=== PATIENT | female | born 1935 | race Caucasian/White ===

== ENCOUNTER 2020-07-01 09:13 | Outpatient (REF) | payer MEDICARE, SELFPAY ==
[2020-07-01 11:05] LABS: Alanine Aminotransferase 10 U/L (0-31); Albumin Level 3.7 g/dL (3.5-5.0); Alkaline Phosphatase 131 U/L (39-117); Anion Gap 12 (12-20); Aspartate Amino Transferase 20 U/L (5-31); Bilirubin Total 0.4 mg/dL (0.0-1.0); Blood Urea Nitrogen 15 mg/dL (9-16); Calcium 8.8 mg/dL (8.4-10.2); Carbon Dioxide 26 mmol/L (22-29); Chloride 105 mmol/L (96-108); Estimated Glomerular Filt Rate 36; Glucose Random 93 mg/dL (60-115); Lipase 34 U/L (8-78); Potassium 4.7 mmol/l (3.3-5.1); Sodium 138 mmol/L (135-145); Total Protein 7.7 g/dL (6.5-8.0)
[2020-07-01 11:26] LABS: Free T4 (Free Thyroxine) 0.97 ng/dL (0.71-1.85); Thyroid Stimulating Hormone 0.49 mIU/mL (0.32-4.0)
[2020-07-02 17:02] LABS: Triiodothyronine T3 Free 2.5 pg/mL (2.3-4.2)
== END 2020-07-01 09:14 | disposition home or self-care (01) ==
LOC: HO.10HDL 09:13
PROVIDERS: Absent Provider Internal Medicine; PCP Internal Medicine; Visit Provider Nurse Practitioner Family
DX: I48.0 Paroxysmal atrial fibrillation (principal); R00.2 Palpitations
CPT/HCPCS: 80053; 83690; 84439; 84443; 84481

== ENCOUNTER → 2020-07-24 13:29 | Outpatient (BNVA) | payer MEDICARE, OTHER, SELFPAY | PROVIDERS: PCP Internal Medicine; Visit Provider Internal Medicine Cardiovascular Disease | DX: I49.3 Ventricular premature depolarization (principal); I42.8 Other cardiomyopathies; Z45.02 Encounter for adjustment and management of automatic implantable cardiac defibrillator; I50.20 Unspecified systolic (congestive) heart failure; I48.0 Paroxysmal atrial fibrillation; Z79.01 Long term (current) use of anticoagulants; Z79.899 Other long term (current) drug therapy | CPT/HCPCS: 99212 ==

== ENCOUNTER → 2020-08-21 08:29 | Outpatient (REF) | payer MEDICARE, OTHER, SELFPAY ==
--- NOTE | 2020-08-21 08:32 | CA_ITS ---
Transthoracic Echocardiogram Patient (Last, First, Middle): Nina Azar, Gender: Female Date of : 1935 Age: 84 Procedure Date: 08/21/2020 Procedure Type: Transthoracic Echocardiogram Location: OP Height: 165.1 cm Weight: 56.25 kg BSA: 1.61 m2 Heart Rate: bpm BP: 128 / 66 mmHg Antiquer: Michael MD: Nitish Frias MD Symptoms: R00.2 - Palpitations Study Quality: Good ECG Rhythm: Undetermined Conclusions: - The left ventricular systolic function is severely decreased. The visually estimated ejection fraction is between 20-25%. - There is mild to moderately decreased right ventricular systolic function. - There is mild mitral valve regurgitation. Findings Procedure Information Contrast agent, definity, is being given per protocol without apparent complications. Left Ventricle Mildly increased left ventricular cavity size. There is normal left ventricular wall thickness. The left ventricular systolic function is severely decreased. The visually estimated ejection fraction is between 20 25%. There is severe global hypokinesis. E/E prime ratio is >15, consistent with elevated filling pressures. Evidence suggests grade I (mild) diastolic dysfunction. Right Ventricle Normal right ventricular cavity size. There is mild to moderately decreased right ventricular systolic function. There is an ICD wire seen in the right ventricle. Atria The left atrium is mildly dilated. The right atrium is normal in size. Aortic Valve There is a normal trileaflet aortic valve. There is no aortic valve stenosis. There is no aortic valve regurgitation. Mitral Valve There is mild anterior and posterior mitral leaflet thickening. The posterior mitral leaflet has restricted mobility. There is mild mitral annular calcification. There is mild mitral valve regurgitation. There is no mitral valve stenosis. Pulmonic Valve The pulmonic valve was not well visualized. There is mild pulmonic valve regurgitation. Tricuspid Valve Normal tricuspid valve structure. There is mild tricuspid valve regurgitation. The pulmonary artery systolic pressure is normal. Great Vessels The aortic annulus, sinuses of valsalva, and asc aorta are normal in size. Venous The inferior vena cava is normal in size and collapses greater than 50% with inspiration. Pericardium/Pleural There is no evidence of pericardial effusion. Prior Study Comparison No significant change compared to prior study dated: 10/25/2019. Measurements 2D Linear Measurements RVIDd: 3.24 RVIDd Index: 2.01 IVSd: 0.78 0.6-0.9/0.6-1.0 cm LVIDd: 5.94 3.9-5.3/4.2-5.9 cm LVIDd Index: 3.69 2.4-3.2/2.2-3.1 cm/m2 LVIDs: 5.82 2.0-3.6 cm LVPWd: 1.01 0.7-1.1 cm Ao Root: 3.10 2.1-3.5 cm LA Diam: 3.60 2.7-3.8/3.0-4.0 cm LAIDs Index: 2.24 1.5-2.3 cm/m2 LV Mass: 262.02 67-162/88-224 g LV Mass Index: 162.75 43-95/49-115 g/m2 LVOT Diam: 2.40 3.0+(-)1.3 cm 2D Systolic Function EF 4C: 33.10 >55% EF 2C: 43.70 >55% Mitral Valve MV Pk E: 0.70 MV PK A: 1.11 MV Decel Time: 177.00 E/A: 0.60 E'Lateral: 2.94 E'Medial: 3.37 E/E' Med: 20.90 E/E' Lat: 23.90 MR Vol - PW Dopp: 33.32 MR VTI: 1.96 MR ERO: 17.00 MR Alias Maninder: 0.39 MR RAD: 0.60 Aortic Valve AoV Pk Maninder: 0.93 AoV Mn Maninder: 0.72 AoV VTI: 0.22 AoV Pk Grad: 3.00 Aov Mn Grad: 2.00 SHEREE Cont.VTI: 1.43 LVOT LVOT Pk Maninder: 0.36 LVOT Mn Maninder: 0.23 LVOT VTI: 0.07 LVOT Pk Grad: 1.00 LVOT Mn Grad: 0.00 LVOT Diam: 2.40 LVOT Area: 4.52 Diastolic Function MV Pk E: 0.70 MV Pk A: 1.11 E/A: 0.60 E'Medial: 3.37 E/E' Med: 20.90 E' Laterial: 2.94 E/E' Lat: 23.90 Tricuspid Valve TR Pk Maninder: 2.00 TR Pk Grad: 16.00 RA Press: 3.00 RVSP: 19.00 Great Vessels Aorta Ao Root-2D: 3.10 2.0-3.7 cm Ao Asc: 3.00 2.1-3.4 cm Ao Arch: 2.70 Updated in Other Vendor System with Status of Final Jose Guadalupe Jordan MD electronically signed on 08/23/2020 12:36:08 PM with status of Final
== END ==
LOC: HO.CARD 08:29
PROVIDERS: PCP Internal Medicine; Visit Provider Internal Medicine Cardiovascular Disease
DX: E03.9 Hypothyroidism, unspecified (principal); I42.9 Cardiomyopathy, unspecified; I48.0 Paroxysmal atrial fibrillation; I50.22 Chronic systolic (congestive) heart failure; I44.7 Left bundle-branch block, unspecified; Z95.810 Presence of automatic (implantable) cardiac defibrillator; R00.2 Palpitations
CPT/HCPCS: 93306; Q9957

== ENCOUNTER 2020-10-01 17:20 | Inpatient (IN) | payer MEDICARE, OTHER, SELFPAY ==
[2020-10-01 17:33] VITALS: BP 128/79; BP 150/77; PULSE 70; PULSE 77; RESP 18; TEMP 36.6; O2SAT 98; BMI 20.1
--- NOTE | 2020-10-01 17:45 | CT_ITS ---
EXAMINATION: CT OF THE HEAD AND CERVICAL SPINE WITHOUT CONTRAST CLINICAL INFORMATION: Status post fall with head injury. No loss of consciousness COMPARISON: CTA 10/25/2019 TECHNIQUE: Contiguous axial imaging was performed from the vertex to the thoracic inlet, through the head and cervical spine, without intravenous administration of contrast. Coronal and sagittal reformatted images through the cervical spine were obtained on the technologists workstation. Total exam dose-length product: 305+672 mGy-cm This CT examination was performed using dose optimization techniques as appropriate, variously including the following: *Automated exposure control *Adjustment of mA and/or kV according to patient size (this includes techniques or standardized protocols for targeted exams where dose is matched to indication/reason for exam; i.e. extremities or head) *Use of iterative reconstruction technique FINDINGS: Head: No acute intracranial hemorrhage. No extra-axial fluid collection. Goodman-white matter differentiation is preserved without evidence of acute large vessel territory ischemia. Symmetric, concordant ventricles and sulci; no hydrocephalus. No mass effect or midline shift. There is a similar appearance of moderate patchy periventricular and subcortical white matter hypodensity consistent with age-appropriate chronic microvascular white matter ischemic changes. 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 Streak artifact limits evaluation of the posterior fossa. There is fluid in the left ethmoid air cells. The frontal sinuses are hypoplastic. There is fluid in the mastoid air cells. Globes and orbits are normal. Cervical spine: Normal pre-vertebral soft tissues. No fracture seen. There is 2 to 3 mm anterolisthesis of C4 on C5, likely degenerative. There is multilevel degenerative disc disease greatest at C5-C6 and especially C7-T1. There is multilevel facet arthropathy. Thyroid homogeneous with no nodules seen. There is no focal consolidation at the lung apices. The trachea is dilated diffusely No cervical lymphadenopathy, mass, or fluid collection. CT/CT cervical spine wo con IMPRESSION: No acute intracranial pathology. No acute osseous abnormality of the cervical spine.
--- NOTE | 2020-10-01 17:45 | ECG_ITS ---
Test Reason : FALL Blood Pressure : / mmHG Vent. Rate : 072 BPM Atrial Rate : 072 BPM P-R Int : 000 ms QRS Dur : 184 ms QT Int : 510 ms P-R-T Axes : 065 -83 126 degrees QTc Int : 558 ms Atrial sensed and Ventricular-paced rhythm with occasional Premature ventricular complexes Abnormal ECG When compared with ECG of 19-MAY-2020 22:24, No significant changes seen Referred By: Alaina Sánchez Electronically Signed By:STEPHANE RING
--- NOTE | 2020-10-01 17:45 | XR_ITS ---
EXAMINATION: XR SHOULDER, LEFT CLINICAL INFORMATION: Left shoulder pain. Status post fall. COMPARISON: None TECHNIQUE: AP external rotation, Grashey, scapular Y, and axillary views of the left shoulder. FINDINGS: Comminuted impacted fracture of the surgical neck with likely extension into the greater tuberosity. Examination is limited by single view. Within this limitation the acromioclavicular and glenohumeral joints appear approximated. Left chest wall cardiac device noted. Bone density is preserved. No lytic or blastic osseous lesions. Visualized left lung is clear. XR/XR shoulder LT 1V IMPRESSION: Left shoulder: Comminuted impacted surgical neck fracture with extension into the greater tuberosity. Glenohumeral joint appears approximated on this limited single view.
[2020-10-01 18:38] LABS: MANUAL DIFF FLAG NO
[2020-10-01] MEDS: 0.9 % Sodium Chloride 1,000 ML 999 ML IVCONT ×2 (18:40→21:30)
[2020-10-01] MEDS: oxyCODONE HCl Immed Release 5 MG TABLET PO (18:41)
[2020-10-01 18:52] LABS: Basophils Absolute Auto 0.1 X10*3/uL (0.0-0.2); Basophils Percent Auto 0.8 % (0-2); Eosinophils Absolute Auto 0.2 X10*3/uL (0.0-0.4); Eosinophils Percent Auto 3.2 % (0-4); Hematocrit 43.5 % (37-47); Hemoglobin 14.2 g/dl (12.0-16.0); Imm Gran Abs Auto 0.24 X10*3/uL (0.00-0.03); Imm Gran Pct Auto 3.2 % (0.0-0.4); Lymphocytes Absolute Auto 2.4 X10*3/uL (1.2-4.9); Lymphocytes Percent Auto 31.9 % (20-40); Mean Corpuscular HGB Conc 32.6 g/dl (31.0-35.0); Mean Corpuscular Hemoglobin 31.6 pg (27.0-33.0); Mean Corpuscular Volume 96.9 fL (80-98); Mean Platelet Volume 10.3 fL (9.4-12.3); Monocytes Absolute Auto 0.4 X10*3/uL (0.1-1.2); Monocytes Percent Auto 5.1 % (2-11); Neutrophils Absolute Auto 4.3 X10*3/uL (2.0-8.3); Neutrophils Percent Auto 55.8 % (45-73); Platelet Count 124 X10*3/uL (160-400); Red Blood Count 4.49 X10*6/uL (4.20-5.50); Red Cell Distribution Width 13.6 % (11.0-16.0); White Blood Count 7.6 X10*3/uL (4.8-10.8)
[2020-10-01 19:03] LABS: Alanine Aminotransferase 18 U/L (0-31); Albumin Level 4.1 g/dL (3.5-5.0); Alkaline Phosphatase 165 U/L (39-117); Anion Gap 18 (12-20); Aspartate Amino Transferase 36 U/L (5-31); Bilirubin Direct < 0.2 mg/dL (0.0-0.5); Bilirubin Total 0.3 mg/dL (0.0-1.0); Blood Urea Nitrogen 17 mg/dL (9-16); Calcium 8.8 mg/dL (8.4-10.2); Carbon Dioxide 21 mmol/L (22-29); Chloride 105 mmol/L (96-108); Creatinine Clr Calc Pharmacy 24.6; Estimated Glomerular Filt Rate 34; Glucose Random 158 mg/dL (60-115); Magnesium 2.6 mg/dL (1.6-2.6); Sodium 139 mmol/L (135-145); Total Protein 8.8 g/dL (6.5-8.0)
[2020-10-01 19:17] LABS: Influenza A PCR NEGATIVE (Negative); Influenza B PCR NEGATIVE (Negative); Resp Syncy Virus RNA Qual PCR NEGATIVE (Negative); SARS COV2 PCR INHOUSE NEGATIVE (Negative)
--- NOTE | 2020-10-01 19:26 | ED_ITS ---
HPI - Fall General Chief Complaint: Fall Stated Complaint: FALL, RT SHOULDER/ARM/BACK PAIN,+COLLAR,-THINNERS Time Seen by Provider: 10/01/20 17:34 Source: patient and EMS Mode of arrival: EMS Limitations: no limitations History of Present Illness HPI Narrative: 84yoF c PMHx of CVA, chronic systolic CHF with reduced ejection fracture, atrial fibrillation, cardiomyopathy, frequent PVCs c Pacemaker/biventricular ICD in place, hypertension, hyperlipidemia, hypercholesterolemia, hypothyroidism and anxiety disorder presenting to the ED vis EMS after she had a mechanical fall outside of her house where she went to go feed the squirrels she slipped on an ice reports she flipped over backwards landing on her back/left shoulder and was unable to get up for approximately 1 hour presenting with pain to left shoulder and limited range of motion. Reports possible head injury although denies loss of consciousness. She is unsure if she is currently on blood thinners. Denies any symptoms prior to the fall which include dizziness, lightheadedness, changes in vision, headaches, nausea/vomiting, chest pain or shortness of breath, palpitations, any symptoms. Denies any other symptoms at this time other than her left shoulder pain. Related Data Home Medications Medication Instructions Recorded Confirmed famotidine 20 mg tablet 20 mg PO BID 07/24/20 10/01/20 lorazepam 1 mg tablet 1 mg PO BID PRN 07/24/20 10/01/20 metoprolol tartrate 25 mg tablet 25 mg PO BID 07/24/20 10/01/20 mirtazapine 15 mg tablet 15 mg PO BEDTIME 07/24/20 10/01/20 lisinopril 5 mg PO DAILY 10/01/20 10/01/20 paroxetine HCl 10 mg PO DAILY 10/01/20 10/01/20 Previous Rx's Medication Instructions Recorded acetaminophen [Tylenol Extra 1,000 mg PO QID PRN #14 tab 10/01/20 Strength] lidocaine [Lidoderm] 1 patch TOPICAL DAILY #30 ea 10/01/20 oxycodone 5 mg PO Q8H PRN #14 tab 10/01/20 Allergies Allergy/AdvReac Type Severity Reaction Status Date / Time No Known Allergies Allergy Unverified 05/29/20 15:36 [No Known Allergies*] Review of Systems Review of Systems: Constitutional : No changes in activity, No lethargy, No recent prior head injury, No agitation, No increased fussiness ENT/Mouth : No Ear Pain, No Nasal discharge/drainage Eyes: No Eye Pain, No Swelling, No Redness, No Foreign Body, No Vision Changes Cardiovascular : No Chest Pain, No SOB Respiratory : No Cough Gastrointestinal : No Nausea, No Vomiting, No abdominal Pain Genitourinary : No Dysuria, No Urinary Frequency, No Urinary Incontinence, No Urgency, No Flank Pain Musculoskeletal : + joint pain, No neck stiffness, No back pain/injury Skin : No lacerations Neuro : No unsteady gait, No Paresthesias, No Loss of Consciousness, No altered mental status, No Headache Yes all other systems are reviewed and are negative [facility] Past Medical History Attestation statement: The following information was validated with the patient. Medical History Biventricular ICD (implantable cardioverter-defibrillator) in place Frailty Frequent PVCs Heart failure with reduced ejection fraction Nonischemic cardiomyopathy Palpitations Paroxysmal atrial fibrillation Surgical History History of permanent cardiac pacemaker placement Hx of Achilles tendon repair Hx of hysterectomy Family History Family History Father No problems noted. Mother No problems noted. Social History Social History Smoking Status: Never smoker Advance Directives: No Advance Directives Information Provided: Yes Physical Exam Vital Signs: Vital Signs: Last Vital Signs Temp 98.6 F 10/01/20 20:27 Pulse 78 10/01/20 20:27 Resp 20 10/01/20 20:27 BP 122/74 10/01/20 20:27 Pulse Ox 92 10/01/20 20:27 Body Mass Index 20.1 Vital signs have been reviewed as normal and appeared to be correct. Blood pressure hypertensive. Heart rate normal. Respiration rate normal. Temperature normal. Oxygen saturation normal. Appearance: Alert. Oriented X3. Mild acute distress due to pain to left shoulder. Head: Normal external exam. Normocephalic. Atraumatic. Able to rotate head bilaterally. Eyes: PERRLA. EOMI. No nystagmus noted. Conjunctiva and sclera normal. Eyelids normal. Corneal reflex normal. ENT: EAC normal. TM's Normal. Hearing normal. Pharynx normal. Uvula midline. tongue midline. Moist mucous membranes. No trismus noted. No drooling noted. No muffled voice noted. Neck: Patient with C-collar in place. C-collar not cleared after exam will stay in place until CT scan negative for any fractures. Otherwise Normal inspection. Neck supple. No adenopathy. Thyroid Normal. No meningeal signs. No neck mass noted. No abrasions/lacerations/ecchymoses or foreign bodies noted. CVS: Normal heart rate and rhythm. Heart sound normal. No murmurs noted. Pulses normal throughout. Respiratory: No respiratory distress. Painless inspiration. Breath sounds normal. No wheezes/rales/rhonchi noted. Chest nontender. No accessory muscle usage noted or decreased air movement noted. Abdomen: Soft and nontender. Bowel sounds normal in all 4 quadrants. No distention noted. No organomegaly noted. No visible injury noted. Back: No CVA tenderness. Full range of motion noted. Skin: Skin warm and dry. Normal skin color. Normal skin turgor. No rashes/lesions/lacerations noted. Extremities: Left shoulder at the anterior AC joint aspect patient has moderate tenderness to palpation questioning deformity. No abrasions/lacerations/ecchymosis noted. Patient has limited range of motion with extension along with internal and external rotation. No lower extremity edema. Otherwise all other Extremities exhibit normal range of motion and nontender. Able to shrug shoulders bilaterally and keep up against resistance. Neuro: Oriented X 3. No motor deficit. No sensory deficit. Reflexes normal. Moving all extremities. No focal motor deficits. Cranial nerves II-XI intact bilaterally. Facial strength normal. Normal cognition. Speech normal. Strength 5/5 throughout. No pronator drift. No tremor noted. No fasciculations noted. Muscle tone normal throughout. No asterixis noted. [id number] test normal. Heel to gaviria test normal. No rigidity noted. Course Course Course Narrative: 84yoF c PMHx of CVA, chronic systolic CHF with reduced ejection fracture, atrial fibrillation, cardiomyopathy, frequent PVCs c Pacemaker/biventricular ICD in place, hypertension, hyperlipidemia, hypercholesterolemia, hypothyroidism and anxiety disorder presenting to the ED vis EMS after she had a mechanical fall where she slipped and fell outside of her house landing on her back/left shoulder unsure if she had an head injury. No LOC unsure if she is on blood thinners. - on exam patient is alert and oriented x3. Patient has C-collar in place will not remove until CT scan is negative for any acute processes such as fractures. Is in distress due to left shoulder pain otherwise no other acute distress. No focal neuro deficits noted. Complaining of severe left shoulder pain with limited range of motion. No other obvious deformities noted. - Plan: Labs, CT scan of brain/cervical spine, CT scan of chest without contrast, CT scan of abdomen pelvis without contrast, EKG. Provide 5 mg of oxycodone as patient is declining morphine at this time then re-evaluate. Reevaluation(s) Reevaluation #1: - BUN 17. Creatinine 1.48. Glucose 158. AST 36. Alkaline phosphate 165. CPK 238. Otherwise all other labs are within normal limits. UA within normal limits no evidence of UTI. COVID/RSV/flu negative. - EKG was paced and within normal limits similar compared to prior no acute ischemic changes are noted. - CT scan of brain/cervical spine within normal limits no acute processes noted therefore C-collar was removed. - x-ray to left shoulder revealed comminuted humeral head fracture. - therefore patient is receiving 2 L of IV fluids then a repeat chemistry to evaluate if improved after the IV fluids. Patient's kidney function most likely improved due to dehydration. - I also consulted with the orthopedic physician assistant property manager Leonel about the patient's left humeral head fracture and she instructed me to place her in a sling and have the patient follow-up within a week. - I called the patient's son Douglas Liu at [phone] and explained to him all the patient's blood work and her diagnosis and what we were waiting for. He went to the pharmacy to picking machine operator helper the patient's prescription for pain meds. He understands and agrees with the plan about following up with Orthopedics a 1 week. - awaiting repeat chemistry after the 2 L of IV fluids. Also awaiting CT scan of chest without contrast and CT scan of abdomen and pelvis without contrast to evaluate for any other acute processes such as fractures in the spine or the chest. - sign out at this time to Dwaine, PA-C Time: 20:50 - Fall Medical Records Attestation: I reviewed the patient's medical records. Lab Data Attestation: I reviewed the patient's lab results. Result diagrams: 10/01/20 18:32 10/01/20 18:31 Labs: Lab Results 10/01/20 10/01/20 10/01/20 Range/Units 18:31 18:31 18:31 WBC (4.8-10.8) X10*3/uL RBC (4.20-5.50) X10*6/uL Hgb (12.0-16.0) g/dl Hct (37-47) % MCV (80-98) fL MCH (27.0-33.0) pg MCHC (31.0-35.0) g/dl RDW (11.0-16.0) % Plt Count (160-400) X10*3/uL MPV (9.4-12.3) fL Immature Gran % (Auto) (0.0-0.4) % Neut % (Auto) (45-73) % Lymph % (Auto) (20-40) % Knox % (Auto) (2-11) % Eos % (Auto) (0-4) % Baso % (Auto) (0-2) % Lymph # (Auto) (1.2-4.9) X10*3/uL Knox # (Auto) (0.1-1.2) X10*3/uL Eos # (Auto) (0.0-0.4) X10*3/uL Baso # (Auto) (0.0-0.2) X10*3/uL Abs Immat Gran (auto) (0.00-0.03) X10*3/uL Absolute Neuts (auto) (2.0-8.3) X10*3/uL Absolute Nucleated RBC (0.0-0.012) X10*3/uL Nucleated RBC % (auto) (0.0-0.2) /100WBC Hold Purple Top PT (10.8-13.0) SEC INR (0.9-1.1) Sodium 139 (135-145) mmol/L Potassium 5.0 (3.3-5.1) mmol/l Chloride 105 (96-108) mmol/L Carbon Dioxide 21 L (22-29) mmol/L Anion Gap 18 (12-20) BUN 17 H (9-16) mg/dL Creatinine 1.48 H (0.5-1.4) mg/dL Estim Creat Clear Calc 24.6 Estimated GFR 34 Random Glucose 158 H D (60-115) mg/dL Calcium 8.8 (8.4-10.2) mg/dL Magnesium 2.6 (1.6-2.6) mg/dL Total Bilirubin 0.3 (0.0-1.0) mg/dL Direct Bilirubin < 0.2 (0.0-0.5) mg/dL AST 36 H D (5-31) U/L ALT 18 (0-31) U/L Alkaline Phosphatase 165 H D (39-117) U/L Total Creatine Kinase 238 H (26-140) U/L Total Protein 8.8 H (6.5-8.0) g/dL Albumin 4.1 (3.5-5.0) g/dL Urine Color Urine Appearance Urine pH (5.0-8.0) Ur Specific [place] (1.005-1.025) Urine Protein (NEG-TRACE) MG/DL Urine Glucose (UA) (NEG) MG/DL Urine Ketones (NEG) MG/DL Urine Blood (NEG) Urine Nitrite (NEG) Ur Leukocyte Esterase (NEG) Urine RBC (0) /HPF Urine WBC (0-4) /HPF Ur Squamous Epith Cells /LPF Urine Bacteria /LPF Coronavirus (PCR) NEGATIVE (Negative) Influenza Type A (PCR) NEGATIVE (Negative) Influenza Type B (PCR) NEGATIVE (Negative) RSV RNA Qual (PCR) NEGATIVE (Negative) 10/01/20 10/01/20 10/01/20 Range/Units 18:32 18:32 18:32 WBC 7.6 (4.8-10.8) X10*3/uL RBC 4.49 (4.20-5.50) X10*6/uL Hgb 14.2 (12.0-16.0) g/dl Hct 43.5 (37-47) % MCV 96.9 (80-98) fL MCH 31.6 (27.0-33.0) pg MCHC 32.6 (31.0-35.0) g/dl RDW 13.6 (11.0-16.0) % Plt Count 124 L (160-400) X10*3/uL MPV 10.3 (9.4-12.3) fL Immature Gran % (Auto) 3.2 H (0.0-0.4) % Neut % (Auto) 55.8 (45-73) % Lymph % (Auto) 31.9 (20-40) % Knox % (Auto) 5.1 (2-11) % Eos % (Auto) 3.2 (0-4) % Baso % (Auto) 0.8 (0-2) % Lymph # (Auto) 2.4 (1.2-4.9) X10*3/uL Knox # (Auto) 0.4 (0.1-1.2) X10*3/uL Eos # (Auto) 0.2 (0.0-0.4) X10*3/uL Baso # (Auto) 0.1 (0.0-0.2) X10*3/uL Abs Immat Gran (auto) 0.24 H (0.00-0.03) X10*3/uL Absolute Neuts (auto) 4.3 (2.0-8.3) X10*3/uL Absolute Nucleated RBC 0.000 (0.0-0.012) X10*3/uL Nucleated RBC % (auto) 0.0 (0.0-0.2) /100WBC Hold Purple Top SEE NOTE PT 12.0 (10.8-13.0) SEC INR 1.0 (0.9-1.1) Sodium (135-145) mmol/L Potassium (3.3-5.1) mmol/l Chloride (96-108) mmol/L Carbon Dioxide (22-29) mmol/L Anion Gap (12-20) BUN (9-16) mg/dL Creatinine (0.5-1.4) mg/dL Estim Creat Clear Calc Estimated GFR Random Glucose (60-115) mg/dL Calcium (8.4-10.2) mg/dL Magnesium (1.6-2.6) mg/dL Total Bilirubin (0.0-1.0) mg/dL Direct Bilirubin (0.0-0.5) mg/dL AST (5-31) U/L ALT (0-31) U/L Alkaline Phosphatase (39-117) U/L Total Creatine Kinase (26-140) U/L Total Protein (6.5-8.0) g/dL Albumin (3.5-5.0) g/dL Urine Color Urine Appearance Urine pH (5.0-8.0) Ur Specific [place] (1.005-1.025) Urine Protein (NEG-TRACE) MG/DL Urine Glucose (UA) (NEG) MG/DL Urine Ketones (NEG) MG/DL Urine Blood (NEG) Urine Nitrite (NEG) Ur Leukocyte Esterase (NEG) Urine RBC (0) /HPF Urine WBC (0-4) /HPF Ur Squamous Epith Cells /LPF Urine Bacteria /LPF Coronavirus (PCR) (Negative) Influenza Type A (PCR) (Negative) Influenza Type B (PCR) (Negative) RSV RNA Qual (PCR) (Negative) 10/01/20 Range/Units 19:07 WBC (4.8-10.8) X10*3/uL RBC (4.20-5.50) X10*6/uL Hgb (12.0-16.0) g/dl Hct (37-47) % MCV (80-98) fL MCH (27.0-33.0) pg MCHC (31.0-35.0) g/dl RDW (11.0-16.0) % Plt Count (160-400) X10*3/uL MPV (9.4-12.3) fL Immature Gran % (Auto) (0.0-0.4) % Neut % (Auto) (45-73) % Lymph % (Auto) (20-40) % Knox % (Auto) (2-11) % Eos % (Auto) (0-4) % Baso % (Auto) (0-2) % Lymph # (Auto) (1.2-4.9) X10*3/uL Knox # (Auto) (0.1-1.2) X10*3/uL Eos # (Auto) (0.0-0.4) X10*3/uL Baso # (Auto) (0.0-0.2) X10*3/uL Abs Immat Gran (auto) (0.00-0.03) X10*3/uL Absolute Neuts (auto) (2.0-8.3) X10*3/uL Absolute Nucleated RBC (0.0-0.012) X10*3/uL Nucleated RBC % (auto) (0.0-0.2) /100WBC Hold Purple Top PT (10.8-13.0) SEC INR (0.9-1.1) Sodium (135-145) mmol/L Potassium (3.3-5.1) mmol/l Chloride (96-108) mmol/L Carbon Dioxide (22-29) mmol/L Anion Gap (12-20) BUN (9-16) mg/dL Creatinine (0.5-1.4) mg/dL Estim Creat Clear Calc Estimated GFR Random Glucose (60-115) mg/dL Calcium (8.4-10.2) mg/dL Magnesium (1.6-2.6) mg/dL Total Bilirubin (0.0-1.0) mg/dL Direct Bilirubin (0.0-0.5) mg/dL AST (5-31) U/L ALT (0-31) U/L Alkaline Phosphatase (39-117) U/L Total Creatine Kinase (26-140) U/L Total Protein (6.5-8.0) g/dL Albumin (3.5-5.0) g/dL Urine Color YELLOW Urine Appearance CLEAR Urine pH 6.0 (5.0-8.0) Ur Specific [place] 1.015 (1.005-1.025) Urine Protein NEG (NEG-TRACE) MG/DL Urine Glucose (UA) NEG (NEG) MG/DL Urine Ketones NEG (NEG) MG/DL Urine Blood TRACE (NEG) Urine Nitrite NEG (NEG) Ur Leukocyte Esterase NEG (NEG) Urine RBC 0-2 (0) /HPF Urine WBC 0-2 (0-4) /HPF Ur Squamous Epith Cells TRACE /LPF Urine Bacteria NONE /LPF Coronavirus (PCR) (Negative) Influenza Type A (PCR) (Negative) Influenza Type B (PCR) (Negative) RSV RNA Qual (PCR) (Negative) Imaging Data Left shoulder: Attestation: I personally reviewed and interpreted this imaging study as follows: Radiologist's impression: FINDINGS: Comminuted impacted fracture of the surgical neck with likely extension into the greater tuberosity. Examination is limited by single view. Within this limitation the acromioclavicular and glenohumeral joints appear approximated. Left chest wall cardiac device noted. Bone density is preserved. No lytic or blastic osseous lesions. Visualized left lung is clear. XR/XR shoulder LT 1V IMPRESSION: Left shoulder: Comminuted impacted surgical neck fracture with extension into the greater tuberosity. Glenohumeral joint appears approximated on this limited single view. CT scan of brain/cervical spine: Attestation: I personally reviewed and interpreted this imaging study as follows: Radiologist's impression: FINDINGS: Head: No acute intracranial hemorrhage. No extra-axial fluid collection. Goodman-white matter differentiation is preserved without evidence of acute large vessel territory ischemia. Symmetric, concordant ventricles and sulci; no hydrocephalus. No mass effect or midline shift. There is a similar appearance of moderate patchy periventricular and subcortical white matter hypodensity consistent with age-appropriate chronic microvascular white matter ischemic changes. 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 Streak artifact limits evaluation of the posterior fossa. There is fluid in the left ethmoid air cells. The frontal sinuses are hypoplastic. There is fluid in the mastoid air cells. Globes and orbits are normal. Cervical spine: Normal pre-vertebral soft tissues. No fracture seen. There is 2 to 3 mm anterolisthesis of C4 on C5, likely degenerative. There is multilevel degenerative disc disease greatest at C5-C6 and especially C7-T1. There is multilevel facet arthropathy. Thyroid homogeneous with no nodules seen. There is no focal consolidation at the lung apices. The trachea is dilated diffusely No cervical lymphadenopathy, mass, or fluid collection. CT/CT head/brain wo con IMPRESSION: No acute intracranial pathology. No acute osseous abnormality of the cervical spine. ECG Data Attestation: I personally reviewed and interpreted this ECG as follows: ECG interpretation date: 10/01/20 ECG interpretation time: 17:58 Interpretation: Ventricular paced rhythm with occasional PVCs no acute ischemic changes at this time. Similar when compared to prior EKG May 2020. Critical Care Time Critical Care Time Critical Care Time: Yes Total Critical Care Time: 60 Attestation: I personally attest to this time spent taking care of the patient Discharge Plan Discharge Clinical Impression: Acute renal insufficiency, Acute dehydration Fall Qualifiers: Encounter type: initial encounter Qualified Code(s): W19.XXXA - Unspecified fall, initial encounter Fracture, humerus closed Qualifiers: Encounter type: initial encounter Humerus Location: surgical neck Fracture morphology: unspecified fracture morphology Fracture alignment: nondisplaced Laterality: left Qualified Code(s): S42.215A - Unspecified nondisplaced fracture of surgical neck of left humerus, initial encounter for closed fracture Instructions: Dehydration (ED), Arm Fracture in Adults (ED), Acute Kidney Injury (DC), Fall Prevention (ED) Prescriptions: New oxycodone 5 mg tablet 5 mg PO Q8H PRN (Reason: pain) Qty: 14 RF: 0 acetaminophen [Tylenol Extra Strength] 500 mg tablet 1,000 mg PO QID PRN (Reason: pain) Qty: 14 RF: 0 lidocaine [Lidoderm] 5 % adhesive patch,medicated 1 patch topical DAILY Qty: 30 RF: 0 No Action paroxetine HCl 10 mg Tablet 10 mg PO DAILY RF: 0 lisinopril 5 mg Tablet 5 mg PO DAILY RF: 0 lorazepam 1 mg tablet 1 mg PO BID PRN (Reason: Anxiety) RF: 0 famotidine 20 mg tablet 20 mg PO BID RF: 0 mirtazapine 15 mg tablet 15 mg PO BEDTIME RF: 0 metoprolol tartrate 25 mg tablet 25 mg PO BID RF: 0 Referrals: Benton Dee MD [Physician] - 2 days (Call tomorrow to make an appointment within 1 week) Print Language: Uzbek
--- NOTE | 2020-10-01 19:29 | CT_ITS ---
EXAMINATION: CT CHEST, ABDOMEN AND PELVIS WITHOUT CONTRAST CLINICAL INFORMATION: Status post fall with lower back pain. COMPARISON: CT abdomen and pelvis 04/23/2019. TECHNIQUE: Multidetector volumetric imaging was performed from the thoracic inlet through the pubic symphysis without IV contrast. Sagittal and coronal reformatted images were obtained on the technologist's workstation. This CT examination was performed using dose optimization techniques as appropriate, variously including the following: *Automated exposure control. *Adjustment of mA and/or kV according to patient size (this includes techniques or standardized protocols for targeted exams where dose is matched to indication/reason for exam; i.e. extremities or head). *Use of iterative reconstruction technique. DLP: 571 mGy-cm FINDINGS: CHEST: Lung: The lungs are clear without worrisome focal opacity or nodule. Bibasilar scarring is present with some bronchiectasis noted at the right lung base. Mediastinum: Extensive coronary calcifications are present. A left chest wall pacemaker is present with 3 leads. Heart size within normal limits. Pericardium/Pleura: No significant effusion. No pleural mass or thickening. Chest Wall/Axilla: There is partial visualization of a left humeral neck fracture better seen on plain films performed earlier today. No other occult fractures are seen. ABDOMEN/PELVIS: Peritoneal Space: A number of large calcifications are present in the peritoneal cavity predominantly on the right. These are unchanged when compared to the study from 04/23/2019. Liver, Gallbladder, Biliary Tree: The liver is normal in size, shape, and attenuation. No focal hepatic lesion or biliary ductal dilatation is present. A single new layering gallstone is present in the gallbladder. There is no evidence of cholecystitis. Pancreas: Unremarkable. Spleen: Unremarkable. Adrenal Glands: Unremarkable. Kidneys and Ureters: The kidneys are normal in size, shape, and attenuation. No hydronephrosis, hydroureter, or calculi seen. No perinephric stranding. Bladder: Unremarkable. Gastrointestinal Tract: There appear to be 2 duodenal diverticulum present, one arising from the second portion and the other arising from the fourth portion. The small and large bowel are otherwise unremarkable. The appendix is unremarkable. Abdominal Wall: No significant hernia is appreciated. Lymph Nodes: No lymphadenopathy. Vascular: Severe atherosclerotic changes present in the aorta and iliac vessels. The IVC appears unremarkable. PELVIC VISCERA: Patient appears to be status post hysterectomy. OSSEUS STRUCTURES: There is marked generalized osteopenia present. Degenerative changes are present with disc space narrowing at L5-S1 with mild grade 1 anterolisthesis. Grade 1 anterolisthesis also noted at L4 upon L5. Again seen are severe compression fractures involving T12 and L1. Marked facet joint arthritic changes are present at L4-L5 and L5-S1. These findings are all unchanged when compared to the prior study. No new fracture is seen. CT/CT abdomen pelvis wo con IMPRESSION: 1. Acute fracture of left shoulder better characterized on plain films. 2. Chronic marked compression fractures involving T12 and L1. 3. No other new acute associated fractures are seen. 4. Other incidental findings as described above.
--- NOTE | 2020-10-01 19:31 | PC.NURSE ---
ASSUMED CARE OF PT. PT RESTING IN STRETCHER WITH X-RAY AT BEDSIDE. PT IS C/O PAIN TO LEFT SHOULDER. PT IS A DIFFICULT STICK AND WARM BLANKET APPLIED TO ARM FOR POSSIBLE IV PLACEMENT. PA AWARE OF PT'S PAIN IN L SHOULDER/ARM. SON NOT IN WR FOR UPDATE. PA WILL CONTACT SON FOR UPDATE. PT ALERT, C-COLLAR IN PLACE. RESPIRATIONS EASY, N/L. SKIN W/D. PT ON BEDPAN, UA SENT TO LAB FOR EVAL. WILL CONTINUE TO MONITOR PT.
--- NOTE | 2020-10-01 19:43 | PC.NURSE ---
Two IV attempts unsuccessful by this RN. Pts arms/hands noted to be extremely cold, warmed with blankets and warm wipes. Unable to use left arm to establish IV access due to shoulder fracture. Plan for SHAYNA Miner to obtain access with U/S.
[2020-10-01 19:54] LABS: Appearance Urine CLEAR; Color Urine YELLOW; Glucose Urine UA NEG (NEG); Leukocyte Esterase Urine NEG (NEG); Nitrite Urine NEG (NEG); Specific Gravity - Urine 1.015 (1.005-1.025); Urine Blood TRACE (NEG); Urine Ketones NEG (NEG); Urine Protein NEG (NEG-TRACE)
[2020-10-01 20:00] VITALS: PULSE 80; RESP 16; O2SAT 97
[2020-10-01 20:08] LABS: RBC Urine 0-2 /HPF (0); Squamous Epithelial Cell Urine TRACE /LPF; WBC Urine 0-2 /HPF (0-4)
[2020-10-01] MEDS: Morphine Sulfate 4 MG/ML CARTRIDGE 2 MG IVPUSH (20:08)
--- NOTE | 2020-10-01 20:26 | PC.NURSE ---
C-COLLAR REMOVED BY PA. PT STATES MY PAIN IS BETTER AFTER PAIN MEDS . NS UP AND RUNNING INTO L FA IV. PT IS C/O NAUSEA AT THIS TIME. PA IN ROOM FOR RE-EVAL. WILL CONTINUE TO MONITOR PT.
[2020-10-01 20:27] VITALS: BP 122/74; PULSE 78; RESP 20; TEMP 37; O2SAT 92
[2020-10-01] MEDS: ondansetron HCL 4 MG/2 ML VIAL IVPUSH (21:30)
[2020-10-01] MEDS: 0.9 % Sodium Chloride 500 ML IV (22:20)
[2020-10-01 23:32] LABS: Alanine Aminotransferase 17 U/L (0-31); Albumin Level 3.7 g/dL (3.5-5.0); Alkaline Phosphatase 137 U/L (39-117); Anion Gap 16 (12-20); Aspartate Amino Transferase 34 U/L (5-31); Bilirubin Total 0.4 mg/dL (0.0-1.0); Blood Urea Nitrogen 18 mg/dL (9-16); Calcium 7.9 mg/dL (8.4-10.2); Carbon Dioxide 21 mmol/L (22-29); Chloride 108 mmol/L (96-108); Creatinine Clr Calc Pharmacy 26.3; Estimated Glomerular Filt Rate 36; Glucose Random 155 mg/dL (60-115); Potassium 4.7 mmol/l (3.3-5.1); Sodium 140 mmol/L (135-145); Total Protein 7.6 g/dL (6.5-8.0)
[2020-10-01 23:41] VITALS: BP 106/65; PULSE 97; RESP 18; TEMP 37; O2SAT 91
[2020-10-01 23:49] VITALS: BP 103/70; PULSE 86; RESP 18; O2SAT 96
[2020-10-02] VITALS (11 sets, daily range): BP systolic 93–132; BP diastolic 43–69; PULSE 65–78; RESP 16–18; TEMP 36–37; O2SAT 88–97
--- NOTE | 2020-10-02 00:10 | PC.NURSE ---
IV REMOVED INTACT. PT ON COMMODE AND DECIDED TO SHE WAS IN TO MUCH PAIN AND NAUSEATED TO GO HOME. PETER (SON) WAS CONTACTED FOR [facility] AND WAS CALLED TO CANCEL RIDE. PT WILL BE SEEING CASE MGT/PT IN THE MORNING. WILL CONTINUE TO MONITOR PT.
[2020-10-02] MEDS: HYDROmorphone HCl 0.5 MG/0.5 ML SYRINGE IM (01:18)
--- NOTE | 2020-10-02 02:00 | PC.NURSE ---
PT RETURNS TO [facility] BACK INTO [facility]. NOTIFIED FAMILY OF CURRENT UPDATE. PT MEDICATED FOR PAIN PER EMAR. PT DENIES NAUSEA AT THIS TIME. PT POSITIONED WITH PILLOWS FOR COMFORT AND SUPPORT, REFUSED ICE PACKS. PT IS AWAITING FOR PT EVAL IN AM. WILL CONTINUE TO MONITOR PT.
--- NOTE | 2020-10-02 05:00 | PC.NURSE ---
PT RETURNS TO [facility] AND [facility] BACK INTO GOWN. NOTIFIED FAMILY FOR CURRENT UPDATE. PT MEDICATED PER EMAR FOR PAIN. PT DENIES NAUSEA AT THIS TIME. PT POSITIONED WITH PILLOWS FOR SUPPORT AND COMFORT. PT REFUSED ICE PACKS. PT AWAITING FOR PT EVAL IN THE MORNING.
--- NOTE | 2020-10-02 05:07 | PC.NURSE ---
PT SLEEPING IN STRETCHER AND WAKES TO VOICE. PT DENIES ANY COMPLAINTS AT THIS TIME.
--- NOTE | 2020-10-02 08:08 | PC.NURSE ---
pt resting in the stretcher eating her breakfast. pt not wearing her sling states that it hurts her more left shoulder wearing the sling then not wearing it, pain at 8/10 but does not want any pain medication at this time, is also reporting slight nausea. explain the pt that plan was to see physical therapy this morning and depends on the there recommendations possible sniff placement. pt states that she does not want to go to rehab that she would like to go home. pt also taken off the oxygen pt does not wear oxygen at home, pt does range from 91-94% on room air.
[2020-10-02] MEDS: Acetaminophen 325 MG TABLET 650 MG PO ×2 (09:28→16:05)
[2020-10-02] MEDS: oxyCODONE HCl Immed Release 5 MG TABLET PO (09:31)
--- NOTE | 2020-10-02 09:33 | PC.NURSE ---
physical therapy at bedside finished there amassment-recommendations for acute rehab, physical therapy was able to get the sling back on the pt's arm pt willing to take mediations at this time as well, pain at 03/21 pt ate about 50% of her breakfast
--- NOTE | 2020-10-02 11:15 | PC.NURSE ---
pt reports no improvement in pain after the oxycodone, pain at 8/10 at this time, pt back on oxygen at 2l because pt's kept staying at 88-87% on room air for a while
--- NOTE | 2020-10-02 11:41 | MHC.CM.ED ---
Addendum entered by Ashlie Ballesteros 10/02/20 12:30: Patient has been active with [facility] in the past. Douglas is agreeable to referral now. Referral made via [facility]. Continue to monitor for d/c needs. Original Note: Received case management consult overnight. Patient came to ER due to a fall. Found to have humerus fx. Physical therapy eval completed. Acute rehab is recommended. Received notification from Kaila CORRAL that patient and son are not interested in rehab. Want patient to return home. T/w spoke with patient's son/HCP, Douglas. Explained patient would need 24 hour care and help with transfers to the bathroom and ADL's. Douglas verbalized understanding and stated patient's and himself will be available for help. Spoke with Shaniqua ALVES. Patient is currently on oxygen. She is not on oxygen at home. O2 sat =88%RA. Patient has not been able to successfully wean off of oxygen. T/W explained patient could potentially be admitted for hypoxia. Per Shaniqua, patient is not interested in being admitted. T/W spoke with patient's son/HCP, Douglas again and explained patient would not be able to get home oxygen from the ER. Encouraged Douglas to encourage patient to agree to admission if it is recommended. Cordless phone provided to patient, so Douglas can speak with her. Continue to monitor for d/c needs.
--- NOTE | 2020-10-02 12:45 | PC.NURSE ---
pt set up with lunch shantel pt presents in a little less discomfort at this time, was napping prior to lunch
--- NOTE | 2020-10-02 13:42 | P.HPHOSP_ITS ---
History of Present Illness Date of Service: 10/02/20 <JOSELYN Perez - Last Filed: 10/02/20 14:15> Chief Complaint: Hypoxia <JOSELYN Perez - Last Filed: 10/02/20 14:15> An 84-year-old female who presented to the emergency department yesterday after a fall. She reports slipping ice. Her workup was significant for a left comminuted impacted surgical neck fracture. The case was discussed with Orthopedic surgery recommended outpatient follow-up in 1 week and sling for comfort. The initial plan was to discharge the patient to rehab facility however patient declined wishing to go home. She was noted to have decreasing oxygen saturation intermittently and chest CT was done which showed chronic scarring and right-sided bronchiectasis. Oxygen saturation dropped to 88% air in the hospitalist service was asked to admit her for further management. Patient denies any shortness of breath, cough, fever, history of underlying lung disease. <JOSELYN Perez - Last Filed: 10/02/20 14:15> Review of Systems Review of Systems: Yes all other systems are reviewed and are negative <JOSELYN Perez - Last Filed: 10/02/20 14:15> Constitutional: Constitutional: Denies chills and Denies fever(s) <JOSELYN Yoon - Last Filed: 10/02/20 14:15> Cardiovascular: Cardiovascular: Denies chest pain and Denies dyspnea <JOSELYN Perez - Last Filed: 10/02/20 14:15> Respiratory: Respiratory: Denies chest congestion, Denies cough and Denies dyspnea <JOSELYN Perez - Last Filed: 10/02/20 14:15> Gastrointestinal: Gastrointestinal: Denies abdominal pain <JOSELYN Perez - Last Filed: 10/02/20 14:15> [facility] Medical History: Medical History Anxiety Biventricular ICD (implantable cardioverter-defibrillator) in place CVA (cerebral vascular accident) Fatty liver Frailty Frequent PVCs Heart failure with reduced ejection fraction Hypertension Hypothyroidism Nonischemic cardiomyopathy Palpitations Paroxysmal atrial fibrillation <JOSELYN Perez - Last Filed: 10/02/20 14:15> Family History: Family History Father No problems noted. Mother No problems noted. <JOSELYN Perez - Last Filed: 10/02/20 14:15> Surgical History: Surgical History History of permanent cardiac pacemaker placement Hx of Achilles tendon repair Hx of hysterectomy <JOSELYN Perez - Last Filed: 10/02/20 14:15> Social History: Social History Household Members: Spouse Housing: House Do you presently have visiting nurse or other home services: No Smoking Status: Never smoker Use of substances other than those prescribed or required for medical reasons: No Currently Displaying Signs/Symptoms of Drug Intoxication Withdrawal: No Have you been hit, kicked, punched, or otherwise hurt by someone within the past year? If so, by whom?: No Do you feel safe in your current relationship?: Yes Is there a partner from a previous relationship who is making you feel unsafe now?: No Are you made to feel afraid or neglected: No Advance Directives: No Advance Directives Information Provided: Yes Do you have thoughts of harming others: None Do you have a plan to hurt others: No Plan Recently lost weight without trying: No <JOSELYN Perez - Last Filed: 10/02/20 14:15> Meds Allergies/Adverse reactions: Allergies Allergy/AdvReac Type Severity Reaction Status Date / Time No Known Allergies Allergy Unverified 05/29/20 15:36 [No Known Allergies*] <JOSELYN Perez - Last Filed: 10/02/20 14:15> Home medications: Home Medications Medication Instructions Recorded Confirmed Type lorazepam 1 mg tablet 1 mg PO BID PRN 07/24/20 10/02/20 History metoprolol tartrate 25 mg tablet 25 mg PO BID 07/24/20 10/02/20 History mirtazapine 15 mg tablet 15 mg PO DAILY 07/24/20 10/02/20 History lisinopril 5 mg PO DAILY 10/01/20 10/02/20 History paroxetine HCl 10 mg PO DAILY 10/01/20 10/02/20 History apixaban [Eliquis] 2.5 mg PO BID 10/02/20 10/02/20 History levothyroxine 37.5 mcg PO DAILY 10/02/20 10/02/20 History <JOSELYN Perez - Last Filed: 10/02/20 14:15> Physical Exam Vital Signs and Narrative: Vital Signs: Last Vital Signs Temp 98.6 F 10/01/20 23:41 Pulse 72 10/02/20 11:16 Resp 18 10/02/20 11:16 BP 112/44 L 10/02/20 11:16 Pulse Ox 88 L 10/02/20 11:16 Body Mass Index 20.1 <JOSELYN Perez - Last Filed: 10/02/20 14:15> Const: Nutritional Appearance: well nourished <JOSELYN Perez - Last Filed: 10/02/20 14:15> HENMT: Head: Yes normocephalic and Yes atraumatic <JOSELYN Perez - Last Filed: 10/02/20 14:15> Eyes: Sclerae: sclerae normal <JOSELYN Perez - Last Filed: 10/02/20 14:15> Chest: Chest palpation & inspection: normal inspection of the chest <JOSELYN Perez - Last Filed: 10/02/20 14:15> Resp: Effort & Inspection: normal respiratory effort and no respiratory dis tress <JOSELYN Perez - Last Filed: 10/02/20 14:15> Cardio: Rate: regular rate <JOSELYN Perez - Last Filed: 10/02/20 14:15> Rhythm: regular rhythm <JOSELYN Perez - Last Filed: 10/02/20 14:15> GI: Palpation (GI): Soft to palpation and nontender <JOSELYN Perez Last Filed: 10/02/20 14:15> Skin: General skin exam: no rashes or lesions noted <JOSELYN Perez - Last Filed: 10/02/20 14:15> Neuro: Cranial nerves: Yes CN's II-XII intact bilaterally and Yes Bilaterally intact EOM present <JOSELYN Perez - Last Filed: 10/02/20 14:15> Extrem: Other: Left arm in sling <JOSELYN Perez - Last Filed: 10/02/20 14:15> Results Labs CBC and Chem 7: : 10/03/20 06:54 10/03/20 06:54 <JOSELYN Perez - Last Filed: 10/02/20 14:15> Labs: Laboratory Results - last 24 hr 10/01/20 10/01/20 10/01/20 18:31 18:31 18:31 MCV MCH MCHC RDW Plt Count MPV Immature Gran % (Auto) Neut % (Auto) Lymph % (Auto) Smyth % (Auto) Eos % (Auto) Baso % (Auto) Lymph # (Auto) Smyth # (Auto) Eos # (Auto) Baso # (Auto) Abs Immat Gran (auto) Absolute Neuts (auto) Absolute Nucleated RBC Nucleated RBC % (auto) Hold Purple Top PT INR Anion Gap 18 Estim Creat Clear Calc 24.6 Estimated GFR 34 Random Glucose 158 H D Calcium 8.8 Magnesium 2.6 Total Bilirubin 0.3 Direct Bilirubin < 0.2 AST 36 H D ALT 18 Alkaline Phosphatase 165 H D Total Creatine Kinase 238 H Total Protein 8.8 H Albumin 4.1 Urine Color Urine Appearance Urine pH Ur Specific [place] Urine Protein Urine Glucose (UA) Urine Ketones Urine Blood Urine Nitrite Ur Leukocyte Esterase Urine RBC Urine WBC Ur Squamous Epith Cells Urine Bacteria Coronavirus (PCR) NEGATIVE Influenza Type A (PCR) NEGATIVE Influenza Type B (PCR) NEGATIVE RSV RNA Qual (PCR) NEGATIVE 10/01/20 10/01/20 10/01/20 18:32 18:32 18:32 MCV 96.9 MCH 31.6 MCHC 32.6 RDW 13.6 Plt Count 124 L MPV 10.3 Immature Gran % (Auto) 3.2 H Neut % (Auto) 55.8 Lymph % (Auto) 31.9 Smyth % (Auto) 5.1 Eos % (Auto) 3.2 Baso % (Auto) 0.8 Lymph # (Auto) 2.4 Smyth # (Auto) 0.4 Eos # (Auto) 0.2 Baso # (Auto) 0.1 Abs Immat Gran (auto) 0.24 H Absolute Neuts (auto) 4.3 Absolute Nucleated RBC 0.000 Nucleated RBC % (auto) 0.0 Hold Purple Top SEE NOTE PT 12.0 INR 1.0 Anion Gap Estim Creat Clear Calc Estimated GFR Random Glucose Calcium Magnesium Total Bilirubin Direct Bilirubin AST ALT Alkaline Phosphatase Total Creatine Kinase Total Protein Albumin Urine Color Urine Appearance Urine pH Ur Specific [place] Urine Protein Urine Glucose (UA) Urine Ketones Urine Blood Urine Nitrite Ur Leukocyte Esterase Urine RBC Urine WBC Ur Squamous Epith Cells Urine Bacteria Coronavirus (PCR) Influenza Type A (PCR) Influenza Type B (PCR) RSV RNA Qual (PCR) 10/01/20 10/01/20 19:07 23:02 MCV MCH MCHC RDW Plt Count MPV Immature Gran % (Auto) Neut % (Auto) Lymph % (Auto) Smyth % (Auto) Eos % (Auto) Baso % (Auto) Lymph # (Auto) Smyth # (Auto) Eos # (Auto) Baso # (Auto) Abs Immat Gran (auto) Absolute Neuts (auto) Absolute Nucleated RBC Nucleated RBC % (auto) Hold Purple Top PT INR Anion Gap 16 Estim Creat Clear Calc 26.3 Estimated GFR 36 Random Glucose 155 H Calcium 7.9 L D Magnesium Total Bilirubin 0.4 Direct Bilirubin AST 34 H ALT 17 Alkaline Phosphatase 137 H Total Creatine Kinase Total Protein 7.6 Albumin 3.7 Urine Color YELLOW Urine Appearance CLEAR Urine pH 6.0 Ur Specific [place] 1.015 Urine Protein NEG Urine Glucose (UA) NEG Urine Ketones NEG Urine Blood TRACE Urine Nitrite NEG Ur Leukocyte Esterase NEG Urine RBC 0-2 Urine WBC 0-2 Ur Squamous Epith Cells TRACE Urine Bacteria NONE Coronavirus (PCR) Influenza Type A (PCR) Influenza Type B (PCR) RSV RNA Qual (PCR) <JOSELYN Perez - Last Filed: 10/02/20 14:15> Imaging Radiologist's Impressions: Impressions Cervical Spine CT 10/01/20 17:45 IMPRESSION: No acute intracranial pathology. No acute osseous abnormality of the cervical spine. Head CT 10/01/20 17:45 IMPRESSION: No acute intracranial pathology. No acute osseous abnormality of the cervical spine. Shoulder X-Ray 10/01/20 17:45 IMPRESSION: Left shoulder: Comminuted impacted surgical neck fracture with extension into the greater tuberosity. Glenohumeral joint appears approximated on this limited single view. Abdomen/Pelvis CT 10/01/20 19:29 IMPRESSION: 1. Acute fracture of left shoulder better characterized on plain films. 2. Chronic marked compression fractures involving T12 and L1. 3. No other new acute associated fractures are seen. 4. Other incidental findings as described above. Chest CT 10/01/20 19:29 IMPRESSION: 1. Acute fracture of left shoulder better characterized on plain films. 2. Chronic marked compression fractures involving T12 and L1. 3. No other new acute associated fractures are seen. 4. Other incidental findings as described above. <JOSELYN Perez - Last Filed: 10/02/20 14:15> Assessment and Plan (1) Fracture, humerus closed: Qualifiers: Encounter type: initial encounter Fracture alignment: nondisplaced Fracture morphology: unspecified fracture morphology Humerus Location: surgical neck Laterality: left Qualified Code(s): S42.215A - Unspecified nondisplaced fracture of surgical neck of left humerus, initial encounter for closed fracture <JOSELYN Perez - Last Filed: 10/02/20 14:15> Status: Acute <JOSELYN Perez - Last Filed: 10/02/20 14:15> (2) Acute respiratory failure: Status: Acute <JOSELYN Perez - Last Filed: 10/02/20 14:15> This is an 84-year-old female with history of stroke, hypothyroidism, hypertension among others who presented after a fall found to pretty ve left arm fracture and hypoxia Acute respiratory failure with hypoxia 02 dropped to 88% Chest CT shows scarring and bronchiectasis. no formal diagnosis of underlying lung disease patient asymptomatic -home o2 eval left surgical neck fracture -sling -ortho recommends outpatient follow-up in 1 week Hypertension -lisinopril, metoprolol Mood -continue paroxetine, mirtazapine Lorazepam ? h/o PAF -continue metoprolol -continue anticoagulation with Eliquis DVT prophylaxis-Eliquis This case was discussed with Dr. San <JOSELYN Perez - Last Filed: 10/02/20 14:15>
[2020-10-02 14:05] LABS: MANUAL DIFF FLAG NO
[2020-10-02 14:09] LABS: Basophils Percent Auto 0.3 % (0-2); Eosinophils Percent Auto 0.2 % (0-4); Hematocrit 33.4 % (37-47); Hemoglobin 10.8 g/dl (12.0-16.0); Imm Gran Abs Auto 0.04 X10*3/uL (0.00-0.03); Imm Gran Pct Auto 0.5 % (0.0-0.4); Lymphocytes Absolute Auto 1.8 X10*3/uL (1.2-4.9); Mean Corpuscular HGB Conc 32.3 g/dl (31.0-35.0); Mean Platelet Volume 9.4 fL (9.4-12.3); Monocytes Absolute Auto 0.5 X10*3/uL (0.1-1.2); Monocytes Percent Auto 5.6 % (2-11); Neutrophils Absolute Auto 6.3 X10*3/uL (2.0-8.3); Neutrophils Percent Auto 72.4 % (45-73); Red Blood Count 3.48 X10*6/uL (4.20-5.50); Red Cell Distribution Width 13.8 % (11.0-16.0); White Blood Count 8.7 X10*3/uL (4.8-10.8)
[2020-10-02 14:12] LABS: Platelet Count 98 X10*3/uL (160-400)
--- NOTE | 2020-10-02 14:30 | PC.NURSE ---
called med/surg to give report awaiting a call back
--- NOTE | 2020-10-02 14:55 | PC.NURSE ---
report given to med/foot and ankle surgeon
[2020-10-02 15:25] LABS: Anion Gap 11 (12-20); Blood Urea Nitrogen 21 mg/dL (9-16); Calcium 8.2 mg/dL (8.4-10.2); Carbon Dioxide 25 mmol/L (22-29); Chloride 105 mmol/L (96-108); Creatinine Clr Calc Pharmacy 24.7; Estimated Glomerular Filt Rate 34; Glucose Random 166 mg/dL (60-115); Potassium 4.3 mmol/l (3.3-5.1); Sodium 137 mmol/L (135-145)
[2020-10-02] MEDS: LORazepam 1 MG TABLET PO (16:06)
[2020-10-02] MEDS: 0.9 % Sodium Chloride Flush 3 ML SYRINGE IVFLUSH ×2 (17:27→23:18)
--- NOTE | 2020-10-02 17:48 | P.EN_ITS ---
Event Note Date of Service: 10/02/20 Event Note: Patient seen examined case discussed with APC agree with above olayinka atment and plan 84-year-old female patient with past medical history of CVA, paroxysmal atrial fibrillation on Eliquis, came to emergency room after slipping on ice workup in ER revealed left Community it impacted surgical neck fracture patient evaluated by Orthopedic surgery they recommended pain management sling and outpatient follow-up patient in the ER was noted to have hypoxia with O2 sat 88% on room air therefore patient is being admitted for continued monitoring and treatment a chest CT revealed chronic scarring and right-sided bronchiectasis On examination patient awake alert in distress due to pain Assessment and plan Acute fracture of left shoulder Acute respiratory failure With hypoxia likely related to poor respiratory effort with pain will encourage incentive spirometry out of bed to chair as needed cough medication, no evidence of wheeze or rhonchi , normal WBC, no fevers therefore hold off on antibiotics, COVID PCR negative. History of paroxysmal atrial fibrillation status post CVA continue Eliquis and metoprolol Chronic kidney disease stage 3 mild elevation in creatinine likely due to decreased oral intake will push by mouth fluids follow labs Chronic thrombocytopenia stable no bleeding noted.
[2020-10-02] MEDS: Apixaban 2.5 MG TABLET PO (19:31)
[2020-10-02] MEDS: Mirtazapine 15 MG TABLET PO (19:31)
[2020-10-02] MEDS: Metoprolol Tartrate 25 MG TABLET PO (19:31)
[2020-10-03] MEDS: Acetaminophen 325 MG TABLET 650 MG PO ×2 (03:10→09:12)
[2020-10-03] MEDS: LORazepam 1 MG TABLET PO (03:10)
[2020-10-03 03:56] VITALS: BP 134/61; PULSE 89; RESP 16; TEMP 36.2; O2SAT 95
[2020-10-03 07:05] LABS: MANUAL DIFF FLAG NO
[2020-10-03 07:11] LABS: Basophils Percent Auto 0.5 % (0-2); Eosinophils Absolute Auto 0.2 X10*3/uL (0.0-0.4); Eosinophils Percent Auto 2.5 % (0-4); Hematocrit 34.5 % (37-47); Hemoglobin 11.2 g/dl (12.0-16.0); Imm Gran Abs Auto 0.05 X10*3/uL (0.00-0.03); Imm Gran Pct Auto 0.6 % (0.0-0.4); Lymphocytes Percent Auto 23.1 % (20-40); Mean Corpuscular HGB Conc 32.5 g/dl (31.0-35.0); Mean Corpuscular Hemoglobin 31.3 pg (27.0-33.0); Mean Corpuscular Volume 96.4 fL (80-98); Mean Platelet Volume 9.9 fL (9.4-12.3); Monocytes Absolute Auto 0.6 X10*3/uL (0.1-1.2); Monocytes Percent Auto 7.2 % (2-11); Neutrophils Absolute Auto 5.6 X10*3/uL (2.0-8.3); Neutrophils Percent Auto 66.1 % (45-73); Red Blood Count 3.58 X10*6/uL (4.20-5.50); Red Cell Distribution Width 13.6 % (11.0-16.0); White Blood Count 8.4 X10*3/uL (4.8-10.8)
[2020-10-03 07:26] LABS: Platelet Count 94 X10*3/uL (160-400)
[2020-10-03 07:38] LABS: Anion Gap 11 (12-20); Blood Urea Nitrogen 17 mg/dL (9-16); Calcium 8.3 mg/dL (8.4-10.2); Carbon Dioxide 25 mmol/L (22-29); Chloride 105 mmol/L (96-108); Estimated Glomerular Filt Rate 42; Glucose Random 121 mg/dL (60-115); Potassium 4.6 mmol/l (3.3-5.1); Sodium 136 mmol/L (135-145)
[2020-10-03 07:53] VITALS: BP 113/75; PULSE 65; RESP 21; TEMP 36.3; O2SAT 95
[2020-10-03] MEDS: Apixaban 2.5 MG TABLET PO (09:09)
[2020-10-03] MEDS: Metoprolol Tartrate 25 MG TABLET PO (09:09)
[2020-10-03] MEDS: Levothyroxine Sodium 75 MCG TABLET 37.5 MCG PO (09:10)
[2020-10-03] MEDS: 0.9 % Sodium Chloride Flush 3 ML SYRINGE IVFLUSH (09:10)
[2020-10-03] MEDS: PARoxetine HCL 10 MG TABLET PO (09:10)
[2020-10-03 11:15] VITALS: PULSE 73; PULSE 79; PULSE 81; O2SAT 93; O2SAT 94; O2SAT 96
[2020-10-03 12:00] VITALS: BP 106/60; PULSE 68; RESP 22; TEMP 36.9; O2SAT 96
--- NOTE | 2020-10-03 12:05 | P.DS_ITS ---
DS: Providers Provider Date of Service: 10/03/20 Date of admission: 10/02/20 13:20 DS: Diagnosis Discharge Diagnosis (1) Fracture, humerus closed: Status: Acute (2) Acute respiratory failure: Status: Acute DS: Medications Discharge Medications Home Medications: Home Medications Medication Instructions Recorded Confirmed lorazepam 1 mg tablet 1 mg PO BID PRN 07/24/20 10/02/20 metoprolol tartrate 25 mg tablet 25 mg PO BID 07/24/20 10/02/20 mirtazapine 15 mg tablet 15 mg PO DAILY 07/24/20 10/02/20 lisinopril 5 mg PO DAILY 10/01/20 10/02/20 paroxetine HCl 10 mg PO DAILY 10/01/20 10/02/20 apixaban [Eliquis] 2.5 mg PO BID 10/02/20 10/02/20 levothyroxine 37.5 mcg PO DAILY 10/02/20 10/02/20 Previous Rx's Medication Instructions Recorded acetaminophen [Tylenol Extra 1,000 mg PO QID PRN #14 tab 10/01/20 Strength] lidocaine [Lidoderm] 1 patch TOPICAL DAILY #30 ea 10/01/20 oxycodone 5 mg PO Q8H PRN #14 tab 10/01/20 DS: Summary Hospital Course Hospital Course: History of presenting illness 84-year-old female who presented to the emergency department yesterday after a fall. She reports slipping ice. Her workup was significant for a left comminuted impacted surgical neck fracture. The case was discussed with Orthopedic surgery recommended outpatient follow-up in 1 week and sling for comfort. The initial plan was to discharge the patient to rehab facility however patient declined wishing to go home. She was noted to have decreasing oxygen saturation intermittently and chest CT was done which showed chronic scarring and right-sided bronchiectasis. Oxygen saturation dropped to 88% air in the hospitalist service was asked to admit her for further management. Patient denies any shortness of breath, cough, fever, history of underlying lung disease. Hospital course 84-year-old female with history of stroke, hypothyroidism, hypertension among others who presented after a fall found to have left arm fracture and hypoxia Acute respiratory failure with hypoxia, patient noted to have O2 sats of 88% in the emergency room with ambulation a CT chest showed scarring and bronchiectasis patient had no fever no chills no cough or sputum production, patient was monitored overnight her oxygenation is stable at rest but noted to have drop in oxygenation with ambulation therefore is being discharged home on 2 L of oxygen with activity only, encouraged patient to take deep breaths and use incentive spirometry left surgical neck fracture recommended to use sling and outpatient follow-up in 1 week patient is very sensitive to pain medications therefore recommended to use oxycodone 2.5 mg every 8 hours as needed and Tylenol for pain control, call pharmacy to inform to change the dose of medications but family picked up the medicines. Hypertension BP stable recommend to continue lisinopril, and metoprolol Mood continue paroxetine, mirtazapine Lorazepam h/o PAF continue metoprolol and Eliquis Time Spent with Patient Time attestation: Total time spent providing and/or coordinating discharge services: Discharge coordination time: Greater than 30 minutes Physical Exam Vital Signs: Vital Signs: Last Vital Signs Temp 97.4 F 10/03/20 07:53 Pulse 65 10/03/20 07:53 Resp 21 H 10/03/20 07:53 BP 113/75 10/03/20 07:53 Pulse Ox 95 10/03/20 07:53 Body Mass Index 20.1 Constitutional patient is sitting comfortably in no acute distress Neck is supple no increased JVD Lungs clear to auscultation bilaterally Heart regular rate rhythm Abdomen soft nontender Extremities no edema Left arm in sling skin no rash DS: Data Data Completed and Pending Labs on day of discharge: Laboratory Tests 10/01/20 10/01/20 10/01/20 18:31 18:31 18:31 WBC RBC Hgb Hct MCV MCH MCHC RDW Plt Count MPV Immature Gran % (Auto) Neut % (Auto) Lymph % (Auto) [place] % (Auto) Eos % (Auto) Baso % (Auto) Lymph # (Auto) [place] # (Auto) Eos # (Auto) Baso # (Auto) Abs Immat Gran (auto) Absolute Neuts (auto) Absolute Nucleated RBC Nucleated RBC % (auto) Hold Purple Top PT INR Sodium 139 Potassium 5.0 Chloride 105 Carbon Dioxide 21 L Anion Gap 18 BUN 17 H Creatinine 1.48 H Estim Creat Clear Calc 24.6 Estimated GFR 34 Random Glucose 158 H D Calcium 8.8 Magnesium 2.6 Total Bilirubin 0.3 Direct Bilirubin < 0.2 AST 36 H D ALT 18 Alkaline Phosphatase 165 H D Total Creatine Kinase 238 H Total Protein 8.8 H Albumin 4.1 Urine Color Urine Appearance Urine pH Ur Specific [place] Urine Protein Urine Glucose (UA) Urine Ketones Urine Blood Urine Nitrite Ur Leukocyte Esterase Urine RBC Urine WBC Ur Squamous Epith Cells Urine Bacteria Coronavirus (PCR) NEGATIVE Influenza Type A (PCR) NEGATIVE Influenza Type B (PCR) NEGATIVE RSV RNA Qual (PCR) NEGATIVE 10/01/20 10/01/20 10/01/20 18:32 18:32 18:32 WBC 7.6 RBC 4.49 Hgb 14.2 Hct 43.5 MCV 96.9 MCH 31.6 MCHC 32.6 RDW 13.6 Plt Count 124 L MPV 10.3 Immature Gran % (Auto) 3.2 H Neut % (Auto) 55.8 Lymph % (Auto) 31.9 [place] % (Auto) 5.1 Eos % (Auto) 3.2 Baso % (Auto) 0.8 Lymph # (Auto) 2.4 [place] # (Auto) 0.4 Eos # (Auto) 0.2 Baso # (Auto) 0.1 Abs Immat Gran (auto) 0.24 H Absolute Neuts (auto) 4.3 Absolute Nucleated RBC 0.000 Nucleated RBC % (auto) 0.0 Hold Purple Top SEE NOTE PT 12.0 INR 1.0 Sodium Potassium Chloride Carbon Dioxide Anion Gap BUN Creatinine Estim Creat Clear Calc Estimated GFR Random Glucose Calcium Magnesium Total Bilirubin Direct Bilirubin AST ALT Alkaline Phosphatase Total Creatine Kinase Total Protein Albumin Urine Color Urine Appearance Urine pH Ur Specific [place] Urine Protein Urine Glucose (UA) Urine Ketones Urine Blood Urine Nitrite Ur Leukocyte Esterase Urine RBC Urine WBC Ur Squamous Epith Cells Urine Bacteria Coronavirus (PCR) Influenza Type A (PCR) Influenza Type B (PCR) RSV RNA Qual (PCR) 10/01/20 10/01/20 10/02/20 19:07 23:02 14:02 WBC 8.7 RBC 3.48 L D Hgb 10.8 L D Hct 33.4 L D MCV 96.0 MCH 31.0 MCHC 32.3 RDW 13.8 Plt Count 98 L MPV 9.4 Immature Gran % (Auto) 0.5 H Neut % (Auto) 72.4 Lymph % (Auto) 21.0 [place] % (Auto) 5.6 Eos % (Auto) 0.2 Baso % (Auto) 0.3 Lymph # (Auto) 1.8 [place] # (Auto) 0.5 Eos # (Auto) 0.0 Baso # (Auto) 0.0 Abs Immat Gran (auto) 0.04 H Absolute Neuts (auto) 6.3 Absolute Nucleated RBC 0.000 Nucleated RBC % (auto) 0.0 Hold Purple Top PT INR Sodium 140 Potassium 4.7 Chloride 108 Carbon Dioxide 21 L Anion Gap 16 BUN 18 H Creatinine 1.38 Estim Creat Clear Calc 26.3 Estimated GFR 36 Random Glucose 155 H Calcium 7.9 L D Magnesium Total Bilirubin 0.4 Direct Bilirubin AST 34 H ALT 17 Alkaline Phosphatase 137 H Total Creatine Kinase Total Protein 7.6 Albumin 3.7 Urine Color YELLOW Urine Appearance CLEAR Urine pH 6.0 Ur Specific [place] 1.015 Urine Protein NEG Urine Glucose (UA) NEG Urine Ketones NEG Urine Blood TRACE Urine Nitrite NEG Ur Leukocyte Esterase NEG Urine RBC 0-2 Urine WBC 0-2 Ur Squamous Epith Cells TRACE Urine Bacteria NONE Coronavirus (PCR) Influenza Type A (PCR) Influenza Type B (PCR) RSV RNA Qual (PCR) 10/02/20 10/03/20 10/03/20 14:46 06:54 06:54 WBC 8.4 RBC 3.58 L Hgb 11.2 L Hct 34.5 L MCV 96.4 MCH 31.3 MCHC 32.5 RDW 13.6 Plt Count 94 L MPV 9.9 Immature Gran % (Auto) 0.6 H Neut % (Auto) 66.1 Lymph % (Auto) 23.1 [place] % (Auto) 7.2 Eos % (Auto) 2.5 Baso % (Auto) 0.5 Lymph # (Auto) 2.0 [place] # (Auto) 0.6 Eos # (Auto) 0.2 Baso # (Auto) 0.0 Abs Immat Gran (auto) 0.05 H Absolute Neuts (auto) 5.6 Absolute Nucleated RBC 0.000 Nucleated RBC % (auto) 0.0 Hold Purple Top PT INR Sodium 137 136 Potassium 4.3 4.6 Chloride 105 105 Carbon Dioxide 25 25 Anion Gap 11 L 11 L BUN 21 H 17 H Creatinine 1.47 H 1.21 Estim Creat Clear Calc 24.7 30.0 Estimated GFR 34 42 Random Glucose 166 H 121 H Calcium 8.2 L 8.3 L Magnesium Total Bilirubin Direct Bilirubin AST ALT Alkaline Phosphatase Total Creatine Kinase Total Protein Albumin Urine Color Urine Appearance Urine pH Ur Specific [place] Urine Protein Urine Glucose (UA) Urine Ketones Urine Blood Urine Nitrite Ur Leukocyte Esterase Urine RBC Urine WBC Ur Squamous Epith Cells Urine Bacteria Coronavirus (PCR) Influenza Type A (PCR) Influenza Type B (PCR) RSV RNA Qual (PCR) Discharge Plan Discharge Patient Disposition: Home Health Service Referrals: [facility] [Outside] Benton Dee MD [Physician] - 2 days (Call tomorrow to make an appointment within 1 week) Manish King MD [Physician] - Discharge Medications: New oxycodone 5 mg tablet 5 mg PO Q8H PRN (Reason: pain) Qty: 14 RF: 0 acetaminophen [Tylenol Extra Strength] 500 mg tablet 1,000 mg PO QID PRN (Reason: pain) Qty: 14 RF: 0 lidocaine [Lidoderm] 5 % adhesive patch,medicated 1 patch topical DAILY Qty: 30 RF: 0 Continued paroxetine HCl 10 mg Tablet 10 mg PO DAILY RF: 0 lisinopril 5 mg Tablet 5 mg PO DAILY RF: 0 levothyroxine 75 mcg Tablet 37.5 mcg PO DAILY RF: 0 Eliquis 2.5 mg Tablet 2.5 mg PO BID RF: 0 lorazepam 1 mg tablet 1 mg PO BID PRN (Reason: Anxiety) RF: 0 mirtazapine 15 mg tablet 15 mg PO DAILY RF: 0 metoprolol tartrate 25 mg tablet 25 mg PO BID RF: 0 Discharge Orders: Discharge Order (Routine); Ordered 10/03/20 Ordered By: Elise San Diet: low fat, low cholesterol Activity on Discharge: As tolerated Patient Instructions: Dehydration (ED), Arm Fracture in Adults (ED), Fall Prevention (ED) Stand Alone Forms: Patient Portal Discharge page Print Language: Israeli Activity Restrictions/Additional Instructions: Return to the ED immediately for any weakness, chest pain, shortness of breath, worsening arm pain, swelling of upper extremity, or any other concerning symptoms. Care Plan Goals: Use oxygen 2 L with activity, and follow-up with orthopedic surgery in 1 week Health Concerns: Left shoulder fracture pain control, take oxycodone 2.5 mg (1/2 tab of oxycodone 5mg) every 8 hour as needed for moderate to severe pain, and take Tylenol 500 mg every 6 hours as needed for mild pain Plan of Treatment: Outpatient follow-up with primary care physician and Orthopedic surgery.
--- NOTE | 2020-10-03 12:51 | MHC.CM.PN ---
PT REPORTS SHE LIVES AT HOME WITH HER AND HAS A SON IN THE [place]. SHE ALSO HAS A SON IN [place] AND ONE IN [place]. SHE REPORTS THAT WHEN SHE GOES HOME, SHE WILL HAVE TWO SONS COMING IN TO HELP HER. 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 PT REPORTS SHE IS NOW SEEING [facility] FOR PRIMARY CARE HERS RECENTLY PASSED. PT IS AWARE ACUTE REHAB HAS BEEN RECOMMENDED HOWEVER SHE REPORTS SHE IS NOT INTERESTED AND WILL BE GOING HOME WITH [facility]. PT DID WANT A REFERRAL TO [facility], HOWEVER THEY WERE UNABLE TO PROVIDE NEEDED SERVICES. WITH PTS PERMISSION, THE REFERRAL WAS SENT TO [facility] WHO WILL BE PROVIDING PTS SERVICES. [facility] WAS DELIVERED PT WILL DISCHARGE HOME TODAY WITH [facility]TS SON WILL TRANSPORT
--- NOTE | 2020-10-03 15:27 | MHC.CM.PN ---
PT DISCHARGED HOME TODAY WITH [facility] FOR PT AND TO SERVICES. PTS SON TRANSPORTED. DC SUMMARY SENT TO [facility]
== END 2020-10-03 15:30 | disposition home health service (06) | DRG 562 ==
LOC: HO.ED 21:47 → HO.EDOVER 10-02 13:36 → HO.S3 10-02 14:19
PROVIDERS: Physician Assistant; Physician Assistant Medical; Admitting Provider Hospitalist; Emergency Provider Internal Medicine; PCP Internal Medicine; Visit Provider Hospitalist
DX: S42.215A Unspecified nondisplaced fracture of surgical neck of left humerus, initial encounter for closed fracture (principal); J96.01 Acute respiratory failure with hypoxia; I13.0 Hypertensive heart and chronic kidney disease with heart failure and stage 1 through stage 4 chronic kidney disease, or unspecified chronic kidney disease; I50.22 Chronic systolic (congestive) heart failure; F41.9 Anxiety disorder, unspecified; I48.0 Paroxysmal atrial fibrillation; E03.9 Hypothyroidism, unspecified; Z95.810 Presence of automatic (implantable) cardiac defibrillator; W00.0XXA Fall on same level due to ice and snow, initial encounter; Y93.9 Activity, unspecified; N18.30 Chronic kidney disease, stage 3 unspecified; Y92.9 Unspecified place or not applicable; Y99.9 Unspecified external cause status; Z20.822 Contact with and (suspected) exposure to COVID-19; Z86.73 Personal history of transient ischemic attack (TIA), and cerebral infarction without residual deficits; Z79.01 Long term (current) use of anticoagulants; Z79.890 Hormone replacement therapy; Z79.891 Long term (current) use of opiate analgesic; Z79.899 Other long term (current) drug therapy
CPT/HCPCS: 0241U; 36415; 70450; 71250; 72125; 73020; 74176; 80048; 80053; 80076; 81001; 82248; 82550; 83735; 85025; 85610; 93005; 96361; 96372; 96374; 96375; 97162; 97165; 99285; J1170; J2270; J2405

== ENCOUNTER 2020-10-15 08:44 | Outpatient (REF) | payer MEDICARE, OTHER, SELFPAY ==
--- NOTE | 2020-10-15 10:57 | XR_ITS ---
EXAMINATION: XR SHOULDER, LEFT CLINICAL INFORMATION: Fracture COMPARISON: Previous x-ray October 01 2020 TECHNIQUE: 2 views of the left shoulder. FINDINGS: There is a comminuted fracture of the left proximal humerus involving the head and neck and greater tuberosity. This appears unchanged from recent exam. Glenohumeral alignment is normal. There is overlying soft tissue swelling. There are left subclavian pacemaker leads. XR/XR shoulder LT min 2V IMPRESSION: Comminuted left proximal humerus fracture.
== END 2020-10-15 08:45 | disposition home or self-care (01) ==
LOC: HO.HOSX 08:44
PROVIDERS: Visit Provider Physician Assistant
DX: S42.215A Unspecified nondisplaced fracture of surgical neck of left humerus, initial encounter for closed fracture (principal)
CPT/HCPCS: 73030; 99202

== ENCOUNTER 2020-10-30 08:50 | Outpatient (REF) | payer MEDICARE, OTHER, SELFPAY ==
--- NOTE | ~2020-10-30 | XR_ITS ---
EXAMINATION: XR SHOULDER, LEFT CLINICAL INFORMATION: Left shoulder fracture, follow-up. COMPARISON: 10/15/2020 left shoulder radiographs. TECHNIQUE: Two views of the left shoulder. FINDINGS: Again seen is a comminuted fracture of the proximal left humerus with overlapping at the left humeral surgical neck and a nondisplaced component extending to the greater tuberosity. Mild callus formation is seen laterally. The joint spaces are unremarkable. The soft tissues are unremarkable. XR/XR shoulder LT min 2V IMPRESSION: Evidence for mild interval healing of proximal left humeral fracture.
== END 2020-10-30 08:51 | disposition home or self-care (01) ==
LOC: HO.HOSX 08:50
PROVIDERS: Visit Provider Physician Assistant
DX: I50.22 Chronic systolic (congestive) heart failure (principal); I42.8 Other cardiomyopathies; I49.3 Ventricular premature depolarization; Z45.018 Encounter for adjustment and management of other part of cardiac pacemaker; S42.202D Unspecified fracture of upper end of left humerus, subsequent encounter for fracture with routine healing
CPT/HCPCS: 73030; 99212; Q3014

== ENCOUNTER 2020-12-11 08:55 | Outpatient (REF) | payer MEDICARE, OTHER, SELFPAY ==
--- NOTE | ~2020-12-11 | XR_ITS ---
EXAMINATION: XR SHOULDER, LEFT CLINICAL INFORMATION: Fracture of the upper humerus COMPARISON: 10/30/2020 TECHNIQUE: Two views of the left shoulder. FINDINGS: The left humeral neck fracture is again noted. There is unchanged alignment from prior. Callus formation is noted at the fracture site. The glenohumeral joint remains aligned. Chest wall pacer noted. The visualized lung is clear. XR/XR shoulder LT min 2V IMPRESSION: Unchanged alignment of the left humeral neck fracture.
== END 2020-12-11 08:56 | disposition home or self-care (01) ==
LOC: HO.HOSX 08:55
PROVIDERS: Visit Provider Physician Assistant
DX: S42.202D Unspecified fracture of upper end of left humerus, subsequent encounter for fracture with routine healing (principal)
CPT/HCPCS: 73030; 99212

== ENCOUNTER 2021-01-27 13:25 | Outpatient (REF) | payer MEDICARE, OTHER, SELFPAY ==
--- NOTE | ~2021-01-27 | XR_ITS ---
EXAMINATION: XR CHEST CLINICAL INFORMATION: Ventricular premature demineralization. COMPARISON: CT chest 10/01/2019 TECHNIQUE: 2 views of the chest were obtained. FINDINGS: The patient is rotated. There is a left-sided cardiac pacemaker in place. The cardiomediastinal silhouette is enlarged, given the rotation, this does not appear significantly changed compared with the prior exam. The lungs are clear without consolidation, pleural effusion or pneumothorax. The bones are demineralized. There are severe compression deformities in the T12 and L1 vertebral bodies with exaggerated kyphosis. Age indeterminate compression fracture in L3, new when compared with CT from 10/01/2020 XR/XR chest 2V IMPRESSION: No acute cardiopulmonary process. Age-indeterminate compression fracture in L3 vertebral body, new compared with CT from 10/01/2020. Severe, chronic compression fractures in T12 and L1.
[2021-01-27 15:21] LABS: Alanine Aminotransferase 9 U/L (0-31); Alkaline Phosphatase 127 U/L (39-117); Aspartate Amino Transferase 18 U/L (5-31); Bilirubin Direct < 0.2 mg/dL (0.0-0.5); Bilirubin Total 0.4 mg/dL (0.0-1.0)
[2021-01-27 15:44] LABS: TSH reflex Free T4 0.43 uIU/mL (0.32-4.0)
== END 2021-01-27 13:26 | disposition home or self-care (01) ==
LOC: HO.LAB 13:25
PROVIDERS: PCP Internal Medicine; Referring Provider Internal Medicine; Visit Provider Internal Medicine Cardiovascular Disease
DX: Z45.02 Encounter for adjustment and management of automatic implantable cardiac defibrillator (principal); I49.3 Ventricular premature depolarization; I48.0 Paroxysmal atrial fibrillation; I42.8 Other cardiomyopathies; Z95.810 Presence of automatic (implantable) cardiac defibrillator
CPT/HCPCS: 36415; 71046; 80076; 84443; 99212

== ENCOUNTER 2021-02-11 07:56 | Outpatient (REF) | payer MEDICARE, OTHER, SELFPAY ==
--- NOTE | ~2021-02-11 | XR_ITS ---
EXAMINATION: XR SHOULDER, LEFT CLINICAL INFORMATION: Left shoulder pain. COMPARISON: 12/11/2020 left shoulder radiographs. TECHNIQUE: AP external rotation, Grashey, scapular Y, and axillary views of the left shoulder. FINDINGS: Again seen is nonacute deformity of the proximal left humerus consistent with previous left humeral surgical neck fracture and overlapping of fragments. The joint spaces are unremarkable. The soft tissues are unremarkable. XR/XR shoulder LT min 2V IMPRESSION: Nonacute deformity of the proximal left humerus without significant change.
== END 2021-02-11 07:57 | disposition home or self-care (01) ==
LOC: HO.HOSX 07:56
PROVIDERS: Visit Provider Physician Assistant
DX: S42.202D Unspecified fracture of upper end of left humerus, subsequent encounter for fracture with routine healing (principal)
CPT/HCPCS: 73030; 99212

== ENCOUNTER 2021-05-01 10:12 | Outpatient (REF) | payer MEDICARE, OTHER, SELFPAY ==
[2021-05-01 11:21] LABS: Alanine Aminotransferase 10 U/L (0-31); Albumin Level 3.9 g/dL (3.5-5.0); Alkaline Phosphatase 124 U/L (39-117); Aspartate Amino Transferase 21 U/L (5-31); Bilirubin Direct 0.2 mg/dL (0.0-0.5); Bilirubin Total 0.5 mg/dL (0.0-1.0); Total Protein 7.6 g/dL (6.5-8.0)
== END 2021-05-01 10:13 | disposition home or self-care (01) ==
LOC: HO.LAB 10:12
PROVIDERS: PCP Internal Medicine; Visit Provider Internal Medicine Cardiovascular Disease
DX: I49.3 Ventricular premature depolarization (principal)
CPT/HCPCS: 36415; 80076; 84443

== ENCOUNTER → 2021-05-05 12:47 | Outpatient (BNVA) | payer MEDICARE, OTHER, SELFPAY | PROVIDERS: PCP Internal Medicine; Referring Provider Internal Medicine; Visit Provider Internal Medicine Cardiovascular Disease | DX: Z45.02 Encounter for adjustment and management of automatic implantable cardiac defibrillator (principal); I50.22 Chronic systolic (congestive) heart failure; I49.3 Ventricular premature depolarization | CPT/HCPCS: 93005; 99212 ==

== ENCOUNTER 2021-05-08 14:12 | Outpatient (REF) | payer MEDICARE, OTHER, SELFPAY ==
--- NOTE | ~2021-05-08 | XR_ITS ---
EXAMINATION: XR WRIST, LEFT CLINICAL INFORMATION: Fall several weeks ago with persistent pain medial left wrist. No symptoms proximal forearm. COMPARISON: None TECHNIQUE: The left wrist is imaged in 5 views. FINDINGS: There is a mildly displaced fracture involving distal shaft left ulnar with slight medial and dorsal displacement distal fragment, each by around 25% bone diameter. There is some callus formation on the medial side of the fracture site consistent with the subacute injury. No dislocation. Ulnar variance is neutral. The distal radius and carpal bones appear intact. There are degenerative changes lateral carpus at the first carpometacarpal joint. There is generalized osteopenia of the bony structures. Radiology department staff to call PCP with results and management plans for patient who is waiting in the office. XR/XR wrist LT min 3V IMPRESSION: Subacute fracture distal ulnar with mild medial and dorsal displacement distal fragment. Some callus formation present. No dislocation or destructive process.
== END 2021-05-08 14:13 | disposition home or self-care (01) ==
LOC: HO.XRAY 14:12
PROVIDERS: PCP Internal Medicine; Visit Provider Internal Medicine
DX: S69.91XD Unspecified injury of right wrist, hand and finger(s), subsequent encounter (principal); Z91.81 History of falling
CPT/HCPCS: 73110

== ENCOUNTER 2021-07-28 14:23 | Outpatient (REF) | payer MEDICARE, OTHER, SELFPAY ==
[2021-07-28 16:24] LABS: Hematocrit 41.9 % (37.0-47.0); Hemoglobin 13.2 g/dl (12.0-16.0); Mean Corpuscular HGB Conc 31.5 g/dl (31.0-35.0); Mean Corpuscular Hemoglobin 31.1 pg (27.0-33.0); Mean Corpuscular Volume 98.8 fL (80.0-98.0); Mean Platelet Volume 9.5 fL (9.4-12.3); Platelet Count 167 X10*3/uL (160-400); Red Blood Count 4.24 X10*6/uL (4.20-5.50); Red Cell Distribution Width 14.1 % (11.0-16.0)
[2021-07-28 16:49] LABS: Anion Gap 14 (12-20); Blood Urea Nitrogen 16 mg/dL (9-16); Calcium 9.6 mg/dL (8.4-10.2); Carbon Dioxide 26 mmol/L (22-29); Chloride 103 mmol/L (96-108); Estimated Glomerular Filt Rate 28; Glucose Random 122 mg/dL (60-115); Magnesium 2.5 mg/dL (1.6-2.6); Potassium 4.5 mmol/L (3.3-5.1); Sodium 138 mmol/L (135-145)
[2021-07-28 16:51] LABS: B Type Natriuretic Peptide 421 pg/mL (<100)
[2021-07-28 17:10] LABS: TSH reflex Free T4 2.83 uIU/mL (0.32-4.0)
== END 2021-07-28 14:24 | disposition home or self-care (01) ==
LOC: HO.LAB 14:23
PROVIDERS: PCP Internal Medicine; Referring Provider Internal Medicine; Visit Provider Internal Medicine Cardiovascular Disease
DX: I50.20 Unspecified systolic (congestive) heart failure (principal); I48.0 Paroxysmal atrial fibrillation; Z95.810 Presence of automatic (implantable) cardiac defibrillator
CPT/HCPCS: 36415; 80048; 83735; 83880; 84443; 85027; 93005; 99212

== ENCOUNTER 2021-08-07 08:30 | Outpatient (REF) | payer MEDICARE, OTHER, SELFPAY ==
[2021-08-07 09:23] LABS: Anion Gap 15 (12-20); Blood Urea Nitrogen 19 mg/dL (9-16); Calcium 9.6 mg/dL (8.4-10.2); Carbon Dioxide 24 mmol/L (22-29); Chloride 101 mmol/L (96-108); Estimated Glomerular Filt Rate 33; Glucose Fasting 118 mg/dL (60-99); Potassium 4.2 mmol/L (3.3-5.1); Sodium 136 mmol/L (135-145)
== END 2021-08-07 08:31 | disposition home or self-care (01) ==
LOC: HO.LAB 08:30
PROVIDERS: PCP Internal Medicine; Visit Provider Internal Medicine Cardiovascular Disease
DX: I50.20 Unspecified systolic (congestive) heart failure (principal)
CPT/HCPCS: 36415; 80048

== ENCOUNTER 2021-08-16 13:04 | Inpatient (IN) | payer MEDICARE, OTHER, SELFPAY ==
--- NOTE | ~2021-08-16 | CT_ITS ---
EXAMINATION: CT PELVIS WITHOUT CONTRAST CLINICAL INFORMATION: Hip pain. Assess known fractures. COMPARISON: Radiograph performed same day. CT abdomen pelvis 10/01/2020 TECHNIQUE: Helical scanning was performed with submillimeter collimation through the pelvis. Sagittal and coronal multiplanar 2-D reconstructions were obtained. This CT examination was performed using dose optimization techniques as appropriate, variously including the following: *Automated exposure control *Adjustment of mA and/or kV according to patient size (this includes techniques or standardized protocols for targeted exams where dose is matched to indication/reason for exam; i.e. extremities or head) *Use of iterative reconstruction technique DLP: 220 mGy-cm FINDINGS: PELVIS: The bladder is filled with contrast material without focal abnormality. Hysterectomy. No evidence of bowel obstruction. Atherosclerotic disease. No significant abdominal wall hernia. No lymphadenopathy. OSSEOUS STRUCTURES: Acute nondisplaced fracture of the left inferior pubic ramus. There is evidence of subacute fracture involving the left superior pubic ramus and inferior pubic ramus. Subacute healing fractures of the right inferior and superior pubic rami. Diffusely decreased bone mineral density. CT/CT pelvis wo con IMPRESSION: Acute nondisplaced fracture of the left inferior pubic ramus. Subacute fractures of the left superior pubic ramus, inferior pubic ramus, right inferior and superior pubic rami.
--- NOTE | ~2021-08-16 | XR_ITS ---
EXAMINATION: XR HIP, LEFT CLINICAL INFORMATION: Pain status post fall COMPARISON: February 28, 2019 TECHNIQUE: AP pelvis and 2 views of the left hip . FINDINGS: There is no evidence of acute fracture or dislocation of the left hip. Left hip joint spaces maintained. No abnormal lytic or sclerotic lesions within the femoral head is seen. Views of the pelvis demonstrate what appears to be a nondisplaced fracture involving the left inferior pubic ramus with no other definite left pubic ring fracture. There are also noted to be healing fractures of the right superior and inferior pubic rami which were not evident on study of October 01, 2020 right hip joint space appears unremarkable. No diastases of the sacroiliac joints is appreciated. Degenerative disc disease with facet arthropathy is seen L4-S1. XR/XR hip LT w PEL1V IMPRESSION: No acute fracture or dislocation of the left hip. Healing fractures of the right superior and inferior pubic rami which are not acute. Question acute nondisplaced fracture involving the inferior left pubic ramus.
--- NOTE | ~2021-08-16 | CT_ITS ---
EXAMINATION: CT CERVICAL SPINE WITHOUT CONTRAST CLINICAL INFORMATION: Fall. COMPARISON: CT scan of the head also obtained 08/16/2021. CT scan of the cervical spine 10/01/2020. TECHNIQUE: A noncontrast axial CT scan of the cervical spine was obtained. Coronal and sagittal reformatted images were generated at the acquisition workstation. This CT examination was performed using dose optimization techniques as appropriate, variously including the following: *Automated exposure control *Adjustment of mA and/or kV according to patient size (this includes techniques or standardized protocols for targeted exams where dose is matched to indication/reason for exam; i.e. extremities or head) *Use of iterative reconstruction technique DLP: 360 mGy-cm FINDINGS: Imaging in the mid and lower cervical region is suboptimal due to patient motion artifact. There is a mild levoscoliosis. There is a degenerative anterolisthesis of C4 on C5. There is narrowing of intervertebral disc height at C5-C6 and C6-C7 and C7-T1 with degenerative endplate contour changes. Facet alignment is normal. There is severe multilevel bilateral facet arthropathy. Vertebral body heights are maintained. No fractures are demonstrated. The lateral masses of C1 and C2 are normally aligned and the dens is intact. There is mild foraminal narrowing at multiple levels in the mid and lower cervical spine. There are atelectatic changes in the right lung posteriorly. Pacemaker with leads from the left chest wall are partially demonstrated. A blood level is noted in the posterior left maxillary sinus. CT/CT cervical spine wo con IMPRESSION: 1. There are no acute fractures or subluxations. 2. There is multilevel spondylosis and facet arthropathy.
--- NOTE | ~2021-08-16 | CT_ITS ---
EXAMINATION: CT HEAD WITHOUT CONTRAST (STROKE PROTOCOL) CLINICAL INFORMATION: Stroke protocol. COMPARISON: October 01, 2020 TECHNIQUE: Contiguous axial imaging was performed from the skull base to vertex without intravenous administration of contrast. This CT examination was performed using dose optimization techniques as appropriate, variously including the following: *Automated exposure control *Adjustment of mA and/or kV according to patient size (this includes techniques or standardized protocols for targeted exams where dose is matched to indication/reason for exam; i.e. extremities or head) *Use of iterative reconstruction technique DLP: 580 mGy-cm FINDINGS: There is no intracranial hemorrhage, hematoma, or extra-axial fluid collection. The ventricles are normal in size. There is no hydrocephalus, edema, or mass effect. The armstrong-white matter differentiation appears symmetric. There is no acute infarct or mass lesion. There is again seen to be a large amount of periventricular white matter low density consistent with microangiopathy. There is an air-fluid level seen within the left maxillary sinus. There is an essentially nondisplaced fracture of the posterior lateral left maxilla extending to the orbital wall which is not displaced. No intraconal abnormality is identified on the provided imaging. Pterygoid plates intact. CT/CT head for stroke IMPRESSION: No acute intracranial abnormality appreciated. Findings consistent with diffuse microangiopathy. Posterior lateral left maxillary wall nondisplaced fracture with left maxillary sinus air-fluid level. Fracture extends for a nondisplaced fracture about the lateral left orbital wall without intraconal abnormality appreciated. This critical result was discussed with Kinjal Lambert at 1:25 PM hours on August 16, 2021. It was ascertained that the content and urgency of the report was understood at the time of direct communication.
--- NOTE | ~2021-08-16 | XR_ITS ---
EXAMINATION: XR CHEST CLINICAL INFORMATION: AMS COMPARISON: January 27, 2021 TECHNIQUE: AP portable view of the chest was obtained. FINDINGS: The cardiopericardial silhouette is enlarged. No evidence of pulmonary edema. There is prominence of the right hilum. Pacemaker in place. No pneumothorax or pleural effusion. There is an old healed left proximal humeral fracture. There are some old healed right rib fractures. Hiatal hernia present with retrocardiac shadow. XR/XR chest 1V IMPRESSION: Cardiomegaly without acute parenchymal disease.
--- NOTE | ~2021-08-16 | XR_ITS ---
EXAMINATION: XR CHEST CLINICAL INFORMATION: Crackles COMPARISON: Previous day TECHNIQUE: Frontal view of the chest was obtained. FINDINGS: Biventricular pacemaker and leads stably positioned. Stable cardiac mediastinal silhouette. Aorta is atherosclerotic. No focal consolidation. No pleural effusion or pneumothorax. Healed fracture deformity of the proximal left humerus. XR/XR chest 1V IMPRESSION: Stable exam without acute cardiopulmonary abnormality.
--- NOTE | ~2021-08-16 | CT_ITS ---
EXAMINATION: CT HEAD WITHOUT CONTRAST CLINICAL INFORMATION: Recheck bleeding. Evaluate for retrobulbar hematoma. COMPARISON: 08/16/2021 TECHNIQUE: Contiguous axial imaging was performed from the skull base to vertex without intravenous administration of contrast. This CT examination was performed using dose optimization techniques as appropriate, variously including the following: *Automated exposure control *Adjustment of mA and/or kV according to patient size (this includes techniques or standardized protocols for targeted exams where dose is matched to indication/reason for exam; i.e. extremities or head) *Use of iterative reconstruction technique DLP: 625 mGy-cm FINDINGS: No evidence of acute intracranial hemorrhage or extra-axial fluid collection. Periventricular white matter hypodensities, a nonspecific finding but most commonly due to chronic small vessel ischemic disease. No acute territorial infarction. The calvarium is intact. Limited views of the paranasal sinuses redemonstrate left maxillary sinus posterior wall fracture with dense air-fluid level consistent with blood products. Mastoid air cells are well aerated and middle ear cavities are clear. Limited views of the orbits are unremarkable. Soft tissue swelling overlies the left globe. CT/CT head/brain wo con IMPRESSION: 1. No evidence of acute intracranial abnormality. 2. Soft tissue swelling and induration overlies the left orbit without retrobulbar hematoma as clinically questioned.
--- NOTE | ~2021-08-16 | XR_ITS ---
EXAMINATION: XR CHEST CLINICAL INFORMATION: Fever COMPARISON: 08/17/2021 chest x-ray at 4:09 AM TECHNIQUE: Frontal view of the chest was obtained. FINDINGS: The lungs are hypoexpanded with patchy atelectatic changes in the right middle lobe and left lung base. Heart size and pulmonary vascularity is normal. Biventricular pacer electrodes are stable. Mild deformity left proximal humerus from an old healed fractures stable. XR/XR chest 1V IMPRESSION: Hypoexpanded lungs with patchy atelectatic changes right middle lobe and left lower lobe, unchanged. Stable pacer electrodes.
--- NOTE | ~2021-08-16 | CT_ITS ---
EXAMINATION: CT ANGIOGRAM OF THE HEAD CT ANGIOGRAM OF THE NECK CLINICAL INFORMATION: Altered mental status and left-sided weakness. COMPARISON: CT scan of the head and cervical spine earlier 08/16/2021. CTA of the head and neck 10/25/2019. MRI scan of the brain 10/24/2019. TECHNIQUE: Test bolus series followed by intravenous administration 70 mL of Omnipaque 350. Helical imaging was performed in the axial plane from the mediastinum to the skull vertex. A [address] scan of the head was obtained. The degree of stenosis is based off NASCET criteria. The data was processed at the sleep lab technologist workstation for generation of MIP images. Three-dimensional volume rendered reformatted images were also generated at an offline 3-D workstation. This CT examination was performed using dose optimization techniques as appropriate, variously including the following: *Automated exposure control *Adjustment of mA and/or kV according to patient size (this includes techniques or standardized protocols for targeted exams where dose is matched to indication/reason for exam; i.e. extremities or head) *Use of iterative reconstruction technique DLP: 1376 mGy-cm. FINDINGS: CT Head: There is no evidence of acute intracranial hemorrhage or territorial infarction. No abnormal mass-effect or midline shift is seen. Goodman to white matter differentiation is well preserved. No extra-axial fluid collections are identified. There is hazy nonspecific enhancement in the left frontal lobe, not demonstrated on prior imaging. There is mild commensurate prominence of the ventricles and sulci consistent with diffuse volume loss. The study redemonstrates patchy areas of low-attenuation the periventricular and subcortical white matter, consistent with chronic microvascular ischemic changes. The study redemonstrates the fractures of the left posterior maxillary sinus and left lateral orbital hernandez. There is mild periorbital soft tissue swelling on the left. A fluid level is redemonstrated in the left maxillary sinus. There is mild mucoperiosteal thickening in the left ethmoid air cells. There is hyperostosis frontalis interna. There is trace fluid at the left mastoid tip. There are degenerative changes of the bilateral temporomandibular joints. CTA Neck: There is a classic configuration of the arch of the aorta. The great vessels of the neck are widely patent. The subclavian arteries appear normal bilaterally. The common carotid arteries are slightly tortuous but have normal caliber. There is minimal atheromatous calcification at the left carotid bifurcation. The internal carotid arteries in the neck bilaterally have uniform and normal caliber. The origins of both vertebral arteries are well seen and appear normal. Both vertebral arteries are widely patent and demonstrate good opacification throughout their cervical course. The left vertebral artery is slightly dominant. Nonvascular: There are degenerative changes in the cervical spine. There is a pacemaker with leads from the left chest wall. The thyroid gland has slightly heterogenous attenuation. There is no cervical lymphadenopathy. There are atelectatic changes in the right upper lobe posteriorly. CTA Head: There are minimal atheromatous calcifications of the cavernous internal carotid arteries. The middle and anterior cerebral arteries bilaterally demonstrate normal caliber with no evidence of focal stenosis, aneurysm or vascular malformation. There is normal arborization of the middle cerebral artery branches. The anterior communicating artery is normal. In the posterior circulation, the left vertebral artery is dominant. The vertebral arteries intradurally have uniform caliber. The basilar artery appears normal. The posterior cerebral arteries have normal caliber. The venous sinuses opacify normally. CT/CT angio head neck IMPRESSION: CT head and neck: 1. There is a nonspecific blush following intravenous contrast in the left frontal lobe, which is nonspecific. It may be consistent with a small capillary telangiectasia or developmental venous anomaly. 2. There are no acute territorial infarcts. There are no masses. 3. There are multilevel spondylitic changes in the cervical spine. CTA head and neck: 1. The carotid and vertebral arteries are well opacified in the neck. There is no significant atheromatous calcification, and there are no flow-limiting stenoses. 2. Intracranially, there are no focal stenoses or aneurysms. There are minimal atheromatous calcifications of the cavernous internal carotid arteries.
--- NOTE | 2021-08-16 13:08 | ECG_ITS ---
Test Reason : syncope Blood Pressure : / mmHG Vent. Rate : 073 BPM Atrial Rate : 073 BPM P-R Int : 104 ms QRS Dur : 220 ms QT Int : 542 ms P-R-T Axes : 000 171 133 degrees QTc Int : 597 ms Atrial-sensed ventricular-paced rhythm Abnormal ECG When compared with ECG of 01-OCT-2020 17:58, Premature ventricular complexes are no longer Present Referred By: Kinjal Lambert Electronically Signed By:Marshall Ji
--- NOTE | 2021-08-16 13:11 | ED_ITS ---
HPI - Altered Mental Status General Chief Complaint: Stroke <JOSELYN Eagle Last Filed: 08/16/21 19:01> Stated Complaint: STROKE ALERT,L WEAK,LKWT 1HR,HEAD STRIKE,ELIQUIS <JOSELYN Eagle Last Filed: 08/16/21 19:01> Time Seen by Provider: 08/16/21 13:10 <JOSELYN Eagle Last Filed: 08/16/21 19:01> Mode of arrival: EMS <JOSELYN Eagle Last Filed: 08/16/21 19:01> Limitations: altered mental status <JOSELYN Eagle Last Filed: 08/16/21 19:01> History of Present Illness HPI narrative: 85-year-old female with past medical history of atrial fibrillation, congestive heart failure, cardiomyopathy, with an implantable ICD, who is anticoagulated on Eliquis,was found by her down in the bathroom, last known well time is unknown. Patient was incontinent of urine. She does not recall falling. Patient had slurred speech per EMS, and had weak left multifocal button grinder strength per EMS. Patient has visible swelling and bruising around right eye. Per son who was at bedtime, patient has recently stopped her hypertensive medication due to elevated liver function tests. Son states that patient is more confused than normal. Normally patient knows what day it is but she repeatedly gets the day wore on despite being told what day it is. Patient is endorsing left hip pain. <JOSELYN Eagle Last Filed: 08/16/21 19:01> MD complaint: confusion <JOSELYN Eagle Last Filed: 08/16/21 19:01> Consistency of symptoms: unknown <JOSELYN Eagle Last Filed: 08/16/21 19:01> Associated symptoms: difficulty walking and incontinence <JOSELYN Eagle Last Filed: 08/16/21 19:01> Related Data Home Medications: Home Medications Medication Instructions Recorded Confirmed lorazepam 1 mg tablet 1 mg PO BID PRN 07/24/20 07/28/21 mirtazapine 15 mg tablet 15 mg PO DAILY 07/24/20 07/28/21 paroxetine HCl 10 mg tablet 10 mg PO DAILY 10/01/20 07/28/21 levothyroxine 75 mcg tablet 37.5 mcg PO DAILY 10/02/20 07/28/21 Previous Rx's Medication Instructions Recorded acetaminophen 500 mg tablet 1,000 mg PO QID PRN #14 tab 10/01/20 (Tylenol Extra Strength) lidocaine 5 % topical patch 1 patch TOPICAL DAILY #30 ea 10/01/20 (Lidoderm) oxycodone 5 mg tablet 5 mg PO Q8H PRN #14 tab 10/01/20 tramadol 50 mg tablet 50 mg PO TID 7 Days #21 tab 10/15/20 metoprolol tartrate 25 mg tablet 25 mg PO BID #180 tab 11/25/20 apixaban 2.5 mg tablet (Eliquis) 2.5 mg PO BID #180 tab 04/07/21 amiodarone 200 mg tablet 200 mg PO DAILY #90 tab 07/02/21 <JOSELYN Eagle - Last Filed: 08/16/21 19:01> Allergies/Adverse Reactions: Allergies Allergy/AdvReac Type Severity Reaction Status Date / Time No Known Allergies Allergy Verified 02/11/21 09:58 [No Known Allergies*] <JOSELYN Eagle - Last Filed: 08/16/21 19:01> Review of Systems Review of Systems: Patient is confused, knows her name and where she was, knows that she fell but does remember when she fell. Denies any pain except left hip pain. <JOSELYN Eagle - Last Filed: 08/16/21 19:01> Yes Unobtainable due to mental status <JOSELYN Eagle - Last Filed: 08/16/21 19:01> Neurologic: Reports confusion <JOSELYN Eagle - Last Filed: 08/16/21 19:01> Psychiatric: Psychiatric: Reports confusion <JOSELYN Eagle - Last Filed: 08/16/21 19:01> [facility] Past Medical History Medical History: Medical History Anxiety Biventricular ICD (implantable cardioverter-defibrillator) in place CVA (cerebral vascular accident) Fatty liver Frailty Frequent PVCs Heart failure with reduced ejection fraction Hypertension Hypothyroidism Nonischemic cardiomyopathy Palpitations Paroxysmal atrial fibrillation <JOSELYN Eagle - Last Filed: 08/16/21 19:01> Surgical History: Surgical History History of permanent cardiac pacemaker placement Hx of Achilles tendon repair Hx of hysterectomy <JOSELYN Eagle - Last Filed: 08/16/21 19:01> Family History Family History: Family History Father No problems noted. Mother No problems noted. <JOSELYN Eagle - Last Filed: 08/16/21 19:01> Social History Social History: Social History Household Members: Spouse Housing: House Do you presently have visiting nurse or other home services: No Smoked in Last 30 Days: No Use of substances other than those prescribed or required for medical reasons: No Advance Directives: No Advance Directives Information Provided: Yes Current occupational status: retired and disabled Current occupation: right handed <JOSELYN Eagle - Last Filed: 08/16/21 19:01> Physical Exam Vital Signs: Vital Signs: Last Vital Signs Temp 98.7 F 08/16/21 20:00 Pulse 64 08/17/21 01:54 Resp 24 H 08/17/21 01:54 BP 126/39 L 08/16/21 20:00 Pulse Ox 93 08/16/21 20:00 BMI result Body Mass Index 19.5 <JOSELYN Eagle - Last Filed: 08/16/21 19:01> Vital Signs: Last Vital Signs Temp 98.7 F 08/16/21 20:00 Pulse 64 08/17/21 01:54 Resp 24 H 08/17/21 01:54 BP 126/39 L 08/16/21 20:00 Pulse Ox 93 08/16/21 20:00 BMI result Body Mass Index 19.5 <James Vines MD - Last Filed: 08/17/21 02:34> Const: General: alert, awake and confusion <JOSELYN Eagle - Last Filed: 08/16/21 19:01> Nutritional Appearance: thin <JOSELYN Eagle - Last Filed: 08/16/21 19:01> Orientation/consciousness: oriented to person, oriented to place and confusion <JOSELYN Eagle - Last Filed: 08/16/21 19:01> Limitations: altered mental status <Kinjal Lambert [facility] Last Filed: 08/16/21 19:01> HENMT: Head: Yes hematoma (left eye) and Yes periorbital ecchymosis <Kinjal Lambert [facility] Last Filed: 08/16/21 19:01> Head images: 1. ecchymosis <Kinjal Lambert [facility] Last Filed: 08/16/21 19:01> Ears: hearing grossly normal bilaterally <Kinjal Lambert [facility] Last Filed: 08/16/21 19:01> General nose exam: Normal external nose present <Kinjal Lambert [facility] Last Filed: 08/16/21 19:01> Face and sinus: Yes normal facial exam <Kinjal Lambert [facility] Last Filed: 08/16/21 19:01> Mouth: Normal oral and palatal mucosa present <Kinjal Lambert [facility] Last Filed: 08/16/21 19:01> Teeth and gingiva: dentition normal <Kinjal Lambert [facility] Last Filed: 08/16/21 19:01> Throat: Yes posterior oropharynx normal <Kinjal Lambert [facility] Last Filed: 08/16/21 19:01> Eyes: Conjunctivae: conjunctivae normal <Kinjal Lambert [facility] Last Filed: 08/16/21 19:01> Pupils: Equal, round and reactive pupils present <Kinjal Lambert [facility] Last Filed: 08/16/21 19:01> EOM: EOMs intact bilaterally <Kinjal Lambert [facility] Last Filed: 08/16/21 19:01> Neck: Other: in C-collar <Kinjal Lambert [facility] Last Filed: 08/16/21 19:01> Neck: Yes full ROM, Yes no lymphadenopathy and Yes supple <Kinjal Lambert [place] - Last Filed: 08/16/21 19:01> Chest: Chest palpation & inspection: normal inspection of the chest and normal palpation of entire chest wall <Kinjal Lambert [facility] Last Filed: 08/16/21 19:01> Resp: Effort & Inspection: normal respiratory effort and able to speak in complete sentences <Kinjal Lambert [place] - Last Filed: 08/16/21 19:01> Auscultation: clear to auscultation bilaterally, no crackles, no rales, no rhonchi and no wheezes <Kinjal Lambert [facility] Last Filed: 08/16/21 19:01> Cardio: Rate: regular rate <Kinjal Lambert [facility] Last Filed: 08/16/21 19:> Rhythm: regular rhythm <Kinjal Lambert [facility] Last Filed: 08/16/21 19:> Heart sounds: S1 normal heart sound present and S2 normal heart sound present <Kinjal Lambert [facility] Last Filed: 08/16/21 19:> GI: Inspection: Yes normal to inspection <Kinjal Lambert [facility] Last Filed: 08/16/21 19:> Palpation (GI): Soft to palpation, nontender, no guarding and not rigid <Kinjal Lambert [facility] Last Filed: 08/16/21 19:> Percussion: Yes normal to percussion <Kinjal Lambert [facility] Last Filed: 08/16/21 19:> Auscultation: normal bowel sounds <Kinjal Lambert [facility] Last Filed: 08/16/21 19:> Skin: General skin exam: no rashes or lesions noted <Kinjal Lambert [facility] Last Filed: 08/16/21 19:01> Neuro: General: oriented to person, oriented to place and confusion <Kinjal Lambert [facility] Last Filed: 08/16/21 19:> Cranial nerves: Yes Equal, round and reactive pupils present <Kinjal Lambert [facility] Last Filed: 08/16/21 19:01> Extrem: Left lower extremity: normal capillary refill and hip/thigh Details: tenderness Location: of the hip Location: laterally and anteriorly <Kinjal Lambert [facility] Last Filed: 08/16/21 19:> Psych: Appearance: grossly normal <Kinjal Lambert [facility] Last Filed: 08/16/21 19:01> Affect: normal affect <Kinjal Lambert [facility] Last Filed: 08/16/21 19:> Attitude: cooperative <Kinjal Lambert [facility] Last Filed: 08/16/21 19:01> Thought process: Normal thought process present <JOSELYN Eagle - Last Filed: 08/16/21 19:01> NIH Stroke Scale Level of Consciousness: Alert <JOSELYN Eagle - Last Filed: 08/16/21 19:01> Level of Consciousness Questions: Answers one question correctly <JOSELYN Eagle - Last Filed: 08/16/21 19:01> Level of Consciousness Commands: Performs both tasks correctly <JOSELYN Eagle - Last Filed: 08/16/21 19:01> Best Gaze: Normal <JOSELYN Eagle - Last Filed: 08/16/21 19:01> Visual: Bilateral hemianopia <JOSELYN Eagle - Last Filed: 08/16/21 19:01> Facial Palsy: Normal <JOSELYN Eagle - Last Filed: 08/16/21 19:01> Motor Arm (Right): No drift <JOSELYN Eagle - Last Filed: 08/16/21 19:01> Motor Arm (Left): Drift <JOSELYN Eagle - Last Filed: 08/16/21 19:01> Motor Leg (Right): No drift <JOSELYN Eagle - Last Filed: 08/16/21 19:01> Motor Leg (Left): No drift <JOSELYN Eagle - Last Filed: 08/16/21 19:01> Limb Ataxia: Absent <JOSELYN Eagle - Last Filed: 08/16/21 19:01> Sensory: Normal <JOSELYN Eagle - Last Filed: 08/16/21 19:01> Best Language: Mild to moderate aphasia <JOSELYN Eagle - Last Filed: 08/16/21 19:01> Dysarthia: Mild to moderate dysarthria <JOSELYN Eagle - Last Filed: 08/16/21 19:01> Extinction and Inattention: No abnormality <JOSELYN Eagle - Last Filed: 08/16/21 19:01> Score: 7 <JOSELYN Eagle - Last Filed: 08/16/21 19:01> 7 <James Vines MD - Last Filed: 08/17/21 02:34> Course Course Course Narrative: 85-year-old female presents for stroke-like symptoms after being found down in her bathroom prior to arrival. Last known well time is unknown. Patient's blood glucose on arrival is 140. On exam, patient scores a 7 on the NIH scale, for mild speech slurring, left arm weakness. Patient has bruising around her left orbit. Radiologist called me with the following CT results: CT/CT head for stroke IMPRESSION: No acute intracranial abnormality appreciated. ? Findings consistent with diffuse microangiopathy. ? Posterior lateral left maxillary wall nondisplaced fracture with left maxillary sinus air-fluid level. Fracture extends for a nondisplaced fracture about the lateral left orbital wall without intraconal abnormality appreciated. Pt has intact EOMs. <JOSELYN Eagle - Last Filed: 08/16/21 19:01> Reevaluation(s) Reevaluation #1: Creatinine 1.51, will bolus with NS to obtain CTA head and neck. Patient has no ischemia on EKG, troponin is 10. Patient has a negative urine. Chest x-ray shows cardiomegaly with no pleural effusions. X-ray left hip and pelvis shows: XR/XR hip LT w PEL1V IMPRESSION: No acute fracture or dislocation of the left hip. ? Healing fractures of the right superior and inferior pubic rami which are not acute. ? Question acute nondisplaced fracture involving the inferior left pubic ramus. ? CT/CT angio head neck IMPRESSION: CT head and neck: 1. There is a nonspecific blush following intravenous contrast in the left frontal lobe, which is nonspecific. It may be consistent with a small capillary telangiectasia or developmental venous anomaly. 2. There are no acute territorial infarcts. There are no masses. 3. There are multilevel spondylitic changes in the cervical spine. ? CTA head and neck: 1. The carotid and vertebral arteries are well opacified in the neck. There is no significant atheromatous calcification, and there are no flow-limiting stenoses. 2. Intracranially, there are no focal stenoses or aneurysms. There are minimal atheromatous calcifications of the cavernous internal carotid arteries. <JOSELYN Eagle - Last Filed: 08/16/21 19:01> Reevaluation #2: Urine negative. Dr Vazquez, hospitalist, would like consult with trauma surgeon and with crusted pelvic CT to further evaluate pelvic fracture. Spoke to Dr Arreguin, trauma surgeon at [facility], who said that it would be unusual for an nondisplaced fracture with no intraconal abnormality to develop a retrobulbar hematoma or orbital entrapment. States that we should repeat the head CT 4-[address] the initial CT, and if there are no changes, would be okay to admit here. He said no trauma surgeon would touch her with a nondisplaced fracture. He said he would be happy to evaluate her at [facility] if a problem develops Ordered repeat head CTs for19:15. Pelvic CT showed CT/CT pelvis wo con IMPRESSION: Acute nondisplaced fracture of the left inferior pubic ramus. Subacute fractures of the left superior pubic ramus, inferior pubic ramus, right inferior and superior pubic rami.? Signed pt out to Dr Vines, pending admission if repeat head CT does not show retrobulbar hematoma. <JOSELYN Eagle - Last Filed: 08/16/21 19:01> Time: 02:05 <James Vines MD - Last Filed: 08/17/21 02:34> Reevaluation #3: The patient's repeat CT scan of head was interpreted as by the radiologist as follows: 1. No evidence of acute intracranial abnormality., 2. Soft tissue swelling and induration overlies the left orbit without retrobulbar hematoma as clinically questioned. I will discuss this with the covering hospitalist for admission for further management. <James Vines MD - Last Filed: 08/17/21 02:34> MDM - Altered Mental Status Lab Data Result diagrams: : 08/16/21 13:40 08/16/21 13:40 <JOSELYN Eagle - Last Filed: 08/16/21 19:01> Labs: Lab Results 08/16/21 08/16/21 08/16/21 Range/Units 13:31 13:32 13:40 WBC (4.8-10.8) X10*3/uL RBC (4.20-5.50) X10*6/uL Hgb (12.0-16.0) g/dl Hct (37.0-47.0) % MCV (80.0-98.0) fL MCH (27.0-33.0) pg MCHC (31.0-35.0) g/dl RDW (11.0-16.0) % Plt Count (160-400) X10*3/uL MPV (9.4-12.3) fL Immature Gran % (Auto) (0.0-0.4) % Neut % (Auto) (45-73) % Lymph % (Auto) (20-40) % [place] % (Auto) (2-11) % Eos % (Auto) (0-4) % Baso % (Auto) (0-2) % Lymph # (Auto) (1.2-4.9) X10*3/uL [place] # (Auto) (0.1-1.2) X10*3/uL Eos # (Auto) (0.0-0.4) X10*3/uL Baso # (Auto) (0.0-0.2) X10*3/uL Abs Immat Gran (auto) (0.00-0.03) X10*3/uL Absolute Neuts (auto) (2.0-8.3) x10*3/uL Absolute Nucleated RBC (0.0-0.012) X10*3/uL Nucleated RBC % (auto) (0.0-0.2) /100WBC PT (9.9-13.0) SEC Whole Blood PT 14.4 H (11.1-13.5) sec INR (0.9-1.1) Whole Blood INR 1.2 H (0.9-1.1) APTT (24.1-38.0) SEC Sodium 135 (135-145) mmol/L Potassium 4.0 (3.3-5.1) mmol/L Chloride 100 (96-108) mmol/L Carbon Dioxide 24 (22-29) mmol/L Anion Gap 15 (12-20) BUN 13 (9-16) mg/dL Creatinine 1.51 H (0.5-1.4) mg/dL Estim Creat Clear Calc 24.2 Estimated GFR 33 POC Glucose 140 H (60-115) mg/dL Random Glucose 142 H (60-115) mg/dL Calcium 9.8 (8.4-10.2) mg/dL Phosphorus 2.7 (2.7-4.5) mg/dL Magnesium 2.0 (1.6-2.6) mg/dL Total Creatine Kinase 71 D (26-140) U/L Troponin I High Sens (<3.5-17.0) ng/L Urine Color Urine Appearance Urine pH (5.0-8.0) Ur Specific [place] (1.005-1.025) Urine Protein (NEG-TRACE) MG/DL Urine Glucose (UA) (NEG) MG/DL Urine Ketones (NEG) MG/DL Urine Blood (NEG) Urine Nitrite (NEG) Ur Leukocyte Esterase (NEG) Urine RBC (0) /HPF Urine WBC (0-4) /HPF Ur Squamous Epith Cells /LPF Urine Bacteria /LPF Urine Mucus /LPF COVID-19 (MOO) (Negative) COVID-19 Clin Com 08/16/21 08/16/21 08/16/21 Range/Units 13:40 13:40 15:54 WBC 9.2 (4.8-10.8) X10*3/uL RBC 3.94 L (4.20-5.50) X10*6/uL Hgb 12.5 (12.0-16.0) g/dl Hct 37.3 (37.0-47.0) % MCV 94.7 (80.0-98.0) fL MCH 31.7 (27.0-33.0) pg MCHC 33.5 (31.0-35.0) g/dl RDW 13.2 (11.0-16.0) % Plt Count 145 L (160-400) X10*3/uL MPV 9.2 L (9.4-12.3) fL Immature Gran % (Auto) 0.4 (0.0-0.4) % Neut % (Auto) 78.6 H (45-73) % Lymph % (Auto) 13.2 L (20-40) % [place] % (Auto) 5.7 (2-11) % Eos % (Auto) 1.7 (0-4) % Baso % (Auto) 0.4 (0-2) % Lymph # (Auto) 1.2 (1.2-4.9) X10*3/uL [place] # (Auto) 0.5 (0.1-1.2) X10*3/uL Eos # (Auto) 0.2 (0.0-0.4) X10*3/uL Baso # (Auto) 0.0 (0.0-0.2) X10*3/uL Abs Immat Gran (auto) 0.04 H (0.00-0.03) X10*3/uL Absolute Neuts (auto) 7.2 (2.0-8.3) x10*3/uL Absolute Nucleated RBC 0.000 (0.0-0.012) X10*3/uL Nucleated RBC % (auto) 0.0 (0.0-0.2) /100WBC PT (9.9-13.0) SEC Whole Blood PT (11.1-13.5) sec INR (0.9-1.1) Whole Blood INR (0.9-1.1) APTT (24.1-38.0) SEC Sodium (135-145) mmol/L Potassium (3.3-5.1) mmol/L Chloride (96-108) mmol/L Carbon Dioxide (22-29) mmol/L Anion Gap (12-20) BUN (9-16) mg/dL Creatinine (0.5-1.4) mg/dL Estim Creat Clear Calc Estimated GFR POC Glucose (60-115) mg/dL Random Glucose (60-115) mg/dL Calcium (8.4-10.2) mg/dL Phosphorus (2.7-4.5) mg/dL Magnesium (1.6-2.6) mg/dL Total Creatine Kinase (26-140) U/L Troponin I High Sens 10.0 (<3.5-17.0) ng/L Urine Color YELLOW Urine Appearance CLEAR Urine pH 6.0 (5.0-8.0) Ur Specific [place] 1.015 (1.005-1.025) Urine Protein TRACE (NEG-TRACE) MG/DL Urine Glucose (UA) NEG (NEG) MG/DL Urine Ketones 5 (NEG) MG/DL Urine Blood TRACE (NEG) Urine Nitrite NEG (NEG) Ur Leukocyte Esterase NEG (NEG) Urine RBC 1-4 (0) /HPF Urine WBC 0-2 (0-4) /HPF Ur Squamous Epith Cells TRACE /LPF Urine Bacteria NONE /LPF Urine Mucus TRACE /LPF COVID-19 (MOO) (Negative) COVID-19 Clin Com 08/16/21 08/16/21 08/16/21 Range/Units 19:10 20:17 22:21 WBC (4.8-10.8) X10*3/uL RBC (4.20-5.50) X10*6/uL Hgb (12.0-16.0) g/dl Hct (37.0-47.0) % MCV (80.0-98.0) fL MCH (27.0-33.0) pg MCHC (31.0-35.0) g/dl RDW (11.0-16.0) % Plt Count (160-400) X10*3/uL MPV (9.4-12.3) fL Immature Gran % (Auto) (0.0-0.4) % Neut % (Auto) (45-73) % Lymph % (Auto) (20-40) % [place] % (Auto) (2-11) % Eos % (Auto) (0-4) % Baso % (Auto) (0-2) % Lymph # (Auto) (1.2-4.9) X10*3/uL [place] # (Auto) (0.1-1.2) X10*3/uL Eos # (Auto) (0.0-0.4) X10*3/uL Baso # (Auto) (0.0-0.2) X10*3/uL Abs Immat Gran (auto) (0.00-0.03) X10*3/uL Absolute Neuts (auto) (2.0-8.3) x10*3/uL Absolute Nucleated RBC (0.0-0.012) X10*3/uL Nucleated RBC % (auto) (0.0-0.2) /100WBC PT 14.2 H (9.9-13.0) SEC Whole Blood PT (11.1-13.5) sec INR 1.2 H (0.9-1.1) Whole Blood INR (0.9-1.1) APTT 29.4 (24.1-38.0) SEC Sodium (135-145) mmol/L Potassium (3.3-5.1) mmol/L Chloride (96-108) mmol/L Carbon Dioxide (22-29) mmol/L Anion Gap (12-20) BUN (9-16) mg/dL Creatinine (0.5-1.4) mg/dL Estim Creat Clear Calc Estimated GFR POC Glucose 132 H (60-115) mg/dL Random Glucose (60-115) mg/dL Calcium (8.4-10.2) mg/dL Phosphorus (2.7-4.5) mg/dL Magnesium (1.6-2.6) mg/dL Total Creatine Kinase (26-140) U/L Troponin I High Sens (<3.5-17.0) ng/L Urine Color Urine Appearance Urine pH (5.0-8.0) Ur Specific [place] (1.005-1.025) Urine Protein (NEG-TRACE) MG/DL Urine Glucose (UA) (NEG) MG/DL Urine Ketones (NEG) MG/DL Urine Blood (NEG) Urine Nitrite (NEG) Ur Leukocyte Esterase (NEG) Urine RBC (0) /HPF Urine WBC (0-4) /HPF Ur Squamous Epith Cells /LPF Urine Bacteria /LPF Urine Mucus /LPF COVID-19 (MOO) Negative (Negative) COVID-19 Clin Com See Note <JOSELYN Eagle - Last Filed: 08/16/21 19:01> Lab Results 08/16/21 08/16/21 08/16/21 Range/Units 13:31 13:32 13:40 WBC (4.8-10.8) X10*3/uL RBC (4.20-5.50) X10*6/uL Hgb (12.0-16.0) g/dl Hct (37.0-47.0) % MCV (80.0-98.0) fL MCH (27.0-33.0) pg MCHC (31.0-35.0) g/dl RDW (11.0-16.0) % Plt Count (160-400) X10*3/uL MPV (9.4-12.3) fL Immature Gran % (Auto) (0.0-0.4) % Neut % (Auto) (45-73) % Lymph % (Auto) (20-40) % [place] % (Auto) (2-11) % Eos % (Auto) (0-4) % Baso % (Auto) (0-2) % Lymph # (Auto) (1.2-4.9) X10*3/uL [place] # (Auto) (0.1-1.2) X10*3/uL Eos # (Auto) (0.0-0.4) X10*3/uL Baso # (Auto) (0.0-0.2) X10*3/uL Abs Immat Gran (auto) (0.00-0.03) X10*3/uL Absolute Neuts (auto) (2.0-8.3) x10*3/uL Absolute Nucleated RBC (0.0-0.012) X10*3/uL Nucleated RBC % (auto) (0.0-0.2) /100WBC PT (9.9-13.0) SEC Whole Blood PT 14.4 H (11.1-13.5) sec INR (0.9-1.1) Whole Blood INR 1.2 H (0.9-1.1) APTT (24.1-38.0) SEC Sodium 135 (135-145) mmol/L Potassium 4.0 (3.3-5.1) mmol/L Chloride 100 (96-108) mmol/L Carbon Dioxide 24 (22-29) mmol/L Anion Gap 15 (12-20) BUN 13 (9-16) mg/dL Creatinine 1.51 H (0.5-1.4) mg/dL Estim Creat Clear Calc 24.2 Estimated GFR 33 POC Glucose 140 H (60-115) mg/dL Random Glucose 142 H (60-115) mg/dL Calcium 9.8 (8.4-10.2) mg/dL Phosphorus 2.7 (2.7-4.5) mg/dL Magnesium 2.0 (1.6-2.6) mg/dL Total Creatine Kinase 71 D (26-140) U/L Troponin I High Sens (<3.5-17.0) ng/L Urine Color Urine Appearance Urine pH (5.0-8.0) Ur Specific [place] (1.005-1.025) Urine Protein (NEG-TRACE) MG/DL Urine Glucose (UA) (NEG) MG/DL Urine Ketones (NEG) MG/DL Urine Blood (NEG) Urine Nitrite (NEG) Ur Leukocyte Esterase (NEG) Urine RBC (0) /HPF Urine WBC (0-4) /HPF Ur Squamous Epith Cells /LPF Urine Bacteria /LPF Urine Mucus /LPF COVID-19 (MOO) (Negative) COVID-19 Clin Com 08/16/21 08/16/21 08/16/21 Range/Units 13:40 13:40 15:54 WBC 9.2 (4.8-10.8) X10*3/uL RBC 3.94 L (4.20-5.50) X10*6/uL Hgb 12.5 (12.0-16.0) g/dl Hct 37.3 (37.0-47.0) % MCV 94.7 (80.0-98.0) fL MCH 31.7 (27.0-33.0) pg MCHC 33.5 (31.0-35.0) g/dl RDW 13.2 (11.0-16.0) % Plt Count 145 L (160-400) X10*3/uL MPV 9.2 L (9.4-12.3) fL Immature Gran % (Auto) 0.4 (0.0-0.4) % Neut % (Auto) 78.6 H (45-73) % Lymph % (Auto) 13.2 L (20-40) % [place] % (Auto) 5.7 (2-11) % Eos % (Auto) 1.7 (0-4) % Baso % (Auto) 0.4 (0-2) % Lymph # (Auto) 1.2 (1.2-4.9) X10*3/uL [place] # (Auto) 0.5 (0.1-1.2) X10*3/uL Eos # (Auto) 0.2 (0.0-0.4) X10*3/uL Baso # (Auto) 0.0 (0.0-0.2) X10*3/uL Abs Immat Gran (auto) 0.04 H (0.00-0.03) X10*3/uL Absolute Neuts (auto) 7.2 (2.0-8.3) x10*3/uL Absolute Nucleated RBC 0.000 (0.0-0.012) X10*3/uL Nucleated RBC % (auto) 0.0 (0.0-0.2) /100WBC PT (9.9-13.0) SEC Whole Blood PT (11.1-13.5) sec INR (0.9-1.1) Whole Blood INR (0.9-1.1) APTT (24.1-38.0) SEC Sodium (135-145) mmol/L Potassium (3.3-5.1) mmol/L Chloride (96-108) mmol/L Carbon Dioxide (22-29) mmol/L Anion Gap (12-20) BUN (9-16) mg/dL Creatinine (0.5-1.4) mg/dL Estim Creat Clear Calc Estimated GFR POC Glucose (60-115) mg/dL Random Glucose (60-115) mg/dL Calcium (8.4-10.2) mg/dL Phosphorus (2.7-4.5) mg/dL Magnesium (1.6-2.6) mg/dL Total Creatine Kinase (26-140) U/L Troponin I High Sens 10.0 (<3.5-17.0) ng/L Urine Color YELLOW Urine Appearance CLEAR Urine pH 6.0 (5.0-8.0) Ur Specific [place] 1.015 (1.005-1.025) Urine Protein TRACE (NEG-TRACE) MG/DL Urine Glucose (UA) NEG (NEG) MG/DL Urine Ketones 5 (NEG) MG/DL Urine Blood TRACE (NEG) Urine Nitrite NEG (NEG) Ur Leukocyte Esterase NEG (NEG) Urine RBC 1-4 (0) /HPF Urine WBC 0-2 (0-4) /HPF Ur Squamous Epith Cells TRACE /LPF Urine Bacteria NONE /LPF Urine Mucus TRACE /LPF COVID-19 (MOO) (Negative) COVID-19 Clin Com 08/16/21 08/16/21 08/16/21 Range/Units 19:10 20:17 22:21 WBC (4.8-10.8) X10*3/uL RBC (4.20-5.50) X10*6/uL Hgb (12.0-16.0) g/dl Hct (37.0-47.0) % MCV (80.0-98.0) fL MCH (27.0-33.0) pg MCHC (31.0-35.0) g/dl RDW (11.0-16.0) % Plt Count (160-400) X10*3/uL MPV (9.4-12.3) fL Immature Gran % (Auto) (0.0-0.4) % Neut % (Auto) (45-73) % Lymph % (Auto) (20-40) % [place] % (Auto) (2-11) % Eos % (Auto) (0-4) % Baso % (Auto) (0-2) % Lymph # (Auto) (1.2-4.9) X10*3/uL [place] # (Auto) (0.1-1.2) X10*3/uL Eos # (Auto) (0.0-0.4) X10*3/uL Baso # (Auto) (0.0-0.2) X10*3/uL Abs Immat Gran (auto) (0.00-0.03) X10*3/uL Absolute Neuts (auto) (2.0-8.3) x10*3/uL Absolute Nucleated RBC (0.0-0.012) X10*3/uL Nucleated RBC % (auto) (0.0-0.2) /100WBC PT 14.2 H (9.9-13.0) SEC Whole Blood PT (11.1-13.5) sec INR 1.2 H (0.9-1.1) Whole Blood INR (0.9-1.1) APTT 29.4 (24.1-38.0) SEC Sodium (135-145) mmol/L Potassium (3.3-5.1) mmol/L Chloride (96-108) mmol/L Carbon Dioxide (22-29) mmol/L Anion Gap (12-20) BUN (9-16) mg/dL Creatinine (0.5-1.4) mg/dL Estim Creat Clear Calc Estimated GFR POC Glucose 132 H (60-115) mg/dL Random Glucose (60-115) mg/dL Calcium (8.4-10.2) mg/dL Phosphorus (2.7-4.5) mg/dL Magnesium (1.6-2.6) mg/dL Total Creatine Kinase (26-140) U/L Troponin I High Sens (<3.5-17.0) ng/L Urine Color Urine Appearance Urine pH (5.0-8.0) Ur Specific [place] (1.005-1.025) Urine Protein (NEG-TRACE) MG/DL Urine Glucose (UA) (NEG) MG/DL Urine Ketones (NEG) MG/DL Urine Blood (NEG) Urine Nitrite (NEG) Ur Leukocyte Esterase (NEG) Urine RBC (0) /HPF Urine WBC (0-4) /HPF Ur Squamous Epith Cells /LPF Urine Bacteria /LPF Urine Mucus /LPF COVID-19 (MOO) Negative (Negative) COVID-19 Clin Com See Note <James Vines MD - Last Filed: 08/17/21 02:34> ECG Data ECG #1: Interpretation: Patient is paced with a ventricular rate of 73, AK 104, QRS D 20, QTC prolonged at 597, normal axis. No ST elevations or depressions, <JOSELYN Latif Chi - Last Filed: 08/16/21 19:01> Discharge Plan Discharge Clinical Impression: Cerebral vascular accident Qualifiers: CVA mechanism: unspecified Qualified Code(s): I63.9 - Cerebral infarction, unspecified Closed fracture of maxillary sinus Qualifiers: Encounter type: initial encounter Qualified Code(s): S02.401A - Maxillary fracture, unspecified side, initial encounter for closed fracture Closed pelvic fracture Qualifiers: Encounter type: initial encounter Pelvic bone location: other part of pelvis Qualified Code(s): S32.89XA - Fracture of other parts of pelvis, initial encounter for closed fracture Fall Qualifiers: Encounter type: initial encounter Qualified Code(s): W19.XXXA - Unspecified fall, initial encounter <JOSELYN Eagle - Last Filed: 08/16/21 19:01> Patient Disposition: Still a Patient <JOSELYN Eagle - Last Filed: 08/16/21 19:01> Prescriptions: No Action metoprolol tartrate 25 mg tablet 25 mg PO BID Qty: 180 RF: 3 apixaban [Eliquis] 2.5 mg tablet 2.5 mg PO BID Qty: 180 RF: 3 amiodarone 200 mg tablet 200 mg PO DAILY Qty: 90 RF: 1 paroxetine HCl 10 mg Tablet 10 mg PO DAILY RF: 0 oxycodone 5 mg tablet 5 mg PO Q8H PRN (Reason: pain) Qty: 14 RF: 0 acetaminophen [Tylenol Extra Strength] 500 mg tablet 1,000 mg PO QID PRN (Reason: pain) Qty: 14 RF: 0 lidocaine [Lidoderm] 5 % adhesive patch,medicated 1 patch topical DAILY Qty: 30 RF: 0 levothyroxine 75 mcg Tablet 37.5 mcg PO DAILY RF: 0 lorazepam 1 mg tablet 1 mg PO BID PRN (Reason: Anxiety) RF: 0 mirtazapine 15 mg tablet 15 mg PO DAILY RF: 0 tramadol 50 mg tablet 50 mg PO TID 7 Days Qty: 21 RF: 0 <JOSELYN Eagle - Last Filed: 08/16/21 19:01>
[2021-08-16 13:33] VITALS: BP 148/65; BP 148/90; PULSE 73; PULSE 78; RESP 16; TEMP 37; O2SAT 91; BMI 19.5
[2021-08-16 13:35] LABS: Prothrombin Time Whole Bld POC 14.4 sec (11.1-13.5); ~PT, ~INR - Anti Coag Clinic 1.2 (0.9-1.1)
[2021-08-16 13:36] LABS: Glucose, Whole Blood 140 mg/dL (60-115)
[2021-08-16 13:45] LABS: MANUAL DIFF FLAG NO
[2021-08-16 13:48] LABS: Basophils Percent Auto 0.4 % (0-2); Eosinophils Absolute Auto 0.2 X10*3/uL (0.0-0.4); Eosinophils Percent Auto 1.7 % (0-4); Hematocrit 37.3 % (37.0-47.0); Hemoglobin 12.5 g/dl (12.0-16.0); Imm Gran Abs Auto 0.04 X10*3/uL (0.00-0.03); Imm Gran Pct Auto 0.4 % (0.0-0.4); Lymphocytes Absolute Auto 1.2 X10*3/uL (1.2-4.9); Lymphocytes Percent Auto 13.2 % (20-40); Mean Corpuscular HGB Conc 33.5 g/dl (31.0-35.0); Mean Corpuscular Hemoglobin 31.7 pg (27.0-33.0); Mean Corpuscular Volume 94.7 fL (80.0-98.0); Mean Platelet Volume 9.2 fL (9.4-12.3); Monocytes Absolute Auto 0.5 X10*3/uL (0.1-1.2); Monocytes Percent Auto 5.7 % (2-11); Neutrophils Absolute Auto 7.2 x10*3/uL (2.0-8.3); Neutrophils Percent Auto 78.6 % (45-73); Platelet Count 145 X10*3/uL (160-400); Red Blood Count 3.94 X10*6/uL (4.20-5.50); Red Cell Distribution Width 13.2 % (11.0-16.0); White Blood Count 9.2 X10*3/uL (4.8-10.8)
[2021-08-16 14:02] LABS: Anion Gap 15 (12-20); Blood Urea Nitrogen 13 mg/dL (9-16); Calcium 9.8 mg/dL (8.4-10.2); Carbon Dioxide 24 mmol/L (22-29); Chloride 100 mmol/L (96-108); Creatinine Clr Calc Pharmacy 24.2; Estimated Glomerular Filt Rate 33; Glucose Random 142 mg/dL (60-115); Phosphorus 2.7 mg/dL (2.7-4.5); Sodium 135 mmol/L (135-145)
[2021-08-16] MEDS: 0.9 % Sodium Chloride 1,000 ML 999 ML IV (14:26)
[2021-08-16] MEDS: iohexoL 350 MG/ML 100 ML INFUS..BTL 70 ML IV (15:43)
[2021-08-16 15:57] VITALS: BP 141/65; PULSE 71; RESP 17; O2SAT 95
[2021-08-16 16:05] LABS: Appearance Urine CLEAR; Color Urine YELLOW; Glucose Urine UA NEG (NEG); Leukocyte Esterase Urine NEG (NEG); Nitrite Urine NEG (NEG); Specific Gravity - Urine 1.015 (1.005-1.025); UACC Culture Trigger NO; Urine Blood TRACE (NEG); Urine Ketones 5 MG/DL (NEG); Urine Protein TRACE MG/DL (NEG-TRACE)
[2021-08-16] MEDS: Acetaminophen 325 MG TABLET 650 MG PO (16:10)
[2021-08-16 16:21] LABS: Mucus Urine TRACE /LPF; Squamous Epithelial Cell Urine TRACE /LPF; WBC Urine 0-2 /HPF (0-4)
[2021-08-16] MEDS: Amoxicillin/Potassium Clav 875 MG TABLET PO (18:36)
[2021-08-16 19:33] LABS: COVID-19 Test Negative (Negative)
[2021-08-16 20:00] VITALS: BP 126/39; PULSE 66; RESP 16; TEMP 37.1; O2SAT 93
[2021-08-16 20:20] LABS: Glucose, Whole Blood 132 mg/dL (60-115)
[2021-08-16 22:31] LABS: INTERNATIONAL NORM RATIO 1.2 (0.9-1.1); Prothrombin Time 14.2 SEC (9.9-13.0)
[2021-08-16 22:33] LABS: Partial Thromboplastin Time 29.4 SEC (24.1-38.0)
[2021-08-16 22:41] LABS: Stroke Lab Use COMPLETE
--- NOTE | 2021-08-16 23:12 | PC.NURSE ---
pt repositioned for comfort. head of the bed elevated per pt. Will continue to monitor.
[2021-08-17] VITALS (12 sets, daily range): BP systolic 86–150; BP diastolic 44–65; PULSE 59–81; RESP 18–29; TEMP 36.9–40; O2SAT 90–96
--- NOTE | 2021-08-17 02:57 | ED_ITS ---
HPI - Neuro Symptoms/Deficit General Chief Complaint: Stroke Stated Complaint: STROKE ALERT,L WEAK,LKWT 1HR,HEAD STRIKE,ELIQUIS Time Seen by Provider: 08/16/21 13:10 Mode of arrival: EMS Limitations: altered mental status Related Data Home Medications Medication Instructions Recorded Confirmed lorazepam 1 mg tablet 1 mg PO BID PRN 07/24/20 07/28/21 mirtazapine 15 mg tablet 15 mg PO DAILY 07/24/20 07/28/21 paroxetine HCl 10 mg tablet 10 mg PO DAILY 10/01/20 07/28/21 levothyroxine 75 mcg tablet 37.5 mcg PO DAILY 10/02/20 07/28/21 Previous Rx's Medication Instructions Recorded acetaminophen 500 mg tablet 1,000 mg PO QID PRN #14 tab 10/01/20 (Tylenol Extra Strength) lidocaine 5 % topical patch 1 patch TOPICAL DAILY #30 ea 10/01/20 (Lidoderm) oxycodone 5 mg tablet 5 mg PO Q8H PRN #14 tab 10/01/20 tramadol 50 mg tablet 50 mg PO TID 7 Days #21 tab 10/15/20 metoprolol tartrate 25 mg tablet 25 mg PO BID #180 tab 11/25/20 apixaban 2.5 mg tablet (Eliquis) 2.5 mg PO BID #180 tab 04/07/21 amiodarone 200 mg tablet 200 mg PO DAILY #90 tab 07/02/21 Allergies Allergy/AdvReac Type Severity Reaction Status Date / Time No Known Allergies Allergy Verified 02/11/21 09:58 [No Known Allergies*] [facility] Past Medical History Medical History Anxiety Biventricular ICD (implantable cardioverter-defibrillator) in place CVA (cerebral vascular accident) Fatty liver Frailty Frequent PVCs Heart failure with reduced ejection fraction Hypertension Hypothyroidism Nonischemic cardiomyopathy Palpitations Paroxysmal atrial fibrillation Surgical History History of permanent cardiac pacemaker placement Hx of Achilles tendon repair Hx of hysterectomy Family History Family History Father No problems noted. Mother No problems noted. Social History Social History Household Members: Spouse Housing: House Do you presently have visiting nurse or other home services: No Smoked in Last 30 Days: No Use of substances other than those prescribed or required for medical reasons: No Advance Directives: No Advance Directives Information Provided: Yes Current occupational status: retired and disabled Current occupation: right handed Physical Exam Vital Signs: Vital Signs: Last Vital Signs Temp 98.7 F 08/16/21 20:00 Pulse 64 08/17/21 01:54 Resp 24 H 08/17/21 01:54 BP 126/39 L 08/16/21 20:00 Pulse Ox 93 08/16/21 20:00 BMI result Body Mass Index 19.5 MDM - Neuro Symptoms/Deficit Lab Data Result diagrams: 08/16/21 13:40 08/16/21 13:40 Labs: Lab Results 08/16/21 08/16/21 08/16/21 Range/Units 13:31 13:32 13:40 WBC (4.8-10.8) X10*3/uL RBC (4.20-5.50) X10*6/uL Hgb (12.0-16.0) g/dl Hct (37.0-47.0) % MCV (80.0-98.0) fL MCH (27.0-33.0) pg MCHC (31.0-35.0) g/dl RDW (11.0-16.0) % Plt Count (160-400) X10*3/uL MPV (9.4-12.3) fL Immature Gran % (Auto) (0.0-0.4) % Neut % (Auto) (45-73) % Lymph % (Auto) (20-40) % [place] % (Auto) (2-11) % Eos % (Auto) (0-4) % Baso % (Auto) (0-2) % Lymph # (Auto) (1.2-4.9) X10*3/uL [place] # (Auto) (0.1-1.2) X10*3/uL Eos # (Auto) (0.0-0.4) X10*3/uL Baso # (Auto) (0.0-0.2) X10*3/uL Abs Immat Gran (auto) (0.00-0.03) X10*3/uL Absolute Neuts (auto) (2.0-8.3) x10*3/uL Absolute Nucleated RBC (0.0-0.012) X10*3/uL Nucleated RBC % (auto) (0.0-0.2) /100WBC PT (9.9-13.0) SEC Whole Blood PT 14.4 H (11.1-13.5) sec INR (0.9-1.1) Whole Blood INR 1.2 H (0.9-1.1) APTT (24.1-38.0) SEC Sodium 135 (135-145) mmol/L Potassium 4.0 (3.3-5.1) mmol/L Chloride 100 (96-108) mmol/L Carbon Dioxide 24 (22-29) mmol/L Anion Gap 15 (12-20) BUN 13 (9-16) mg/dL Creatinine 1.51 H (0.5-1.4) mg/dL Estim Creat Clear Calc 24.2 Estimated GFR 33 POC Glucose 140 H (60-115) mg/dL Random Glucose 142 H (60-115) mg/dL Calcium 9.8 (8.4-10.2) mg/dL Phosphorus 2.7 (2.7-4.5) mg/dL Magnesium 2.0 (1.6-2.6) mg/dL Total Creatine Kinase 71 D (26-140) U/L Troponin I High Sens (<3.5-17.0) ng/L Urine Color Urine Appearance Urine pH (5.0-8.0) Ur Specific [place] (1.005-1.025) Urine Protein (NEG-TRACE) MG/DL Urine Glucose (UA) (NEG) MG/DL Urine Ketones (NEG) MG/DL Urine Blood (NEG) Urine Nitrite (NEG) Ur Leukocyte Esterase (NEG) Urine RBC (0) /HPF Urine WBC (0-4) /HPF Ur Squamous Epith Cells /LPF Urine Bacteria /LPF Urine Mucus /LPF COVID-19 (MOO) (Negative) COVID-19 Clin Com 08/16/21 08/16/21 08/16/21 Range/Units 13:40 13:40 15:54 WBC 9.2 (4.8-10.8) X10*3/uL RBC 3.94 L (4.20-5.50) X10*6/uL Hgb 12.5 (12.0-16.0) g/dl Hct 37.3 (37.0-47.0) % MCV 94.7 (80.0-98.0) fL MCH 31.7 (27.0-33.0) pg MCHC 33.5 (31.0-35.0) g/dl RDW 13.2 (11.0-16.0) % Plt Count 145 L (160-400) X10*3/uL MPV 9.2 L (9.4-12.3) fL Immature Gran % (Auto) 0.4 (0.0-0.4) % Neut % (Auto) 78.6 H (45-73) % Lymph % (Auto) 13.2 L (20-40) % [place] % (Auto) 5.7 (2-11) % Eos % (Auto) 1.7 (0-4) % Baso % (Auto) 0.4 (0-2) % Lymph # (Auto) 1.2 (1.2-4.9) X10*3/uL [place] # (Auto) 0.5 (0.1-1.2) X10*3/uL Eos # (Auto) 0.2 (0.0-0.4) X10*3/uL Baso # (Auto) 0.0 (0.0-0.2) X10*3/uL Abs Immat Gran (auto) 0.04 H (0.00-0.03) X10*3/uL Absolute Neuts (auto) 7.2 (2.0-8.3) x10*3/uL Absolute Nucleated RBC 0.000 (0.0-0.012) X10*3/uL Nucleated RBC % (auto) 0.0 (0.0-0.2) /100WBC PT (9.9-13.0) SEC Whole Blood PT (11.1-13.5) sec INR (0.9-1.1) Whole Blood INR (0.9-1.1) APTT (24.1-38.0) SEC Sodium (135-145) mmol/L Potassium (3.3-5.1) mmol/L Chloride (96-108) mmol/L Carbon Dioxide (22-29) mmol/L Anion Gap (12-20) BUN (9-16) mg/dL Creatinine (0.5-1.4) mg/dL Estim Creat Clear Calc Estimated GFR POC Glucose (60-115) mg/dL Random Glucose (60-115) mg/dL Calcium (8.4-10.2) mg/dL Phosphorus (2.7-4.5) mg/dL Magnesium (1.6-2.6) mg/dL Total Creatine Kinase (26-140) U/L Troponin I High Sens 10.0 (<3.5-17.0) ng/L Urine Color YELLOW Urine Appearance CLEAR Urine pH 6.0 (5.0-8.0) Ur Specific [place] 1.015 (1.005-1.025) Urine Protein TRACE (NEG-TRACE) MG/DL Urine Glucose (UA) NEG (NEG) MG/DL Urine Ketones 5 (NEG) MG/DL Urine Blood TRACE (NEG) Urine Nitrite NEG (NEG) Ur Leukocyte Esterase NEG (NEG) Urine RBC 1-4 (0) /HPF Urine WBC 0-2 (0-4) /HPF Ur Squamous Epith Cells TRACE /LPF Urine Bacteria NONE /LPF Urine Mucus TRACE /LPF COVID-19 (MOO) (Negative) COVID-19 Clin Com 08/16/21 08/16/21 08/16/21 Range/Units 19:10 20:17 22:21 WBC (4.8-10.8) X10*3/uL RBC (4.20-5.50) X10*6/uL Hgb (12.0-16.0) g/dl Hct (37.0-47.0) % MCV (80.0-98.0) fL MCH (27.0-33.0) pg MCHC (31.0-35.0) g/dl RDW (11.0-16.0) % Plt Count (160-400) X10*3/uL MPV (9.4-12.3) fL Immature Gran % (Auto) (0.0-0.4) % Neut % (Auto) (45-73) % Lymph % (Auto) (20-40) % [place] % (Auto) (2-11) % Eos % (Auto) (0-4) % Baso % (Auto) (0-2) % Lymph # (Auto) (1.2-4.9) X10*3/uL [place] # (Auto) (0.1-1.2) X10*3/uL Eos # (Auto) (0.0-0.4) X10*3/uL Baso # (Auto) (0.0-0.2) X10*3/uL Abs Immat Gran (auto) (0.00-0.03) X10*3/uL Absolute Neuts (auto) (2.0-8.3) x10*3/uL Absolute Nucleated RBC (0.0-0.012) X10*3/uL Nucleated RBC % (auto) (0.0-0.2) /100WBC PT 14.2 H (9.9-13.0) SEC Whole Blood PT (11.1-13.5) sec INR 1.2 H (0.9-1.1) Whole Blood INR (0.9-1.1) APTT 29.4 (24.1-38.0) SEC Sodium (135-145) mmol/L Potassium (3.3-5.1) mmol/L Chloride (96-108) mmol/L Carbon Dioxide (22-29) mmol/L Anion Gap (12-20) BUN (9-16) mg/dL Creatinine (0.5-1.4) mg/dL Estim Creat Clear Calc Estimated GFR POC Glucose 132 H (60-115) mg/dL Random Glucose (60-115) mg/dL Calcium (8.4-10.2) mg/dL Phosphorus (2.7-4.5) mg/dL Magnesium (1.6-2.6) mg/dL Total Creatine Kinase (26-140) U/L Troponin I High Sens (<3.5-17.0) ng/L Urine Color Urine Appearance Urine pH (5.0-8.0) Ur Specific [place] (1.005-1.025) Urine Protein (NEG-TRACE) MG/DL Urine Glucose (UA) (NEG) MG/DL Urine Ketones (NEG) MG/DL Urine Blood (NEG) Urine Nitrite (NEG) Ur Leukocyte Esterase (NEG) Urine RBC (0) /HPF Urine WBC (0-4) /HPF Ur Squamous Epith Cells /LPF Urine Bacteria /LPF Urine Mucus /LPF COVID-19 (MOO) Negative (Negative) COVID-19 Clin Com See Note Discharge Plan Discharge Patient Disposition: Still a Patient Prescriptions: No Action metoprolol tartrate 25 mg tablet 25 mg PO BID Qty: 180 RF: 3 apixaban [Eliquis] 2.5 mg tablet 2.5 mg PO BID Qty: 180 RF: 3 amiodarone 200 mg tablet 200 mg PO DAILY Qty: 90 RF: 1 paroxetine HCl 10 mg Tablet 10 mg PO DAILY RF: 0 oxycodone 5 mg tablet 5 mg PO Q8H PRN (Reason: pain) Qty: 14 RF: 0 acetaminophen [Tylenol Extra Strength] 500 mg tablet 1,000 mg PO QID PRN (Reason: pain) Qty: 14 RF: 0 lidocaine [Lidoderm] 5 % adhesive patch,medicated 1 patch topical DAILY Qty: 30 RF: 0 levothyroxine 75 mcg Tablet 37.5 mcg PO DAILY RF: 0 lorazepam 1 mg tablet 1 mg PO BID PRN (Reason: Anxiety) RF: 0 mirtazapine 15 mg tablet 15 mg PO DAILY RF: 0 tramadol 50 mg tablet 50 mg PO TID 7 Days Qty: 21 RF: 0
--- NOTE | 2021-08-17 03:36 | PM.IMHP ---
History of Present Illness Date of Service: 08/17/21 Chief Complaint: fall this is an 85 year old female with past medical history of AFib on Eliquis, CHF, cardiomyopathy, status post ICD, HLD, HTN, hypothyroidism, who presents to the hospital after being found by her down in the bathroom. When asked the patient about this, she reports that she stepped in the bathroom and fell, she denies having loss of consciousness, no dizziness, no palpitations, no chest pain pre fall or postictal having any symptoms except severe pain in her face after falling. She was found incontinent of urine by her , according to the ED note on arrival she did not recall falling. EMS reported the patient had slurred speech and had weak left escrow processor strength. Family have also noted that the patient has been more confused than normal, but otherwise patient herself denies any headache at this time, she has bruising and pain on her left face, denies any chest pain, no shortness of breath, no abdominal pain nausea or vomiting, no diarrhea constipation, no urinary symptoms and no lower extremity edema. No numbness weakness or tingling in arms or legs. On my interview I also noted the patient is coughing, she reports that she has been coughing for the past few Fewdays, denies any fever or chills And no increased shortness of breath. She denies any orthopnea or PND on arrival to the ED patient found to have temp of 98.6?, heart rate of 73, respiratory rate of 16, blood pressure of 148/65, satting 91% on room air labs are significant for WBC count of 9.1, PT of 14.2, INR of 1.2, creatinine of 1.5 that has now decreased to 1.27 after fluids which is around her baseline. BNP of 1167, UA negative. patient underwent multiple imaging including chest x-ray, head CT, cervical spine CT, hip pelvic x-ray, head neck and CTA and the following were found and the following were found chest CT: Negative CT angiogram of head and neck shows a nonspecific blush following intravenous contrast in the left frontal lobe, which is nonspecific. No acute territorial infarct, no masses, the carotid and vertebral arteries are well opacified in the neck, no significant atheromatous calcification And no flow limiting stenosis. cervical spine CT shows spondylitic changes Hip /pelvic CT showed acute nondisplaced fracture of the left inferior pubic ramus, subacute fracture of the left superior pubic ramus, inferior pubic ramus, right inferior and superior pubic rami head CT showed posterior lateral left maxillary wall nondisplaced fracture with left maxillary sinus air-fluid level, fracture extends for a nondisplaced fracture of but the lateral left orbital wall without intraconal abnormality appreciated. This was repeated as recommended by trauma at [facility], with no changes seen. Review of Systems Review of Systems: Yes all other systems are reviewed and are negative ON LICENSE OF [facility] Medical History Anxiety Biventricular ICD (implantable cardioverter-defibrillator) in place CVA (cerebral vascular accident) Fatty liver Frailty Frequent PVCs Heart failure with reduced ejection fraction Hypertension Hypothyroidism Nonischemic cardiomyopathy Palpitations Paroxysmal atrial fibrillation Family History Father No problems noted. Mother No problems noted. Surgical History History of permanent cardiac pacemaker placement Hx of Achilles tendon repair Hx of hysterectomy Social History Household Members: Spouse Housing: House Do you presently have visiting nurse or other home services: No Smoked in Last 30 Days: No Use of substances other than those prescribed or required for medical reasons: No Advance Directives: No Advance Directives Information Provided: Yes Current occupational status: retired and disabled Current occupation: right handed Meds Allergies Allergy/AdvReac Type Severity Reaction Status Date / Time No Known Allergies Allergy Verified 02/11/21 09:58 [No Known Allergies*] Home Medications Medication Instructions Recorded Confirmed Last Taken Type amiodarone 200 mg tablet 1 tab PO DAILY 08/17/21 08/17/21 Unknown History levothyroxine 75 mcg tablet 1 tab PO DAILY 08/17/21 08/17/21 Unknown History lisinopril 5 mg tablet 1 tab PO DAILY 08/17/21 08/17/21 Unknown History lorazepam 1 mg tablet 1 tab PO BID PRN 08/17/21 08/17/21 Unknown History metoprolol tartrate 25 mg tablet 1 tab PO BID 08/17/21 08/17/21 Unknown History mirtazapine 15 mg tablet 1 tab PO QAM 08/17/21 08/17/21 Unknown History paroxetine HCl 10 mg tablet 1 tab PO DAILY 08/17/21 08/17/21 Unknown History Physical Exam Vital Signs and Narrative: Vital Signs: Last Vital Signs Temp 98.7 F 08/16/21 20:00 Pulse 64 08/17/21 01:54 Resp 24 H 08/17/21 01:54 BP 126/39 L 08/16/21 20:00 Pulse Ox 93 08/16/21 20:00 BMI result Body Mass Index 19.5 Const: General: cooperative and no acute distress Orientation/consciousness: patient oriented x3 Eyes: Other: has a significant bruise / commode cyst around left eye, some edema on the left face Pupils: Equal, round and reactive pupils present Resp: Other: Crackles bilaterally, productive cough Effort & Inspection: normal respiratory effort Cardio: Rate: regular rate Rhythm: regular rhythm GI: Palpation (GI): Soft to palpation Auscultation: normal bowel sounds Skin: General skin exam: no rashes or lesions noted Neuro: Other: strength is 5/5 in all extremities no focal neurological deficits General: patient oriented x3 Cranial nerves: Yes Equal, round and reactive pupils present Cognition (Neuro): normal cognition Results Labs CBC and Chem 7: 08/17/21 04:51 08/17/21 04:51 Labs: Laboratory Results - last 24 hr 08/16/21 08/16/21 08/16/21 13:31 13:32 13:40 MCV MCH MCHC RDW Plt Count MPV Immature Gran % (Auto) Neut % (Auto) Lymph % (Auto) [place] % (Auto) Eos % (Auto) Baso % (Auto) Lymph # (Auto) [place] # (Auto) Eos # (Auto) Baso # (Auto) Abs Immat Gran (auto) Absolute Neuts (auto) Absolute Nucleated RBC Nucleated RBC % (auto) PT Whole Blood PT 14.4 H INR Whole Blood INR 1.2 H APTT Anion Gap 15 Estim Creat Clear Calc 24.2 Estimated GFR 33 POC Glucose 140 H Random Glucose 142 H Calcium 9.8 Phosphorus 2.7 Magnesium 2.0 Total Creatine Kinase 71 D Troponin I High Sens Urine Color Urine Appearance Urine pH Ur Specific [place] Urine Protein Urine Glucose (UA) Urine Ketones Urine Blood Urine Nitrite Ur Leukocyte Esterase Urine RBC Urine WBC Ur Squamous Epith Cells Urine Bacteria Urine Mucus COVID-19 (MOO) COVID-19 Clin Com 08/16/21 08/16/21 08/16/21 13:40 13:40 15:54 MCV 94.7 MCH 31.7 MCHC 33.5 RDW 13.2 Plt Count 145 L MPV 9.2 L Immature Gran % (Auto) 0.4 Neut % (Auto) 78.6 H Lymph % (Auto) 13.2 L [place] % (Auto) 5.7 Eos % (Auto) 1.7 Baso % (Auto) 0.4 Lymph # (Auto) 1.2 [place] # (Auto) 0.5 Eos # (Auto) 0.2 Baso # (Auto) 0.0 Abs Immat Gran (auto) 0.04 H Absolute Neuts (auto) 7.2 Absolute Nucleated RBC 0.000 Nucleated RBC % (auto) 0.0 PT Whole Blood PT INR Whole Blood INR APTT Anion Gap Estim Creat Clear Calc Estimated GFR POC Glucose Random Glucose Calcium Phosphorus Magnesium Total Creatine Kinase Troponin I High Sens 10.0 Urine Color YELLOW Urine Appearance CLEAR Urine pH 6.0 Ur Specific [place] 1.015 Urine Protein TRACE Urine Glucose (UA) NEG Urine Ketones 5 Urine Blood TRACE Urine Nitrite NEG Ur Leukocyte Esterase NEG Urine RBC 1-4 Urine WBC 0-2 Ur Squamous Epith Cells TRACE Urine Bacteria NONE Urine Mucus TRACE COVID-19 (MOO) COVID-19 Clin Com 08/16/21 08/16/21 08/16/21 19:10 20:17 22:21 MCV MCH MCHC RDW Plt Count MPV Immature Gran % (Auto) Neut % (Auto) Lymph % (Auto) [place] % (Auto) Eos % (Auto) Baso % (Auto) Lymph # (Auto) [place] # (Auto) Eos # (Auto) Baso # (Auto) Abs Immat Gran (auto) Absolute Neuts (auto) Absolute Nucleated RBC Nucleated RBC % (auto) PT 14.2 H Whole Blood PT INR 1.2 H Whole Blood INR APTT 29.4 Anion Gap Estim Creat Clear Calc Estimated GFR POC Glucose 132 H Random Glucose Calcium Phosphorus Magnesium Total Creatine Kinase Troponin I High Sens Urine Color Urine Appearance Urine pH Ur Specific [place] Urine Protein Urine Glucose (UA) Urine Ketones Urine Blood Urine Nitrite Ur Leukocyte Esterase Urine RBC Urine WBC Ur Squamous Epith Cells Urine Bacteria Urine Mucus COVID-19 (MOO) Negative COVID-19 Clin Com See Note Imaging Radiologist's Impressions: Impressions Head CT 08/16/21 13:15 IMPRESSION: No acute intracranial abnormality appreciated. Findings consistent with diffuse microangiopathy. Posterior lateral left maxillary wall nondisplaced fracture with left maxillary sinus air-fluid level. Fracture extends for a nondisplaced fracture about the lateral left orbital wall without intraconal abnormality appreciated. This critical result was discussed with Kinjal Lambert at 1:25 PM hours on August 16, 2021. It was ascertained that the content and urgency of the report was understood at the time of direct communication. Cervical Spine CT 08/16/21 13:21 IMPRESSION: 1. There are no acute fractures or subluxations. 2. There is multilevel spondylosis and facet arthropathy. Chest X-Ray 08/16/21 14:46 IMPRESSION: Cardiomegaly without acute parenchymal disease. Hip/Pelvis X-Ray 08/16/21 15:26 IMPRESSION: No acute fracture or dislocation of the left hip. Healing fractures of the right superior and inferior pubic rami which are not acute. Question acute nondisplaced fracture involving the inferior left pubic ramus. Head/Neck CTA 08/16/21 15:42 IMPRESSION: CT head and neck: 1. There is a nonspecific blush following intravenous contrast in the left frontal lobe, which is nonspecific. It may be consistent with a small capillary telangiectasia or developmental venous anomaly. 2. There are no acute territorial infarcts. There are no masses. 3. There are multilevel spondylitic changes in the cervical spine. CTA head and neck: 1. The carotid and vertebral arteries are well opacified in the neck. There is no significant atheromatous calcification, and there are no flow-limiting stenoses. 2. Intracranially, there are no focal stenoses or aneurysms. There are minimal atheromatous calcifications of the cavernous internal carotid arteries. Pelvis CT 08/16/21 17:50 IMPRESSION: Acute nondisplaced fracture of the left inferior pubic ramus. Subacute fractures of the left superior pubic ramus, inferior pubic ramus, right inferior and superior pubic rami. Head CT 08/16/21 19:28 IMPRESSION: 1. No evidence of acute intracranial abnormality. 2. Soft tissue swelling and induration overlies the left orbit without retrobulbar hematoma as clinically questioned. Assessment and Plan (1) Cerebral vascular accident: Qualifiers: CVA mechanism: unspecified Qualified Code(s): I63.9 - Cerebral infarction, unspecified Status: Acute (2) Closed fracture of maxillary sinus: Qualifiers: Encounter type: initial encounter Qualified Code(s): S02.401A - Maxillary fracture, unspecified side, initial encounter for closed fracture Status: Acute (3) Closed pelvic fracture: Qualifiers: Encounter type: initial encounter Pelvic bone location: other part of pelvis Qualified Code(s): S32.89XA - Fracture of other parts of pelvis, initial encounter for closed fracture Status: Acute (4) Fall: Qualifiers: Encounter type: initial encounter Qualified Code(s): W19.XXXA - Unspecified fall, initial encounter Status: Acute (5) CHF exacerbation: Status: Acute this is an 85-year-old male this is an 85-year-old female with past medical history of CVA, CHF, AFib who presents to the hospital after a fall, found to have slurred speech as well as weak left escrow processor by paramedics # possible CVA - at this time patient has no slurred speech, no weakness in extremities - reported slurred speech as well as left-sided weakness by EMS - will obtain head MRI - consult neurology # CHF exacerbation - noted to have a productive cough as well as crackles bilaterally, chest x-ray is negative but BNP is significantly elevated - patient has history of CHF with reduced ejection fraction - at this time will start her on Lasix 40 IV b.i.d., strict I&O, - will obtain Cardiology consult, and echocardiogram # close fracture of maxillary sinus - CT findings as above, trauma surgery was contacted by ED, recommended repeating the facial CT in 4-6 hours which was repeated and showed no change - patient denies any change in vision - this time supportive measures - monitor for any change in vision - pain control # closed pelvic fracture - pain control - supportive measures # fall - unclear etiology although patient reports that she slipped and fell in the bathroom - PT OT # AFib heart rate controlled - will continue Eliquis as she has no evidence of hematoma at site of maxillary fracture - continue metoprolol # hypothyroidism - continue levothyroxine DVT prophylaxis: Eliquis Quality Stroke Does the patient have a stroke diagnosis?: No VTE Prior VTE?: No VTE Risk Level:: Medical - moderate - high VTE Device Contraindication: Treatment Not Indicated VTE Drug Contraindication: N/A - Med Ordered
[2021-08-17] MEDS: traZODone HCL 50 MG TABLET PO (03:46)
[2021-08-17 04:57] LABS: MANUAL DIFF FLAG NO
[2021-08-17 05:02] LABS: Basophils Percent Auto 0.3 % (0-2); Eosinophils Percent Auto 0.2 % (0-4); Hematocrit 36.1 % (37.0-47.0); Hemoglobin 11.9 g/dl (12.0-16.0); Imm Gran Abs Auto 0.02 X10*3/uL (0.00-0.03); Imm Gran Pct Auto 0.3 % (0.0-0.4); Lymphocytes Absolute Auto 0.6 X10*3/uL (1.2-4.9); Lymphocytes Percent Auto 9.4 % (20-40); Mean Corpuscular Hemoglobin 31.3 pg (27.0-33.0); Mean Platelet Volume 9.2 fL (9.4-12.3); Monocytes Absolute Auto 0.4 X10*3/uL (0.1-1.2); Monocytes Percent Auto 6.2 % (2-11); Neutrophils Absolute Auto 5.4 x10*3/uL (2.0-8.3); Neutrophils Percent Auto 83.6 % (45-73); Platelet Count 125 X10*3/uL (160-400); Red Cell Distribution Width 13.5 % (11.0-16.0); White Blood Count 6.4 X10*3/uL (4.8-10.8)
[2021-08-17 05:18] LABS: B Type Natriuretic Peptide 1167 pg/mL (<100)
[2021-08-17 05:19] LABS: Anion Gap 12 (12-20); Blood Urea Nitrogen 13 mg/dL (9-16); Calcium 8.6 mg/dL (8.4-10.2); Carbon Dioxide 22 mmol/L (22-29); Chloride 106 mmol/L (96-108); Creatinine Clr Calc Pharmacy 28.8; Estimated Glomerular Filt Rate 40; Glucose Random 135 mg/dL (60-115); Potassium 3.9 mmol/L (3.3-5.1); Sodium 136 mmol/L (135-145)
--- NOTE | 2021-08-17 07:57 | PC.NURSE ---
PT IN BED. MORE AWAKE THEN AT SHIFT CHANGE. SHE WAS REPOSITIONED IN BED AND OFFERED HER CLEAR LIQUID TRAY. SHE HAS A CONGESTED COUGH AND HER O2 IS IN THE LOW 90'S ON ROOM AIR
[2021-08-17 08:16] LABS: Glucose, Whole Blood 141 mg/dL (60-115)
--- NOTE | 2021-08-17 08:30 | CA_ITS ---
Transthoracic Echocardiogram Amended Patient (Last, First, Middle): Nina Azar, Gender: Female Date of : 1935 Age: 85 Procedure Date: 08/17/2021 Procedure Type: Transthoracic Echocardiogram Location: ER Height: 170.18 cm Weight: 56.25 kg BSA: 1.65 m2 Heart Rate: bpm BP: 134 / 55 mmHg Experimental Welder: YR/[email or web address] Referring MD: Zacarias Wynn MD Symptoms: chf Study Quality: Fair Conclusions: - Normal left ventricular cavity size. There is moderately increased left ventricular wall thickness. The left ventricular systolic function is severely decreased. The visually estimated ejection fraction is between 20-25%. - Normal right ventricular cavity size and systolic function. There is a pacemaker wire seen in the right ventricle. Findings Left Ventricle Normal left ventricular cavity size. There is moderately increased left ventricular wall thickness. The left ventricular systolic function is severely decreased. The visually estimated ejection fraction is between 20 25%. There is severe global hypokinesis. Abnormal diastolic function is noted. Spectral Doppler is indicative of an impaired relaxation filling pattern. E/E prime ratio is >15, consistent with elevated filling pressures. Right Ventricle Normal right ventricular cavity size and systolic function. There is a pacemaker wire seen in the right ventricle. Atria The left atrium is severely dilated. Aortic Valve The aortic valve structure and function is likely normal. There is no aortic valve stenosis. There is no aortic valve regurgitation. Mitral Valve The mitral valve appears normal. There is mild mitral valve regurgitation. There is no mitral valve stenosis. Pulmonic Valve The pulmonic valve was not well visualized. Tricuspid Valve Normal tricuspid valve structure and function. There is trace tricuspid valve regurgitation. Normal right atrial pressure. There is no evidence of pulmonary hypertension. Great Vessels The pulmonary artery was not well visualized. There is mild dilatation of the ascending aorta. Venous The inferior vena cava is normal in size and collapses greater than 50% with inspiration. Pericardium/Pleural There is no evidence of pericardial effusion. Prior Study Comparison Changes noted compared to prior study dated: 08/21/2020. RV function normal on this study. Measurements 2D Linear Measurements IVSd: 1.22 0.6-0.9/0.6-1.0 cm LVIDd: 4.52 3.9-5.3/4.2-5.9 cm LVIDd Index: 2.74 2.4-3.2/2.2-3.1 cm/m2 LVIDs: 3.71 2.0-3.6 cm LVPWd: 1.22 0.7-1.1 cm Ao Root: 3.20 2.1-3.5 cm LA Diam: 3.00 2.7-3.8/3.0-4.0 cm LAIDs Index: 1.82 1.5-2.3 cm/m2 LV Mass: 254.60 67-162/88-224 g LV Mass Index: 154.30 43-95/49-115 g/m2 LVOT Diam: 2.30 3.0+(-)1.3 cm 2D Volumes LA Vol: 50.80 Mitral Valve MV Pk E: 0.72 MV PK A: 1.00 MV Decel Time: 150.00 E/A: 0.70 E'Lateral: 3.70 E'Medial: 3.92 E/E' Med: 18.30 E/E' Lat: 19.40 PHT: 44.00 MVA PHT: 5.00 Decel [place]: 4.78 Aortic Valve AoV Pk Maninder: 1.31 AoV Mn Maninder: 0.96 AoV VTI: 0.25 AoV Pk Grad: 7.00 Aov Mn Grad: 4.00 SHEREE Cont.VTI: 1.40 LVOT LVOT Pk Maninder: 0.52 LVOT Mn Maninder: 0.33 LVOT VTI: 0.08 LVOT Pk Grad: 1.00 LVOT Mn Grad: 1.00 LVOT Diam: 2.30 LVOT Area: 4.15 Diastolic Function MV Pk E: 0.72 MV Pk A: 1.00 E/A: 0.70 E'Medial: 3.92 E/E' Med: 18.30 E' Laterial: 3.70 E/E' Lat: 19.40 Right Ventricle TAPSE (mm): 1.80 TVS' Maninder: 11.60 Tricuspid Valve TR Pk Maninder: 2.38 TR Pk Grad: 23.00 RA Press: 3.00 RVSP: 26.00 Great Vessels Aorta Ao Root-2D: 3.20 2.0-3.7 cm Ao Asc: 3.50 2.1-3.4 cm Ao Arch: 2.60 Pulmonary Valve PV Pk Maninder: 0.69 Peak PV Grad: 2.00 Updated in Other Vendor System with Status of Final Marshall Ji MD electronically signed on 08/19/2021 12:21:28 PM with status of Final
--- NOTE | 2021-08-17 09:13 | P.CONOP_ITS ---
History of Present Illness HPI Consult date: 08/17/21 Requesting physician: Alia Vazquez Consult reason: fracture Chief complaint: Left inferior pubic ramus fracture Narrative: The patient is an 85-year-old woman who was reportedly found down in her bathroom by her . She has multiple medical problems including history of AFib on Eliquis, CHF, cardiomyopathy, she has an implantable defibrillator, hypertension, status post CVA, and hypothyroidism. I believe she was some what confused, as she believe she has been in the hospital for 3 days, and was somewhat difficult to understand. We were asked to evaluate her for an acute left inferior ramus fracture. [facility] Past Medical History Medical History Anxiety Biventricular ICD (implantable cardioverter-defibrillator) in place CVA (cerebral vascular accident) Fatty liver Frailty Frequent PVCs Heart failure with reduced ejection fraction Hypertension Hypothyroidism Nonischemic cardiomyopathy Palpitations Paroxysmal atrial fibrillation Family History Family History Father No problems noted. Mother No problems noted. Surgical History Surgical History History of permanent cardiac pacemaker placement Hx of Achilles tendon repair Hx of hysterectomy Social History Social History Household Members: Spouse Housing: House Do you presently have visiting nurse or other home services: No Smoked in Last 30 Days: No Use of substances other than those prescribed or required for medical reasons: No Advance Directives: No Advance Directives Information Provided: Yes Current occupational status: retired and disabled Current occupation: right handed Meds Allergies Allergy/AdvReac Type Severity Reaction Status Date / Time No Known Allergies Allergy Verified 02/11/21 09:58 [No Known Allergies*] Active Medications: Current Medications Acetaminophen (Acetaminophen 325 Mg Tablet) 650 mg PO Q6H PRN PRN Reason: Pain, Mild (Pain Scale 1-3) Amiodarone HCl (Amiodarone Hcl 200 Mg Tablet) 200 mg PO DAILY JAMES Aspirin (Aspirin Enteric Coated 81 Mg Tablet.Dr) 81 mg PO DAILY JAMES Atorvastatin Calcium (Atorvastatin Calcium 80 Mg Tablet) 80 mg PO DAILY JAMES Docusate Sodium (Docusate Sodium 100 Mg Capsule) 100 mg PO DAILY PRN PRN Reason: Constipation Furosemide (Furosemide 40 Mg/4 Ml Vial) 40 mg IVPUSH DAILY [facility]; Protocol Levothyroxine Sodium (Levothyroxine Sodium 75 Mcg Tablet) 75 mcg PO DAILY JAMES Lisinopril (Lisinopril 5 Mg Tablet) 5 mg PO DAILY [facility]; Protocol Lorazepam (Lorazepam 1 Mg Tablet) 1 mg PO BID PRN PRN Reason: Anxiety Metoprolol Tartrate (Metoprolol Tartrate 25 Mg Tablet) 25 mg PO BID [facility]; Protocol Mirtazapine (Mirtazapine 15 Mg Tablet) 15 mg PO QAM [facility] Ondansetron HCl (Ondansetron Hcl 4 Mg/2 Ml Vial) 4 mg IVPUSH Q8H PRN PRN Reason: Nausea and Vomiting Paroxetine HCl (Paroxetine Hcl 10 Mg Tablet) 10 mg PO DAILY [facility] Home Medications Medication Instructions Recorded Confirmed Last Taken Type amiodarone 200 mg tablet 1 tab PO DAILY 08/17/21 08/17/21 Unknown History levothyroxine 75 mcg tablet 1 tab PO DAILY 08/17/21 08/17/21 Unknown History lisinopril 5 mg tablet 1 tab PO DAILY 08/17/21 08/17/21 Unknown History lorazepam 1 mg tablet 1 tab PO BID PRN 08/17/21 08/17/21 Unknown History metoprolol tartrate 25 mg tablet 1 tab PO BID 08/17/21 08/17/21 Unknown History mirtazapine 15 mg tablet 1 tab PO QAM 08/17/21 08/17/21 Unknown History paroxetine HCl 10 mg tablet 1 tab PO DAILY 08/17/21 08/17/21 Unknown History Physical Exam Vital Signs: Vital Signs: Last Vital Signs Temp 99.7 F 08/17/21 07:55 Pulse 71 08/17/21 07:55 Resp 20 08/17/21 07:55 BP 130/56 L 08/17/21 07:55 Pulse Ox 90 L 08/17/21 07:55 BMI result Body Mass Index 19.5 Const: General: cooperative and no acute distress Orientation/consciousness: oriented to person and oriented to place HENMT: Head: Yes normocephalic Eyes: EOM: EOMs intact bilaterally Resp: Effort & Inspection: normal respiratory effort Cardio: Jugular venous distension: no JVD Skin: General skin exam: turgor normal Rashes: no rashes Neuro: General: oriented to person and oriented to place Extrem: Other: Evaluation of Upper Extremity: The patient was seen in her ED bed. She was awake and cooperative. She does have left periorbital ecchymosis. Sensation was intact to both feet. She had good plantar flexion and dorsiflexion bilaterally. On the right side she was able to actively flex at her right hip and knee. Passive motion of the right lower extremity was not painful. She found active flexion at the left hip in need to be more difficult, and had some pain with gentle internal external rotation. She had no tenderness to palpation along the length of both lower extremities. However significant motion at the left hip or loading of the left hip was somewhat painful. Radiographs and CT of the hips/pelvis:?showed acute nondisplaced fracture of the left inferior pubic ramus, subacute fracture of the left superior pubic ramus, inferior pubic ramus, right inferior and superior pubic rami. No fracture of the femoral neck or intertrochanteric area was noted. Psych: Attitude: cooperative Results Labs Result Diagrams: 08/17/21 04:51 08/17/21 04:51 Labs: Abnormal lab results 08/16/21 08/16/21 08/16/21 Range/Units 13:31 13:32 13:40 RBC (4.20-5.50) X10*6/uL Hgb (12.0-16.0) g/dl Hct (37.0-47.0) % Plt Count (160-400) X10*3/uL MPV (9.4-12.3) fL Neut % (Auto) (45-73) % Lymph % (Auto) (20-40) % Lymph # (Auto) (1.2-4.9) X10*3/uL Abs Immat Gran (auto) (0.00-0.03) X10*3/uL PT (9.9-13.0) SEC Whole Blood PT 14.4 H (11.1-13.5) sec INR (0.9-1.1) Whole Blood INR 1.2 H (0.9-1.1) Creatinine 1.51 H (0.5-1.4) mg/dL POC Glucose 140 H (60-115) mg/dL Random Glucose 142 H (60-115) mg/dL B-Natriuretic Peptide (<100) pg/mL 08/16/21 08/16/21 08/16/21 Range/Units 13:40 20:17 22:21 RBC 3.94 L (4.20-5.50) X10*6/uL Hgb (12.0-16.0) g/dl Hct (37.0-47.0) % Plt Count 145 L (160-400) X10*3/uL MPV 9.2 L (9.4-12.3) fL Neut % (Auto) 78.6 H (45-73) % Lymph % (Auto) 13.2 L (20-40) % Lymph # (Auto) (1.2-4.9) X10*3/uL Abs Immat Gran (auto) 0.04 H (0.00-0.03) X10*3/uL PT 14.2 H (9.9-13.0) SEC Whole Blood PT (11.1-13.5) sec INR 1.2 H (0.9-1.1) Whole Blood INR (0.9-1.1) Creatinine (0.5-1.4) mg/dL POC Glucose 132 H (60-115) mg/dL Random Glucose (60-115) mg/dL B-Natriuretic Peptide (<100) pg/mL 08/17/21 08/17/21 08/17/21 Range/Units 04:51 04:51 04:51 RBC 3.80 L (4.20-5.50) X10*6/uL Hgb 11.9 L (12.0-16.0) g/dl Hct 36.1 L (37.0-47.0) % Plt Count 125 L (160-400) X10*3/uL MPV 9.2 L (9.4-12.3) fL Neut % (Auto) 83.6 H (45-73) % Lymph % (Auto) 9.4 L (20-40) % Lymph # (Auto) 0.6 L (1.2-4.9) X10*3/uL Abs Immat Gran (auto) (0.00-0.03) X10*3/uL PT (9.9-13.0) SEC Whole Blood PT (11.1-13.5) sec INR (0.9-1.1) Whole Blood INR (0.9-1.1) Creatinine (0.5-1.4) mg/dL POC Glucose (60-115) mg/dL Random Glucose 135 H (60-115) mg/dL B-Natriuretic Peptide 1167 H (<100) pg/mL 08/17/21 Range/Units 07:50 RBC (4.20-5.50) X10*6/uL Hgb (12.0-16.0) g/dl Hct (37.0-47.0) % Plt Count (160-400) X10*3/uL MPV (9.4-12.3) fL Neut % (Auto) (45-73) % Lymph % (Auto) (20-40) % Lymph # (Auto) (1.2-4.9) X10*3/uL Abs Immat Gran (auto) (0.00-0.03) X10*3/uL PT (9.9-13.0) SEC Whole Blood PT (11.1-13.5) sec INR (0.9-1.1) Whole Blood INR (0.9-1.1) Creatinine (0.5-1.4) mg/dL POC Glucose 141 H (60-115) mg/dL Random Glucose (60-115) mg/dL B-Natriuretic Peptide (<100) pg/mL H & H 08/16/21 08/17/21 Range/Units 13:40 04:51 Hgb 12.5 11.9 L (12.0-16.0) g/dl Hct 37.3 36.1 L (37.0-47.0) % Coagulation 08/16/21 Range/Units 22:21 INR 1.2 H (0.9-1.1) All other labs normal. Assessment and Plan (1) Fracture of left inferior pubic ramus: Status: Acute Assessment and plan: 1. Left inferior pubic ramus fracture Acute and nondisplaced. Estimated date of injury 08/16/2020 2. Subacute fractures of the left superior and inferior pubic rami, and of the right superior and inferior pubic rami. She can be toe-touch weight-bearing to the left lower extremity with a walker. She should be out of bed to a chair several times a day. Follow-up in [facility] in 4 weeks with preclinic radiographs. Procedures Date of Service Date of Service: 08/17/21
--- NOTE | 2021-08-17 09:47 | P.CONCA_ITS ---
History of Present Illness History of Present Illness Date of Service: 08/17/21 Requesting physician: Benton Hoover Chief complaint: fall, CHF Narrative: 85-year-old female with known history of congestive heart failure and cardiomyopathy status post Bi V pacemaker. She is presenting for a fall. The details are unclear and she is confused. There was also some concern about CVA and she has been seen by Neurology. She will need a screening EEG to rule out seizures. On discussing with her she is denying any shortness of breath right now. She is coughing and has some gurgling in the upper airway. The added that the grandchildren had RSV and the patient had contact with them on . Otherwise denying fevers or chills. Due to the fall she also developed hip fracture unfortunately. This is being conservatively managed. [facility] Past Medical History Medical History Anxiety Biventricular ICD (implantable cardioverter-defibrillator) in place CVA (cerebral vascular accident) Fatty liver Frailty Frequent PVCs Heart failure with reduced ejection fraction Hypertension Hypothyroidism Nonischemic cardiomyopathy Palpitations Paroxysmal atrial fibrillation Family History Family History Father No problems noted. Mother No problems noted. Surgical History Surgical History History of permanent cardiac pacemaker placement Hx of Achilles tendon repair Hx of hysterectomy Social History Social History Household Members: Spouse Housing: House Do you presently have visiting nurse or other home services: No Smoked in Last 30 Days: No Use of substances other than those prescribed or required for medical reasons: No Advance Directives: No Advance Directives Information Provided: Yes service: No Current occupation: right handed Meds Allergies Allergy/AdvReac Type Severity Reaction Status Date / Time No Known Allergies Allergy Verified 02/11/21 09:58 [No Known Allergies*] Active Medications: Current Medications Acetaminophen (Acetaminophen 325 Mg Tablet) 650 mg PO Q6H PRN PRN Reason: Pain, Mild (Pain Scale 1-3) Amiodarone HCl (Amiodarone Hcl 200 Mg Tablet) 200 mg PO DAILY [facility] Aspirin (Aspirin Enteric Coated 81 Mg Tablet.) 81 mg PO DAILY [facility] Atorvastatin Calcium (Atorvastatin Calcium 80 Mg Tablet) 80 mg PO DAILY [facility] Docusate Sodium (Docusate Sodium 100 Mg Capsule) 100 mg PO DAILY PRN PRN Reason: Constipation Furosemide (Furosemide 40 Mg/4 Ml Vial) 40 mg IVPUSH DAILY [facility]; Protocol Levothyroxine Sodium (Levothyroxine Sodium 75 Mcg Tablet) 75 mcg PO DAILY [facility] Lisinopril (Lisinopril 5 Mg Tablet) 5 mg PO DAILY [facility]; Protocol Lorazepam (Lorazepam 1 Mg Tablet) 1 mg PO BID PRN PRN Reason: Anxiety Metoprolol Tartrate (Metoprolol Tartrate 25 Mg Tablet) 25 mg PO BID [facility]; Protocol Mirtazapine (Mirtazapine 15 Mg Tablet) 15 mg PO DAILY [facility] Ondansetron HCl (Ondansetron Hcl 4 Mg/2 Ml Vial) 4 mg IVPUSH Q8H PRN PRN Reason: Nausea and Vomiting Paroxetine HCl (Paroxetine Hcl 10 Mg Tablet) 10 mg PO DAILY [facility] Home Medications Medication Instructions Recorded Confirmed Last Taken Type amiodarone 200 mg tablet 1 tab PO DAILY 08/17/21 08/17/21 08/16/21 History levothyroxine 75 mcg tablet 1 tab PO DAILY 08/17/21 08/17/21 08/16/21 History lisinopril 5 mg tablet 1 tab PO DAILY 08/17/21 08/17/21 08/16/21 History lorazepam 1 mg tablet 1 tab PO BID PRN 08/17/21 08/17/21 08/16/21 History metoprolol tartrate 25 mg tablet 1 tab PO BID 08/17/21 08/17/21 08/16/21 History mirtazapine 15 mg tablet 1 tab PO QAM 08/17/21 08/17/21 08/16/21 History paroxetine HCl 10 mg tablet 1 tab PO DAILY 08/17/21 08/17/21 08/16/21 History Physical Exam Vital Signs: Vital Signs: Last Vital Signs Temp 99.7 F 08/17/21 07:55 Pulse 71 08/17/21 07:55 Resp 20 08/17/21 07:55 BP 130/56 L 08/17/21 07:55 Pulse Ox 90 L 08/17/21 07:55 BMI result Body Mass Index 19.5 GENERAL APPEARANCE: in no acute distress, bruising around left eye. NECK: no carotid bruit, no significant jugular venous distention. SKIN: no suspicious lesions, warm and dry. HEART: no murmurs, irregular rate and rhythm. LUNGS: clear to auscultation bilaterally. Upper airway gurgling. ABDOMEN: soft, nontender. EXTREMITIES: no edema. PERIPHERAL PULSES: equal. NEUROLOGIC: Confused, following simple commands. Moving all extremities. Objective Labs and Meds Result diagrams: 08/17/21 04:51 08/17/21 04:51 Lab results: Laboratory Results - last 24 hr 08/16/21 08/16/21 08/16/21 13:31 13:32 13:40 WBC RBC Hgb Hct MCV MCH MCHC RDW Plt Count MPV Immature Gran % (Auto) Neut % (Auto) Lymph % (Auto) [place] % (Auto) Eos % (Auto) Baso % (Auto) Lymph # (Auto) [place] # (Auto) Eos # (Auto) Baso # (Auto) Abs Immat Gran (auto) Absolute Neuts (auto) Absolute Nucleated RBC Nucleated RBC % (auto) PT Whole Blood PT 14.4 H INR Whole Blood INR 1.2 H APTT Sodium 135 Potassium 4.0 Chloride 100 Carbon Dioxide 24 Anion Gap 15 BUN 13 Creatinine 1.51 H Estim Creat Clear Calc 24.2 Estimated GFR 33 POC Glucose 140 H Random Glucose 142 H Calcium 9.8 Phosphorus 2.7 Magnesium 2.0 Total Creatine Kinase 71 D Troponin I High Sens B-Natriuretic Peptide Urine Color Urine Appearance Urine pH Ur Specific [place] Urine Protein Urine Glucose (UA) Urine Ketones Urine Blood Urine Nitrite Ur Leukocyte Esterase Urine RBC Urine WBC Ur Squamous Epith Cells Urine Bacteria Urine Mucus COVID-19 (MOO) COVID-19 Clin Com 08/16/21 08/16/21 08/16/21 13:40 13:40 15:54 WBC 9.2 RBC 3.94 L Hgb 12.5 Hct 37.3 MCV 94.7 MCH 31.7 MCHC 33.5 RDW 13.2 Plt Count 145 L MPV 9.2 L Immature Gran % (Auto) 0.4 Neut % (Auto) 78.6 H Lymph % (Auto) 13.2 L [place] % (Auto) 5.7 Eos % (Auto) 1.7 Baso % (Auto) 0.4 Lymph # (Auto) 1.2 [place] # (Auto) 0.5 Eos # (Auto) 0.2 Baso # (Auto) 0.0 Abs Immat Gran (auto) 0.04 H Absolute Neuts (auto) 7.2 Absolute Nucleated RBC 0.000 Nucleated RBC % (auto) 0.0 PT Whole Blood PT INR Whole Blood INR APTT Sodium Potassium Chloride Carbon Dioxide Anion Gap BUN Creatinine Estim Creat Clear Calc Estimated GFR POC Glucose Random Glucose Calcium Phosphorus Magnesium Total Creatine Kinase Troponin I High Sens 10.0 B-Natriuretic Peptide Urine Color YELLOW Urine Appearance CLEAR Urine pH 6.0 Ur Specific [place] 1.015 Urine Protein TRACE Urine Glucose (UA) NEG Urine Ketones 5 Urine Blood TRACE Urine Nitrite NEG Ur Leukocyte Esterase NEG Urine RBC 1-4 Urine WBC 0-2 Ur Squamous Epith Cells TRACE Urine Bacteria NONE Urine Mucus TRACE COVID-19 (MOO) COVID-19 [x+1] 08/16/21 08/16/21 08/16/21 19:10 20:17 22:21 WBC RBC Hgb Hct MCV MCH MCHC RDW Plt Count MPV Immature Gran % (Auto) Neut % (Auto) Lymph % (Auto) [place] % (Auto) Eos % (Auto) Baso % (Auto) Lymph # (Auto) [place] # (Auto) Eos # (Auto) Baso # (Auto) Abs Immat Gran (auto) Absolute Neuts (auto) Absolute Nucleated RBC Nucleated RBC % (auto) PT 14.2 H Whole Blood PT INR 1.2 H Whole Blood INR APTT 29.4 Sodium Potassium Chloride Carbon Dioxide Anion Gap BUN Creatinine Estim Creat Clear Calc Estimated GFR POC Glucose 132 H Random Glucose Calcium Phosphorus Magnesium Total Creatine Kinase Troponin I High Sens B-Natriuretic Peptide Urine Color Urine Appearance Urine pH Ur Specific [place] Urine Protein Urine Glucose (UA) Urine Ketones Urine Blood Urine Nitrite Ur Leukocyte Esterase Urine RBC Urine WBC Ur Squamous Epith Cells Urine Bacteria Urine Mucus COVID-19 (MOO) Negative COVID-19 Clin Com See Note 08/17/21 08/17/21 08/17/21 04:51 04:51 04:51 WBC 6.4 RBC 3.80 L Hgb 11.9 L Hct 36.1 L MCV 95.0 MCH 31.3 MCHC 33.0 RDW 13.5 Plt Count 125 L MPV 9.2 L Immature Gran % (Auto) 0.3 Neut % (Auto) 83.6 H Lymph % (Auto) 9.4 L [place] % (Auto) 6.2 Eos % (Auto) 0.2 Baso % (Auto) 0.3 Lymph # (Auto) 0.6 L [place] # (Auto) 0.4 Eos # (Auto) 0.0 Baso # (Auto) 0.0 Abs Immat Gran (auto) 0.02 Absolute Neuts (auto) 5.4 Absolute Nucleated RBC 0.000 Nucleated RBC % (auto) 0.0 PT Whole Blood PT INR Whole Blood INR APTT Sodium 136 Potassium 3.9 Chloride 106 Carbon Dioxide 22 Anion Gap 12 BUN 13 Creatinine 1.27 Estim Creat Clear Calc 28.8 Estimated GFR 40 POC Glucose Random Glucose 135 H Calcium 8.6 D Phosphorus Magnesium Total Creatine Kinase Troponin I High Sens B-Natriuretic Peptide 1167 H Urine Color Urine Appearance Urine pH Ur Specific [place] Urine Protein Urine Glucose (UA) Urine Ketones Urine Blood Urine Nitrite Ur Leukocyte Esterase Urine RBC Urine WBC Ur Squamous Epith Cells Urine Bacteria Urine Mucus COVID-19 (MOO) COVID-19 Clin Com 08/17/21 07:50 WBC RBC Hgb Hct MCV MCH MCHC RDW Plt Count MPV Immature Gran % (Auto) Neut % (Auto) Lymph % (Auto) [place] % (Auto) Eos % (Auto) Baso % (Auto) Lymph # (Auto) [place] # (Auto) Eos # (Auto) Baso # (Auto) Abs Immat Gran (auto) Absolute Neuts (auto) Absolute Nucleated RBC Nucleated RBC % (auto) PT Whole Blood PT INR Whole Blood INR APTT Sodium Potassium Chloride Carbon Dioxide Anion Gap BUN Creatinine Estim Creat Clear Calc Estimated GFR POC Glucose 141 H Random Glucose Calcium Phosphorus Magnesium Total Creatine Kinase Troponin I High Sens B-Natriuretic Peptide Urine Color Urine Appearance Urine pH Ur Specific [place] Urine Protein Urine Glucose (UA) Urine Ketones Urine Blood Urine Nitrite Ur Leukocyte Esterase Urine RBC Urine WBC Ur Squamous Epith Cells Urine Bacteria Urine Mucus COVID-19 (MOO) COVID-19 Clin Com Imaging Radiologist's impression: Impressions Head CT 08/16/21 13:15 IMPRESSION: No acute intracranial abnormality appreciated. Findings consistent with diffuse microangiopathy. Posterior lateral left maxillary wall nondisplaced fracture with left maxillary sinus air-fluid level. Fracture extends for a nondisplaced fracture about the lateral left orbital wall without intraconal abnormality appreciated. This critical result was discussed with Kinjal Lambert at 1:25 PM hours on August 16, 2021. It was ascertained that the content and urgency of the report was understood at the time of direct communication. Cervical Spine CT 08/16/21 13:21 IMPRESSION: 1. There are no acute fractures or subluxations. 2. There is multilevel spondylosis and facet arthropathy. Chest X-Ray 08/16/21 14:46 IMPRESSION: Cardiomegaly without acute parenchymal disease. Hip/Pelvis X-Ray 08/16/21 15:26 IMPRESSION: No acute fracture or dislocation of the left hip. Healing fractures of the right superior and inferior pubic rami which are not acute. Question acute nondisplaced fracture involving the inferior left pubic ramus. Head/Neck CTA 08/16/21 15:42 IMPRESSION: CT head and neck: 1. There is a nonspecific blush following intravenous contrast in the left frontal lobe, which is nonspecific. It may be consistent with a small capillary telangiectasia or developmental venous anomaly. 2. There are no acute territorial infarcts. There are no masses. 3. There are multilevel spondylitic changes in the cervical spine. CTA head and neck: 1. The carotid and vertebral arteries are well opacified in the neck. There is no significant atheromatous calcification, and there are no flow-limiting stenoses. 2. Intracranially, there are no focal stenoses or aneurysms. There are minimal atheromatous calcifications of the cavernous internal carotid arteries. Pelvis CT 08/16/21 17:50 IMPRESSION: Acute nondisplaced fracture of the left inferior pubic ramus. Subacute fractures of the left superior pubic ramus, inferior pubic ramus, right inferior and superior pubic rami. Head CT 08/16/21 19:28 IMPRESSION: 1. No evidence of acute intracranial abnormality. 2. Soft tissue swelling and induration overlies the left orbit without retrobulbar hematoma as clinically questioned. Chest X-Ray 08/17/21 04:10 IMPRESSION: Stable exam without acute cardiopulmonary abnormality. Assessment and Plan (1) Fall: Qualifiers: Encounter type: initial encounter Qualified Code(s): W19.XXXA - Unspecified fall, initial encounter Status: Acute (2) Chronic systolic CHF (congestive heart failure): Status: Acute Pleasant 85-year-old female who is presenting with fall. Circumstances of the fall are unclear. She is being seen by Neurology. She was hypoxic and had elevated BMP and was started on IV diuretics. Overall does not look significantly overloaded to me. I think she can be changed to oral diuretics. We will have device interrogation on her because she was due to get and interrogation to assess the battery life. She has some upper airway gurgling which is a concerning sign mostly for aspiration. Respiratory therapy should see her to do chest physiotherapy to help cough there is secretions up. We will follow along with you Thank you for allowing me to participate in the care of your patient. Please feel free to contact me if you have any questions. Procedures Date of Service Date of Service: 08/17/21
[2021-08-17] MEDS: Furosemide 40 MG/4 ML VIAL IVPUSH (10:00)
[2021-08-17] MEDS: Metoprolol Tartrate 25 MG TABLET PO (10:11)
[2021-08-17] MEDS: Levothyroxine Sodium 75 MCG TABLET PO (10:11)
[2021-08-17] MEDS: PARoxetine HCL 10 MG TABLET PO (10:12)
[2021-08-17] MEDS: Amiodarone HCL 200 MG TABLET PO (10:12)
[2021-08-17] MEDS: lisinopriL 5 MG TABLET PO (10:12)
[2021-08-17] MEDS: Mirtazapine 15 MG TABLET PO (10:13)
[2021-08-17] MEDS: Aspirin Enteric Coated 81 MG TABLET.DR PO (10:14)
[2021-08-17] MEDS: LORazepam 1 MG TABLET PO (10:17)
--- NOTE | 2021-08-17 10:17 | P.CNNE_ITS ---
History of Present Illness Data of Consult Service Date: 08/17/21 Primary Care Provider: Unknown Physician HPI Reason for consult: Syncope 85 years old woman who was found fallen and unresponsive in her bathroom by her was brought to hospital. She had no recollection of what happened. Apparently she sustained head injury with a bruise around left eye and urinated. She did not have any previous history of seizure disorder. Review of Systems Review of Systems: No recent cold or flu-like illness. [facility] Past Medical History Medical History Anxiety Biventricular ICD (implantable cardioverter-defibrillator) in place CVA (cerebral vascular accident) Fatty liver Frailty Frequent PVCs Heart failure with reduced ejection fraction Hypertension Hypothyroidism Nonischemic cardiomyopathy Palpitations Paroxysmal atrial fibrillation Family History Family History Father No problems noted. Mother No problems noted. Surgical History Surgical History History of permanent cardiac pacemaker placement Hx of Achilles tendon repair Hx of hysterectomy Social History Social History Household Members: Spouse Housing: House Do you presently have visiting nurse or other home services: No Smoked in Last 30 Days: No Use of substances other than those prescribed or required for medical reasons: No Advance Directives: No Advance Directives Information Provided: Yes Current occupational status: retired and disabled Current occupation: right handed Meds Allergies Allergy/AdvReac Type Severity Reaction Status Date / Time No Known Allergies Allergy Verified 02/11/21 09:58 [No Known Allergies*] Active Medications: Current Medications Acetaminophen (Acetaminophen 325 Mg Tablet) 650 mg PO Q6H PRN PRN Reason: Pain, Mild (Pain Scale 1-3) Amiodarone HCl (Amiodarone Hcl 200 Mg Tablet) 200 mg PO DAILY [facility] Last Admin: 08/17/21 10:12 Dose: 200 mg Documented by: Aspirin (Aspirin Enteric Coated 81 Mg Tablet.) 81 mg PO DAILY [facility] Last Admin: 08/17/21 10:14 Dose: 81 mg Documented by: Atorvastatin Calcium (Atorvastatin Calcium 80 Mg Tablet) 80 mg PO DAILY [facility] Last Admin: 08/17/21 10:16 Dose: Not Given Documented by: Docusate Sodium (Docusate Sodium 100 Mg Capsule) 100 mg PO DAILY PRN PRN Reason: Constipation Furosemide (Furosemide 40 Mg/4 Ml Vial) 40 mg IVPUSH DAILY [facility]; Protocol Last Admin: 08/17/21 10:00 Dose: 40 mg Documented by: Levothyroxine Sodium (Levothyroxine Sodium 75 Mcg Tablet) 75 mcg PO DAILY [facility] Last Admin: 08/17/21 10:11 Dose: 75 mcg Documented by: Lisinopril (Lisinopril 5 Mg Tablet) 5 mg PO DAILY [facility]; Protocol Last Admin: 08/17/21 10:12 Dose: 5 mg Documented by: Lorazepam (Lorazepam 1 Mg Tablet) 1 mg PO BID PRN PRN Reason: Anxiety Last Admin: 08/17/21 10:17 Dose: 1 mg Documented by: Metoprolol Tartrate (Metoprolol Tartrate 25 Mg Tablet) 25 mg PO BID [facility]; Protocol Last Admin: 08/17/21 10:11 Dose: 25 mg Documented by: Mirtazapine (Mirtazapine 15 Mg Tablet) 15 mg PO DAILY [facility] Last Admin: 08/17/21 10:13 Dose: 15 mg Documented by: Ondansetron HCl (Ondansetron Hcl 4 Mg/2 Ml Vial) 4 mg IVPUSH Q8H PRN PRN Reason: Nausea and Vomiting Paroxetine HCl (Paroxetine Hcl 10 Mg Tablet) 10 mg PO DAILY [facility] Last Admin: 08/17/21 10:12 Dose: 10 mg Documented by: Home Medications Medication Instructions Recorded Confirmed Last Taken Type amiodarone 200 mg tablet 1 tab PO DAILY 08/17/21 08/17/21 08/16/21 History levothyroxine 75 mcg tablet 1 tab PO DAILY 08/17/21 08/17/21 08/16/21 History lisinopril 5 mg tablet 1 tab PO DAILY 08/17/21 08/17/21 08/16/21 History lorazepam 1 mg tablet 1 tab PO BID PRN 08/17/21 08/17/21 08/16/21 History metoprolol tartrate 25 mg tablet 1 tab PO BID 08/17/21 08/17/21 08/16/21 History mirtazapine 15 mg tablet 1 tab PO QAM 08/17/21 08/17/21 08/16/21 History paroxetine HCl 10 mg tablet 1 tab PO DAILY 08/17/21 08/17/21 08/16/21 History Physical Exam Vital Signs: Vital Signs: Last Vital Signs Temp 99.7 F 08/17/21 07:55 Pulse 76 08/17/21 10:11 Resp 20 08/17/21 07:55 BP 150/65 H 08/17/21 10:11 Pulse Ox 90 L 08/17/21 07:55 BMI result Body Mass Index 19.5 Neuro: Other: She was alert and awake with normal spontaneity of speech fluency comprehension and affect. She knew where she was. She told me she lived in [place]. At the same time she was noted to be intermittently confused and having picking behavior. Pupils were equal and reactive to light. Ecchymosis was noted around left eye. Face otherwise was symmetrical. Deep tendon reflexes were absent with flat plantars. Results Labs CBC & Chem 7: 08/17/21 04:51 08/17/21 04:51 Labs: Short CBC 08/16/21 08/17/21 Range/Units 13:40 04:51 WBC 9.2 6.4 (4.8-10.8) X10*3/uL Hgb 12.5 11.9 L (12.0-16.0) g/dl Hct 37.3 36.1 L (37.0-47.0) % Plt Count 145 L 125 L (160-400) X10*3/uL BMP 08/16/21 08/17/21 13:40 04:51 Sodium 135 136 Potassium 4.0 3.9 Chloride 100 106 Carbon Dioxide 24 22 BUN 13 13 Creatinine 1.51 H 1.27 Calcium 9.8 8.6 D Cardiac Enzymes 08/16/21 Range/Units 13:40 Total Creatine Kinase 71 D (26-140) U/L Urine 08/16/21 Range/Units 15:54 Urine Color YELLOW Urine Appearance CLEAR Urine pH 6.0 (5.0-8.0) Ur Specific [place] 1.015 (1.005-1.025) Urine Protein TRACE (NEG-TRACE) MG/DL Urine Glucose (UA) NEG (NEG) MG/DL Noncontrast head CT revealed moderately severe diffuse chronic microvascular ischemic changes. Assessment and Plan (1) Syncope and collapse: Status: Acute 85 years old woman with significant microvascular ischemic changes and a fall with no obvious explanation. Seizure disorder was a possibility or this might have been a mechanical fall. I would recommend a screening EEG but otherwise not starting her on any medicine at this time. Procedures Date of Service Date of Service: 08/17/21
--- NOTE | 2021-08-17 10:18 | PHA.MEDREC ---
Pharmacy Consult ? Medication Reconciliation Pharmacy has completed the medication reconciliation.
--- NOTE | 2021-08-17 11:15 | PC.NURSE ---
VOMITING STOMACH CONTENTS. PT IS NOW FEBRILE AND MORE ALTERED. SHE CONTINUES WITH A STRONG LEAN LEFT. CONGESTED RESP.
[2021-08-17] MEDS: ondansetron HCL 4 MG/2 ML VIAL IVPUSH (11:26)
--- NOTE | 2021-08-17 12:17 | MHC.CM.PN ---
pt in ed called and spoke with pts son who lives nearby to his parents he explains that pt and her had no services prior to admission we discussed pt having been seen by pt and ot while in er and both of them recommending str for pt he is unsure of dc plan as pt mhasnt been moved to the floor yet..pt is vaccinated he believes with pfitzer has not had booster imm explained
[2021-08-17] MEDS: Piperacillin Sodium/Tazobactam 2.25 GM in 0.9 % Sodium Chloride 50 ML IV ×3 (12:26→23:39)
[2021-08-17 12:47] LABS: Lactic Acid 2.9 mmol/L (0.5-2.0)
[2021-08-17 13:11] LABS: Influenza A PCR NEGATIVE (Negative); Influenza B PCR NEGATIVE (Negative); Resp Syncy Virus RNA Qual PCR POSITIVE (Negative); SARS COV2 PCR INHOUSE NEGATIVE (Negative)
--- NOTE | 2021-08-17 13:49 | PC.NURSE ---
Informed sonDouglas of pts +RSV. MD Hoover requested isolation for the pt, son was informed of this
[2021-08-17] MEDS: 0.9 % Sodium Chloride 1,000 ML 999 ML IV (13:51)
[2021-08-17 14:28] LABS: Reflex Lactate? Lactic Acid Added
[2021-08-17] MEDS: Lactated Ringers 1,000 ML 80 ML IVCONT (15:07)
[2021-08-17 15:46] LABS: ~Lactic Acid-LAB USE ONLY 1.5 mmol/L (0.5-2.0)
[2021-08-17] MEDS: Acetaminophen Supp 650 MG SUPP.RECT PR (17:36)
[2021-08-18] VITALS (10 sets, daily range): BP systolic 89–147; BP diastolic 46–67; PULSE 60–64; RESP 17–20; TEMP 36–37.1; O2SAT 93–100
[2021-08-18] MEDS: Lactated Ringers 1,000 ML 80 ML IVCONT (02:16)
[2021-08-18] MEDS: Piperacillin Sodium/Tazobactam 2.25 GM in 0.9 % Sodium Chloride 50 ML IV ×3 (05:23→18:12)
[2021-08-18 07:14] LABS: Hemoglobin 12.4 g/dl (12.0-16.0); Mean Corpuscular HGB Conc 32.6 g/dl (31.0-35.0); Mean Corpuscular Hemoglobin 32.3 pg (27.0-33.0); Mean Platelet Volume 9.6 fL (9.4-12.3); Platelet Count 112 X10*3/uL (160-400); Red Blood Count 3.84 X10*6/uL (4.20-5.50); Red Cell Distribution Width 13.8 % (11.0-16.0); White Blood Count 9.9 X10*3/uL (4.8-10.8)
[2021-08-18 07:28] LABS: Anion Gap 14 (12-20); Blood Urea Nitrogen 17 mg/dL (9-16); Calcium 8.3 mg/dL (8.4-10.2); Carbon Dioxide 23 mmol/L (22-29); Chloride 104 mmol/L (96-108); Estimated Glomerular Filt Rate 32; Glucose Random 92 mg/dL (60-115); Potassium 3.7 mmol/L (3.3-5.1); Sodium 137 mmol/L (135-145)
[2021-08-18 07:32] LABS: Cholesterol 135 mg/dL; HDL Cholesterol 39 mg/dL; LDL Cholesterol Calculated 75 mg/dl; Triglycerides 108 mg/dL
[2021-08-18] MEDS: Amiodarone HCL 200 MG TABLET PO (08:11)
[2021-08-18] MEDS: Metoprolol Tartrate 25 MG TABLET PO (08:11)
[2021-08-18] MEDS: Acetaminophen 325 MG TABLET 650 MG PO ×2 (08:11→16:30)
[2021-08-18] MEDS: Levothyroxine Sodium 75 MCG TABLET PO (08:11)
[2021-08-18] MEDS: Atorvastatin Calcium 80 MG TABLET PO (08:11)
[2021-08-18] MEDS: PARoxetine HCL 10 MG TABLET PO (08:11)
[2021-08-18] MEDS: Aspirin Enteric Coated 81 MG TABLET.DR PO (08:11)
[2021-08-18] MEDS: Mirtazapine 15 MG TABLET PO (08:11)
--- NOTE | 2021-08-18 09:38 | HO.PM.IMPN ---
Subjective Subjective Date of Service: 08/18/21 Interval History: the patient was seen and evaluated this morning Laying in bed, feels comfortable, not in distress Reporting pain is well controlled Denies losing of conscious as she remembers have she fell at home Denies any fever, chills or shortness of breath No reported other overnight events. Systemic review: No fever, chills or weakness Pain in her hip No chest pain, palpitation No shortness of breath or coughing No abdominal pain, nausea or vomiting No urinary symptoms No any rash or wounds Physical Exam Vital Signs: Vital Signs: Last Vital Signs Temp 96.8 F 08/18/21 07:07 Pulse 62 08/18/21 08:36 Resp 20 08/18/21 07:07 BP 100/54 L 08/18/21 08:36 Pulse Ox 93 08/18/21 07:45 BMI result Body Mass Index 19.5 Const: Other: Constitutional : Alert, oriented, not in distress, bruise around the left eye Neck : Normal inspection, Supple Cardiovascular : RRR, S1 S2, no lower extremity edema, pacemaker in place Respiratory : Fair bilateral air entry, no crackles, wheezes or rhonchi Gastrointestinal: soft, lax, Normal bowel sounds, Non tender Skin : Warm, Dry Muscular, good strains in extremities but decreased range of motion in hips and feels pain upon moving Neurological : Alert & oriented x3, No focal deficit Objective Data Active Medications Acetaminophen (Acetaminophen 325 Mg Tablet) 650 mg PO Q6H PRN PRN Reason: Pain, Mild (Pain Scale 1-3) Acetaminophen (Acetaminophen 325 Mg Tablet) 650 mg PO QSHIFT [facility] Last Admin: 08/18/21 08:11 Dose: 650 mg Documented by: HANNAH Amiodarone HCl (Amiodarone Hcl 200 Mg Tablet) 200 mg PO DAILY [facility] Last Admin: 08/18/21 08:11 Dose: 200 mg Documented by: HANNAH Aspirin (Aspirin Enteric Coated 81 Mg Tablet.) 81 mg PO DAILY [facility] Last Admin: 08/18/21 08:11 Dose: 81 mg Documented by: HANNAH Atorvastatin Calcium (Atorvastatin Calcium 80 Mg Tablet) 80 mg PO DAILY [facility] Last Admin: 08/18/21 08:11 Dose: 80 mg Documented by: HANNAH Docusate Sodium (Docusate Sodium 100 Mg Capsule) 100 mg PO DAILY PRN PRN Reason: Constipation Piperacillin Sod/Tazobactam (Sod 2.25 gm/ Sodium Chloride) 50 mls @ 100 mls/hr IV Q6H [facility] Last Infusion: 08/18/21 05:57 Dose: 0 mls/hr Documented by: COLLIN Levothyroxine Sodium (Levothyroxine Sodium 75 Mcg Tablet) 75 mcg PO DAILY [facility] Last Admin: 08/18/21 08:11 Dose: 75 mcg Documented by: HANNAH Lisinopril (Lisinopril 5 Mg Tablet) 5 mg PO DAILY [facility]; Protocol Last Admin: 08/17/21 10:12 Dose: 5 mg Documented by: MICAELA Lorazepam (Lorazepam 1 Mg Tablet) 1 mg PO BID PRN PRN Reason: Anxiety Last Admin: 08/17/21 10:17 Dose: 1 mg Documented by: MICAELA Metoprolol Tartrate (Metoprolol Tartrate 25 Mg Tablet) 25 mg PO BID [facility]; Protocol Last Admin: 08/18/21 08:11 Dose: 25 mg Documented by: HANNAH Mirtazapine (Mirtazapine 15 Mg Tablet) 15 mg PO DAILY [facility] Last Admin: 08/18/21 08:11 Dose: 15 mg Documented by: HANNAH Ondansetron HCl (Ondansetron Hcl 4 Mg/2 Ml Vial) 4 mg IVPUSH Q8H PRN PRN Reason: Nausea and Vomiting Last Admin: 08/17/21 11:26 Dose: 4 mg Documented by: GAIL Paroxetine HCl (Paroxetine Hcl 10 Mg Tablet) 10 mg PO DAILY [facility] Last Admin: 08/18/21 08:11 Dose: 10 mg Documented by: HANNAH Labs CBC & Chem 7: 08/18/21 06:38 08/18/21 06:38 Labs: Laboratory Results - last 24 hr 08/17/21 08/17/21 08/17/21 12:22 12:22 15:26 MCV MCH MCHC RDW Plt Count MPV Absolute Nucleated RBC Nucleated RBC % (auto) Anion Gap Estim Creat Clear Calc Estimated GFR Random Glucose Lactic Acid 2.9 H* Lactic Acid Fup @ 2Hr 1.5 Calcium Triglycerides Cholesterol LDL Cholesterol, Calc HDL Cholesterol Influenza Type A (PCR) NEGATIVE Influenza Type B (PCR) NEGATIVE RSV RNA Qual (PCR) POSITIVE A SARS-CoV-2 RNA (RT-PCR) NEGATIVE 08/18/21 08/18/21 08/18/21 06:38 06:38 06:38 MCV 99.0 H MCH 32.3 MCHC 32.6 RDW 13.8 Plt Count 112 L MPV 9.6 Absolute Nucleated RBC 0.000 Nucleated RBC % (auto) 0.0 Anion Gap 14 Estim Creat Clear Calc 24.0 Estimated GFR 32 Random Glucose 92 Lactic Acid Lactic Acid Fup @ 2Hr Calcium 8.3 L Triglycerides 108 Cholesterol 135 LDL Cholesterol, Calc 75 HDL Cholesterol 39 Influenza Type A (PCR) Influenza Type B (PCR) RSV RNA Qual (PCR) SARS-CoV-2 RNA (RT-PCR) Assessment and Plan (1) Fracture of left inferior pubic ramus: Status: Acute (2) CHF exacerbation: Status: Acute (3) Fall: Status: Acute (4) Closed pelvic fracture: Status: Acute (5) RSV (respiratory syncytial virus infection): Status: Acute Assessment and Plan: this is an 85-year-old male this is an 85-year-old female with past medical history of CVA, CHF, AFib who presents to the hospital after a fall, found to have slurred speech as well as 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 No history of seizures, patient mentation back to baseline, DC EEG # RSV Infx Tested positive Isolated Supportive measures the likely reason why she was weaker and ended up falling at home # CHF exacerbation Does not look in fluid overload Elevated BMP Received IV Lasix yesterday, to hold on any more for today Pending echo report Cardiology input appreciated # close fracture of maxillary sinus CT findings as above, trauma surgery was contacted by ED, recommended repeating the facial CT in 4-6 hours which was repeated and showed no change supportive measures pain control # closed pelvic fracture pain control Orthopedic input appreciated # fall Mechanical as the the patient reported she slipped and fell in the bathroom PT OT # AFib heart rate controlled continue Eliquis as she has no evidence of hematoma at site of maxillary fracture continue metoprolol # hypothyroidism continue levothyroxine DVT prophylaxis: Eliquis Dispo: PT, STR placement. Quality Stroke Does the patient have a stroke diagnosis?: No VTE Prior VTE?: No VTE Risk Level:: Medical - moderate - high VTE Device Contraindication: Treatment Not Indicated VTE Drug Contraindication: N/A - Med Ordered
[2021-08-18] MEDS: Apixaban 2.5 MG TABLET PO ×2 (12:08→21:01)
[2021-08-19] VITALS (7 sets, daily range): BP systolic 106–141; BP diastolic 56–89; PULSE 59–89; RESP 18; TEMP 36.3–37.1; O2SAT 94–97
[2021-08-19] MEDS: Piperacillin Sodium/Tazobactam 2.25 GM in 0.9 % Sodium Chloride 50 ML IV ×4 (00:06→18:33)
[2021-08-19] MEDS: LORazepam 1 MG TABLET PO ×2 (00:07→16:35)
[2021-08-19] MEDS: Acetaminophen 325 MG TABLET 650 MG PO ×3 (00:07→16:35)
[2021-08-19 07:35] LABS: Anion Gap 12 (12-20); Blood Urea Nitrogen 16 mg/dL (9-16); Calcium 8.2 mg/dL (8.4-10.2); Carbon Dioxide 24 mmol/L (22-29); Chloride 107 mmol/L (96-108); Creatinine Clr Calc Pharmacy 25.4; Estimated Glomerular Filt Rate 35; Glucose Random 111 mg/dL (60-115); Potassium 3.4 mmol/L (3.3-5.1); Sodium 140 mmol/L (135-145)
[2021-08-19] MEDS: PARoxetine HCL 10 MG TABLET PO (09:41)
[2021-08-19] MEDS: Atorvastatin Calcium 80 MG TABLET PO (09:42)
[2021-08-19] MEDS: Mirtazapine 15 MG TABLET PO (09:42)
[2021-08-19] MEDS: Levothyroxine Sodium 75 MCG TABLET PO (09:42)
[2021-08-19] MEDS: Amiodarone HCL 200 MG TABLET PO (09:42)
[2021-08-19] MEDS: Aspirin Enteric Coated 81 MG TABLET.DR PO (09:42)
[2021-08-19] MEDS: Metoprolol Tartrate 25 MG TABLET PO ×2 (09:42→22:12)
[2021-08-19] MEDS: Apixaban 2.5 MG TABLET PO ×2 (09:43→22:12)
--- NOTE | 2021-08-19 12:08 | P.PNIM_ITS ---
Subjective Subjective Date of Service: 08/19/21 Interval History: cc: fall interval history: weak but improving Cardiovascular Cardiovascular: Reports no additional cardiovascular complaints Respiratory Respiratory: Reports no additional respiratory complaints Physical Exam Vital Signs: Vital Signs: Last Vital Signs Temp 97.9 F 08/19/21 08:00 Pulse 63 08/19/21 09:47 Resp 18 08/19/21 08:00 BP 122/59 L 08/19/21 09:47 Pulse Ox 94 08/19/21 09:47 BMI result Body Mass Index 19.5 Const Other:?Constitutional : Alert, oriented, not in distress, bruise around the left eye Neck : Normal inspection, Supple Cardiovascular : RRR, S1 S2, no lower extremity edema, pacemaker in place Respiratory :? Fair bilateral air entry,? no crackles, wheezes or rhonchi Gastrointestinal:? soft, lax, Normal bowel sounds, Non tender Skin : Warm, Dry Muscular, good strains in extremities but decreased range of motion in hips and feels pain upon moving Neurological : Alert & oriented x3, No focal deficit Objective Data Active Medications Acetaminophen (Acetaminophen 325 Mg Tablet) 650 mg PO Q6H PRN PRN Reason: Pain, Mild (Pain Scale 1-3) Acetaminophen (Acetaminophen 325 Mg Tablet) 650 mg PO QSHIFT [facility] Last Admin: 08/19/21 09:42 Dose: 650 mg Documented by: JACINTO Amiodarone HCl (Amiodarone Hcl 200 Mg Tablet) 200 mg PO DAILY [facility] Last Admin: 08/19/21 09:42 Dose: 200 mg Documented by: JACINTO Apixaban (Apixaban 2.5 Mg Tablet) 2.5 mg PO BID [facility] Last Admin: 08/19/21 09:43 Dose: 2.5 mg Documented by: JACINTO Aspirin (Aspirin Enteric Coated 81 Mg Tablet.) 81 mg PO DAILY [facility] Last Admin: 08/19/21 09:42 Dose: 81 mg Documented by: JACINTO Atorvastatin Calcium (Atorvastatin Calcium 80 Mg Tablet) 80 mg PO DAILY [facility] Last Admin: 08/19/21 09:42 Dose: 80 mg Documented by: JACINTO Docusate Sodium (Docusate Sodium 100 Mg Capsule) 100 mg PO DAILY PRN PRN Reason: Constipation Piperacillin Sod/Tazobactam (Sod 2.25 gm/ Sodium Chloride) 50 mls @ 100 mls/hr IV Q6H [facility] Last Infusion: 08/19/21 06:50 Dose: 0 mls/hr Documented by: GARRISON Levothyroxine Sodium (Levothyroxine Sodium 75 Mcg Tablet) 75 mcg PO DAILY [facility] Last Admin: 08/19/21 09:42 Dose: 75 mcg Documented by: JACINTO Lisinopril (Lisinopril 5 Mg Tablet) 5 mg PO DAILY [facility]; Protocol Last Admin: 08/17/21 10:12 Dose: 5 mg Documented by: MICAELA Lorazepam (Lorazepam 1 Mg Tablet) 1 mg PO BID PRN PRN Reason: Anxiety Last Admin: 08/19/21 00:07 Dose: 1 mg Documented by: GARRISON Metoprolol Tartrate (Metoprolol Tartrate 25 Mg Tablet) 25 mg PO BID [facility]; Protocol Last Admin: 08/19/21 09:42 Dose: 25 mg Documented by: JACINTO Mirtazapine (Mirtazapine 15 Mg Tablet) 15 mg PO DAILY [facility] Last Admin: 08/19/21 09:42 Dose: 15 mg Documented by: JACINTO Ondansetron HCl (Ondansetron Hcl 4 Mg/2 Ml Vial) 4 mg IVPUSH Q8H PRN PRN Reason: Nausea and Vomiting Last Admin: 08/17/21 11:26 Dose: 4 mg Documented by: GAIL Paroxetine HCl (Paroxetine Hcl 10 Mg Tablet) 10 mg PO DAILY [facility] Last Admin: 08/19/21 09:41 Dose: 10 mg Documented by: JACINTO Labs CBC & Chem 7: 08/18/21 06:38 08/19/21 06:53 Labs: Laboratory Results - last 24 hr 08/19/21 06:53 Anion Gap 12 Estim Creat Clear Calc 25.4 Estimated GFR 35 Random Glucose 111 Calcium 8.2 L Microbiology Microbiology Results: Microbiology 08/17/21 12:22 Blood Culture - Preliminary Blood - Venous No growth after 24 hours. 08/17/21 12:22 Blood Culture - Preliminary Blood - Venous No growth after 24 hours. 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 No history of seizures, patient mentation back to baseline, will forgo EEG for now RSV Infx Tested positive Isolated Supportive measures the likely reason why she was weaker and ended up falling at home CHF exacerbation with reduced EF resolved Received IV Lasix once, to hold on any more for today Pending echo report Cardiology input appreciated close fracture of maxillary sinus CT findings as above, trauma surgery was contacted by ED, recommended repeating the facial CT in 4-6 hours which was repeated and showed no change supportive measures pain control closed pelvic fracture pain control Orthopedic input appreciated fall Mechanical as the the patient reported she slipped and fell in the bathroom plan for rehab on discharge AFib heart rate controlled continue Eliquis as she has no evidence of hematoma at site of maxillary fract ure continue metoprolol hypothyroidism continue levothyroxine bowser status TOV DVT prophylaxis: Eliquis Dispo: PT, STR placement. Quality Stroke Does the patient have a stroke diagnosis?: No VTE Prior VTE?: No VTE Risk Level:: Medical - moderate - high VTE Device Contraindication: Treatment Not Indicated VTE Drug Contraindication: N/A - Med Ordered
[2021-08-20] VITALS: BP 126/65; PULSE 57; TEMP 36.9; O2SAT 96
[2021-08-20] MEDS: Acetaminophen 325 MG TABLET 650 MG PO ×2 (00:09→08:14)
[2021-08-20] MEDS: Piperacillin Sodium/Tazobactam 2.25 GM in 0.9 % Sodium Chloride 50 ML IV ×2 (00:09→06:15)
[2021-08-20 04:00] VITALS: BP 128/72; PULSE 78; RESP 20; TEMP 37; O2SAT 98
[2021-08-20 07:31] VITALS: BP 140/64; PULSE 62; RESP 20; O2SAT 97
[2021-08-20 07:53] LABS: Hematocrit 36.1 % (37.0-47.0); Hemoglobin 11.9 g/dl (12.0-16.0); Mean Corpuscular Hemoglobin 31.6 pg (27.0-33.0); Mean Platelet Volume 9.6 fL (9.4-12.3); Platelet Count 152 X10*3/uL (160-400); Red Blood Count 3.76 X10*6/uL (4.20-5.50); Red Cell Distribution Width 13.8 % (11.0-16.0); White Blood Count 6.2 X10*3/uL (4.8-10.8)
[2021-08-20 08:14] VITALS: BP 140/64; PULSE 62
[2021-08-20] MEDS: Levothyroxine Sodium 75 MCG TABLET PO (08:14)
[2021-08-20] MEDS: Atorvastatin Calcium 80 MG TABLET PO (08:14)
[2021-08-20] MEDS: Mirtazapine 15 MG TABLET PO (08:14)
[2021-08-20] MEDS: Metoprolol Tartrate 25 MG TABLET PO (08:14)
[2021-08-20] MEDS: Amiodarone HCL 200 MG TABLET PO (08:14)
[2021-08-20] MEDS: PARoxetine HCL 10 MG TABLET PO (08:14)
[2021-08-20] MEDS: Apixaban 2.5 MG TABLET PO (08:14)
[2021-08-20] MEDS: Aspirin Enteric Coated 81 MG TABLET.DR PO (08:14)
[2021-08-20 08:28] LABS: Anion Gap 11 (12-20); Blood Urea Nitrogen 14 mg/dL (9-16); Calcium 8.5 mg/dL (8.4-10.2); Carbon Dioxide 27 mmol/L (22-29); Chloride 107 mmol/L (96-108); Creatinine Clr Calc Pharmacy 28.1; Estimated Glomerular Filt Rate 39; Glucose Fasting 106 mg/dL (60-99); Potassium 3.5 mmol/L (3.3-5.1); Sodium 141 mmol/L (135-145)
[2021-08-20 09:46] VITALS: BP 140/64; PULSE 62
--- NOTE | 2021-08-20 10:15 | MHC.CM.PN ---
Per MD, Patient will be medically cleared for dc to STR/SNF today;Patient will dc today at 1PM, via [facility]/private room to accommodate RSV. Patient and Son/HCP/Douglas are aware of and in agreement with the dc plan.Patient is RSV (-) and /IMM was addressed over the phone @ [phone] with Douglas and original will be mailed out certified letter to him and a copy has been placed on the chart.
--- NOTE | 2021-08-20 10:24 | P.DS_ITS ---
DS: Providers Provider Date of Service: 08/20/21 Date of admission: 08/17/21 03:35 Primary care physician: Unknown Physician Consults: 08/17/21 03:36 Consult to Neurology Routine Consulting Provider: [facility] Reason for consultation: cva Has provider been notified: No 08/17/21 06:12 Consult to Cardiology Routine Consulting Provider: Jose Guadalupe Jordan Reason for consultation: CHF Has provider been notified: No 08/17/21 08:02 Consult to Orthopedics Routine Consulting Provider: Alia Vazquez Reason for consultation: Pelvic fractures, for eval, recommendations and patient support DS: Diagnosis Discharge Diagnosis (1) Fracture of left inferior pubic ramus: Status: Acute (2) CHF exacerbation: Status: Acute (3) Fall: Status: Acute (4) Closed pelvic fracture: Status: Acute (5) RSV (respiratory syncytial virus infection): Status: Acute DS: Summary Hospital Course Hospital Course: Patient was admitted for metabolic encephalopathy and fall complicated by closed fracture of the maxillary sinus and pelvic fracture. She was seen by Neurology who recommended MRI and EEG, however, she was unable to get MRI because of a pacemaker and EEG will be deferred as she is now back to baseline and has no history of seizures. Course was complicated by acute exacerbation of CHF with reduced ejection fraction. She was given IV Lasix and symptoms improved. She was also noted to have RSV infection and was put on isolation. For her pelvic fracture she was seen by orthopedic surgery who recommended toe-touch weight- bearing and physical therapy, she will follow up at the orthopedic clinic in 4 weeks. Patient will be discharged to shelter facility. Time Spent with Patient Time attestation: Total time spent providing and/or coordinating discharge services: Discharge coordination time: Greater than 30 minutes Quality: Stroke Does the patient have a stroke diagnosis?: No Physical Exam Vital Signs: Vital Signs: Last Vital Signs Temp 98.6 F 08/20/21 04:00 Pulse 62 08/20/21 09:46 Resp 20 08/20/21 07:31 BP 140/64 H 08/20/21 09:46 Pulse Ox 97 08/20/21 07:31 BMI result Body Mass Index 19.5 Const Other:?Constitutional : Alert, oriented, not in distress, bruise around the left eye Neck : Normal inspection, Supple Cardiovascular : RRR, S1 S2, no lower extremity edema, pacemaker in place Respiratory :? Fair bilateral air entry,? no crackles, wheezes or rhonchi Gastrointestinal:? soft, lax, Normal bowel sounds, Non tender Skin : Warm, Dry Muscular, good strains in extremities but decreased range of motion in hips and feels pain upon moving Neurological : Alert & oriented x3, No focal deficit DS: Data Data Completed and Pending Labs on day of discharge: Laboratory Results - last 24 hr 08/20/21 08/20/21 06:39 06:39 WBC 6.2 RBC 3.76 L Hgb 11.9 L Hct 36.1 L MCV 96.0 MCH 31.6 MCHC 33.0 RDW 13.8 Plt Count 152 L D MPV 9.6 Absolute Nucleated RBC 0.000 Nucleated RBC % (auto) 0.0 Sodium 141 Potassium 3.5 Chloride 107 Carbon Dioxide 27 Anion Gap 11 L BUN 14 Creatinine 1.30 Estim Creat Clear Calc 28.1 Estimated GFR 39 Fasting Glucose 106 H Calcium 8.5 Preliminary micro results at discharge 08/17/21 12:22 Blood Culture - Preliminary Blood - Venous No growth after 48 hours. 08/17/21 12:22 Blood Culture - Preliminary Blood - Venous No growth after 48 hours. Discharge Plan Discharge Patient Disposition: er SNF Discharge Diagnosis: rsv Referrals: [facility]ardoin [Outside] - 1 Week Physician,Unknown J [Primary Care Provider] - 1 Week Discharge Medications: Continued apixaban [Eliquis] 2.5 mg tablet 2.5 mg PO BID Qty: 180 RF: 3 paroxetine HCl 10 mg tablet 1 tab PO DAILY RF: 0 amiodarone 200 mg tablet 1 tab PO DAILY RF: 0 levothyroxine 75 mcg tablet 1 tab PO DAILY RF: 0 lisinopril 5 mg tablet 1 tab PO DAILY RF: 0 mirtazapine 15 mg tablet 1 tab PO QAM RF: 0 lorazepam 1 mg tablet 1 tab PO BID PRN (Reason: Anxiety) RF: 0 metoprolol tartrate 25 mg tablet 1 tab PO BID RF: 0 Discharge Orders: Discharge Order (Routine); Ordered 08/20/21 Ordered By: Trev Hicks Diet: advance to usual diet Activity on Discharge: As tolerated Stand Alone Forms: Patient Portal Discharge page Care Plan Goals: recovery Health Concerns: rsv, pelvic fracture Plan of Treatment: 1. Left inferior pubic ramus fracture Acute and nondisplaced.? Estimated date of injury 08/16/2020 2. Subacute fractures of the left superior and inferior pubic rami, and of the right superior and inferior pubic rami. She can be toe-touch weight-bearing to the left lower extremity with a walker. She should be out of bed to a chair several times a day. Follow-up in Orthopedic Clinic in 4 weeks with preclinic radiographs.? Assessment: see above
[2021-08-20 10:41] LABS: COVID-19 Test Negative (Negative); IDNOW Serial# 55D5AD1C
--- NOTE | 2021-08-20 10:41 | P.PNIM_ITS ---
Subjective Subjective Date of Service: 08/20/21 Interval History: cc: fall interval history: weak but improving Cardiovascular Cardiovascular: Reports no additional cardiovascular complaints Respiratory Respiratory: Reports no additional respiratory complaints Physical Exam Vital Signs: Vital Signs: Last Vital Signs Temp 98.6 F 08/20/21 04:00 Pulse 62 08/20/21 09:46 Resp 20 08/20/21 07:31 BP 140/64 H 08/20/21 09:46 Pulse Ox 97 08/20/21 07:31 BMI result Body Mass Index 19.5 Const Other:?Constitutional : Alert, oriented, not in distress, bruise around the left eye Neck : Normal inspection, Supple Cardiovascular : RRR, S1 S2, no lower extremity edema, pacemaker in place Respiratory :? Fair bilateral air entry,? no crackles, wheezes or rhonchi Gastrointestinal:? soft, lax, Normal bowel sounds, Non tender Skin : Warm, Dry Muscular, good strains in extremities but decreased range of motion in hips and feels pain upon moving Neurological : Alert & oriented x3, No focal deficit Objective Data Active Medications Acetaminophen (Acetaminophen 325 Mg Tablet) 650 mg PO Q6H PRN PRN Reason: Pain, Mild (Pain Scale 1-3) Acetaminophen (Acetaminophen 325 Mg Tablet) 650 mg PO QSHIFT [facility] Last Admin: 08/20/21 08:14 Dose: 650 mg Documented by: COTEMA Amiodarone HCl (Amiodarone Hcl 200 Mg Tablet) 200 mg PO DAILY [facility] Last Admin: 08/20/21 08:14 Dose: 200 mg Documented by: COTEMA Apixaban (Apixaban 2.5 Mg Tablet) 2.5 mg PO BID [facility] Last Admin: 08/20/21 08:14 Dose: 2.5 mg Documented by: COTEMA Aspirin (Aspirin Enteric Coated 81 Mg Tablet.) 81 mg PO DAILY [facility] Last Admin: 08/20/21 08:14 Dose: 81 mg Documented by: COTEMA Atorvastatin Calcium (Atorvastatin Calcium 80 Mg Tablet) 80 mg PO DAILY [facility] Last Admin: 08/20/21 08:14 Dose: 80 mg Documented by: COTEMA Docusate Sodium (Docusate Sodium 100 Mg Capsule) 100 mg PO DAILY PRN PRN Reason: Constipation Piperacillin Sod/Tazobactam (Sod 2.25 gm/ Sodium Chloride) 50 mls @ 100 mls/hr IV Q6H [facility] Last Infusion: 08/20/21 06:54 Dose: 0 mls/hr Documented by: LAMONT Levothyroxine Sodium (Levothyroxine Sodium 75 Mcg Tablet) 75 mcg PO DAILY [facility] Last Admin: 08/20/21 08:14 Dose: 75 mcg Documented by: ADITYA Lisinopril (Lisinopril 5 Mg Tablet) 5 mg PO DAILY [facility]; Protocol Last Admin: 08/17/21 10:12 Dose: 5 mg Documented by: MICAELA Lorazepam (Lorazepam 1 Mg Tablet) 1 mg PO BID PRN PRN Reason: Anxiety Last Admin: 08/19/21 16:35 Dose: 1 mg Documented by: SHEILA Metoprolol Tartrate (Metoprolol Tartrate 25 Mg Tablet) 25 mg PO BID [facility]; Protocol Last Admin: 08/20/21 08:14 Dose: 25 mg Documented by: ADITYA Mirtazapine (Mirtazapine 15 Mg Tablet) 15 mg PO DAILY [facility] Last Admin: 08/20/21 08:14 Dose: 15 mg Documented by: ADITYA Ondansetron HCl (Ondansetron Hcl 4 Mg/2 Ml Vial) 4 mg IVPUSH Q8H PRN PRN Reason: Nausea and Vomiting Last Admin: 08/17/21 11:26 Dose: 4 mg Documented by: GAIL Paroxetine HCl (Paroxetine Hcl 10 Mg Tablet) 10 mg PO DAILY [facility] Last Admin: 08/20/21 08:14 Dose: 10 mg Documented by: ADITYA Labs CBC & Chem 7: 08/20/21 06:39 08/20/21 06:39 Labs: Laboratory Results - last 24 hr 08/20/21 08/20/21 06:39 06:39 MCV 96.0 MCH 31.6 MCHC 33.0 RDW 13.8 Plt Count 152 L D MPV 9.6 Absolute Nucleated RBC 0.000 Nucleated RBC % (auto) 0.0 Anion Gap 11 L Estim Creat Clear Calc 28.1 Estimated GFR 39 Fasting Glucose 106 H Calcium 8.5 Microbiology Microbiology Results: Microbiology 08/17/21 12:22 Blood Culture - Preliminary Blood - Venous No growth after 48 hours. 08/17/21 12:22 Blood Culture - Preliminary Blood - Venous No growth after 48 hours. 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 No history of seizures, patient mentation back to baseline, will forgo EEG for now RSV Infx Tested positive Isolated Supportive measures the likely reason why she was weaker and ended up falling at home on room air CHF exacerbation with reduced EF resolved Received IV Lasix once, to hold on any more for today Cardiology input appreciated close fracture of maxillary sinus CT findings as above, trauma surgery was contacted by ED, recommended repeating the facial CT in 4-6 hours which was repeated and showed no change supportive measures pain control closed pelvic fracture pain control Orthopedic input appreciated fall Mechanical as the the patient reported she slipped and fell in the bathroom plan for rehab on discharge AFib heart rate controlled continue Eliquis as she has no evidence of hematoma at site of maxillary fracture continue metoprolol hypothyroidism continue levothyroxine DVT prophylaxis: Eliquis Dispo: PT, STR placement. Quality Stroke Does the patient have a stroke diagnosis?: No VTE Prior VTE?: No VTE Risk Level:: Medical - moderate - high VTE Device Contraindication: Treatment Not Indicated VTE Drug Contraindication: N/A - Med Ordered
[2021-08-20 11:05] VITALS: BP 102/54; PULSE 60; RESP 20; TEMP 36.9; O2SAT 97
[2021-08-20] MEDS: guaiFENesin 200 MG/10 ML 10 ML LIQUID PO (11:51)
== END 2021-08-20 13:47 | disposition skilled nursing facility (03) | DRG 535 ==
LOC: HO.ED 08-17 02:01 → HO.EDOVER 08-17 03:42 → HO.IMC 08-17 14:13
PROVIDERS: Emergency Medicine; Physician Assistant; Student in an Organized Health Care Education/Training Program; Admitting Provider Internal Medicine; Emergency Provider Emergency Medicine Emergency Medical Services; Visit Provider Internal Medicine
DX: S32.592A Other specified fracture of left pubis, initial encounter for closed fracture (principal); I50.23 Acute on chronic systolic (congestive) heart failure; G93.41 Metabolic encephalopathy; S02.401A Maxillary fracture, unspecified side, initial encounter for closed fracture; I11.0 Hypertensive heart disease with heart failure; R47.81 Slurred speech; Z95.810 Presence of automatic (implantable) cardiac defibrillator; W01.0XXA Fall on same level from slipping, tripping and stumbling without subsequent striking against object, initial encounter; Y93.9 Activity, unspecified; B97.4 Respiratory syncytial virus as the cause of diseases classified elsewhere; Y92.002 Bathroom of unspecified non-institutional (private) residence as the place of occurrence of the external cause; E03.9 Hypothyroidism, unspecified; Z20.822 Contact with and (suspected) exposure to COVID-19; Z79.01 Long term (current) use of anticoagulants; Z79.890 Hormone replacement therapy; Z79.899 Other long term (current) drug therapy
CPT/HCPCS: 0241U; 36415; 70450; 70496; 70498; 71045; 72125; 72192; 73502; 80048; 80061; 81001; 81003; 82550; 82947; 83605; 83735; 83880; 84100; 84484; 85025; 85027; 85610; 85730; 87040; 87635; 93005; 93306; 96361; 96374; 96375; 97110; 97116; 97163; 97167; 97530; 97535; 99285; J1940; J2405; J2543; Q9967

== ENCOUNTER 2021-09-15 13:35 | Outpatient (REF) | payer MEDICARE, OTHER, SELFPAY ==
--- NOTE | ~2021-09-15 | XR_ITS ---
EXAMINATION: XR PELVIS CLINICAL INFORMATION: Fracture COMPARISON: Pelvic CT and left hip x-rays 08/16/2021 TECHNIQUE: AP view of the pelvis. FINDINGS: Subacute fractures of the bilateral superior and inferior pubic rami are again demonstrated, all which demonstrates some degree of callus orientation. No acute pelvic fracture identified. There is neither fracture nor dislocation of either hip. Vascular calcifications are again demonstrated. XR/XR pelvis 1-2V IMPRESSION: Healing bilateral pelvic fractures.
== END 2021-09-15 13:36 | disposition home or self-care (01) ==
LOC: HO.HOSX 13:35
PROVIDERS: Visit Provider Physician Assistant
DX: S32.592D Other specified fracture of left pubis, subsequent encounter for fracture with routine healing (principal)
CPT/HCPCS: 72170; 99212

== ENCOUNTER 2021-10-06 16:14 | Emergency (ER) | payer MEDICARE, OTHER, SELFPAY ==
--- NOTE | ~2021-10-06 | XR_ITS ---
Examination: XR lumbar spine 2-3V, XR pelvis 1-2V, XR sacrum coccyx min 2V Indication: pain, fall Comparison: 10/01/2020 CT scan, 02/28/2019 lumbar study and the 09/15/2021 pelvic x-ray Technique: 2 views of the lumbar spine, 3 views of the sacrum and coccyx, and 1 view of the pelvis Findings: Lumbar spine: There is a mild convex right rotatory scoliosis. Mild compression deformities are seen at L3 superior and inferior endplates, new from the 10/01/2020 CT scan but otherwise age indeterminate. Extensive compression deformities of T12 and L1 as well as inferior endplate of T11 with a configuration and orientation similar to the 10/01/2020 examination. Extensive sclerotic degenerative changes the posterior elements as well. Normal caliber calcified aorta. Unremarkable bowel gas pattern. Sacrum/coccyx: Sacrum and coccyx bones appear to be normal anatomic alignment without deformity when compared to the prior study. SI joints grossly unremarkable. Pelvis: Healing fractures of the bilateral superior and inferior pubic rami regions are seen. A present as well on the prior 09/15/2021 study. Femoral heads are well-seated within the respected acetabula. Degenerative changes in the pubic symphysis. Vascular calcification seen. XR/XR sacrum coccyx min 2V Impression: Chronic appearing and healing fractures were compared to the prior studies. The mild compression deformity of L3 was not seen on the prior 10/01/2020 CT scan but otherwise is of indeterminate age.
--- NOTE | ~2021-10-06 | CT_ITS ---
EXAMINATION: CT HEAD WITHOUT CONTRAST CLINICAL INFORMATION: Fall, on anticoagulants. COMPARISON: CT head dated from 08/16/2021. TECHNIQUE: Contiguous axial imaging was performed from the skull base to vertex without intravenous administration of contrast. This CT examination was performed using dose optimization techniques as appropriate, variously including the following: *Automated exposure control *Adjustment of mA and/or kV according to patient size (this includes techniques or standardized protocols for targeted exams where dose is matched to indication/reason for exam; i.e. extremities or head) *Use of iterative reconstruction technique DLP: 589 mGy-cm FINDINGS: There is no evidence of acute intracranial hemorrhage or edematous territorial infarction. Scattered hypoattenuation in the periventricular and deep white matter are consistent with moderate microangiopathy. Goodman-white matter differentiation is preserved. Proportional prominence of the ventricles and sulcal spaces. No evidence for obstructive hydrocephalus. No abnormal mass effect or midline shift. No extra-axial fluid collections. No acute soft tissue or osseous abnormalities. Degenerative changes of both temporomandibular joints.. The mastoid air cells and paranasal sinuses are clear. CT/CT head/brain wo con IMPRESSION: No evidence of acute intracranial hemorrhage or edematous territorial infarction.
--- NOTE | ~2021-10-06 | XR_ITS ---
Examination: XR lumbar spine 2-3V, XR pelvis 1-2V, XR sacrum coccyx min 2V Indication: pain, fall Comparison: 10/01/2020 CT scan, 02/28/2019 lumbar study and the 09/15/2021 pelvic x-ray Technique: 2 views of the lumbar spine, 3 views of the sacrum and coccyx, and 1 view of the pelvis Findings: Lumbar spine: There is a mild convex right rotatory scoliosis. Mild compression deformities are seen at L3 superior and inferior endplates, new from the 10/01/2020 CT scan but otherwise age indeterminate. Extensive compression deformities of T12 and L1 as well as inferior endplate of T11 with a configuration and orientation similar to the 10/01/2020 examination. Extensive sclerotic degenerative changes the posterior elements as well. Normal caliber calcified aorta. Unremarkable bowel gas pattern. Sacrum/coccyx: Sacrum and coccyx bones appear to be normal anatomic alignment without deformity when compared to the prior study. SI joints grossly unremarkable. Pelvis: Healing fractures of the bilateral superior and inferior pubic rami regions are seen. A present as well on the prior 09/15/2021 study. Femoral heads are well-seated within the respected acetabula. Degenerative changes in the pubic symphysis. Vascular calcification seen. XR/XR pelvis 1-2V Impression: Chronic appearing and healing fractures were compared to the prior studies. The mild compression deformity of L3 was not seen on the prior 10/01/2020 CT scan but otherwise is of indeterminate age.
--- NOTE | ~2021-10-06 | XR_ITS ---
Examination: XR lumbar spine 2-3V, XR pelvis 1-2V, XR sacrum coccyx min 2V Indication: pain, fall Comparison: 10/01/2020 CT scan, 02/28/2019 lumbar study and the 09/15/2021 pelvic x-ray Technique: 2 views of the lumbar spine, 3 views of the sacrum and coccyx, and 1 view of the pelvis Findings: Lumbar spine: There is a mild convex right rotatory scoliosis. Mild compression deformities are seen at L3 superior and inferior endplates, new from the 10/01/2020 CT scan but otherwise age indeterminate. Extensive compression deformities of T12 and L1 as well as inferior endplate of T11 with a configuration and orientation similar to the 10/01/2020 examination. Extensive sclerotic degenerative changes the posterior elements as well. Normal caliber calcified aorta. Unremarkable bowel gas pattern. Sacrum/coccyx: Sacrum and coccyx bones appear to be normal anatomic alignment without deformity when compared to the prior study. SI joints grossly unremarkable. Pelvis: Healing fractures of the bilateral superior and inferior pubic rami regions are seen. A present as well on the prior 09/15/2021 study. Femoral heads are well-seated within the respected acetabula. Degenerative changes in the pubic symphysis. Vascular calcification seen. XR/XR lumbar spine 2-3V Impression: Chronic appearing and healing fractures were compared to the prior studies. The mild compression deformity of L3 was not seen on the prior 10/01/2020 CT scan but otherwise is of indeterminate age.
[2021-10-06 16:34] VITALS: BP 143/65; PULSE 67; RESP 18; TEMP 36.9; O2SAT 97; BMI 18.8
[2021-10-06 16:56] LABS: MANUAL DIFF FLAG NO
[2021-10-06 17:01] LABS: Basophils Percent Auto 0.4 % (0-2); Eosinophils Absolute Auto 0.1 X10*3/uL (0.0-0.4); Eosinophils Percent Auto 1.6 % (0-4); Hematocrit 34.7 % (37.0-47.0); Hemoglobin 11.8 g/dl (12.0-16.0); Imm Gran Abs Auto 0.04 X10*3/uL (0.00-0.03); Imm Gran Pct Auto 0.5 % (0.0-0.4); Lymphocytes Absolute Auto 1.7 X10*3/uL (1.2-4.9); Lymphocytes Percent Auto 20.2 % (20-40); Mean Corpuscular Hemoglobin 31.2 pg (27.0-33.0); Mean Corpuscular Volume 91.8 fL (80.0-98.0); Mean Platelet Volume 8.4 fL (9.4-12.3); Monocytes Absolute Auto 0.7 X10*3/uL (0.1-1.2); Monocytes Percent Auto 8.2 % (2-11); Neutrophils Absolute Auto 5.7 x10*3/uL (2.0-8.3); Neutrophils Percent Auto 69.1 % (45-73); Platelet Count 281 X10*3/uL (160-400); Red Blood Count 3.78 X10*6/uL (4.20-5.50); Red Cell Distribution Width 12.9 % (11.0-16.0); White Blood Count 8.3 X10*3/uL (4.8-10.8)
[2021-10-06 17:05] LABS: INTERNATIONAL NORM RATIO 1.1 (0.9-1.1)
[2021-10-06 17:07] LABS: Partial Thromboplastin Time 35.8 SEC (24.1-38.0)
[2021-10-06 17:12] LABS: Anion Gap 12 (12-20); Blood Urea Nitrogen 7 mg/dL (9-16); Carbon Dioxide 23 mmol/L (22-29); Chloride 103 mmol/L (96-108); Creatinine Clr Calc Pharmacy 29.4; Estimated Glomerular Filt Rate 47; Glucose Random 104 mg/dL (60-115); Potassium 4.4 mmol/L (3.3-5.1); Sodium 134 mmol/L (135-145)
[2021-10-06 17:16] LABS: COVID-19 Test Negative (Negative)
--- NOTE | 2021-10-06 17:50 | ECG_ITS ---
Test Reason : fall Blood Pressure : / mmHG Vent. Rate : 069 BPM Atrial Rate : 069 BPM P-R Int : 000 ms QRS Dur : 184 ms QT Int : 446 ms P-R-T Axes : 027 168 121 degrees QTc Int : 477 ms Atrial-sensed ventricular-paced rhythm Abnormal ECG When compared with ECG of 16-AUG-2021 14:14, Vent. rate has decreased BY 4 BPM Referred By: Amber Merino Electronically Signed By:ALL SCHMITT MD
--- NOTE | 2021-10-06 17:54 | ED_ITS ---
HPI - Fall General Chief Complaint: Fall Stated Complaint: cognitive, multiple issues Time Seen by Provider: 10/06/21 17:40 Source: patient Mode of arrival: wheelchair Limitations: no limitations History of Present Illness HPI Narrative: Patient comes to the emergency room complaining of lethargy and weakness for 1 week. Patient states that she is here because her lower back hurts. Patient states that approximately 6 days ago she had a fall, landed on her side and her buttocks. Patient is known to be on Eliquis for atrial fibrillation. Patient states that she did not hit her head and did not lose consciousness. Patient denies headache. Patient complaining of worsening pain in her lower back. Patient denies urinary incontinence/retention. Patient was discharged from rehab 2 weeks ago. Patient was there for a fractured left pelvis Related Data Home Medications Medication Instructions Recorded Confirmed amiodarone 200 mg tablet 1 tab PO DAILY 08/17/21 08/17/21 levothyroxine 75 mcg tablet 1 tab PO DAILY 08/17/21 08/17/21 lisinopril 5 mg tablet 1 tab PO DAILY 08/17/21 08/17/21 lorazepam 1 mg tablet 1 tab PO BID PRN 08/17/21 08/17/21 metoprolol tartrate 25 mg tablet 1 tab PO BID 08/17/21 08/17/21 mirtazapine 15 mg tablet 1 tab PO QAM 08/17/21 08/17/21 paroxetine HCl 10 mg tablet 1 tab PO DAILY 08/17/21 08/17/21 Previous Rx's Medication Instructions Recorded apixaban 2.5 mg tablet (Eliquis) 2.5 mg PO BID #180 tab 04/07/21 acetaminophen 500 mg tablet 500 mg PO QID PRN #20 tab 10/06/21 Allergies Allergy/AdvReac Type Severity Reaction Status Date / Time No Known Allergies Allergy Verified 10/06/21 16:34 [No Known Allergies*] Review of Systems Review of Systems: Constitutional : No Weight loss, No Fever, No Chills, No Night Sweats, No Fatigue, No Malaise ENT/Mouth : No Hearing loss, No Ear Pain, No Nasal Congestion, No Sinus Pain, No Hoarseness, No sore throat, No Rhinorrhea, No Swallowing Difficulty Eyes: No Eye Pain, No Swelling, No Redness, No Foreign Body, No Discharge, No Vision Changes Cardiovascular : No Chest Pain, No SOB, No Dyspnea on Exertion, No Orthopnea, No Edema, No Palpitations Respiratory : No Cough, No Sputum, No Wheezing, No Smoke Exposure, No Dyspnea Gastrointestinal : No Nausea, No Vomiting, No Diarrhea, No Constipation, No abdominal Pain, No Hematochezia, No Melena Genitourinary : no irregular bleeding, No Dysuria, No Urinary Frequency, No Hematuria, No Urinary Incontinence, No Urgency, No Flank Pain, No Urinary Flow Changes, No Hesitancy Musculoskeletal : Complaining of back pain, worse in the lumbar and coccyx. No Myalgias, No Joint Swelling Skin : No Skin Lesions, No rash Neuro : No Weakness, No Numbness, No Paresthesias, No Loss of Consciousness, No Dizziness, No Headache Psych : No Anxiety/Panic, No Depression, No SI/HI/AH/VH, No Social Issues, Heme/Lymph: No Bruising, No Bleeding,No Lymphadenopathy Endocrine : No Polyuria, No Polydipsia, No Temperature Intolerance [facility] Past Medical History Medical History Anxiety Biventricular ICD (implantable cardioverter-defibrillator) in place CVA (cerebral vascular accident) Fatty liver Frailty Frequent PVCs Heart failure with reduced ejection fraction Hypertension Hypothyroidism Nonischemic cardiomyopathy Palpitations Paroxysmal atrial fibrillation Surgical History History of permanent cardiac pacemaker placement Hx of Achilles tendon repair Hx of hysterectomy Family History Family History Father No problems noted. Mother No problems noted. Social History Social History Household Members: Spouse Housing: House Unable to assess alcohol history related to: Unable to respond Patient Tobacco Use Status: Never used Tobacco Advance Directives: Yes Advance Directives Information Provided: No Advance Directives on File: No service: No Current occupation: right handed Physical Exam Vital Signs: Vital Signs: Last Vital Signs Temp 98.1 F 10/06/21 19:19 Pulse 72 10/06/21 19:19 Resp 18 10/06/21 16:34 BP 134/59 L 10/06/21 19:19 Pulse Ox 97 10/06/21 19:19 BMI result Body Mass Index 18.8 Const: Other: Appearance: Alert. Oriented X3. No acute distress. Eyes: Pupils equal, round and reactive to light. ENT: Pharynx normal. Neck: Normal inspection. Neck supple. No lymph nodes noted. No crepitus CVS: Normal heart rate and rhythm. Pulses normal. Normal S1 and S2 Respiratory: No respiratory distress. Breath sounds normal. No Wheezing. No r ales Abdomen: Soft and nontender. No rigidity. No distention. Back: Pain to palpation on the lumbar and coccyx area Skin: Skin warm and dry. Patient has multiple ecchymoses, most noticeable in the face and upper lip Extremities: No lower extremity edema. No Lacerations. No Rash Neuro: Oriented X 3. No motor deficit. No sensory deficit. Moving all extermities. No slurred speech. Course Course Course Narrative: I discussed with the patient that she has a new lumbar compression fracture. Patient has a mild UTI. Patient being treated with oral cefuroxime Patient walk with a walker, ambulation trial was successful. Patient refuses to have a case management/PT consult. Patient states that she has services that will start tomorrow at her home. MDM - Fall Lab Data Result diagrams: 10/06/21 16:51 10/06/21 16:51 Labs: Lab Results 10/06/21 10/06/21 10/06/21 Range/Units 16:51 16:51 16:51 WBC 8.3 (4.8-10.8) X10*3/uL RBC 3.78 L (4.20-5.50) X10*6/uL Hgb 11.8 L (12.0-16.0) g/dl Hct 34.7 L (37.0-47.0) % MCV 91.8 (80.0-98.0) fL MCH 31.2 (27.0-33.0) pg MCHC 34.0 (31.0-35.0) g/dl RDW 12.9 (11.0-16.0) % Plt Count 281 D (160-400) X10*3/uL MPV 8.4 L (9.4-12.3) fL Immature Gran % (Auto) 0.5 H (0.0-0.4) % Neut % (Auto) 69.1 (45-73) % Lymph % (Auto) 20.2 (20-40) % Braxton % (Auto) 8.2 (2-11) % Eos % (Auto) 1.6 (0-4) % Baso % (Auto) 0.4 (0-2) % Lymph # (Auto) 1.7 (1.2-4.9) X10*3/uL Braxton # (Auto) 0.7 (0.1-1.2) X10*3/uL Eos # (Auto) 0.1 (0.0-0.4) X10*3/uL Baso # (Auto) 0.0 (0.0-0.2) X10*3/uL Abs Immat Gran (auto) 0.04 H (0.00-0.03) X10*3/uL Absolute Neuts (auto) 5.7 (2.0-8.3) x10*3/uL Absolute Nucleated RBC 0.000 (0.0-0.012) X10*3/uL Nucleated RBC % (auto) 0.0 (0.0-0.2) /100WBC PT 13.0 (9.9-13.0) SEC INR 1.1 (0.9-1.1) APTT 35.8 D (24.1-38.0) SEC Sodium 134 L (135-145) mmol/L Potassium 4.4 D (3.3-5.1) mmol/L Chloride 103 (96-108) mmol/L Carbon Dioxide 23 (22-29) mmol/L Anion Gap 12 (12-20) BUN 7 L (9-16) mg/dL Creatinine 1.10 (0.5-1.4) mg/dL Estim Creat Clear Calc 29.4 Estimated GFR 47 Random Glucose 104 (60-115) mg/dL Calcium 9.0 (8.4-10.2) mg/dL Urine Color Urine Appearance Urine pH (5.0-8.0) Ur Specific Walcott (1.005-1.025) Urine Protein (NEG-TRACE) MG/DL Urine Glucose (UA) (NEG) MG/DL Urine Ketones (NEG) MG/DL Urine Blood (NEG) Urine Nitrite (NEG) Ur Leukocyte Esterase (NEG) Urine RBC (0) /HPF Urine WBC (0-4) /HPF Ur Squamous Epith Cells /LPF Urine Bacteria /LPF COVID-19 (MOO) (Negative) COVID-19 Clin Com 10/06/21 10/06/21 Range/Units 16:51 19:41 WBC (4.8-10.8) X10*3/uL RBC (4.20-5.50) X10*6/uL Hgb (12.0-16.0) g/dl Hct (37.0-47.0) % MCV (80.0-98.0) fL MCH (27.0-33.0) pg MCHC (31.0-35.0) g/dl RDW (11.0-16.0) % Plt Count (160-400) X10*3/uL MPV (9.4-12.3) fL Immature Gran % (Auto) (0.0-0.4) % Neut % (Auto) (45-73) % Lymph % (Auto) (20-40) % Braxton % (Auto) (2-11) % Eos % (Auto) (0-4) % Baso % (Auto) (0-2) % Lymph # (Auto) (1.2-4.9) X10*3/uL Braxton # (Auto) (0.1-1.2) X10*3/uL Eos # (Auto) (0.0-0.4) X10*3/uL Baso # (Auto) (0.0-0.2) X10*3/uL Abs Immat Gran (auto) (0.00-0.03) X10*3/uL Absolute Neuts (auto) (2.0-8.3) x10*3/uL Absolute Nucleated RBC (0.0-0.012) X10*3/uL Nucleated RBC % (auto) (0.0-0.2) /100WBC PT (9.9-13.0) SEC INR (0.9-1.1) APTT (24.1-38.0) SEC Sodium (135-145) mmol/L Potassium (3.3-5.1) mmol/L Chloride (96-108) mmol/L Carbon Dioxide (22-29) mmol/L Anion Gap (12-20) BUN (9-16) mg/dL Creatinine (0.5-1.4) mg/dL Estim Creat Clear Calc Estimated GFR Random Glucose (60-115) mg/dL Calcium (8.4-10.2) mg/dL Urine Color YELLOW Urine Appearance CLEAR Urine pH 6.0 (5.0-8.0) Ur Specific [place] <= 1.005 (1.005-1.025) Urine Protein NEG (NEG-TRACE) MG/DL Urine Glucose (UA) NEG (NEG) MG/DL Urine Ketones NEG (NEG) MG/DL Urine Blood NEG (NEG) Urine Nitrite NEG (NEG) Ur Leukocyte Esterase TRACE H (NEG) Urine RBC 1-4 (0) /HPF Urine WBC 1-4 (0-4) /HPF Ur Squamous Epith Cells TRACE /LPF Urine Bacteria 1+ /LPF COVID-19 (MOO) Negative (Negative) COVID-19 Clin Com See Note Imaging Data CT scan - head: Radiologist's impression: There is no evidence of acute intracranial hemorrhage or edematous territorial infarction. Scattered hypoattenuation in the periventricular and deep white matter are consistent with moderate microangiopathy. Goodman-white matter differentiation is preserved. Proportional prominence of the ventricles and sulcal spaces. No evidence for obstructive hydrocephalus. No abnormal mass effect or midline shift. No extra-axial fluid collections. No acute soft tissue or osseous abnormalities. Degenerative changes of both temporomandibular joints.. The mastoid air cells and paranasal sinuses are clear. ? CT/CT head/brain wo con IMPRESSION: No evidence of acute intracranial hemorrhage or edematous territorial infarction. Lumbar, pelvis, coccyx x-ray: Radiologist's impression: Findings: Lumbar spine: There is a mild convex right rotatory scoliosis. Mild compression deformities are seen at L3 superior and inferior endplates, new from the 10/01/2020 CT scan but otherwise age indeterminate. Extensive compression deformities of T12 and L1 as well as inferior endplate of T11 with a configuration and orientation similar to the 10/01/2020 examination. Extensive sclerotic degenerative changes the posterior elements as well. Normal caliber calcified aorta. Unremarkable bowel gas pattern. Sacrum/coccyx: Sacrum and coccyx bones appear to be normal anatomic alignment without deformity when compared to the prior study. SI joints grossly unremarkable. Pelvis: Healing fractures of the bilateral superior and inferior pubic rami regions are seen. A present as well on the prior 09/15/2021 study. Femoral heads are well-seated within the respected acetabula. Degenerative changes in the pubic symphysis. Vascular calcification seen. XR/XR sacrum coccyx min 2V Impression: Chronic appearing and healing fractures were compared to the prior studies. The mild compression deformity of L3 was not seen on the prior 10/01/2020 CT scan but otherwise is of indeterminate age. Discharge Plan Discharge Clinical Impression: Acute UTI, Compression fx, lumbar spine Patient Disposition: Home, Self-Care Instructions: Vertebral Compression Fracture (ED) Additional Instructions: Please follow-up with your primary care physician tomorrow. If you have any worsening or new symptoms, please return to the emergency room or call 911 Prescriptions: New acetaminophen 500 mg tablet 500 mg PO QID PRN (Reason: pain) Qty: 20 RF: 0 No Action apixaban [Eliquis] 2.5 mg tablet 2.5 mg PO BID Qty: 180 RF: 3 paroxetine HCl 10 mg tablet 1 tab PO DAILY RF: 0 amiodarone 200 mg tablet 1 tab PO DAILY RF: 0 levothyroxine 75 mcg tablet 1 tab PO DAILY RF: 0 lisinopril 5 mg tablet 1 tab PO DAILY RF: 0 mirtazapine 15 mg tablet 1 tab PO QAM RF: 0 lorazepam 1 mg tablet 1 tab PO BID PRN (Reason: Anxiety) RF: 0 metoprolol tartrate 25 mg tablet 1 tab PO BID RF: 0
[2021-10-06 19:19] VITALS: BP 134/59; PULSE 72; TEMP 36.7; O2SAT 97
[2021-10-06 19:51] LABS: Appearance Urine CLEAR; Color Urine YELLOW; Glucose Urine UA NEG (NEG); Leukocyte Esterase Urine TRACE (NEG); Nitrite Urine NEG (NEG); Specific Gravity - Urine <= 1.005 (1.005-1.025); UACC Culture Trigger YES; Urine Blood NEG (NEG); Urine Ketones NEG (NEG); Urine Protein NEG (NEG-TRACE)
[2021-10-06 20:50] LABS: Bacteria Urine 1+ /LPF; Squamous Epithelial Cell Urine TRACE /LPF
--- NOTE | 2021-10-06 21:12 | PC.NURSE ---
Passed ambulation trial with walkers.
--- NOTE | 2021-10-06 21:13 | PC.NURSE ---
,PATIENT WAS ABLE TO AMBULATE BY HERSELF WITH WALKER,MD LIMON AWARE .
[2021-10-06] MEDS: Acetaminophen 325 MG TABLET 650 MG PO (21:36)
== END 2021-10-06 21:48 | disposition home or self-care (01) ==
PROVIDERS: Emergency Provider Emergency Medicine; PCP Internal Medicine
DX: N39.0 Urinary tract infection, site not specified (principal); M54.50 Low back pain, unspecified; I48.91 Unspecified atrial fibrillation; R51.9 Headache, unspecified; Z20.822 Contact with and (suspected) exposure to COVID-19; Z79.899 Other long term (current) drug therapy; Z79.01 Long term (current) use of anticoagulants
CPT/HCPCS: 70450; 72100; 72170; 72220; 80048; 81001; 85025; 85610; 85730; 87086; 87147; 87635; 93005; 99284

== ENCOUNTER 2021-10-16 12:54 | Emergency (ER) | payer MEDICARE, OTHER, SELFPAY ==
--- NOTE | ~2021-10-16 | XR_ITS ---
EXAMINATION: XR FOOT, RIGHT CLINICAL INFORMATION: Heel and toe pain COMPARISON: None TECHNIQUE: AP, lateral, and oblique views of the right foot. FINDINGS: There is osteopenia visualized bones. There are noted to be fractures involving the heads of the right second, third, and fourth metacarpals with some lateral displacement of the distal fracture fragments of the third and fourth metacarpals as well as some plantar angulation of the second, third, and fourth distal fracture fragments. There appears to be a fracture which is not displaced involving the head of the fifth metacarpal. This may be acute or chronic in nature. The fractures are not intra-articular in location. XR/XR foot RT 2V IMPRESSION: Fractures of the right second through fifth distal metatarsals as described.
--- NOTE | ~2021-10-16 | CT_ITS ---
EXAMINATION: CT BRAIN WITHOUT CONTRAST AND CHEST X-RAY. CLINICAL INFORMATION: Weakness, fall and hit head. COMPARISON: CT brain 08/16/2021 TECHNIQUE: 5 mm thin axial and reformatted 2 mm thin sagittal and coronal images of brain were obtained without contrast. DLP 1156. Chest 2 views. FINDINGS: Brain: There is no acute intra-axial, extra-axial bleed, masses or midline shift. There is no acute infarction evolution. The lateral ventricles are symmetrical in size and configuration with mild enlargement. There is diffuse periventricular hypodensity in both cerebral hemispheres without mass effect. Bone windows reveal no calvarial abnormality. Bilateral paranasal sinuses and mastoid air cells are well-aerated. Chest x-ray: The lungs are well-expanded with no acute pneumonic process seen. This platelike atelectasis right middle lobe. The heart size and progress clarities normal. There are dual pacer electrodes in right atrium and right ventricle. There is severe compression deformity T12 and L1 and mild compression deformity L3 vertebra. CT/CT head/brain wo con IMPRESSION: Mild cerebral volume loss. No acute intracranial process seen. No acute cardiopulmonary process seen. There are severe old T12-L1 compression fracture and mild L3 compression fracture. These are unchanged to previous lumbar spine exam 10/06/2021.
[2021-10-16 13:12] VITALS: BP 124/78; BP 135/59; PULSE 67; PULSE 70; RESP 16; TEMP 36.4; O2SAT 100; O2SAT 95; BMI 23.8
--- NOTE | 2021-10-16 13:26 | ECG_ITS ---
Test Reason : FALL Blood Pressure : / mmHG Vent. Rate : 070 BPM Atrial Rate : 070 BPM P-R Int : 196 ms QRS Dur : 176 ms QT Int : 518 ms P-R-T Axes : 016 164 135 degrees QTc Int : 559 ms Atrial-sensed ventricular-paced rhythm Abnormal ECG When compared with ECG of 06-OCT-2021 18:20, No significant change was found Referred By: Chiquita Menendez Electronically Signed By:STEPHANE RING
--- NOTE | 2021-10-16 13:31 | ED.FALL ---
HPI - Fall General Chief Complaint: Fall <Chiquita Menendez NP - Last Filed: 10/16/21 20:45> Stated Complaint: MECH FALL,NO HEAD STRIKE,NO OTHER INJURY PER EMS <Chiquita Menendez NP - Last Filed: 10/16/21 20:45> Time Seen by Provider: 10/16/21 13:26 <Chiquita Menendez NP - Last Filed: 10/16/21 20:45> Source: patient, family and EMS <Chiquita Menendez NP - Last Filed: 10/16/21 20:45> Mode of arrival: EMS <Chiquita Menendez NP - Last Filed: 10/16/21 20:45> Limitations: no limitations <Chiquita Menendez NP - Last Filed: 10/16/21 20:45> History of Present Illness HPI Narrative: ?[id number] c PMHx of CVA, 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 Her son the patient has required intermittent short-term rehab for weakness and falls. She was last placed at a [facility] facility [facility] approximately 1 month ago. He feels that the patient has had increasing requirements at her home. The patient lives with her . They do have this thing nurses, physical therapy that come in intermittently however over the last few weeks she has required almost 247 care and the son and his siblings have been staying at the house to try to take care of her. They do feel that she needs a higher level of care such as short-term rehab. Patient tells me that she was walking today with her walker when she lost her balance falling backwards hitting her left side. She denies any loss of consciousness or hitting her head. She is on Eliquis. The patient denies any pain. She is at her baseline per son. The son tells me over the last 3 weeks he has noticed that the patient seems to be leaning to the right side especially when she is walking. He also noticed that she has a little bit of weakness on the right side of the face over the last 3 weeks. He tells me that she has had history of prior strokes but is unsure if she has any residual deficits from these strokes. <Chiquita Menendez NP - Last Filed: 10/16/21 20:45> Related Data Home Medications: Home Medications Medication Instructions Recorded Confirmed amiodarone 200 mg tablet 1 tab PO DAILY 08/17/21 10/16/21 levothyroxine 75 mcg tablet 0.5 tab PO DAILY 08/17/21 10/16/21 lisinopril 5 mg tablet 1 tab PO DAILY 08/17/21 10/16/21 lorazepam 1 mg tablet 1 tab PO BID PRN 08/17/21 10/16/21 metoprolol tartrate 25 mg tablet 1 tab PO BID 08/17/21 10/16/21 mirtazapine 15 mg tablet 1 tab PO DAILY 08/17/21 10/16/21 paroxetine HCl 10 mg tablet 1 tab PO DAILY 08/17/21 10/16/21 Previous Rx's Medication Instructions Recorded apixaban 2.5 mg tablet (Eliquis) 2.5 mg PO BID #180 tab 04/07/21 <Chiquita Menendez NP - Last Filed: 10/16/21 20:45> Allergies/Adverse Reactions: Allergies Allergy/AdvReac Type Severity Reaction Status Date / Time No Known Allergies Allergy Verified 10/06/21 16:34 [No Known Allergies*] <Chiquiat Menendez NP - Last Filed: 10/16/21 20:45> Review of Systems Review of Systems: Yes all other systems are reviewed and are negative <Chiquita Menendez NP - Last Filed: 10/16/21 20:45> Constitutional: Constitutional: Reports no additional constitutional complaints, Denies body ache(s), Denies chills, Denies fever(s), Denies headache(s) and Reports weakness <Chiquita Menendez NP - Last Filed: 10/16/21 20:45> Eyes: Eyes: Reports no additional eye complaints and Denies change in vision <Chiquita Menendez NP - Last Filed: 10/16/21 20:45> ENT: Reports system reviewed and no additional complaints, except as documented, Denies dizziness, Denies headache(s), Denies nasal congestion, Denies nasal discharge and Denies neck pain <Chiquita Menendez NP - Last Filed: 10/16/21 20:45> Cardiovascular: Cardiovascular: Reports no additional cardiovascular complaints, Denies chest pain, Denies leg edema and Denies dyspnea <Chiquita Menendez NP - Last Filed: 10/16/21 20:45> Respiratory: Respiratory: Reports no additional respiratory complaints, Denies cough and Denies dyspnea <Chiquita Menendez NP - Last Filed: 10/16/21 20:45> Gastrointestinal: Gastrointestinal: Reports no additional gastrointestinal complaints, Denies abdominal pain, Denies diarrhea, Denies nausea and Denies vomiting <Chiquita Menendez NP - Last Filed: 10/16/21 20:45> Genitourinary: Genitourinary: Reports no additional female genitourinary complaints and Denies urinary incontinence <Chiquita Menendez NP - Last Filed: 10/16/21 20:45> Musculoskeletal: Musculoskeletal: Reports no additional musculoskeletal complaints, Reports back pain (chronic ), Denies arthralgias, Denies joint swelling, Denies neck pain, Denies numbness and Denies tingling <Chiquita Menendez NP - Last Filed: 10/16/21 20:45> Integumentary/Breasts: Skin/Breast: Reports system reviewed and no additional complaints, except as docu and Denies rash <Chiquita Menendez NP - Last Filed: 10/16/21 20:45> Neurologic: Reports system reviewed and no additional complaints, except as documented, Denies Abnormal speech present, Denies dizziness, Denies headache(s), Denies numbness, Denies tingling and Reports weakness <Chiquita Menendez NP - Last Filed: 10/16/21 20:45> PMFSH Past Medical History Attestation statement: The following information was validated with the patient. <Chiquita Menendez NP - Last Filed: 10/16/21 20:45> Source: old records reviewed and nursing notes reviewed <Chiquita Menendez NP - Last Filed: 10/16/21 20:45> Medical History: Medical History Anxiety Biventricular ICD (implantable cardioverter-defibrillator) in place CVA (cerebral vascular accident) Fatty liver Frailty Frequent PVCs Heart failure with reduced ejection fraction Hypertension Hypothyroidism Nonischemic cardiomyopathy Palpitations Paroxysmal atrial fibrillation <Chiquita Menendez NP - Last Filed: 10/16/21 20:45> Surgical History: Surgical History History of permanent cardiac pacemaker placement Hx of Achilles tendon repair Hx of hysterectomy <Chiquita Menendez NP - Last Filed: 10/16/21 20:45> Family History Family History: Family History Father No problems noted. Mother No problems noted. <Chiquita Menendez NP - Last Filed: 10/16/21 20:45> Social History Social History: Social History Household Members: Spouse Housing: House Unable to assess alcohol history related to: Unable to respond Alcohol intake: never Patient Tobacco Use Status: Never used Tobacco Use of substances other than those prescribed or required for medical reasons: No Advance Directives: No Advance Directives Information Provided: No service: No Current occupation: right handed <Chiquita Menendez NP - Last Filed: 10/16/21 20:45> Physical Exam Vital Signs: Vital Signs: Last Vital Signs Temp 98.2 F 10/17/21 09:31 Pulse 67 10/17/21 09:31 Resp 19 10/17/21 09:31 BP 142/67 H 10/17/21 09:31 Pulse Ox 96 10/17/21 09:31 BMI result Body Mass Index 23.8 <Chiquita Menendez NP - Last Filed: 10/16/21 20:45> Vital Signs: Last Vital Signs Temp 98.2 F 10/17/21 09:31 Pulse 67 10/17/21 09:31 Resp 19 10/17/21 09:31 BP 142/67 H 10/17/21 09:31 Pulse Ox 96 10/17/21 09:31 BMI result Body Mass Index 23.8 <JOSELYN Eagle - Last Filed: 10/17/21 10:49> Const: General: cooperative, healthy appearing, comfortable and no acute distress <Chiquita Menendez NP - Last Filed: 10/16/21 20:45> Orientation/consciousness: oriented to person and oriented to place <Chiquita Menendez NP - Last Filed: 10/16/21 20:45> Limitations: no limitations <Chiquita Menendez NP - Last Filed: 10/16/21 20:45> HENMT: Head: Yes normal to inspection <Chiquita Menendez NP - Last Filed: 10/16/21 20:45> Ears: hearing grossly normal bilaterally and TM's normal bilaterally <Chiquita Menendez NP - Last Filed: 10/16/21 20:45> General nose exam: Normal external nose present <Chiquita Menendez NP - Last Filed: 10/16/21 20:45> Face and sinus: Yes normal facial exam <Chiquita Menendez NP - Last Filed: 10/16/21 20:45> Mouth: Normal oral and palatal mucosa present <Chiquita Menendez NP - Last Filed: 10/16/21 20:45> Throat: Yes posterior oropharynx normal, Yes tonsils normal and Yes uvula midline <Chiquita Menendez NP - Last Filed: 10/16/21 20:45> Eyes: General: appearance normal, both eyes and all related structures <Chiquita Menendez NP - Last Filed: 10/16/21 20:45> Pupils: Equal, round and reactive pupils present <Chiquita Menendez NP - Last Filed: 10/16/21 20:45> Neck: Neck: Yes normal visual inspection, Yes full ROM and Yes no lymphadenopathy <Chiquita Menendez NP - Last Filed: 10/16/21 20:45> Chest: Chest palpation & inspection: normal inspection of the chest <Chiquita Menendez NP - Last Filed: 10/16/21 20:45> Resp: Effort & Inspection: normal respiratory effort <Chiquita Menendez NP - Last Filed: 10/16/21 20:45> Auscultation: clear to auscultation bilaterally <Chiquita Menendez NP - Last Filed: 10/16/21 20:45> Cardio: Rate: regular rate <Chiquita Menendez NP - Last Filed: 10/16/21 20:45> Rhythm: regular rhythm <Chiquita Menendez NP - Last Filed: 10/16/21 20:45> Peripheral pulses: Peripheral pulses 2+ throughout <Chiquita Menendez NP - Last Filed: 10/16/21 20:45> GI: Inspection: Yes normal to inspection <Chiquita Menendez NP - Last Filed: 10/16/21 20:45> Palpation (GI): Soft to palpation and nontender <Chiquita Menendez NP - Last Filed: 10/16/21 20:45> Auscultation: normal bowel sounds <Chiquita Menendez NP - Last Filed: 10/16/21 20:45> : General: Yes no CVA tenderness <Chiquita Menendez NP - Last Filed: 10/16/21 20:45> Back/Spine/Pelvis: Other: Mild tenderness to the lumbar spine with no step-offs or deformities. No ecchymosis <Chiquita Menendez NP - Last Filed: 10/16/21 20:45> Back: no CVA tenderness <Chiquita Menendez NP - Last Filed: 10/16/21 20:45> Thoracic/Lumbar Spine: thoracic and lumbar spine normal to inspection <Chiquita Menendez NP - Last Filed: 10/16/21 20:45> Skin: General skin exam: no rashes or lesions noted <Chiquita Menendez NP - Last Filed: 10/16/21 20:45> Neuro: Other: Upper extremity 5/5 bilaterally Lower extremity 4/5 bilaterally Slight facial droop right side patient is leaning towards the right. <Chiquita Menendez NP - Last Filed: 10/16/21 20:45> General: oriented to person, oriented to place, no focal motor deficits, normal sensation to monofilament and Unable to assess gait <Chiquita Menendez NP - Last Filed: 10/16/21 20:45> Cranial nerves: Yes Equal, round and reactive pupils present, Yes Bilaterally intact EOM present, Yes Nystagmus not present and Yes Midline tongue present <Chiquita Menendez NP - Last Filed: 10/16/21 20:45> Cognition (Neuro): normal cognition <Chiquita Menendez NP - Last Filed: 10/16/21 20:45> Speech: No Abnormal speech present <Chiquita Menendez NP - Last Filed: 10/16/21 20:45> Gait exam (Neuro): Unable to assess gait <Chiquita Menendez NP - Last Filed: 10/16/21 20:45> Coordination: [id number] test normal <Chiquita Menendez NP - Last Filed: 10/16/21 20:45> Extrem: General: Yes normal to inspection <Chiquita Menendez NP - Last Filed: 10/16/21 20:45> Course Course Course Narrative: 85-year-old female coming from home with reports of loss of balance sustaining a fall with no head strike or loss of consciousness. Family reports increasing weakness at home over the last few weeks and they feel like she require short-term rehab. Patient has no physical complaints other than some chronic low back pain from a recent compression fracture. She is alert and oriented x2 which family is tells me is baseline. A son is concerned over the last 3 weeks he has noticed that the patient seems to be leaning towards the right side her face appears like there is a slight facial droop on the right side. She does have a history of CVAs but he is unsure if she has any residual deficits. She is on Eliquis twice daily. Will check labs, EKG, chest x-ray, UA, CT head. If workup negative patient may require case management physical therapy 1620-labs are at baseline. EKG shows a paced rhythm. UA is negative for infection. CT head is negative. X-ray shows known compression fractures with no other acute finding. Physical therapy evaluation ordered. And fortunately they are not here today and so the patient will be held in our emergency department until they can evaluate her in the morning. Case management consult place. Physician observation initiated pending placement. 2100-Sign out to Dr Kessler pending CM/PT in AM <Chiquita Menendez NP - Last Filed: 10/16/21 20:45> Reevaluation(s) Reevaluation #1: Physician observation continues, vital signs are stable, lungs clear to auscultation bilaterally, abdomen soft and nontender, heart regular rate and rhythm, vital signs have been stable. Physical therapy has evaluated patient, awaiting plan from case management. Patient states she does not want to go into long-term care, and she just wants to go home. Patient continues to complain of right toe pain, x-ray right foot obtained and shows the following: FINDINGS: There is osteopenia visualized bones. There are noted to be fractures involving the heads of the right second, third, and fourth metacarpals with some lateral displacement of the distal fracture fragments of the third and fourth metacarpals as well as some plantar angulation of the second, third, and fourth distal fracture fragments. There appears to be a fracture which is not displaced involving the head of the fifth metacarpal. This may be acute or chronic in nature. The fractures are not intra-articular in location. XR/XR foot RT 2V IMPRESSION: Fractures of the right second through fifth distal metatarsals as described. [place] text with ortho JOSELYN Key, she suggested short walking boot. <JOSELYN Eagle - Last Filed: 10/17/21 10:49> MDM - Fall MDM Narrative Medical decision making narrative: Less likely acute CVA with symptoms greater than [address] scan of the head. ? Residual deficits from previous CVA. <Chiquita Menendez NP - Last Filed: 10/16/21 20:45> Medical Records Attestation: I reviewed the patient's medical records. <Chiquita Menendez NP - Last Filed: 10/16/21 20:45> Lab Data Attestation: I reviewed the patient's lab results. <Chiquita Menendez NP - Last Filed: 10/16/21 20:45> Result diagrams: : 10/16/21 15:48 10/16/21 15:11 <Chiquita Menendez NP - Last Filed: 10/16/21 20:45> Labs: Lab Results 10/16/21 10/16/21 10/16/21 Range/Units 15:11 15:11 15:11 WBC (4.8-10.8) X10*3/uL RBC (4.20-5.50) X10*6/uL Hgb (12.0-16.0) g/dl Hct (37.0-47.0) % MCV (80.0-98.0) fL MCH (27.0-33.0) pg MCHC (31.0-35.0) g/dl RDW (11.0-16.0) % Plt Count (160-400) X10*3/uL MPV (9.4-12.3) fL Immature Gran % (Auto) (0.0-0.4) % Neut % (Auto) (45-73) % Lymph % (Auto) (20-40) % Knott % (Auto) (2-11) % Eos % (Auto) (0-4) % Baso % (Auto) (0-2) % Lymph # (Auto) (1.2-4.9) X10*3/uL Knott # (Auto) (0.1-1.2) X10*3/uL Eos # (Auto) (0.0-0.4) X10*3/uL Baso # (Auto) (0.0-0.2) X10*3/uL Abs Immat Gran (auto) (0.00-0.03) X10*3/uL Absolute Neuts (auto) (2.0-8.3) x10*3/uL Absolute Nucleated RBC (0.0-0.012) X10*3/uL Nucleated RBC % (auto) (0.0-0.2) /100WBC PT (9.9-13.0) SEC INR (0.9-1.1) Sodium 135 (135-145) mmol/L Potassium 3.9 (3.3-5.1) mmol/L Chloride 100 (96-108) mmol/L Carbon Dioxide 24 (22-29) mmol/L Anion Gap 15 (12-20) BUN 8 L (9-16) mg/dL Creatinine 0.95 (0.5-1.4) mg/dL Estim Creat Clear Calc 33.8 Estimated GFR 56 Random Glucose 106 (60-115) mg/dL Calcium 9.0 (8.4-10.2) mg/dL Magnesium 2.2 (1.6-2.6) mg/dL Total Bilirubin 0.3 (0.0-1.0) mg/dL Direct Bilirubin < 0.2 (0.0-0.5) mg/dL AST 39 H D (5-31) U/L ALT 20 (0-31) U/L Alkaline Phosphatase 210 H D (39-117) U/L Troponin I High Sens (<3.5-17.0) ng/L B-Natriuretic Peptide (<100) pg/mL Total Protein 7.8 (6.5-8.0) g/dL Albumin 3.5 (3.5-5.0) g/dL Urine Color STRAW Urine Appearance CLEAR Urine pH 6.0 (5.0-8.0) Ur Specific Dunlap 1.010 (1.005-1.025) Urine Protein NEG (NEG-TRACE) MG/DL Urine Glucose (UA) NEG (NEG) MG/DL Urine Ketones NEG (NEG) MG/DL Urine Blood NEG (NEG) Urine Nitrite NEG (NEG) Ur Leukocyte Esterase NEG (NEG) COVID-19 (MOO) Negative (Negative) COVID-19 Clin Com See Note 10/16/21 10/16/21 10/16/21 Range/Units 15:48 15:49 15:49 WBC 8.1 (4.8-10.8) X10*3/uL RBC 3.68 L (4.20-5.50) X10*6/uL Hgb 11.4 L (12.0-16.0) g/dl Hct 34.1 L (37.0-47.0) % MCV 92.7 (80.0-98.0) fL MCH 31.0 (27.0-33.0) pg MCHC 33.4 (31.0-35.0) g/dl RDW 13.9 (11.0-16.0) % Plt Count 277 (160-400) X10*3/uL MPV 8.6 L (9.4-12.3) fL Immature Gran % (Auto) 0.5 H (0.0-0.4) % Neut % (Auto) 74.1 H (45-73) % Lymph % (Auto) 16.8 L (20-40) % Knott % (Auto) 6.7 (2-11) % Eos % (Auto) 1.5 (0-4) % Baso % (Auto) 0.4 (0-2) % Lymph # (Auto) 1.4 (1.2-4.9) X10*3/uL Knott # (Auto) 0.5 (0.1-1.2) X10*3/uL Eos # (Auto) 0.1 (0.0-0.4) X10*3/uL Baso # (Auto) 0.0 (0.0-0.2) X10*3/uL Abs Immat Gran (auto) 0.04 H (0.00-0.03) X10*3/uL Absolute Neuts (auto) 6.0 (2.0-8.3) x10*3/uL Absolute Nucleated RBC 0.000 (0.0-0.012) X10*3/uL Nucleated RBC % (auto) 0.0 (0.0-0.2) /100WBC PT 12.8 (9.9-13.0) SEC INR 1.1 (0.9-1.1) Sodium (135-145) mmol/L Potassium (3.3-5.1) mmol/L Chloride (96-108) mmol/L Carbon Dioxide (22-29) mmol/L Anion Gap (12-20) BUN (9-16) mg/dL Creatinine (0.5-1.4) mg/dL Estim Creat Clear Calc Estimated GFR Random Glucose (60-115) mg/dL Calcium (8.4-10.2) mg/dL Magnesium (1.6-2.6) mg/dL Total Bilirubin (0.0-1.0) mg/dL Direct Bilirubin (0.0-0.5) mg/dL AST (5-31) U/L ALT (0-31) U/L Alkaline Phosphatase (39-117) U/L Troponin I High Sens 13.2 (<3.5-17.0) ng/L B-Natriuretic Peptide (<100) pg/mL Total Protein (6.5-8.0) g/dL Albumin (3.5-5.0) g/dL Urine Color Urine Appearance Urine pH (5.0-8.0) Ur Specific Dunlap (1.005-1.025) Urine Protein (NEG-TRACE) MG/DL Urine Glucose (UA) (NEG) MG/DL Urine Ketones (NEG) MG/DL Urine Blood (NEG) Urine Nitrite (NEG) Ur Leukocyte Esterase (NEG) COVID-19 (MOO) (Negative) COVID-19 Clin Com 10/16/21 Range/Units 15:49 WBC (4.8-10.8) X10*3/uL RBC (4.20-5.50) X10*6/uL Hgb (12.0-16.0) g/dl Hct (37.0-47.0) % MCV (80.0-98.0) fL MCH (27.0-33.0) pg MCHC (31.0-35.0) g/dl RDW (11.0-16.0) % Plt Count (160-400) X10*3/uL MPV (9.4-12.3) fL Immature Gran % (Auto) (0.0-0.4) % Neut % (Auto) (45-73) % Lymph % (Auto) (20-40) % Knott % (Auto) (2-11) % Eos % (Auto) (0-4) % Baso % (Auto) (0-2) % Lymph # (Auto) (1.2-4.9) X10*3/uL Knott # (Auto) (0.1-1.2) X10*3/uL Eos # (Auto) (0.0-0.4) X10*3/uL Baso # (Auto) (0.0-0.2) X10*3/uL Abs Immat Gran (auto) (0.00-0.03) X10*3/uL Absolute Neuts (auto) (2.0-8.3) x10*3/uL Absolute Nucleated RBC (0.0-0.012) X10*3/uL Nucleated RBC % (auto) (0.0-0.2) /100WBC PT (9.9-13.0) SEC INR (0.9-1.1) Sodium (135-145) mmol/L Potassium (3.3-5.1) mmol/L Chloride (96-108) mmol/L Carbon Dioxide (22-29) mmol/L Anion Gap (12-20) BUN (9-16) mg/dL Creatinine (0.5-1.4) mg/dL Estim Creat Clear Calc Estimated GFR Random Glucose (60-115) mg/dL Calcium (8.4-10.2) mg/dL Magnesium (1.6-2.6) mg/dL Total Bilirubin (0.0-1.0) mg/dL Direct Bilirubin (0.0-0.5) mg/dL AST (5-31) U/L ALT (0-31) U/L Alkaline Phosphatase (39-117) U/L Troponin I High Sens (<3.5-17.0) ng/L B-Natriuretic Peptide 778 H (<100) pg/mL Total Protein (6.5-8.0) g/dL Albumin (3.5-5.0) g/dL Urine Color Urine Appearance Urine pH (5.0-8.0) Ur Specific Dunlap (1.005-1.025) Urine Protein (NEG-TRACE) MG/DL Urine Glucose (UA) (NEG) MG/DL Urine Ketones (NEG) MG/DL Urine Blood (NEG) Urine Nitrite (NEG) Ur Leukocyte Esterase (NEG) COVID-19 (MOO) (Negative) COVID-19 Clin Com <Chiquita Menendez, [employer]BI[employer] SPECIALIST - Last Filed: 10/16/21 20:45> Lab Results 10/16/21 10/16/21 10/16/21 Range/Units 15:11 15:11 15:11 WBC (4.8-10.8) X10*3/uL RBC (4.20-5.50) X10*6/uL Hgb (12.0-16.0) g/dl Hct (37.0-47.0) % MCV (80.0-98.0) fL MCH (27.0-33.0) pg MCHC (31.0-35.0) g/dl RDW (11.0-16.0) % Plt Count (160-400) X10*3/uL MPV (9.4-12.3) fL Immature Gran % (Auto) (0.0-0.4) % Neut % (Auto) (45-73) % Lymph % (Auto) (20-40) % Knott % (Auto) (2-11) % Eos % (Auto) (0-4) % Baso % (Auto) (0-2) % Lymph # (Auto) (1.2-4.9) X10*3/uL Knott # (Auto) (0.1-1.2) X10*3/uL Eos # (Auto) (0.0-0.4) X10*3/uL Baso # (Auto) (0.0-0.2) X10*3/uL Abs Immat Gran (auto) (0.00-0.03) X10*3/uL Absolute Neuts (auto) (2.0-8.3) x10*3/uL Absolute Nucleated RBC (0.0-0.012) X10*3/uL Nucleated RBC % (auto) (0.0-0.2) /100WBC PT (9.9-13.0) SEC INR (0.9-1.1) Sodium 135 (135-145) mmol/L Potassium 3.9 (3.3-5.1) mmol/L Chloride 100 (96-108) mmol/L Carbon Dioxide 24 (22-29) mmol/L Anion Gap 15 (12-20) BUN 8 L (9-16) mg/dL Creatinine 0.95 (0.5-1.4) mg/dL Estim Creat Clear Calc 33.8 Estimated GFR 56 Random Glucose 106 (60-115) mg/dL Calcium 9.0 (8.4-10.2) mg/dL Magnesium 2.2 (1.6-2.6) mg/dL Total Bilirubin 0.3 (0.0-1.0) mg/dL Direct Bilirubin < 0.2 (0.0-0.5) mg/dL AST 39 H D (5-31) U/L ALT 20 (0-31) U/L Alkaline Phosphatase 210 H D (39-117) U/L Troponin I High Sens (<3.5-17.0) ng/L B-Natriuretic Peptide (<100) pg/mL Total Protein 7.8 (6.5-8.0) g/dL Albumin 3.5 (3.5-5.0) g/dL Urine Color STRAW Urine Appearance CLEAR Urine pH 6.0 (5.0-8.0) Ur Specific Dunlap 1.010 (1.005-1.025) Urine Protein NEG (NEG-TRACE) MG/DL Urine Glucose (UA) NEG (NEG) MG/DL Urine Ketones NEG (NEG) MG/DL Urine Blood NEG (NEG) Urine Nitrite NEG (NEG) Ur Leukocyte Esterase NEG (NEG) COVID-19 (MOO) Negative (Negative) COVID-19 Clin Com See Note 10/16/21 10/16/21 10/16/21 Range/Units 15:48 15:49 15:49 WBC 8.1 (4.8-10.8) X10*3/uL RBC 3.68 L (4.20-5.50) X10*6/uL Hgb 11.4 L (12.0-16.0) g/dl Hct 34.1 L (37.0-47.0) % MCV 92.7 (80.0-98.0) fL MCH 31.0 (27.0-33.0) pg MCHC 33.4 (31.0-35.0) g/dl RDW 13.9 (11.0-16.0) % Plt Count 277 (160-400) X10*3/uL MPV 8.6 L (9.4-12.3) fL Immature Gran % (Auto) 0.5 H (0.0-0.4) % Neut % (Auto) 74.1 H (45-73) % Lymph % (Auto) 16.8 L (20-40) % Knott % (Auto) 6.7 (2-11) % Eos % (Auto) 1.5 (0-4) % Baso % (Auto) 0.4 (0-2) % Lymph # (Auto) 1.4 (1.2-4.9) X10*3/uL Knott # (Auto) 0.5 (0.1-1.2) X10*3/uL Eos # (Auto) 0.1 (0.0-0.4) X10*3/uL Baso # (Auto) 0.0 (0.0-0.2) X10*3/uL Abs Immat Gran (auto) 0.04 H (0.00-0.03) X10*3/uL Absolute Neuts (auto) 6.0 (2.0-8.3) x10*3/uL Absolute Nucleated RBC 0.000 (0.0-0.012) X10*3/uL Nucleated RBC % (auto) 0.0 (0.0-0.2) /100WBC PT 12.8 (9.9-13.0) SEC INR 1.1 (0.9-1.1) Sodium (135-145) mmol/L Potassium (3.3-5.1) mmol/L Chloride (96-108) mmol/L Carbon Dioxide (22-29) mmol/L Anion Gap (12-20) BUN (9-16) mg/dL Creatinine (0.5-1.4) mg/dL Estim Creat Clear Calc Estimated GFR Random Glucose (60-115) mg/dL Calcium (8.4-10.2) mg/dL Magnesium (1.6-2.6) mg/dL Total Bilirubin (0.0-1.0) mg/dL Direct Bilirubin (0.0-0.5) mg/dL AST (5-31) U/L ALT (0-31) U/L Alkaline Phosphatase (39-117) U/L Troponin I High Sens 13.2 (<3.5-17.0) ng/L B-Natriuretic Peptide (<100) pg/mL Total Protein (6.5-8.0) g/dL Albumin (3.5-5.0) g/dL Urine Color Urine Appearance Urine pH (5.0-8.0) Ur Specific [place] (1.005-1.025) Urine Protein (NEG-TRACE) MG/DL Urine Glucose (UA) (NEG) MG/DL Urine Ketones (NEG) MG/DL Urine Blood (NEG) Urine Nitrite (NEG) Ur Leukocyte Esterase (NEG) COVID-19 (MOO) (Negative) COVID-19 Clin Com 10/16/21 Range/Units 15:49 WBC (4.8-10.8) X10*3/uL RBC (4.20-5.50) X10*6/uL Hgb (12.0-16.0) g/dl Hct (37.0-47.0) % MCV (80.0-98.0) fL MCH (27.0-33.0) pg MCHC (31.0-35.0) g/dl RDW (11.0-16.0) % Plt Count (160-400) X10*3/uL MPV (9.4-12.3) fL Immature Gran % (Auto) (0.0-0.4) % Neut % (Auto) (45-73) % Lymph % (Auto) (20-40) % [place]t % (Auto) (2-11) % Eos % (Auto) (0-4) % Baso % (Auto) (0-2) % Lymph # (Auto) (1.2-4.9) X10*3/uL K[place]t # (Auto) (0.1-1.2) X10*3/uL Eos # (Auto) (0.0-0.4) X10*3/uL Baso # (Auto) (0.0-0.2) X10*3/uL Abs Immat Gran (auto) (0.00-0.03) X10*3/uL Absolute Neuts (auto) (2.0-8.3) x10*3/uL Absolute Nucleated RBC (0.0-0.012) X10*3/uL Nucleated RBC % (auto) (0.0-0.2) /100WBC PT (9.9-13.0) SEC INR (0.9-1.1) Sodium (135-145) mmol/L Potassium (3.3-5.1) mmol/L Chloride (96-108) mmol/L Carbon Dioxide (22-29) mmol/L Anion Gap (12-20) BUN (9-16) mg/dL Creatinine (0.5-1.4) mg/dL Estim Creat Clear Calc Estimated GFR Random Glucose (60-115) mg/dL Calcium (8.4-10.2) mg/dL Magnesium (1.6-2.6) mg/dL Total Bilirubin (0.0-1.0) mg/dL Direct Bilirubin (0.0-0.5) mg/dL AST (5-31) U/L ALT (0-31) U/L Alkaline Phosphatase (39-117) U/L Troponin I High Sens (<3.5-17.0) ng/L B-Natriuretic Peptide 778 H (<100) pg/mL Total Protein (6.5-8.0) g/dL Albumin (3.5-5.0) g/dL Urine Color Urine Appearance Urine pH (5.0-8.0) Ur Specific Dunlap (1.005-1.025) Urine Protein (NEG-TRACE) MG/DL Urine Glucose (UA) (NEG) MG/DL Urine Ketones (NEG) MG/DL Urine Blood (NEG) Urine Nitrite (NEG) Ur Leukocyte Esterase (NEG) COVID-19 (MOO) (Negative) COVID-19 Clin Com <JOSELYN Eagle - Last Filed: 10/17/21 10:49> Imaging Data CT scan - head: Attestation: I personally reviewed and interpreted this imaging study as follows: <Chiquita Menendez NP - Last Filed: 10/16/21 20:45> Radiologist's impression: [place] [id number] CT Scan Report Signed Patient: Nina Azar MR#: [id number] : 1935 Acct:[id number] Age/Sex: 85 / F ADM Date: 10/16/21 Loc: .ED Attending Dr: Ordering Physician: Chiquita Menendez NP Date of Service: 10/16/21 Procedure(s): CT head/brain wo [facility] Accession Number(s): [id number] cc: Chiquita Menendez NP~ EXAMINATION: CT BRAIN WITHOUT CONTRAST AND CHEST X-RAY. CLINICAL INFORMATION: Weakness, fall and hit head.? COMPARISON: CT brain 08/16/2021 TECHNIQUE: 5 mm thin axial and reformatted 2 mm thin sagittal and coronal images of brain were obtained without contrast. DLP 1156. Chest 2 views.? FINDINGS: Brain: There is no acute intra-axial, extra-axial bleed, masses or midline shift. There is no acute infarction evolution. The lateral ventricles are symmetrical in size and configuration with mild enlargement. There is diffuse periventricular hypodensity in both cerebral hemispheres without mass effect. Bone windows reveal no calvarial abnormality. Bilateral paranasal sinuses and mastoid air cells are well-aerated. <Chiquita Menendez NP - Last Filed: 10/16/21 20:45> Chest x-ray: Attestation: I personally reviewed and interpreted this imaging study as follows: <Chiquita Menendez NP - Last Filed: 10/16/21 20:45> Radiologist's impression: Chest x-ray: The lungs are well-expanded with no acute pneumonic process seen. This platelike atelectasis right middle lobe. The heart size and progress clarities normal. There are dual pacer electrodes in right atrium and right ventricle. There is severe compression deformity T12 and L1 and mild compression deformity L3 vertebra. <Chiquita Menendez NP - Last Filed: 10/16/21 20:45> ECG Data Attestation: I personally reviewed and interpreted this ECG as follows: <Chiquita Menendez NP - Last Filed: 10/16/21 20:45> ECG interpretation date: 10/16/21 <Chiquita Menendez NP - Last Filed: 10/16/21 20:45> ECG interpretation time: 15:30 <JAREN Mcbride Last Filed: 10/16/21 20:45> Interpretation: Paced rhythm <Chiquita Menendez NP - Last Filed: 10/16/21 20:45> Discharge Plan Discharge Clinical Impression: Weakness <Chiquita Menendez NP - Last Filed: 10/16/21 20:45> Patient Disposition: Xfer SNF <Chiquita Menendez NP - Last Filed: 10/16/21 20:45> Prescriptions: No [facility] apixaban [Eliquis] 2.5 mg tablet 2.5 mg PO BID Qty: 180 3RF paroxetine HCl 10 mg tablet 1 tab PO DAILY 0RF amiodarone 200 mg tablet 1 tab PO DAILY 0RF levothyroxine 75 mcg tablet 0.5 tab PO DAILY 0RF lisinopril 5 mg tablet 1 tab PO DAILY 0RF mirtazapine 15 mg tablet 1 tab PO DAILY 0RF lorazepam 1 mg tablet 1 tab PO BID PRN (Reason: Anxiety) 0RF metoprolol tartrate 25 mg tablet 1 tab PO BID 0RF <Chiquita Menendez, MOBILE MARKETING SPECIALIST - Last Filed: 10/16/21 20:45>
--- NOTE | 2021-10-16 14:23 | PHA.MEDREC ---
Pharmacy Consult ? Medication Reconciliation Pharmacy has completed the medication reconciliation. Spoke to patient's son Douglas ([phone]) who handles her medications. No remarkable issues. Elle Escobar, PharmD
[2021-10-16 15:21] LABS: Appearance Urine CLEAR; Color Urine STRAW; Glucose Urine UA NEG (NEG); Leukocyte Esterase Urine NEG (NEG); Nitrite Urine NEG (NEG); Urine Blood NEG (NEG); Urine Ketones NEG (NEG); Urine Protein NEG (NEG-TRACE)
[2021-10-16 15:34] LABS: Alanine Aminotransferase 20 U/L (0-31); Albumin Level 3.5 g/dL (3.5-5.0); Alkaline Phosphatase 210 U/L (39-117); Anion Gap 15 (12-20); Aspartate Amino Transferase 39 U/L (5-31); Bilirubin Direct < 0.2 mg/dL (0.0-0.5); Bilirubin Total 0.3 mg/dL (0.0-1.0); Blood Urea Nitrogen 8 mg/dL (9-16); Carbon Dioxide 24 mmol/L (22-29); Chloride 100 mmol/L (96-108); Creatinine Clr Calc Pharmacy 33.8; Estimated Glomerular Filt Rate 56; Glucose Random 106 mg/dL (60-115); Magnesium 2.2 mg/dL (1.6-2.6); Potassium 3.9 mmol/L (3.3-5.1); Sodium 135 mmol/L (135-145); Total Protein 7.8 g/dL (6.5-8.0)
[2021-10-16 15:38] LABS: COVID-19 Test Negative (Negative)
[2021-10-16 15:56] LABS: MANUAL DIFF FLAG NO
[2021-10-16 15:59] LABS: Basophils Percent Auto 0.4 % (0-2); Eosinophils Absolute Auto 0.1 X10*3/uL (0.0-0.4); Eosinophils Percent Auto 1.5 % (0-4); Hematocrit 34.1 % (37.0-47.0); Hemoglobin 11.4 g/dl (12.0-16.0); Imm Gran Abs Auto 0.04 X10*3/uL (0.00-0.03); Imm Gran Pct Auto 0.5 % (0.0-0.4); Lymphocytes Absolute Auto 1.4 X10*3/uL (1.2-4.9); Lymphocytes Percent Auto 16.8 % (20-40); Mean Corpuscular HGB Conc 33.4 g/dl (31.0-35.0); Mean Corpuscular Volume 92.7 fL (80.0-98.0); Mean Platelet Volume 8.6 fL (9.4-12.3); Monocytes Absolute Auto 0.5 X10*3/uL (0.1-1.2); Monocytes Percent Auto 6.7 % (2-11); Neutrophils Percent Auto 74.1 % (45-73); Platelet Count 277 X10*3/uL (160-400); Red Blood Count 3.68 X10*6/uL (4.20-5.50); Red Cell Distribution Width 13.9 % (11.0-16.0); White Blood Count 8.1 X10*3/uL (4.8-10.8)
[2021-10-16 16:04] LABS: INTERNATIONAL NORM RATIO 1.1 (0.9-1.1); Prothrombin Time 12.8 SEC (9.9-13.0)
[2021-10-16 16:17] LABS: Troponin-I High Sensitivity 13.2 ng/L (<3.5-17.0)
[2021-10-16 16:18] LABS: B Type Natriuretic Peptide 778 pg/mL (<100)
--- NOTE | 2021-10-16 16:32 | MHC.CM.PN ---
Met with pt and son, Douglas to disucss d/c planning: pt had recently been d/c'd to home from [facility] with VNA services and privately hired [employer]. Son states pt has been falling with more frequency and family has been essentially providing 24/7 care. In addition, pt resides with her 95 year old spouse who has mobility issues as well. Pt feels she could manage at home if she had stronger legs and would like to return to [facility]. Broad referrals placed. Pt would like [facility] as first choice. Douglas will bring in a copy of the HCP tomorrow. PT shyam ordered. Discussed private pay 24/7 care as an option as well. Pt and son will consider this. CM to follow. Vaxed x3
[2021-10-16 17:05] VITALS: BP 143/76; PULSE 74; RESP 18; TEMP 36.5; O2SAT 96
[2021-10-16 20:00] VITALS: BP 151/64; PULSE 68; RESP 14; TEMP 36.6; O2SAT 95
[2021-10-16 22:00] VITALS: BP 144/70; PULSE 67; RESP 14; TEMP 36.4; O2SAT 97
[2021-10-16] MEDS: Apixaban 2.5 MG TABLET PO (22:16)
[2021-10-16] MEDS: Metoprolol Tartrate 25 MG TABLET PO (22:16)
[2021-10-16] MEDS: LORazepam 1 MG TABLET PO (22:25)
--- NOTE | 2021-10-17 03:03 | PC.NURSE ---
I assumed care of this pt at 1900. Since that time she has remained alert, oriented x 3, very soft spoken with a flat affect. She makes eye contact with Rn and informs me that she was sent to the E.D. by her son after she suffered a fall at home while attempting to ambulate to the bathroom while using her walker with the assistance of her 95 year old ( he didn't stabilize the walker enough, so i tipped over to my right side ). She denies any pain or injuries from the fall, denies that she hit her head and denies experiencing LOC. She has no complaints currently with the exception of feeling unhappy about the prospect of going to a care home instead of home. She is taking PO fluids and meds without difficulty. Ativan 1mg PO was given per PRN MD orders - she stated she takes Ativan 1mg BID, every night, not as needed - therefore I administered it. She has voided into bedpan with assistance - skin cleansed, new sheets provided. She is currently awaiting case management eval in the morning and verbalizes an understanding of this. Will continue to monitor.
[2021-10-17 04:05] VITALS: BP 143/65; PULSE 66; RESP 16; TEMP 36.8; O2SAT 95
[2021-10-17 07:13] VITALS: BP 140/64; PULSE 64; RESP 19; TEMP 36.8; O2SAT 95
--- NOTE | 2021-10-17 07:51 | PC.NURSE ---
UP TO BEDSIDE COMMODE WITH WALKER AND 1 ASSIST, SHE REPORTS RIGHT FOOT PAIN AND HAS A DRESSING ON HER RIGHT HEEL. ATE A SMALL AMOUNT OF HER BREAKFAST BUT STATES IT IS ABOUT HER BASELINE INTAKE.
[2021-10-17] MEDS: Metoprolol Tartrate 25 MG TABLET PO (08:03)
[2021-10-17] MEDS: Levothyroxine Sodium 75 MCG TABLET 37.5 MCG PO (08:04)
[2021-10-17] MEDS: PARoxetine HCL 10 MG TABLET PO (08:04)
[2021-10-17] MEDS: lisinopriL 5 MG TABLET PO (08:05)
[2021-10-17] MEDS: Amiodarone HCL 200 MG TABLET PO (08:05)
[2021-10-17] MEDS: Apixaban 2.5 MG TABLET PO (08:05)
[2021-10-17] MEDS: Mirtazapine 15 MG TABLET PO (08:05)
--- NOTE | 2021-10-17 08:54 | PC.NURSE ---
PHYSICAL THERAPY AT THE BEDSIDE FOR ASSESSMENT
[2021-10-17 09:31] VITALS: BP 142/67; PULSE 67; RESP 19; TEMP 36.8; O2SAT 96
--- NOTE | 2021-10-17 10:05 | PC.NURSE ---
SMALL HEALING BLISTER ON RIGHT HEEL DRESSING PLACED AND REPOSITIONED TO REDUCE FRICTION ON THE BED.
--- NOTE | 2021-10-17 10:09 | MHC.CM.ED ---
Addendum entered by Ashlie Ballesteros 10/17/21 14:02: Have not heard from [facility] yet about bed availability. Reached out to facility directly. Waiting for return telephone call. Original Note: Patient remains in ER. 1st choice facility is [facility]. Clinical updates sent to facilities still following patients: [facility], [facility], [facility] [place] and [facility]. Continue to monitor for d/c needs.
--- NOTE | 2021-10-17 14:33 | MHC.CM.ED ---
[facility] is only facility that is able to offer a bed at this time. T/W spoke with patient's son, Douglas via telephone at [phone]. [facility] accepts bed. T/W attempted to let patient know. Patient is currently sleeping. Patient can leave at 530pm. [facility] booked. [facility] with chart. Cinda Cole RN and Kinjal ALVES aware. Continue to monitor for d/c needs.
[2021-10-17 14:40] VITALS: BP 137/66; PULSE 59; RESP 16; TEMP 36.8; O2SAT 96
--- NOTE | 2021-10-17 16:25 | PC.NURSE ---
attempted to call [facility] 2x - continue to get transferred to an answering machine
--- NOTE | 2021-10-17 17:53 | PC.NURSE ---
two more calls placed to [facility], no available staff to take report - was sent to an answering machine
== END 2021-10-17 17:54 | disposition skilled nursing facility (03) ==
PROVIDERS: Nurse Practitioner Family; Emergency Provider Emergency Medicine
DX: R53.1 Weakness (principal); S92.324A Nondisplaced fracture of second metatarsal bone, right foot, initial encounter for closed fracture; S92.331A Displaced fracture of third metatarsal bone, right foot, initial encounter for closed fracture; S92.341A Displaced fracture of fourth metatarsal bone, right foot, initial encounter for closed fracture; S92.354A Nondisplaced fracture of fifth metatarsal bone, right foot, initial encounter for closed fracture; W01.0XXA Fall on same level from slipping, tripping and stumbling without subsequent striking against object, initial encounter; Z91.81 History of falling; I48.0 Paroxysmal atrial fibrillation; I10 Essential (primary) hypertension; Z20.822 Contact with and (suspected) exposure to COVID-19; Y93.9 Activity, unspecified; Y92.019 Unspecified place in single-family (private) house as the place of occurrence of the external cause; Y99.9 Unspecified external cause status; Z86.73 Personal history of transient ischemic attack (TIA), and cerebral infarction without residual deficits; Z95.810 Presence of automatic (implantable) cardiac defibrillator; Z79.01 Long term (current) use of anticoagulants
CPT/HCPCS: 36415; 51701; 70450; 71046; 73620; 80048; 80076; 81003; 83735; 83880; 84484; 85025; 85610; 87635; 93005; 97162; 99285

== ENCOUNTER 2021-11-20 07:30 | Outpatient (REF) | payer MEDICARE, OTHER, SELFPAY ==
--- NOTE | ~2021-11-20 | XR_ITS ---
EXAMINATION: XR FOOT, RIGHT CLINICAL INFORMATION: This is an 85-year-old female with a history of foot pain. Foot fracture. COMPARISON: Comparison is made to a previous study dated 10/17/2021. TECHNIQUE: AP, lateral, and oblique views of the right foot. FINDINGS: There is osteopenia visualized bones. There is increased soft tissue swelling along the dorsum of the foot when compared to the previous study. Tram track calcification is seen in the soft tissues consistent with atherosclerotic disease. There are noted to be fractures involving the heads of the right second, third, fourth and fifth metatarsals with some lateral displacement of the distal fracture fragments of the second, third and fourth metatarsals as well as some plantar angulation of the second, third, and fourth distal fracture fragments. The alignment appears similar to the previous study. The fracture involving the fifth metatarsal head is apparent on the current study. The fracture that appears to involve the fifth metatarsal head is less displaced than the other fractures. This may be acute or chronic in nature. The fractures are not intra-articular in location. XR/XR foot RT min 3V IMPRESSION: Fractures of the right second through fifth distal metatarsals as described.
== END 2021-11-20 07:31 | disposition home or self-care (01) ==
LOC: HO.HOSX 07:30
PROVIDERS: Visit Provider Physician Assistant
DX: S92.321A Displaced fracture of second metatarsal bone, right foot, initial encounter for closed fracture (principal); S92.331A Displaced fracture of third metatarsal bone, right foot, initial encounter for closed fracture; S92.341A Displaced fracture of fourth metatarsal bone, right foot, initial encounter for closed fracture; S92.351A Displaced fracture of fifth metatarsal bone, right foot, initial encounter for closed fracture
CPT/HCPCS: 73630; 99212

== ENCOUNTER 2021-11-27 22:00 | Outpatient (REF) | payer MEDICARE, OTHER, SELFPAY ==
[2021-11-28 11:44] LABS: Appearance Urine CLEAR; Color Urine YELLOW; Glucose Urine UA NEG (NEG); Leukocyte Esterase Urine TRACE (NEG); Nitrite Urine NEG (NEG); PH 6.5 (5.0-8.0); Specific Gravity - Urine 1.015 (1.005-1.025); UACC Culture Trigger YES; Urine Blood NEG (NEG); Urine Ketones NEG (NEG); Urine Protein TRACE MG/DL (NEG-TRACE)
[2021-11-28 11:54] LABS: Bacteria Urine TRACE /LPF; Mucus Urine TRACE /LPF; RBC Urine 0-2 /HPF (0)
[2021-11-28 11:55] LABS: Calcium Oxalate Crystals Urine TRACE /LPF; Squamous Epithelial Cell Urine 1+ /LPF
== END 2021-11-27 22:01 | disposition home or self-care (01) ==
LOC: HO.LNP 22:00
PROVIDERS: Visit Provider Internal Medicine
DX: Z13.89 Encounter for screening for other disorder (principal)
CPT/HCPCS: 81001; 87086

== ENCOUNTER 2021-11-28 11:30 | Outpatient (REF) | payer MEDICARE, OTHER, SELFPAY | END 2021-11-28 11:31 | disposition home or self-care (01) | LOC: HO.LNP 11:30 | PROVIDERS: Visit Provider Internal Medicine | DX: Z13.89 Encounter for screening for other disorder (principal) ==

== ENCOUNTER 2021-11-28 15:44 | Inpatient (IN) | payer MEDICARE, OTHER, SELFPAY ==
--- NOTE | ~2021-11-28 | FL_ITS ---
EXAMINATION: Intraoperative fluoroscopy CLINICAL INFORMATION: IM nailing left hip COMPARISON: Left hip x-rays 11/28/2021 TECHNIQUE: Intraoperative fluoroscopy was provided for use by Dr. Connors. A total of 4 images were saved to PACS. A radiologist was not present during imaging. Today's dictation is only for administrative purposes to document intraoperative fluoroscopic usage. TOTAL FLUOROSCOPIC TIME: 0.8 minutes FL/FL guidance in OR FINDINGS~\^^ Intraoperative fluoroscopy provided for use by Dr. Connors. Please see operative note for detailed findings.
--- NOTE | ~2021-11-28 | CT_ITS ---
EXAMINATION: CT BRAIN, CT CERVICAL SPINE. CHEST. AP PELVIS AND LEFT HIP. CLINICAL INFORMATION: Fall. COMPARISON: Chest x-ray 10/16/2021. TECHNIQUE: 5 mm thin axial and reformatted 2 mm thin sagittal coronal images of brain were obtained. Subsequently axial 3 mm thin and reformatted 2 mm thin sagittal coronal images of cervical spine were obtained. FINDINGS: Brain: There is no acute intra-axial, extra-axial bleed, masses or midline shift. There is no acute infarction evolution or edema. The lateral ventricles are symmetrical in size but enlarged. There is diffuse periventricular hypodensity in both cerebral hemispheres without mass effect. Bone windows reveal no calvarial abnormality. There is no scalp soft tissue abnormality. Bilateral paranasal sinuses and mastoid air cells are well-aerated. Cervical spine: On sagittal reconstructed images there is normal cervical lordosis. The vertebral heights, alignment is normal. There is a rotatory subluxation at the C1-C2 alignment. There is mild C2-C3 moderate to significant C3-C4 bilateral C4-C5 facet joint arthropathy. There is loss of C5-C6, C6-C7 and C7-T1 disc heights with ventral and posterior spondylosis. No visible acute fracture, dislocation or subluxation seen. The prevertebral and paravertebral soft tissues are normal. There is mild bilateral apical scarring. Pelvis: There is a comminuted intertrochanteric fracture left hip. There is no dislocation. There are nondisplaced old fractures involving bilateral anterior pubic ramus/acetabulum junction. Bilateral pelvic bones are unremarkable. SI joints are symmetrical and normal. There are old healed fractures involving bilateral inferior ramus/ischial junction. There are calcified lymph nodes in the right pelvis. CHEST: Both lungs are fairly well-expanded and clear of acute pneumonic process. The heart size and pulmonary vascularity is normal. There are pacer electrodes in the right atrium and right ventricle. There is old healed right rib fractures. CT/CT cervical spine wo con IMPRESSION: Acute comminuted intertrochanteric fracture left femur. No dislocation. There are old healing bilateral fractures involving the superior pubic rami and there junction with acetabulum and ischium respectively. There is no acute intracranial process seen except for mild cerebral volume loss. Rotatory subluxation C1-C2 alignment. No visible fracture or dislocation seen. Degenerative arthritic changes and facet joint arthropathy as described above.
[2021-11-28 15:53] VITALS: BP 148/100; PULSE 64; O2SAT 96; BMI 19.1
[2021-11-28 15:57] VITALS: BP 170/79; PULSE 61; RESP 18; TEMP 36.6; O2SAT 96
--- NOTE | 2021-11-28 16:12 | ECG_ITS ---
Test Reason : Fall Blood Pressure : / mmHG Vent. Rate : 060 BPM Atrial Rate : 060 BPM P-R Int : 196 ms QRS Dur : 180 ms QT Int : 554 ms P-R-T Axes : 071 153 134 degrees QTc Int : 554 ms Atrial-sensed ventricular-paced rhythm Abnormal ECG When compared with ECG of 16-OCT-2021 15:21, No significant changes seen Referred By: Laura Rivers Electronically Signed By:STEPHANE RING
--- NOTE | 2021-11-28 16:17 | ED.FALL ---
HPI - Fall General Chief Complaint: Fall Stated Complaint: FALL Time Seen by Provider: 11/28/21 16:11 Source: patient Mode of arrival: EMS Limitations: other (some confusion at baseline) History of Present Illness HPI Narrative: unwitnessed fall at SNF - patient states she slipped over commode alert and oriented x 2 at baseline. on eliquis for PAF complaint: fall Onset (ago): minute(s) Fall from: standing Fall witnessed: no Place fall occurred: residential/SNF Loss of consciousness: none Prolonged down time: no Symptoms prior to fall: none Context: tripped/slipped (states she slipped on commode) Location of injury - extremities: left: thigh Severity: moderate Quality: aching Associated symptoms (after fall): unable to walk Related Data Home Medications Medication Instructions Recorded Confirmed amiodarone 200 mg tablet 1 tab PO DAILY 08/17/21 11/28/21 levothyroxine 75 mcg tablet 0.5 tab PO DAILY 08/17/21 11/28/21 lisinopril 5 mg tablet 1 tab PO DAILY 08/17/21 11/28/21 lorazepam 1 mg tablet 1 tab PO BID PRN 08/17/21 11/28/21 metoprolol tartrate 25 mg tablet 1 tab PO BID 08/17/21 11/28/21 paroxetine HCl 10 mg tablet 1 tab PO DAILY 08/17/21 11/28/21 acetaminophen 325 mg tablet 650 mg PO Q6H PRN 11/28/21 11/28/21 (Tylenol) bisacodyl 10 mg rectal suppository 10 mg HI DAILY PRN 11/28/21 11/28/21 cholecalciferol (vitamin D3) 25 25 mcg PO DAILY 11/28/21 11/28/21 mcg (1,000 unit) tablet famotidine 20 mg tablet 20 mg PO BID 11/28/21 11/28/21 nitrofurantoin 100 mg PO BID 11/28/21 11/28/21 monohydrate/macrocrystals 100 mg capsule (Macrobid) sennosides 8.6 mg tablet (senna) 8.6 mg PO BEDTIME 11/28/21 11/28/21 Previous Rx's Medication Instructions Recorded apixaban 2.5 mg tablet (Eliquis) 2.5 mg PO BID #180 tab 04/07/21 Allergies Allergy/AdvReac Type Severity Reaction Status Date / Time No Known Allergies Allergy Verified 11/20/21 08:36 [No Known Allergies*] Review of Systems Review of Systems: Constitutional : No Fever, No Chills ENT/Mouth : No Ear Pain, No Hoarseness, No sore throat Eyes: No Eye Pain, No Swelling, No Redness, No Foreign Body Cardiovascular : No Chest Pain, No SOB Respiratory : No Cough, No Dyspnea Gastrointestinal : No Nausea, No Vomiting, No Diarrhea, No abdominal Pain Genitourinary : No Dysuria, No Hematuria Musculoskeletal : positive joint pain, No Myalgias, No Joint Swelling Skin : No Skin lacerations, No rash Neuro : No Weakness, No Numbness, No Loss of Consciousness, No Dizziness, No Headache Psych : No Anxiety/Panic, No Depression Heme/Lymph: no easy bruising, no Lymphadenopathy Endocrine : No Polyuria, No Polydipsia All other systems reviewed and are negative [facility] Past Medical History Source: old records reviewed Medical History (Updated 11/28/21 @ 17:48 by Todd Goins MD) Anxiety Biventricular ICD (implantable cardioverter-defibrillator) in place Chronic a-fib CVA (cerebral vascular accident) Fatty liver Frailty Frequent PVCs Heart failure with reduced ejection fraction Hypertension Hypothyroidism Nonischemic cardiomyopathy Palpitations Paroxysmal atrial fibrillation Surgical History History of permanent cardiac pacemaker placement Hx of Achilles tendon repair Hx of hysterectomy Family History Family History Father No problems noted. Mother No problems noted. Social History Social History Household Members: Spouse Housing: House Unable to assess alcohol history related to: Unable to respond Alcohol intake: never Patient Tobacco Use Status: Never used Tobacco Advance Directives: Yes Advance Directives on File: Yes Advance Directives Date on File: 10/19/21 service: No Current occupation: right handed Physical Exam Vital Signs: Vital Signs: Last Vital Signs Temp 97.8 F 11/28/21 15:57 Pulse 61 11/28/21 15:57 Resp 18 11/28/21 15:57 BP 170/79 H 11/28/21 15:57 Pulse Ox 96 11/28/21 15:57 BMI result Body Mass Index 19.1 Appearance: Alert. Oriented X2. No acute distress. Anxious Eyes: Pupils equal, round and reactive to light. ENT: Pharynx normal. Neck: Normal inspection. Neck supple. in collar CVS: irregular heart rate and rhythm. Pulses normal. Respiratory: No respiratory distress. Breath sounds normal. Abdomen: Soft and non-tender. Skin: Skin warm and dry. Normal skin color. Normal skin turgor. Extremities: No lower extremity edema. L leg shortened ext rotated - 2+ DP pulse, hematoma small noted mid thigh compartment is soft Neuro: Oriented X 2. No motor deficit. No sensory deficit. Course Course Course Narrative: c collar removed. orthopedics notified of fall and femur fracture left message for son Douglas to update him on condition. MDM - Fall MDM Narrative Medical decision making narrative: 85 yo female from SNF hx of falls, PAF on eliquis, CHF, CVA, HLD, CHF, comes in with unwitnessed falls had one today she reports falling over her commode at this time given age and DOAC use will need CT head/cspine, CXR and L hip xray for presumed L hip/femur fracture. She is NV intact. Will need labs, EKG, bowser, IV fentanyl for pain. Anticipate admission. Lab Data Result diagrams: 11/28/21 16:56 11/28/21 16:56 Labs: Lab Results 11/28/21 11/28/21 11/28/21 Range/Units 16:56 16:56 16:56 WBC 6.3 (4.8-10.8) X10*3/uL RBC 4.18 L (4.20-5.50) X10*6/uL Hgb 12.7 (12.0-16.0) g/dl Hct 38.5 (37.0-47.0) % MCV 92.1 (80.0-98.0) fL MCH 30.4 (27.0-33.0) pg MCHC 33.0 (31.0-35.0) g/dl RDW 14.1 (11.0-16.0) % Plt Count 193 (160-400) X10*3/uL MPV 8.8 L (9.4-12.3) fL Immature Gran % (Auto) 0.5 H (0.0-0.4) % Neut % (Auto) 62.2 (45-73) % Lymph % (Auto) 26.8 (20-40) % Haakon % (Auto) 8.4 (2-11) % Eos % (Auto) 1.6 (0-4) % Baso % (Auto) 0.5 (0-2) % Lymph # (Auto) 1.7 (1.2-4.9) X10*3/uL Haakon # (Auto) 0.5 (0.1-1.2) X10*3/uL Eos # (Auto) 0.1 (0.0-0.4) X10*3/uL Baso # (Auto) 0.0 (0.0-0.2) X10*3/uL Abs Immat Gran (auto) 0.03 (0.00-0.03) X10*3/uL Absolute Neuts (auto) 3.9 (2.0-8.3) x10*3/uL Absolute Nucleated RBC 0.000 (0.0-0.012) X10*3/uL Nucleated RBC % (auto) 0.0 (0.0-0.2) /100WBC PT 14.4 H (9.9-13.0) SEC INR 1.3 H (0.9-1.1) APTT 32.3 (24.1-38.0) SEC Sodium 132 L (135-145) mmol/L Potassium 4.0 (3.3-5.1) mmol/L Chloride 98 (96-108) mmol/L Carbon Dioxide 22 (22-29) mmol/L Anion Gap 16 (12-20) BUN 10 (9-16) mg/dL Creatinine 1.13 (0.5-1.4) mg/dL Estim Creat Clear Calc 30.0 Estimated GFR 46 Random Glucose 138 H (60-115) mg/dL Calcium 9.0 (8.4-10.2) mg/dL Magnesium 2.1 (1.6-2.6) mg/dL Total Bilirubin 0.5 (0.0-1.0) mg/dL Direct Bilirubin 0.2 (0.0-0.5) mg/dL AST 37 H (5-31) U/L ALT 30 (0-31) U/L Alkaline Phosphatase 158 H D (39-117) U/L Total Creatine Kinase 66 (26-140) U/L Troponin I High Sens (<3.5-17.0) ng/L Total Protein 7.4 (6.5-8.0) g/dL Albumin 3.6 (3.5-5.0) g/dL COVID-19 (MOO) (Negative) COVID-19 Clin Com 11/28/21 11/28/21 Range/Units 16:56 16:56 WBC (4.8-10.8) X10*3/uL RBC (4.20-5.50) X10*6/uL Hgb (12.0-16.0) g/dl Hct (37.0-47.0) % MCV (80.0-98.0) fL MCH (27.0-33.0) pg MCHC (31.0-35.0) g/dl RDW (11.0-16.0) % Plt Count (160-400) X10*3/uL MPV (9.4-12.3) fL Immature Gran % (Auto) (0.0-0.4) % Neut % (Auto) (45-73) % Lymph % (Auto) (20-40) % Haakon % (Auto) (2-11) % Eos % (Auto) (0-4) % Baso % (Auto) (0-2) % Lymph # (Auto) (1.2-4.9) X10*3/uL Haakon # (Auto) (0.1-1.2) X10*3/uL Eos # (Auto) (0.0-0.4) X10*3/uL Baso # (Auto) (0.0-0.2) X10*3/uL Abs Immat Gran (auto) (0.00-0.03) X10*3/uL Absolute Neuts (auto) (2.0-8.3) x10*3/uL Absolute Nucleated RBC (0.0-0.012) X10*3/uL Nucleated RBC % (auto) (0.0-0.2) /100WBC PT (9.9-13.0) SEC INR (0.9-1.1) APTT (24.1-38.0) SEC Sodium (135-145) mmol/L Potassium (3.3-5.1) mmol/L Chloride (96-108) mmol/L Carbon Dioxide (22-29) mmol/L Anion Gap (12-20) BUN (9-16) mg/dL Creatinine (0.5-1.4) mg/dL Estim Creat Clear Calc Estimated GFR Random Glucose (60-115) mg/dL Calcium (8.4-10.2) mg/dL Magnesium (1.6-2.6) mg/dL Total Bilirubin (0.0-1.0) mg/dL Direct Bilirubin (0.0-0.5) mg/dL AST (5-31) U/L ALT (0-31) U/L Alkaline Phosphatase (39-117) U/L Total Creatine Kinase (26-140) U/L Troponin I High Sens 9.5 (<3.5-17.0) ng/L Total Protein (6.5-8.0) g/dL Albumin (3.5-5.0) g/dL COVID-19 (MOO) Negative (Negative) COVID-19 Clin Com See Note ECG Data Attestation: I personally reviewed and interpreted this ECG as follows: ECG interpretation date: 11/28/21 ECG interpretation time: 16:51 Interpretation: Rate: 60 Rhythm: atria sensed paced rhythm Lincoln: left Normal P waves. prolonged agatha widened QRS complex. ST T wave : inverted in I and aVL, no ARI qTC: prolonged prior studies: no changed from 10/16/21 The study has been interpreted contemporaneously by me. Discharge Plan Discharge Clinical Impression: Unwitnessed fall Closed intertrochanteric fracture of femur Qualifiers: Encounter type: initial encounter Fracture alignment: displaced Laterality: left Qualified Code(s): S72.142A - Displaced intertrochanteric fracture of left femur, initial encounter for closed fracture Patient Disposition: Admitted As Inpatient
--- NOTE | 2021-11-28 16:56 | PHA.MEDREC ---
Pharmacy Consult ? Medication Reconciliation Pharmacy has completed the medication reconciliation. Macrobid 100mg BID was to be started on 11/27/21 with an end date of 12/04/21. No remarkable issues. Elle Escobar, SolitarioD
[2021-11-28 17:00] LABS: MANUAL DIFF FLAG NO
[2021-11-28 17:02] LABS: Basophils Percent Auto 0.5 % (0-2); Eosinophils Absolute Auto 0.1 X10*3/uL (0.0-0.4); Eosinophils Percent Auto 1.6 % (0-4); Hematocrit 38.5 % (37.0-47.0); Hemoglobin 12.7 g/dl (12.0-16.0); Imm Gran Abs Auto 0.03 X10*3/uL (0.00-0.03); Imm Gran Pct Auto 0.5 % (0.0-0.4); Lymphocytes Absolute Auto 1.7 X10*3/uL (1.2-4.9); Lymphocytes Percent Auto 26.8 % (20-40); Mean Corpuscular Hemoglobin 30.4 pg (27.0-33.0); Mean Corpuscular Volume 92.1 fL (80.0-98.0); Mean Platelet Volume 8.8 fL (9.4-12.3); Monocytes Absolute Auto 0.5 X10*3/uL (0.1-1.2); Monocytes Percent Auto 8.4 % (2-11); Neutrophils Absolute Auto 3.9 x10*3/uL (2.0-8.3); Neutrophils Percent Auto 62.2 % (45-73); Platelet Count 193 X10*3/uL (160-400); Red Blood Count 4.18 X10*6/uL (4.20-5.50); Red Cell Distribution Width 14.1 % (11.0-16.0); White Blood Count 6.3 X10*3/uL (4.8-10.8)
[2021-11-28] MEDS: ondansetron HCL 4 MG/2 ML VIAL IVPUSH ×2 (17:04→20:01)
[2021-11-28] MEDS: fentaNYL citrate/PF 100 MCG/2 ML VIAL 25 MCG IVPUSH (17:04)
[2021-11-28 17:08] LABS: INTERNATIONAL NORM RATIO 1.3 (0.9-1.1); Prothrombin Time 14.4 SEC (9.9-13.0)
[2021-11-28 17:11] LABS: Partial Thromboplastin Time 32.3 SEC (24.1-38.0)
[2021-11-28 17:18] LABS: COVID-19 Test Negative (Negative); IDNOW Serial# 55D5AD1C
[2021-11-28 17:19] LABS: Alanine Aminotransferase 30 U/L (0-31); Albumin Level 3.6 g/dL (3.5-5.0); Alkaline Phosphatase 158 U/L (39-117); Anion Gap 16 (12-20); Aspartate Amino Transferase 37 U/L (5-31); Bilirubin Direct 0.2 mg/dL (0.0-0.5); Bilirubin Total 0.5 mg/dL (0.0-1.0); Blood Urea Nitrogen 10 mg/dL (9-16); Carbon Dioxide 22 mmol/L (22-29); Chloride 98 mmol/L (96-108); Estimated Glomerular Filt Rate 46; Glucose Random 138 mg/dL (60-115); Magnesium 2.1 mg/dL (1.6-2.6); Sodium 132 mmol/L (135-145); Total Protein 7.4 g/dL (6.5-8.0)
[2021-11-28 17:24] LABS: Troponin-I High Sensitivity 9.5 ng/L (<3.5-17.0)
--- NOTE | 2021-11-28 17:37 | P.EN_ITS ---
Event Note Date of Service: 11/28/21 Event Note: Patient presents to the emergency department after mechanical fall at [facility] this AM. She is a patient that is well known to ortho due to significant fall history. She was last seen in the outpatient office for f/u after a fall resulting in right foot 2nd-5th metatarsal fractures. X-rays obtained in the ER are available for review and reveal a left hip intertroch fracture. The patient has a signifcant cardiac history and will need cardiac clearance prior to surger y. PMH significant for CHF, HLD, nonischemic cardiomyopathy, palpitations, A. Fib, CVA, she has a cardioverrter-defibrilator, on Eliquis last taken this AM at [facility] to hold Eliquis and obtain medical clearance. Plan is to perform surgery 72 hours (12/01/21) after last Eliquis dose. Case and imaging review with Dr. Connors.
--- NOTE | 2021-11-28 17:45 | PM.IMHP ---
History of Present Illness Date of Service: 11/28/21 Chief Complaint: Fall 84-year-old female with chronic AFIB on eliquis coming, hypothyroidism, HLD, nonischemic cardiomyopathy status post biventricular AICD, who presented from SNF with unwitness fall and found to have acute comminuted intertrochanteric fracture left femur. No dislocation. Patient is presently drowsy and not able to offer detail history other than telling me she was trying to use the bathroom, report is she tipped over on comode and there was no losss of consciousness and was complaining of pain the left hip as result of fracture. ? . ? Review of Systems Review of Systems: Gen: no fever Resp: no sob, no cough CV: no chest, no MAGALLANES, no leg edema GI: No n/v, no abd pain Neuro: No confusion, drowsy MSK: left hip hip pain Yes all other systems are reviewed and are negative [facility] Medical History (Updated 11/28/21 @ 17:48 by Todd Goins MD) Anxiety Biventricular ICD (implantable cardioverter-defibrillator) in place Chronic a-fib CVA (cerebral vascular accident) Fatty liver Frailty Frequent PVCs Heart failure with reduced ejection fraction Hypertension Hypothyroidism Nonischemic cardiomyopathy Palpitations Paroxysmal atrial fibrillation Family History Father No problems noted. Mother No problems noted. Surgical History History of permanent cardiac pacemaker placement Hx of Achilles tendon repair Hx of hysterectomy Social History Household Members: None Housing: House Unable to assess alcohol history related to: Unknown Alcohol intake: never Patient Tobacco Use Status: Never used Tobacco Advance Directives: Yes Advance Directives on File: Yes Advance Directives Date on File: 10/19/21 Do you have thoughts of harming others: None service: No Current occupation: right handed Meds Allergies Allergy/AdvReac Type Severity Reaction Status Date / Time No Known Allergies Allergy Verified 11/20/21 08:36 [No Known Allergies*] Active Medications: Current Medications Amiodarone HCl (Amiodarone Hcl 200 Mg Tablet) 200 mg PO DAILY JAMES Bisacodyl (Bisacodyl 10 Mg Supp.Rect) 10 mg [place] DAILY PRN PRN Reason: Constipation Famotidine (Famotidine 20 Mg Tablet) 20 mg PO BID [facility] Levothyroxine Sodium (Levothyroxine Sodium 75 Mcg Tablet) 37.5 mcg PO DAILY [facility] Lisinopril (Lisinopril 5 Mg Tablet) 5 mg PO DAILY [facility]; Protocol Lorazepam (Lorazepam 1 Mg Tablet) 1 mg PO BID PRN PRN Reason: Anxiety Metoprolol Tartrate (Metoprolol Tartrate 25 Mg Tablet) 25 mg PO BID [facility]; Protocol Paroxetine HCl (Paroxetine Hcl 10 Mg Tablet) 10 mg PO DAILY [facility] Pharmacy Consult (Consult Rx Perform Med Rec) 1 each MISCELLANE ONCE PRN PRN Reason: Consult order Senna (Sennosides 8.6 Mg Tablet) 8.6 mg PO BEDTIME [facility] Vitamin D (Cholecalciferol (Vitamin D3) 25 Mcg Tablet) 25 mcg PO DAILY [facility] Home Medications Medication Instructions Recorded Confirmed Last Taken Type amiodarone 200 mg tablet 1 tab PO DAILY 08/17/21 11/28/21 10/16/21 History levothyroxine 75 mcg tablet 0.5 tab PO DAILY 08/17/21 11/28/21 10/16/21 History lisinopril 5 mg tablet 1 tab PO DAILY 08/17/21 11/28/21 10/16/21 History lorazepam 1 mg tablet 1 tab PO BID PRN 08/17/21 11/28/21 08/16/21 History metoprolol tartrate 25 mg tablet 1 tab PO BID 08/17/21 11/28/21 10/16/21 History paroxetine HCl 10 mg tablet 1 tab PO DAILY 08/17/21 11/28/21 10/16/21 History acetaminophen 325 mg tablet 650 mg PO Q6H PRN 11/28/21 11/28/21 Unknown History (Tylenol) bisacodyl 10 mg rectal suppository 10 mg [place] DAILY PRN 11/28/21 11/28/21 Unknown History cholecalciferol (vitamin D3) 25 25 mcg PO DAILY 11/28/21 11/28/21 Unknown History mcg (1,000 unit) tablet famotidine 20 mg tablet 20 mg PO BID 11/28/21 11/28/21 Unknown History nitrofurantoin 100 mg PO BID 11/28/21 11/28/21 Unknown History monohydrate/macrocrystals 100 mg capsule (Macrobid) sennosides 8.6 mg tablet (senna) 8.6 mg PO BEDTIME 11/28/21 11/28/21 Unknown History Physical Exam Vital Signs and Narrative: Vital Signs: Last Vital Signs Temp 97.8 F 11/28/21 15:57 Pulse 61 11/28/21 15:57 Resp 18 11/28/21 15:57 BP 170/79 H 11/28/21 15:57 Pulse Ox 96 11/28/21 15:57 BMI result Body Mass Index 19.1 Const: Other: Constitutional: Alert, in no distress Mental Status: Oriented to person, place and time. Eyes: Pupils are equal, round and reactive to light. Ear, Nose and Throat: Oropharynx clear, mucous membranes moist. Ears and nose without eformities. Respiratory: Clear to auscultation. No wheezing, rales or rhonchi. Cardiovascular: S1 S, regular. No murmurs, rubs or gallops. Gastrointestinal: Abdomen soft, non-tender, non-distended. Normal bowel sounds.? Neurologic: Cranial nerves II-XII grossly intact. No focal neurological deficits. Moves all extremities spontaneously.? Skin: No rashes or lesions.? Musculoskeletal: No cyanosis or clubbing, left hip pain with movement Psychiatric: Normal mood and affect? Results Labs CBC and Chem 7: 11/29/21 06:00 11/29/21 06:00 Labs: Laboratory Results - last 24 hr 11/28/21 11/28/21 11/28/21 16:56 16:56 16:56 MCV 92.1 MCH 30.4 MCHC 33.0 RDW 14.1 Plt Count 193 MPV 8.8 L Immature Gran % (Auto) 0.5 H Neut % (Auto) 62.2 Lymph % (Auto) 26.8 [place] % (Auto) 8.4 Eos % (Auto) 1.6 Baso % (Auto) 0.5 Lymph # (Auto) 1.7 [place] # (Auto) 0.5 Eos # (Auto) 0.1 Baso # (Auto) 0.0 Abs Immat Gran (auto) 0.03 Absolute Neuts (auto) 3.9 Absolute Nucleated RBC 0.000 Nucleated RBC % (auto) 0.0 PT 14.4 H INR 1.3 H APTT 32.3 Anion Gap 16 Estim Creat Clear Calc 30.0 Estimated GFR 46 Random Glucose 138 H Calcium 9.0 Magnesium 2.1 Total Bilirubin 0.5 Direct Bilirubin 0.2 AST 37 H ALT 30 Alkaline Phosphatase 158 H D Total Creatine Kinase 66 Total Protein 7.4 Albumin 3.6 COVID-19 (MOO) COVID-19 Clin Com 11/28/21 16:56 MCV MCH MCHC RDW Plt Count MPV Immature Gran % (Auto) Neut % (Auto) Lymph % (Auto) [place] % (Auto) Eos % (Auto) Baso % (Auto) Lymph # (Auto) [place] # (Auto) Eos # (Auto) Baso # (Auto) Abs Immat Gran (auto) Absolute Neuts (auto) Absolute Nucleated RBC Nucleated RBC % (auto) PT INR APTT Anion Gap Estim Creat Clear Calc Estimated GFR Random Glucose Calcium Magnesium Total Bilirubin Direct Bilirubin AST ALT Alkaline Phosphatase Total Creatine Kinase Total Protein Albumin COVID-19 (MOO) Negative COVID-19 Clin Com See Note Imaging Radiologist's Impressions: Impressions Chest X-Ray 11/28/21 16:46 IMPRESSION: Acute comminuted intertrochanteric fracture left femur. No dislocation. There are old healing bilateral fractures involving the superior pubic rami and there junction with acetabulum and ischium respectively. There is no acute intracranial process seen except for mild cerebral volume loss. Rotatory subluxation C1-C2 alignment. No visible fracture or dislocation seen. Degenerative arthritic changes and facet joint arthropathy as described above. Hip X-Ray 11/28/21 16:46 IMPRESSION: Acute comminuted intertrochanteric fracture left femur. No dislocation. There are old healing bilateral fractures involving the superior pubic rami and there junction with acetabulum and ischium respectively. There is no acute intracranial process seen except for mild cerebral volume loss. Rotatory subluxation C1-C2 alignment. No visible fracture or dislocation seen. Degenerative arthritic changes and facet joint arthropathy as described above. Cervical Spine CT 11/28/21 16:48 IMPRESSION: Acute comminuted intertrochanteric fracture left femur. No dislocation. There are old healing bilateral fractures involving the superior pubic rami and there junction with acetabulum and ischium respectively. There is no acute intracranial process seen except for mild cerebral volume loss. Rotatory subluxation C1-C2 alignment. No visible fracture or dislocation seen. Degenerative arthritic changes and facet joint arthropathy as described above. Head CT 11/28/21 16:48 IMPRESSION: Acute comminuted intertrochanteric fracture left femur. No dislocation. There are old healing bilateral fractures involving the superior pubic rami and there junction with acetabulum and ischium respectively. There is no acute intracranial process seen except for mild cerebral volume loss. Rotatory subluxation C1-C2 alignment. No visible fracture or dislocation seen. Degenerative arthritic changes and facet joint arthropathy as described above. Assessment and Plan (1) Closed intertrochanteric fracture of femur: Qualifiers: Encounter type: initial encounter Fracture alignment: displaced Laterality: left Qualified Code(s): S72.142A - Displaced intertrochanteric fracture of left femur, initial encounter for closed fracture Status: Acute (2) Unwitnessed fall: Status: Acute (3) Chronic a-fib: Status: Acute Plan 85 year female with afib on eliquis, cardiomyopatyh has AICD, hypothyroidims, HTN, HLD here with what sounds like mechanical fall resulting in left hip fracture #Acute comminuted intertrochanteric fracture left femur. -Ortho aware and will repair hip on tuesday after holding eliquis for 72 hours -pain control with morphine. #Fall, rule out arrythmia by monitoring on tele and consider iterogation of AICD #Chronic AFIB--rhythm control with amiodarone, metoprolol for rate control -Holding Eliquis in anticipation of surgery #HyOthyroidism--continue levothyroxine #Mild hyponatremia--monitor, fluid restriction, low sodium in associated with high mortality in hospitalized pt #HTN--continue Metoprolol--most recent BP on monitor was 129/69 #Full code #heparin for DVT prophylaxis Hospitalization will span at least 2 midnight to allow for hip repair and recovery after surgery before discharge to SNF, at moment there is need to hold eliquis for 72 hrs before operation per ortho guidelines Quality Stroke Does the patient have a stroke diagnosis?: No VTE Prior VTE?: No VTE Risk Level:: Medical - moderate - high VTE Device Contraindication: N/A - Device Ordered VTE Drug Contraindication: N/A - Med Ordered
[2021-11-28 18:02] LABS: Appearance Urine CLEAR; Color Urine YELLOW; Glucose Urine UA NEG (NEG); Leukocyte Esterase Urine NEG (NEG); Nitrite Urine NEG (NEG); Specific Gravity - Urine >= 1.030 (1.005-1.025); UACC Culture Trigger NO; Urine Blood NEG (NEG); Urine Ketones NEG (NEG); Urine Protein 1+ MG/DL (NEG-TRACE)
[2021-11-28 18:12] LABS: Squamous Epithelial Cell Urine 1+ /LPF
[2021-11-28 18:13] LABS: WBC Urine 0-2 /HPF (0-4)
--- NOTE | 2021-11-28 18:29 | PC.NURSE ---
pt was having some issues with maintaining RR and BP within 1 hour of receiving Fentyl, with initial fentyl dose her RR was 8 and oxygen was 88-90, 2L applied and saturations went up. IV fluids hung at 6:30pm due to low BP and RR, patient is very sleepy but arousable. CBC with diff to be drawn. Dr Rivers aware of all the above.
[2021-11-28 18:32] VITALS: BP 81/49
--- NOTE | 2021-11-28 18:34 | PM.CNOR ---
History of Present Illness HPI Chief complaint: Unwitnessed fall Hip fracture [facility] Past Medical History Medical History (Updated 11/28/21 @ 17:48 by Todd Goins MD) Anxiety Biventricular ICD (implantable cardioverter-defibrillator) in place Chronic a-fib CVA (cerebral vascular accident) Fatty liver Frailty Frequent PVCs Heart failure with reduced ejection fraction Hypertension Hypothyroidism Nonischemic cardiomyopathy Palpitations Paroxysmal atrial fibrillation Family History Family History Father No problems noted. Mother No problems noted. Surgical History Surgical History History of permanent cardiac pacemaker placement Hx of Achilles tendon repair Hx of hysterectomy Social History Social History Household Members: Spouse Housing: House Unable to assess alcohol history related to: Unable to respond Alcohol intake: never Patient Tobacco Use Status: Never used Tobacco Advance Directives: Yes Advance Directives on File: Yes Advance Directives Date on File: 10/19/21 service: No Current occupation: right handed Meds Allergies Allergy/AdvReac Type Severity Reaction Status Date / Time No Known Allergies Allergy Verified 11/20/21 08:36 [No Known Allergies*] Active Medications: Current Medications Amiodarone HCl (Amiodarone Hcl 200 Mg Tablet) 200 mg PO DAILY JAMES Bisacodyl (Bisacodyl 10 Mg Supp.Rect) 10 mg [place] DAILY PRN PRN Reason: Constipation Docusate Sodium (Docusate Sodium 100 Mg Capsule) 100 mg PO DAILY PRN PRN Reason: Constipation Famotidine (Famotidine 20 Mg Tablet) 20 mg PO BID [facility]AMES Levothyroxine Sodium (Levothyroxine Sodium 75 Mcg Tablet) 37.5 mcg PO DAILY [facility]AMES Lisinopril (Lisinopril 5 Mg Tablet) 5 mg PO DAILY JAMES; Protocol Lorazepam (Lorazepam 1 Mg Tablet) 1 mg PO BID PRN PRN Reason: Anxiety Melatonin (Melatonin 3 Mg Tablet) 3 mg PO BEDTIME PRN PRN Reason: Insomnia Metoprolol Tartrate (Metoprolol Tartrate 25 Mg Tablet) 25 mg PO BID JAMES; Protocol Morphine Sulfate (Morphine Sulfate 4 Mg/Ml Cartridge) 2 mg IVPUSH Q4H PRN; Protocol PRN Reason: Pain, Severe (Pain Scale 7-10) Ondansetron HCl (Ondansetron Hcl 4 Mg/2 Ml Vial) 4 mg IVPUSH Q8H PRN PRN Reason: Nausea and Vomiting Paroxetine HCl (Paroxetine Hcl 10 Mg Tablet) [address] [facility] Pharmacy Consult (Consult Rx Perform Med Rec) 1 each MISCELLANE ONCE PRN PRN Reason: Consult order Senna (Sennosides 8.6 Mg Tablet) 8.[address] [facility] Sodium Chloride (0.9 % Sodium Chloride Flush 3 Ml Syringe) [address] [facility] Vitamin D (Cholecalciferol (Vitamin D3) 25 Mcg Tablet) [address] [facility] Home Medications Medication Instructions Recorded Confirmed Last Taken Type amiodarone 200 mg tablet 1 tab PO DAILY 08/17/21 11/28/21 10/16/21 History levothyroxine 75 mcg tablet 0.5 tab PO DAILY 08/17/21 11/28/21 10/16/21 History lisinopril 5 mg tablet 1 tab PO DAILY 08/17/21 11/28/21 10/16/21 History lorazepam 1 mg tablet 1 tab PO BID PRN 08/17/21 11/28/21 08/16/21 History metoprolol tartrate 25 mg tablet 1 tab PO BID 08/17/21 11/28/21 10/16/21 History paroxetine HCl 10 mg tablet 1 tab PO DAILY 08/17/21 11/28/21 10/16/21 History acetaminophen 325 mg tablet 650 mg PO Q6H PRN 11/28/21 11/28/21 Unknown History (Tylenol) bisacodyl 10 mg rectal suppository 10 mg [place] DAILY PRN 11/28/21 11/28/21 Unknown History cholecalciferol (vitamin D3) 25 25 mcg PO DAILY 11/28/21 11/28/21 Unknown History mcg (1,000 unit) tablet famotidine 20 mg tablet 20 mg PO BID 11/28/21 11/28/21 Unknown History nitrofurantoin 100 mg PO BID 11/28/21 11/28/21 Unknown History monohydrate/macrocrystals 100 mg capsule (Macrobid) sennosides 8.6 mg tablet (senna) 8.6 mg PO BEDTIME 11/28/21 11/28/21 Unknown History Physical Exam Vital Signs: Vital Signs: Last Vital Signs Temp 97.8 F 11/28/21 15:57 Pulse 61 11/28/21 15:57 Resp 18 11/28/21 15:57 BP 81/49 L 11/28/21 18:32 Pulse Ox 96 11/28/21 15:57 BMI result Body Mass Index 19.1 Results Labs Result Diagrams: 11/28/21 16:56 11/28/21 16:56 Labs: Abnormal lab results 11/28/21 11/28/21 11/28/21 Range/Units 16:56 16:56 16:56 RBC 4.18 L (4.20-5.50) X10*6/uL MPV 8.8 L (9.4-12.3) fL Immature Gran % (Auto) 0.5 H (0.0-0.4) % PT 14.4 H (9.9-13.0) SEC INR 1.3 H (0.9-1.1) Sodium 132 L (135-145) mmol/L Random Glucose 138 H (60-115) mg/dL AST 37 H (5-31) U/L Alkaline Phosphatase 158 H D (39-117) U/L Ur Specific [place] (1.005-1.025) Urine Protein (NEG-TRACE) MG/DL 11/28/21 Range/Units 17:55 RBC (4.20-5.50) X10*6/uL MPV (9.4-12.3) fL Immature Gran % (Auto) (0.0-0.4) % PT (9.9-13.0) SEC INR (0.9-1.1) Sodium (135-145) mmol/L Random Glucose (60-115) mg/dL AST (5-31) U/L Alkaline Phosphatase (39-117) U/L Ur Specific [place] >= 1.030 H (1.005-1.025) Urine Protein 1+ H (NEG-TRACE) MG/DL H & H 11/28/21 Range/Units 16:56 Hgb 12.7 (12.0-16.0) g/dl Hct 38.5 (37.0-47.0) % Coagulation 11/28/21 Range/Units 16:56 INR 1.3 H (0.9-1.1) All other labs normal.
[2021-11-28 18:47] VITALS: BP 94/52
[2021-11-28 18:48] LABS: Hematocrit 32.2 % (37.0-47.0); Hemoglobin 10.6 g/dl (12.0-16.0); Mean Corpuscular HGB Conc 32.9 g/dl (31.0-35.0); Mean Corpuscular Hemoglobin 31.3 pg (27.0-33.0); Mean Platelet Volume 9.1 fL (9.4-12.3); Platelet Count 175 X10*3/uL (160-400); Red Blood Count 3.39 X10*6/uL (4.20-5.50); Red Cell Distribution Width 14.2 % (11.0-16.0); White Blood Count 12.7 X10*3/uL (4.8-10.8)
[2021-11-28] MEDS: Morphine Sulfate 4 MG/ML CARTRIDGE 2 MG IVPUSH (20:01)
--- NOTE | 2021-11-28 20:05 | PC.NURSE ---
I assumed nursing care of this patient at 1900. Since that time the pt has been constantly moaning and complaining of L hip pain. She is very forgetful and needs constant reminding that she has a hip[ Fx, that she is in the hospital, and that she is admitted. She has been awake, alert, room air sat's have been 955 or better, RR WNL, no cyanosis, eyes open, makes eye contact with Rn. I administered Morphine 2mgIVP and Zofran 4mg IVP and prepare the pt for inpatient admission. Nursing report given to s3 nurse at this time.
[2021-11-28 20:19] LABS: Glucose, Whole Blood 162 mg/dL (60-115)
[2021-11-28] MEDS: Metoprolol Tartrate 25 MG TABLET PO (22:01)
[2021-11-28] MEDS: Famotidine 20 MG TABLET PO (22:01)
[2021-11-28] MEDS: Sennosides 8.6 MG TABLET PO (22:01)
[2021-11-28] MEDS: Heparin Sodium,Porcine 5,000 UNIT/ML VIAL 5000 UNIT SUBCUT (22:02)
[2021-11-28 22:06] VITALS: BP 116/60; PULSE 61; RESP 18; TEMP 36.6; O2SAT 98
[2021-11-29] VITALS: RESP 18
[2021-11-29] MEDS: Morphine Sulfate 4 MG/ML CARTRIDGE 2 MG IVPUSH ×3 (00:06→15:20)
[2021-11-29] MEDS: 0.9 % Sodium Chloride Flush 3 ML SYRINGE IVFLUSH ×3 (00:08→15:24)
[2021-11-29 06:29] LABS: Hemoglobin 9.5 g/dl (12.0-16.0); Mean Corpuscular Volume 96.5 fL (80.0-98.0); PLT CLUMP 1
[2021-11-29 06:31] LABS: Mean Corpuscular HGB Conc 31.7 g/dl (31.0-35.0); Mean Corpuscular Hemoglobin 30.5 pg (27.0-33.0); Red Blood Count 3.11 X10*6/uL (4.20-5.50); Red Cell Distribution Width 14.5 % (11.0-16.0); White Blood Count 7.4 X10*3/uL (4.8-10.8)
[2021-11-29] MEDS: Heparin Sodium,Porcine 5,000 UNIT/ML VIAL 5000 UNIT SUBCUT ×2 (06:47→17:56)
[2021-11-29 06:50] LABS: Anion Gap 14 (12-20); Blood Urea Nitrogen 10 mg/dL (9-16); Calcium 8.1 mg/dL (8.4-10.2); Carbon Dioxide 19 mmol/L (22-29); Chloride 102 mmol/L (96-108); Creatinine Clr Calc Pharmacy 35.4; Estimated Glomerular Filt Rate 55; Glucose Random 119 mg/dL (60-115); Platelet Count 87 X10*3/uL (160-400); Potassium 4.2 mmol/L (3.3-5.1); Sodium 131 mmol/L (135-145)
[2021-11-29 07:54] VITALS: BP 154/69; PULSE 68; RESP 18; TEMP 36.2; O2SAT 99
[2021-11-29] MEDS: Famotidine 20 MG TABLET PO ×2 (08:25→20:57)
[2021-11-29] MEDS: Levothyroxine Sodium 75 MCG TABLET 37.5 MCG PO (08:25)
[2021-11-29] MEDS: lisinopriL 5 MG TABLET PO (08:25)
[2021-11-29] MEDS: Metoprolol Tartrate 25 MG TABLET PO ×2 (08:25→20:57)
[2021-11-29] MEDS: Amiodarone HCL 200 MG TABLET PO (08:26)
[2021-11-29] MEDS: PARoxetine HCL 10 MG TABLET PO (08:27)
[2021-11-29] MEDS: Cholecalciferol (Vitamin D3) 25 MCG TABLET PO (08:27)
[2021-11-29] MEDS: LORazepam 1 MG TABLET PO (08:34)
--- NOTE | 2021-11-29 08:53 | HO.PM.IMPN ---
Subjective Subjective Date of Service: 11/30/21 Interval History: CC: f/u on fall, hip fracture Interval history: pain in the affected hip. Review of Systems Gen: no fever Resp: no sob, no cough CV: no chest, no MAGALLANES, no leg edema GI: No n/v, no abd pain Neur confusion. MSK: left hip hip pain Physical Exam Vital Signs: Vital Signs: Last Vital Signs Temp 97.2 F 11/29/21 07:54 Pulse 68 11/29/21 07:54 Resp 18 11/29/21 07:54 BP 154/69 H 11/29/21 07:54 Pulse Ox 99 11/29/21 07:54 BMI result Body Mass Index 19.1 Const: Other: Constitutional: Alert, in no distress Mental Status: Oriented to person, place and time. Eyes: Pupils are equal, round and reactive to light. Ear, Nose and Throat: Oropharynx clear, mucous membranes moist. Ears and nose without eformities. Respiratory: Clear to auscultation. No wheezing, rales or rhonchi. Cardiovascular: S1 S, regular. No murmurs, rubs or gallops. Gastrointestinal: Abdomen soft, non-tender, non-distended. Normal bowel sounds.? Neurologic: Cranial nerves II-XII grossly intact. No focal neurological deficits. Moves all extremities spontaneously.? Skin: No rashes or lesions.? Musculoskeletal: No cyanosis or clubbing, left hip pain with movement Psychiatric: Normal mood and affect? Objective Data Active Medications Amiodarone HCl (Amiodarone Hcl 200 Mg Tablet) 200 mg PO DAILY [facility] Last Admin: 11/29/21 08:26 Dose: 200 mg Documented by: ANAMIKA Bisacodyl (Bisacodyl 10 Mg Supp.Rect) 10 mg [place] DAILY PRN PRN Reason: Constipation Docusate Sodium (Docusate Sodium 100 Mg Capsule) 100 mg PO DAILY PRN PRN Reason: Constipation Famotidine (Famotidine 20 Mg Tablet) 20 mg PO BID [facility] Last Admin: 11/29/21 08:25 Dose: 20 mg Documented by: ANAMIKA Heparin Sodium (Porcine) (Heparin Sodium,Porcine 5,000 Unit/Ml Vial) 5,000 unit SUBCUT Q12H [facility] Last Admin: 11/29/21 06:47 Dose: 5,000 unit Documented by: GOPAL Cefazolin Sodium/Dextrose (Ancef) 2 gm in 50 mls @ 100 mls/hr IV PREOP ONE Stop: 12/01/21 12:06 Levothyroxine Sodium (Levothyroxine Sodium 75 Mcg Tablet) 37.5 mcg PO DAILY [facility] Last Admin: 11/29/21 08:25 Dose: 37.5 mcg Documented by: ANAMIKA Lisinopril (Lisinopril 5 Mg Tablet) 5 mg PO DAILY [facility]; Protocol Last Admin: 11/29/21 08:25 Dose: 5 mg Documented by: ANAMIKA Lorazepam (Lorazepam 1 Mg Tablet) 1 mg PO BID PRN PRN Reason: Anxiety Last Admin: 11/29/21 08:34 Dose: 1 mg Documented by: ANAMIKA Melatonin (Melatonin 3 Mg Tablet) 3 mg PO BEDTIME PRN PRN Reason: Insomnia Metoprolol Tartrate (Metoprolol Tartrate 25 Mg Tablet) 25 mg PO BID [facility]; Protocol Last Admin: 11/29/21 08:25 Dose: 25 mg Documented by: ANAMIKA Morphine Sulfate (Morphine Sulfate 4 Mg/Ml Cartridge) 2 mg IVPUSH Q4H PRN; Protocol PRN Reason: Pain, Severe (Pain Scale 7-10) Last Admin: 11/29/21 08:34 Dose: 2 mg Documented by: ANAMIKA Ondansetron HCl (Ondansetron Hcl 4 Mg/2 Ml Vial) 4 mg IVPUSH Q8H PRN PRN Reason: Nausea and Vomiting Last Admin: 11/28/21 20:01 Dose: 4 mg Documented by: ARMANDO Paroxetine HCl (Paroxetine Hcl 10 Mg Tablet) 10 mg PO DAILY [facility] Last Admin: 11/29/21 08:27 Dose: 10 mg Documented by: ANAMIKA Pharmacy Consult (Consult Rx Perform Med Rec) 1 each MISCELLANE ONCE PRN PRN Reason: Consult order Senna (Sennosides 8.6 Mg Tablet) 8.6 mg PO BEDTIME [facility] Last Admin: 11/28/21 22:01 Dose: 8.6 mg Documented by: GOPAL Sodium Chloride (0.9 % Sodium Chloride Flush 3 Ml Syringe) 3 ml IVFLUSH QSHIFT [facility] Last Admin: 11/29/21 08:25 Dose: 3 ml Documented by: ANAMIKA Vitamin D (Cholecalciferol (Vitamin D3) 25 Mcg Tablet) 25 mcg PO DAILY [facility] Last Admin: 11/29/21 08:27 Dose: 25 mcg Documented by: ANAMIKA Labs CBC & Chem 7: 11/29/21 06:00 11/29/21 06:00 Labs: Laboratory Results - last 24 hr 11/28/21 11/28/21 11/28/21 16:56 16:56 16:56 MCV 92.1 MCH 30.4 MCHC 33.0 RDW 14.1 Plt Count 193 MPV 8.8 L Immature Gran % (Auto) 0.5 H Neut % (Auto) 62.2 Lymph % (Auto) 26.8 [place] % (Auto) 8.4 Eos % (Auto) 1.6 Baso % (Auto) 0.5 Lymph # (Auto) 1.7 [place] # (Auto) 0.5 Eos # (Auto) 0.1 Baso # (Auto) 0.0 Abs Immat Gran (auto) 0.03 Absolute Neuts (auto) 3.9 Absolute Nucleated RBC 0.000 Nucleated RBC % (auto) 0.0 PT 14.4 H INR 1.3 H APTT 32.3 Anion Gap 16 Estim Creat Clear Calc 30.0 Estimated GFR 46 POC Glucose Random Glucose 138 H Calcium 9.0 Magnesium 2.1 Total Bilirubin 0.5 Direct Bilirubin 0.2 AST 37 H ALT 30 Alkaline Phosphatase 158 H D Total Creatine Kinase 66 Total Protein 7.4 Albumin 3.6 Urine Color Urine Appearance Urine pH Ur Specific [place] Urine Protein Urine Glucose (UA) Urine Ketones Urine Blood Urine Nitrite Ur Leukocyte Esterase Urine RBC Urine WBC Ur Squamous Epith Cells Urine Bacteria COVID-19 (MOO) COVID-19 Clin Com 11/28/21 11/28/21 11/28/21 16:56 17:53 17:55 MCV MCH MCHC RDW Plt Count MPV Immature Gran % (Auto) Neut % (Auto) Lymph % (Auto) [place] % (Auto) Eos % (Auto) Baso % (Auto) Lymph # (Auto) [place] # (Auto) Eos # (Auto) Baso # (Auto) Abs Immat Gran (auto) Absolute Neuts (auto) Absolute Nucleated RBC Nucleated RBC % (auto) PT INR APTT Anion Gap Estim Creat Clear Calc Estimated GFR POC Glucose 162 H Random Glucose Calcium Magnesium Total Bilirubin Direct Bilirubin AST ALT Alkaline Phosphatase Total Creatine Kinase Total Protein Albumin Urine Color YELLOW Urine Appearance CLEAR Urine pH 6.0 Ur Specific [place] >= 1.030 H Urine Protein 1+ H Urine Glucose (UA) NEG Urine Ketones NEG Urine Blood NEG Urine Nitrite NEG Ur Leukocyte Esterase NEG Urine RBC 1-4 Urine WBC 0-2 Ur Squamous Epith Cells 1+ Urine Bacteria NONE COVID-19 (MOO) Negative COVID-19 Clin Com See Note 11/28/21 11/29/21 11/29/21 18:41 06:00 06:00 MCV 95.0 96.5 MCH 31.3 30.5 MCHC 32.9 31.7 RDW 14.2 14.5 Plt Count 175 87 L D MPV 9.1 L 11.0 Immature Gran % (Auto) Neut % (Auto) Lymph % (Auto) [place] % (Auto) Eos % (Auto) Baso % (Auto) Lymph # (Auto) [place] # (Auto) Eos # (Auto) Baso # (Auto) Abs Immat Gran (auto) Absolute Neuts (auto) Absolute Nucleated RBC 0.000 0.000 Nucleated RBC % (auto) 0.0 0.0 PT INR APTT Anion Gap 14 Estim Creat Clear Calc 35.4 Estimated GFR 55 POC Glucose Random Glucose 119 H Calcium 8.1 L D Magnesium Total Bilirubin Direct Bilirubin AST ALT Alkaline Phosphatase Total Creatine Kinase Total Protein Albumin Urine Color Urine Appearance Urine pH Ur Specific [place] Urine Protein Urine Glucose (UA) Urine Ketones Urine Blood Urine Nitrite Ur Leukocyte Esterase Urine RBC Urine WBC Ur Squamous Epith Cells Urine Bacteria COVID-19 (MOO) COVID-19 Clin Com Assessment and Plan (1) Chronic a-fib: Status: Acute (2) Closed intertrochanteric fracture of femur: Status: Acute (3) Unwitnessed fall: Status: Acute Plan 85 year female with afib on eliquis, cardiomyopatyh has AICD, hypothyroidims, HTN, HLD here with what sounds like mechanical fall resulting in left hip fracture #Acute comminuted intertrochanteric fracture left femur. -Ortho aware and will repair hip on tuesday after holding eliquis for 72 hours -pain control with morphine. #Fall, rule out arrythmia by monitoring on tele and consider interogation of AICD #Chronic AFIB--rhythm control with amiodarone, metoprolol for rate control -Holding Eliquis in anticipation of surgery #HyOthyroidism--continue levothyroxine #Mild hyponatremia--monitor, fluid restriction, low sodium in associated with high mortality in hospitalized pt #HTN--continue Metoprolol- #Full code #heparin for DVT prophylaxis Hospitalization need: need for hip repair and recovery after surgery before discharge to SNF, at moment there is need to hold eliquis for 72 hrs before operation can be done safely per ortho guidelines Quality Stroke Does the patient have a stroke diagnosis?: No VTE Prior VTE?: No VTE Risk Level:: Medical - moderate - high VTE Device Contraindication: N/A - Device Ordered VTE Drug Contraindication: N/A - Med Ordered
--- NOTE | 2021-11-29 14:57 | PC.NURSE ---
1400 refusing food and any offers of liquid. Confused all day. asking to get OOB. Morphine given this am with good eff. slept most of morning
[2021-11-29 15:37] VITALS: BP 113/68; PULSE 64; RESP 15; TEMP 36.9; O2SAT 92
[2021-11-29] MEDS: Dextrose 5 % and Lactated Ring 1,000 ML 100 ML IVCONT (17:57)
[2021-11-29] MEDS: Sennosides 8.6 MG TABLET PO (20:57)
[2021-11-29 23:50] VITALS: BP 123/57; PULSE 69; RESP 16; TEMP 36.3; O2SAT 98
[2021-11-30] VITALS (11 sets, daily range): BP systolic 124–159; BP diastolic 54–73; PULSE 71–86; RESP 16–20; TEMP 36.6–38.5; O2SAT 91–99
[2021-11-30] MEDS: LORazepam 1 MG TABLET PO (05:25)
--- NOTE | 2021-11-30 05:55 | PC.NURSE ---
pt confused and asking repeatedly to get OOB. C/o pain to Left hip, yet denying medication. Pulled out IV x2 during shift and pulled out Alejandre catheter. Pt moved from room 375 to room 380 as it's closer to RN station.
--- NOTE | 2021-11-30 07:39 | P.HPOP_ITS ---
History of Present Illness History of Present Illness Date of Service: 11/30/21 Chief complaint: Unwitnessed fall Hip fracture Narrative: Nina Sousa is a 85 year old female who presents to the emergency department after mechanical fall at [facility] on 11/1921. She is a patient that is well known to ortho due to significant fall history. She was last seen in the outpatient office for f/u after a fall resulting in right foot 2nd-5th metatarsal fractures. X-rays obtained in the ER are available for review and reveal a left hip intertroch fracture. The patient has a signifcant cardiac history. PMH significant for CHF, HLD, nonischemic cardiomyopathy, palpitations, A. Fib, CVA, she has a cardioverrter-defibrilator, on Eliquis last taken this AM at [facility]. Patient is laying in bed without clothes or gown this morning and confused. Sitter is at bedside. Plan is to perform surgery 72 hours (12/01/21) after last Eliquis dose. Case and imaging review with Dr. Connors. Review of Systems Review of Systems: Yes all other systems are reviewed and are negative [facility] Past Medical History Medical History (Updated 11/28/21 @ 17:48 by Todd Goins MD) Anxiety Biventricular ICD (implantable cardioverter-defibrillator) in place Chronic a-fib CVA (cerebral vascular accident) Fatty liver Frailty Frequent PVCs Heart failure with reduced ejection fraction Hypertension Hypothyroidism Nonischemic cardiomyopathy Palpitations Paroxysmal atrial fibrillation Family History Family History Father No problems noted. Mother No problems noted. Surgical History Surgical History History of permanent cardiac pacemaker placement Hx of Achilles tendon repair Hx of hysterectomy Social History Social History Household Members: None Housing: House Unable to assess alcohol history related to: Unknown Alcohol intake: never Patient Tobacco Use Status: Never used Tobacco Currently Displaying Signs/Symptoms of Drug Intoxication Withdrawal: No Advance Directives: Yes Advance Directives on File: Yes Advance Directives Date on File: 10/19/21 Do you have thoughts of harming others: None service: No Current occupation: right handed Meds Allergies Allergy/AdvReac Type Severity Reaction Status Date / Time No Known Allergies Allergy Verified 11/20/21 08:36 [No Known Allergies*] Active Medications: Current Medications Amiodarone HCl (Amiodarone Hcl 200 Mg Tablet) 200 mg PO DAILY [facility] Last Admin: 11/29/21 08:26 Dose: 200 mg Documented by: Bisacodyl (Bisacodyl 10 Mg Supp.Rect) 10 mg [place] DAILY PRN PRN Reason: Constipation Docusate Sodium (Docusate Sodium 100 Mg Capsule) 100 mg PO DAILY PRN PRN Reason: Constipation Famotidine (Famotidine 20 Mg Tablet) 20 mg PO BID [facility] Last Admin: 11/29/21 20:57 Dose: 20 mg Documented by: Heparin Sodium (Porcine) (Heparin Sodium,Porcine 5,000 Unit/Ml Vial) 5,000 unit SUBCUT Q12H [facility] Last Admin: 11/29/21 17:56 Dose: 5,000 unit Documented by: Cefazolin Sodium/Dextrose (Ancef) 2 gm in 50 mls @ 100 mls/hr IV PREOP ONE Stop: 12/01/21 12:06 Dextrose/Sodium Chloride (D51/2ns) 1,000 mls @ 100 mls/hr IVCONT .Q10H [facility] Last Admin: 11/30/21 03:52 Dose: Not Given Documented by: Dextrose/Lactated Ringer's (D5lr) 1,000 mls @ 100 mls/hr IVCONT .Q10H [facility] Last Admin: 11/30/21 05:54 Dose: Not Given Documented by: Levothyroxine Sodium (Levothyroxine Sodium 75 Mcg Tablet) 37.5 mcg PO DAILY [facility] Last Admin: 11/29/21 08:25 Dose: 37.5 mcg Documented by: Lisinopril (Lisinopril 5 Mg Tablet) 5 mg PO DAILY [facility]; Protocol Last Admin: 11/29/21 08:25 Dose: 5 mg Documented by: Lorazepam (Lorazepam 1 Mg Tablet) 1 mg PO BID PRN PRN Reason: Anxiety Last Admin: 11/30/21 05:25 Dose: 1 mg Documented by: Melatonin (Melatonin 3 Mg Tablet) 3 mg PO BEDTIME PRN PRN Reason: Insomnia Metoprolol Tartrate (Metoprolol Tartrate 25 Mg Tablet) 25 mg PO BID [facility]; Protocol Last Admin: 11/29/21 20:57 Dose: 25 mg Documented by: Morphine Sulfate (Morphine Sulfate 4 Mg/Ml Cartridge) 2 mg IVPUSH Q4H PRN; Protocol PRN Reason: Pain, Severe (Pain Scale 7-10) Last Admin: 11/29/21 15:20 Dose: 2 mg Documented by: Ondansetron HCl (Ondansetron Hcl 4 Mg/2 Ml Vial) 4 mg IVPUSH Q8H PRN PRN Reason: Nausea and Vomiting Last Admin: 11/28/21 20:01 Dose: 4 mg Documented by: Paroxetine HCl (Paroxetine Hcl 10 Mg Tablet) 10 mg PO DAILY [facility] Last Admin: 11/29/21 08:27 Dose: 10 mg Documented by: Pharmacy Consult (Consult Rx Perform Med Rec) 1 each MISCELLANE ONCE PRN PRN Reason: Consult order Senna (Sennosides 8.6 Mg Tablet) 8.6 mg PO BEDTIME [facility] Last Admin: 11/29/21 20:57 Dose: 8.6 mg Documented by: Vitamin D (Cholecalciferol (Vitamin D3) 25 Mcg Tablet) 25 mcg PO DAILY [facility] Last Admin: 11/29/21 08:27 Dose: 25 mcg Documented by: Home Medications Medication Instructions Recorded Confirmed Last Taken Type amiodarone 200 mg tablet 1 tab PO DAILY 08/17/21 11/28/21 10/16/21 History levothyroxine 75 mcg tablet 0.5 tab PO DAILY 08/17/21 11/28/21 10/16/21 History lisinopril 5 mg tablet 1 tab PO DAILY 08/17/21 11/28/21 10/16/21 History lorazepam 1 mg tablet 1 tab PO BID PRN 08/17/21 11/28/21 08/16/21 History metoprolol tartrate 25 mg tablet 1 tab PO BID 08/17/21 11/28/21 10/16/21 History paroxetine HCl 10 mg tablet 1 tab PO DAILY 08/17/21 11/28/21 10/16/21 History acetaminophen 325 mg tablet 650 mg PO Q6H PRN 11/28/21 11/28/21 Unknown History (Tylenol) bisacodyl 10 mg rectal suppository 10 mg [place] DAILY PRN 11/28/21 11/28/21 Unknown History cholecalciferol (vitamin D3) 25 25 mcg PO DAILY 11/28/21 11/28/21 Unknown History mcg (1,000 unit) tablet famotidine 20 mg tablet 20 mg PO BID 11/28/21 11/28/21 Unknown History nitrofurantoin 100 mg PO BID 11/28/21 11/28/21 Unknown History monohydrate/macrocrystals 100 mg capsule (Macrobid) sennosides 8.6 mg tablet (senna) 8.6 mg PO BEDTIME 11/28/21 11/28/21 Unknown History Physical Exam Vital Signs: Vital Signs: Last Vital Signs Temp 98 F 11/30/21 06:55 Pulse 86 11/30/21 06:55 Resp 20 11/30/21 06:55 BP 152/73 H 11/30/21 06:55 Pulse Ox 96 11/30/21 06:55 BMI result Body Mass Index 19.1 Const: General: cooperative, healthy appearing and no acute distress Resp: Effort & Inspection: normal respiratory effort and able to speak in complete sentences Cardio: Rate: regular rate Peripheral pulses: Peripheral pulses 2+ throughout GI: Palpation (GI): Soft to palpation Skin: Lesions: no lesions Rashes: no rashes Extrem: Other: Left lower extremity is shortened and externally rotated. Pain with any movement. Skin is intact. NVI. Results Labs Result Diagrams: 11/29/21 06:00 11/29/21 06:00 Labs: H & H 11/28/21 11/28/21 11/29/21 Range/Units 16:56 18:41 06:00 Hgb 12.7 10.6 L 9.5 L (12.0-16.0) g/dl Hct 38.5 32.2 L 30.0 L (37.0-47.0) % Coagulation 11/28/21 Range/Units 16:56 INR 1.3 H (0.9-1.1) All other labs normal. Assessment and Plan (1) Closed intertrochanteric fracture of femur: Qualifiers: Encounter type: initial encounter Fracture alignment: displaced Laterality: left Qualified Code(s): S72.142A - Displaced intertrochanteric fracture of left femur, initial encounter for closed fracture Status: Acute Plan Nina Sousa is a 85 year old female who presents to the emergency department after mechanical fall at [facility] on 11/1921. She is a patient that is well known to ortho due to significant fall history. She was last seen in the outpatient office for f/u after a fall resulting in right foot 2nd-5th met atarsal fractures. X-rays obtained in the ER are available for review and reveal a left hip intertroch fracture. The patient has a signifcant cardiac history. PMH significant for CHF, HLD, nonischemic cardiomyopathy, palpitations, A. Fib, CVA, she has a cardioverrter-defibrilator, on Eliquis last taken this AM at [facility] to hold Eliquis and obtain medical clearance. Plan is to perform surgery 72 hours (12/01/21) after last Eliquis dose. I spoke with the patient's son Douglas on 11/28/21. I discussed the case with Dr. Connors and explained the extent of the injury to the patient and options available which include surgical intervention. I explained the procedure in detail along with the length of recovery and rehab course. I explained the risk, benefits and alternatives. Risk including, but not limited to infection, blood clots, bleeding, non union or malunion and nerve/tissue damage to surrounding areas. I answered all their questions and with their understanding Douglas has con sented to move forward with Operative Fixation of left hip. The patient will be T&S, med clearance to be obtained by medicine and NPO after midnight the night before surgery. Quality Stroke Does the patient have a stroke diagnosis?: No VTE Prior VTE?: No VTE Risk Level:: Medical - moderate - high VTE Device Contraindication: N/A - Device Ordered VTE Drug Contraindication: N/A - Med Ordered Procedures Date of Service Date of Service: 11/30/21
--- NOTE | 2021-11-30 09:02 | P.PNIM_ITS ---
Subjective Subjective Date of Service: 11/30/21 Interval History: CC: f/u on fall, hip fracture Interval history: pain in the affected hip, especially with movmemnt Physical Exam Vital Signs: Vital Signs: Last Vital Signs Temp 98 F 11/30/21 06:55 Pulse 86 11/30/21 06:55 Resp 20 11/30/21 06:55 BP 152/73 H 11/30/21 06:55 Pulse Ox 96 11/30/21 06:55 BMI result Body Mass Index 19.1 Const: Other: Constitutional: Alert, in no distress Respiratory: Clear to auscultation. No wheezing, rales or rhonchi. Cardiovascular: S1 S, regular. No murmurs, rubs or gallops. Gastrointestinal: Abdomen soft, non-tender, non-distended. Normal bowel sounds.? Neurologic: Cranial nerves II-XII grossly intact. No focal neurological deficits. Moves all extremities spontaneously.? Skin: No rashes or lesions.? Musculoskeletal: No cyanosis or clubbing, left hip pain with movement Psychiatric: flat affect Objective Data Active Medications Amiodarone HCl (Amiodarone Hcl 200 Mg Tablet) 200 mg PO DAILY [facility] Last Admin: 11/29/21 08:26 Dose: 200 mg Documented by: ANAMIKA Bisacodyl (Bisacodyl 10 Mg Supp.Rect) 10 mg [place] DAILY PRN PRN Reason: Constipation Docusate Sodium (Docusate Sodium 100 Mg Capsule) 100 mg PO DAILY PRN PRN Reason: Constipation Famotidine (Famotidine 20 Mg Tablet) 20 mg PO BID [facility] Last Admin: 11/29/21 20:57 Dose: 20 mg Documented by: MARIE Heparin Sodium (Porcine) (Heparin Sodium,Porcine 5,000 Unit/Ml Vial) 5,000 unit SUBCUT Q12H [facility] Last Admin: 11/29/21 17:56 Dose: 5,000 unit Documented by: FINA Cefazolin Sodium/Dextrose (Ancef) 2 gm in 50 mls @ 100 mls/hr IV PREOP ONE Stop: 12/01/21 12:06 Dextrose/Sodium Chloride (D51/2ns) 1,000 mls @ 100 mls/hr IVCONT .Q10H [facility] Last Admin: 11/30/21 03:52 Dose: Not Given Documented by: MARIE Non-Admin Reason: Physician Held Med Dextrose/Lactated Ringer's (D5lr) 1,000 mls @ 100 mls/hr IVCONT .Q10H [facility] Last Admin: 11/30/21 05:54 Dose: Not Given Documented by: MARIE Non-Admin Reason: No Access Levothyroxine Sodium (Levothyroxine Sodium 75 Mcg Tablet) 37.5 mcg PO DAILY [facility] Last Admin: 11/29/21 08:25 Dose: 37.5 mcg Documented by: ANAMIKA Lisinopril (Lisinopril 5 Mg Tablet) 5 mg PO DAILY [facility]; Protocol Last Admin: 11/29/21 08:25 Dose: 5 mg Documented by: ANAMIKA Lorazepam (Lorazepam 1 Mg Tablet) 1 mg PO BID PRN PRN Reason: Anxiety Last Admin: 11/30/21 05:25 Dose: 1 mg Documented by: MARIE Melatonin (Melatonin 3 Mg Tablet) 3 mg PO BEDTIME PRN PRN Reason: Insomnia Metoprolol Tartrate (Metoprolol Tartrate 25 Mg Tablet) 25 mg PO BID [facility]; Protocol Last Admin: 11/29/21 20:57 Dose: 25 mg Documented by: MARIE Morphine Sulfate (Morphine Sulfate 4 Mg/Ml Cartridge) 2 mg IVPUSH Q4H PRN; Protocol PRN Reason: Pain, Severe (Pain Scale 7-10) Last Admin: 11/29/21 15:20 Dose: 2 mg Documented by: ANAMIKA Ondansetron HCl (Ondansetron Hcl 4 Mg/2 Ml Vial) 4 mg IVPUSH Q8H PRN PRN Reason: Nausea and Vomiting Last Admin: 11/28/21 20:01 Dose: 4 mg Documented by: ARMANDO Paroxetine HCl (Paroxetine Hcl 10 Mg Tablet) 10 mg PO DAILY [facility] Last Admin: 11/29/21 08:27 Dose: 10 mg Documented by: ANAMIAK Pharmacy Consult (Consult Rx Perform Med Rec) 1 each MISCELLANE ONCE PRN PRN Reason: Consult order Senna (Sennosides 8.6 Mg Tablet) 8.6 mg PO BEDTIME [facility] Last Admin: 11/29/21 20:57 Dose: 8.6 mg Documented by: MARIE Vitamin D (Cholecalciferol (Vitamin D3) 25 Mcg Tablet) 25 mcg PO DAILY [facility] Last Admin: 11/29/21 08:27 Dose: 25 mcg Documented by: ANAMIKA Labs CBC & Chem 7: 11/29/21 06:00 11/29/21 06:00 Assessment and Plan (1) Chronic a-fib: Status: Acute (2) Closed intertrochanteric fracture of femur: Status: Acute (3) Unwitnessed fall: Status: Acute Plan 85 year female with afib on eliquis, cardiomyopatyh has AICD, hypothyroidims, HTN, HLD here with what sounds like mechanical fall resulting in left hip fracture #Acute comminuted intertrochanteric fracture left femur. -Ortho aware and will repair hip on tuesday after holding eliquis -pain control with morphine. -possible surgery today -No further testing indicated at this time, she can proceed to surgery #Fall, no evidence of arryhtmia, likely mechanical #Chronic AFIB--rhythm control with amiodarone, metoprolol for rate control -Holding Eliquis in anticipation of surgery #HyOthyroidism--continue levothyroxine #Mild hyponatremia--monitor, fluid restriction, low sodium in associated with high mortality in hospitalized pt #HTN--continue Metoprolol- #Full code #heparin for DVT prophylaxis Hospitalization need: need for hip repair and recovery after surgery before discharge to SNF, at moment there is need to hold eliquis per ortho guidelines before safe operation. Quality Stroke Does the patient have a stroke diagnosis?: No VTE Prior VTE?: No VTE Risk Level:: Medical - moderate - high VTE Device Contraindication: N/A - Device Ordered VTE Drug Contraindication: N/A - Med Ordered
--- NOTE | 2021-11-30 09:31 | P.CDIC_ITS ---
CDI Concurrent Query Documentation Clarification: PHYSICIAN'S DOCUMENTATION REQUEST Date of Query: 11/30/21 0931 Patient Name: Nina Sousa Admit Date: 11/28/21 Dear Doctor, A review of the medical record indicates additional documentation may be needed. Please review below and update the documentation accordingly. Clinical Indicators: Risk Factors/Clinical Indicators/Treatments Nursing notes 11/30 - some confusion, patient lying in bed no clothes or gown on, repeatedly asking to get OOB, pulled out IV x 2, pulled out the bowser catheter. Patient confused, moved to a room closer to RN station/sitter. Based on the above, could you clarify in the Progress Notes which, if any of the following, is the most likely etiology of the confusion/altered mental status? * Encephalopathy - indicate type such as metabolic, toxic, septic, alcoholic, hypertensive, etc. * Baseline dementia - indicate type, such as Alzheimer's, senile, vascular, Lewy body, etc., and any associated behavioral disturbances (aggressive, combative, or violent behavior) * Other etiology of the patients confusion/behavioral issuses etc. * Unable to determine Use of terms such as suspected, likely, concern for, or probable (associated with a specific diagnosis that is being evaluated, monitored, or treated as if it exists) are acceptable and can be coded in the inpatient setting, when documented at the time of discharge. Thank you, Oliva Grimes [facility], CDIS Extension: [phone] Please use your independent medical judgment in providing your response. THIS QUERY IS PART OF THE PERMANENT MEDICAL RECORD
[2021-11-30] MEDS: HYDROmorphone HCl 0.5 MG/0.5 ML SYRINGE IVPUSH (12:59)
[2021-11-30] MEDS: Metoprolol Tartrate 25 MG TABLET PO ×2 (13:16→20:10)
[2021-11-30] MEDS: Dextrose 5 % and Lactated Ring 1,000 ML 100 ML IVCONT ×2 (13:17→20:08)
[2021-11-30] MEDS: Amiodarone HCL 200 MG TABLET PO (13:17)
--- NOTE | 2021-11-30 14:45 | HO.ANESPROP2 ---
HPI - Anesthesia Eval Consult details Narrative: 85 F for left IM nailing patient currently confused , as per hcp patient sometimes gets confused in the afternoon Hyponatremia Na 131 , CHF , a fib , Biventricular ICD , rEF , non ischemic cardiomyopathy , recent admission for metabolic encephalopathy and fall?. Apaxiban held for procedure since hospitalization . Case discussed with Hospitalist . [facility] Active Problems Active Problems: All Active Problems (Updated 11/28/21 @ 17:48 by Todd Goins MD) Chronic a-fib (Acute) Closed intertrochanteric fracture of femur (Acute) Unwitnessed fall (Acute) Fracture of 5th metatarsal (Acute) Fracture of 4th metatarsal (Acute) Fracture of 3rd metatarsal (Acute) Fracture of 2nd metatarsal (Acute) RSV (respiratory syncytial virus infection) (Acute) Acute kidney injury (Acute) Syncope and collapse (Acute) Fracture of left inferior pubic ramus (Acute) CHF exacerbation (Acute) Cerebral vascular accident (Acute) Closed fracture of maxillary sinus (Acute) Closed pelvic fracture (Acute) Fall (Acute) Proximal humerus fracture (Acute) Acute respiratory failure (Acute) Fracture, humerus closed (Acute) Acute dehydration (Acute) Dizziness (Acute) Hyperlipidemia (Acute) Chronic systolic CHF (congestive heart failure) (Acute) Familial hypercholesterolemia (Acute) Hx of hysterectomy (Acute) Hx of Achilles tendon repair (Acute) History of permanent cardiac pacemaker placement (Acute) Frequent PVCs (Acute) Biventricular ICD (implantable cardioverter-defibrillator) in place (Acute) Nonischemic cardiomyopathy (Acute) Heart failure with reduced ejection fraction (Acute) Paroxysmal atrial fibrillation (Acute) Frailty (Acute) Palpitations (Acute) Past Medical History Medical History (Updated 11/28/21 @ 17:48 by Todd Goins MD) Anxiety Biventricular ICD (implantable cardioverter-defibrillator) in place Chronic a-fib CVA (cerebral vascular accident) Fatty liver Frailty Frequent PVCs Heart failure with reduced ejection fraction Hypertension Hypothyroidism Nonischemic cardiomyopathy Palpitations Paroxysmal atrial fibrillation Family History Family History Father No problems noted. Mother No problems noted. Family history of problems with anesthesia: No Surgical History Surgical History History of permanent cardiac pacemaker placement Hx of Achilles tendon repair Hx of hysterectomy History of Problems with Anesthesia: No Social History Social History Household Members: None Housing: House Unable to assess alcohol history related to: Unknown Alcohol intake: never Patient Tobacco Use Status: Never used Tobacco Second Hand Smoke Exposure: No Use of substances other than those prescribed or required for medical reasons: No Currently Displaying Signs/Symptoms of Drug Intoxication Withdrawal: No Are you DNR?: No Advance Directives: Yes Advance Directives Information Provided: Yes Advance Directives on File: Yes Advance Directives Date on File: 10/19/21 Do you have thoughts of harming others: None service: No Current occupational status: retired Current occupation: right handed Meds Allergies Allergy/AdvReac Type Severity Reaction Status Date / Time No Known Allergies Allergy Verified 11/20/21 08:36 [No Known Allergies*] Active Medications: Current Medications Amiodarone HCl (Amiodarone Hcl 200 Mg Tablet) 200 mg PO DAILY [facility] Last Admin: 11/30/21 13:17 Dose: 200 mg Documented by: Bisacodyl (Bisacodyl 10 Mg Supp.Rect) 10 mg [place] DAILY PRN PRN Reason: Constipation Docusate Sodium (Docusate Sodium 100 Mg Capsule) 100 mg PO DAILY PRN PRN Reason: Constipation Famotidine (Famotidine 20 Mg Tablet) 20 mg PO BID [facility] Last Admin: 11/30/21 12:42 Dose: Not Given Documented by: Heparin Sodium (Porcine) (Heparin Sodium,Porcine 5,000 Unit/Ml Vial) 5,000 unit SUBCUT Q12H [facility] Last Admin: 11/30/21 12:41 Dose: Not Given Documented by: Cefazolin Sodium/Dextrose (Ancef) 2 gm in 50 mls @ 100 mls/hr IV PREOP ONE Stop: 12/01/21 12:06 Dextrose/Sodium Chloride (D51/2ns) 1,000 mls @ 100 mls/hr IVCONT .Q10H [facility] Last Admin: 11/30/21 13:17 Dose: Not Given Documented by: Dextrose/Lactated Ringer's (D5lr) 1,000 mls @ 100 mls/hr IVCONT .Q10H [facility] Last Admin: 11/30/21 13:17 Dose: 100 mls/hr Documented by: Levothyroxine Sodium (Levothyroxine Sodium 75 Mcg Tablet) 37.5 mcg PO DAILY [facility] Last Admin: 11/30/21 12:42 Dose: Not Given Documented by: Lisinopril (Lisinopril 5 Mg Tablet) 5 mg PO DAILY [facility]; Protocol Last Admin: 11/30/21 12:42 Dose: Not Given Documented by: Lorazepam (Lorazepam 1 Mg Tablet) 1 mg PO BID PRN PRN Reason: Anxiety Last Admin: 11/30/21 05:25 Dose: 1 mg Documented by: Melatonin (Melatonin 3 Mg Tablet) 3 mg PO BEDTIME PRN PRN Reason: Insomnia Metoprolol Tartrate (Metoprolol Tartrate 25 Mg Tablet) 25 mg PO BID [facility]; Protocol Last Admin: 11/30/21 13:16 Dose: 25 mg Documented by: Morphine Sulfate (Morphine Sulfate 4 Mg/Ml Cartridge) 2 mg IVPUSH Q4H PRN; Protocol PRN Reason: Pain, Severe (Pain Scale 7-10) Last Admin: 11/29/21 15:20 Dose: 2 mg Documented by: Ondansetron HCl (Ondansetron Hcl 4 Mg/2 Ml Vial) 4 mg IVPUSH Q8H PRN PRN Reason: Nausea and Vomiting Last Admin: 11/28/21 20:01 Dose: 4 mg Documented by: Paroxetine HCl (Paroxetine Hcl 10 Mg Tablet) 10 mg PO DAILY [facility] Last Admin: 11/30/21 12:42 Dose: Not Given Documented by: Pharmacy Consult (Consult Rx Perform Med Rec) 1 each MISCELLANE ONCE PRN PRN Reason: Consult order Senna (Sennosides 8.6 Mg Tablet) 8.6 mg PO BEDTIME [facility] Last Admin: 11/29/21 20:57 Dose: 8.6 mg Documented by: Vitamin D (Cholecalciferol (Vitamin D3) 25 Mcg Tablet) 25 mcg PO DAILY [facility] Last Admin: 11/30/21 12:42 Dose: Not Given Documented by: Home Medications Medication Instructions Recorded Confirmed Last Taken Type amiodarone 200 mg tablet 1 tab PO DAILY 08/17/21 11/28/21 10/16/21 History levothyroxine 75 mcg tablet 0.5 tab PO DAILY 08/17/21 11/28/21 10/16/21 History lisinopril 5 mg tablet 1 tab PO DAILY 08/17/21 11/28/21 10/16/21 History lorazepam 1 mg tablet 1 tab PO BID PRN 08/17/21 11/28/21 08/16/21 History metoprolol tartrate 25 mg tablet 1 tab PO BID 08/17/21 11/28/21 10/16/21 History paroxetine HCl 10 mg tablet 1 tab PO DAILY 08/17/21 11/28/21 10/16/21 History acetaminophen 325 mg tablet 650 mg PO Q6H PRN 11/28/21 11/28/21 Unknown History (Tylenol) bisacodyl 10 mg rectal suppository 10 mg [place] DAILY PRN 11/28/21 11/28/21 Unknown History cholecalciferol (vitamin D3) 25 25 mcg PO DAILY 11/28/21 11/28/21 Unknown History mcg (1,000 unit) tablet famotidine 20 mg tablet 20 mg PO BID 11/28/21 11/28/21 Unknown History nitrofurantoin 100 mg PO BID 11/28/21 11/28/21 Unknown History monohydrate/macrocrystals 100 mg capsule (Macrobid) sennosides 8.6 mg tablet (senna) 8.6 mg PO BEDTIME 11/28/21 11/28/21 Unknown History Exam Exam Date and Time: November 30, 2021 1445 Height,Weight and Vital Signs: Height 5 ft 5 in Weight 52.3 kg Last Vital Signs Temp 98.2 F 11/30/21 14:43 Pulse 80 11/30/21 14:29 Resp 16 11/30/21 14:29 BP 149/54 H 11/30/21 14:29 Pulse Ox 91 L 11/30/21 14:29 Pertinent Lab Results Pertinent Lab Results: Laboratory Tests 11/28/21 11/28/21 11/28/21 16:56 16:56 16:56 WBC 6.3 RBC 4.18 L Hgb 12.7 Hct 38.5 MCV 92.1 MCH 30.4 MCHC 33.0 RDW 14.1 Plt Count 193 MPV 8.8 L Immature Gran % (Auto) 0.5 H Neut % (Auto) 62.2 Lymph % (Auto) 26.8 [place] % (Auto) 8.4 Eos % (Auto) 1.6 Baso % (Auto) 0.5 Lymph # (Auto) 1.7 [place] # (Auto) 0.5 Eos # (Auto) 0.1 Baso # (Auto) 0.0 Abs Immat Gran (auto) 0.03 Absolute Neuts (auto) 3.9 Absolute Nucleated RBC 0.000 Nucleated RBC % (auto) 0.0 PT 14.4 H INR 1.3 H APTT 32.3 Sodium 132 L Potassium 4.0 Chloride 98 Carbon Dioxide 22 Anion Gap 16 BUN 10 Creatinine 1.13 Estim Creat Clear Calc 30.0 Estimated GFR 46 POC Glucose Random Glucose 138 H Calcium 9.0 Magnesium 2.1 Total Bilirubin 0.5 Direct Bilirubin 0.2 AST 37 H ALT 30 Alkaline Phosphatase 158 H D Total Creatine Kinase 66 Troponin I High Sens Total Protein 7.4 Albumin 3.6 Urine Color Urine Appearance Urine pH Ur Specific [place] Urine Protein Urine Glucose (UA) Urine Ketones Urine Blood Urine Nitrite Ur Leukocyte Esterase Urine RBC Urine WBC Ur Squamous Epith Cells Urine Bacteria COVID-19 (MOO) COVID-HCDC 11/28/21 11/28/21 11/28/21 16:56 16:56 17:53 WBC RBC Hgb Hct MCV MCH MCHC RDW Plt Count MPV Immature Gran % (Auto) Neut % (Auto) Lymph % (Auto) [place] % (Auto) Eos % (Auto) Baso % (Auto) Lymph # (Auto) [place] # (Auto) Eos # (Auto) Baso # (Auto) Abs Immat Gran (auto) Absolute Neuts (auto) Absolute Nucleated RBC Nucleated RBC % (auto) PT INR APTT Sodium Potassium Chloride Carbon Dioxide Anion Gap BUN Creatinine Estim Creat Clear Calc Estimated GFR POC Glucose 162 H Random Glucose Calcium Magnesium Total Bilirubin Direct Bilirubin AST ALT Alkaline Phosphatase Total Creatine Kinase Troponin I High Sens 9.5 Total Protein Albumin Urine Color Urine Appearance Urine pH Ur Specific [place] Urine Protein Urine Glucose (UA) Urine Ketones Urine Blood Urine Nitrite Ur Leukocyte Esterase Urine RBC Urine WBC Ur Squamous Epith Cells Urine Bacteria COVID-19 (MOO) Negative COVID-HCDC See Note 11/28/21 11/28/21 11/29/21 17:55 18:41 06:00 WBC 12.7 H 7.4 RBC 3.39 L 3.11 L Hgb 10.6 L 9.5 L Hct 32.2 L 30.0 L MCV 95.0 96.5 MCH 31.3 30.5 MCHC 32.9 31.7 RDW 14.2 14.5 Plt Count 175 87 L D MPV 9.1 L 11.0 Immature Gran % (Auto) Neut % (Auto) Lymph % (Auto) [place] % (Auto) Eos % (Auto) Baso % (Auto) Lymph # (Auto) [place] # (Auto) Eos # (Auto) Baso # (Auto) Abs Immat Gran (auto) Absolute Neuts (auto) Absolute Nucleated RBC 0.000 0.000 Nucleated RBC % (auto) 0.0 0.0 PT INR APTT Sodium Potassium Chloride Carbon Dioxide Anion Gap BUN Creatinine Estim Creat Clear Calc Estimated GFR POC Glucose Random Glucose Calcium Magnesium Total Bilirubin Direct Bilirubin AST ALT Alkaline Phosphatase Total Creatine Kinase Troponin I High Sens Total Protein Albumin Urine Color YELLOW Urine Appearance CLEAR Urine pH 6.0 Ur Specific [place] >= 1.030 H Urine Protein 1+ H Urine Glucose (UA) NEG Urine Ketones NEG Urine Blood NEG Urine Nitrite NEG Ur Leukocyte Esterase NEG Urine RBC 1-4 Urine WBC 0-2 Ur Squamous Epith Cells 1+ Urine Bacteria NONE COVID-19 (MOO) COVID-19 PagerDuty Com 11/29/21 06:00 WBC RBC Hgb Hct MCV MCH MCHC RDW Plt Count MPV Immature Gran % (Auto) Neut % (Auto) Lymph % (Auto) [place] % (Auto) Eos % (Auto) Baso % (Auto) Lymph # (Auto) [place] # (Auto) Eos # (Auto) Baso # (Auto) Abs Immat Gran (auto) Absolute Neuts (auto) Absolute Nucleated RBC Nucleated RBC % (auto) PT INR APTT Sodium 131 L Potassium 4.2 Chloride 102 Carbon Dioxide 19 L Anion Gap 14 BUN 10 Creatinine 0.96 Estim Creat Clear Calc 35.4 Estimated GFR 55 POC Glucose Random Glucose 119 H Calcium 8.1 L D Magnesium Total Bilirubin Direct Bilirubin AST ALT Alkaline Phosphatase Total Creatine Kinase Troponin I High Sens Total Protein Albumin Urine Color Urine Appearance Urine pH Ur Specific [place] Urine Protein Urine Glucose (UA) Urine Ketones Urine Blood Urine Nitrite Ur Leukocyte Esterase Urine RBC Urine WBC Ur Squamous Epith Cells Urine Bacteria COVID-19 (MOO) COVID-19 Clin Com Airway Mallampati Class: III TM Dist: >3cm Neck ROM: Limited Partial: Upper Loose/Missing/Broken Teeth: Yes (Poor dentation ) Heart: Paced Lungs: distant breath sounds Assessment and Plan Assessment Anesthesia Assessment: Anesthesia Plan Discussed (with Son ) and Chart Reviewed Final Anesthetic Review Family History of Problems with Anesthesia: No History of Problems with Anesthesia: No NPO: Yes ASA Class: IV and Emergency Final Preanesthetic Review: Meds/Allgs Chart Reviewed, Consent Obtained/Reviewed and Anes Risks/Benef Reviewed Patient Risk: High Procedure Risk: Intermediate Anesthetic Plan Anesthetic Plan: GA Disposition: Inp. Admit - Standard Bed
--- NOTE | 2021-11-30 15:42 | MHC.CM.PN ---
NURSE STRUCTURAL ARCHITECT NOTE AOTUENT FROM [facility] AND WAS SOON READY TO BE RELEASED BACK HOME, SHE HOWEVER HAS FALLEN AND WILL B HAVING ORTHOEPDIC SURGERY TODAY . PATIENT APPEARS ALERT AND OREINTATED X2 AND THEN CONFUSED AT TIME , HER SON PETER HARO REPORTS THIS CONFUSION IN [facility],AND MAYBE BECAUSE SHE IS IN PAIN RECEIVING MEDICAITIONS , HE REPORTEDT HE PLAN IS TO BE DISCHARGED BACKK TO [facility] ON BED HOLD DISCHARGE PLAN RETURN BACK TO [facility]
--- NOTE | 2021-11-30 16:25 | MHC.SHP ---
Pre-Procedural Eval Section A Date of Service: 11/30/21 The patient is an INPATIENT: Yes Changes since office visit: Yes Patient answered all questions; No Cold of Flu in the past 2 weeks, No New Medical Problems and No Changes in Medication The History & Physical has been completed within 30 days and I have reviewed it.: Yes Section B Chief Complaint: Unwitnessed fall Hip fracture Allergies: Allergies Allergy/AdvReac Type Severity Reaction Status Date / Time No Known Allergies Allergy Verified 11/20/21 08:36 [No Known Allergies*] Plan I have reviewed the history and physical and performed a pertinent physical examination on my patient. No changes have occurred unless specified.
--- NOTE | 2021-11-30 17:27 | PM.OP ---
Brief Operative Note Date of Service: 11/30/21 Pre-op diagnosis: right hip IT fracture Post-op diagnosis: same Procedure: Right hip IMN Implants: [id number] with 95 mm lag and 40 mm interlock Surgeon: Meño Connors MD Anesthesia: GETA Was an Warehouse Logistics Coordinator used for this Procedure?: No Estimated blood loss (mL): 200 IV fluids (mL): 600 Urine output (mL): 300 Pathology: none sent Condition: stable Disposition: PACU
[2021-11-30] MEDS: Sennosides 8.6 MG TABLET PO (20:10)
[2021-11-30] MEDS: Famotidine 20 MG TABLET PO (20:11)
[2021-11-30] MEDS: Heparin Sodium,Porcine 5,000 UNIT/ML VIAL 5000 UNIT SUBCUT (20:11)
[2021-11-30] MEDS: ceFAZolin Sodium/Dextrose,Iso 2 GM/50 ML PIGGYBACK IV (20:12)
[2021-11-30] MEDS: Morphine Sulfate 4 MG/ML CARTRIDGE 2 MG IVPUSH (22:43)
[2021-12-01] VITALS (12 sets, daily range): BP systolic 119–168; BP diastolic 56–91; PULSE 61–84; RESP 16–20; TEMP 36.1–37.7; O2SAT 92–96
[2021-12-01] MEDS: Morphine Sulfate 4 MG/ML CARTRIDGE 2 MG IVPUSH ×3 (03:08→23:49)
[2021-12-01] MEDS: Dextrose 5 % and Lactated Ring 1,000 ML 100 ML IVCONT ×2 (06:20→17:48)
[2021-12-01] MEDS: Heparin Sodium,Porcine 5,000 UNIT/ML VIAL 5000 UNIT SUBCUT (06:21)
--- NOTE | 2021-12-01 07:30 | PM.PNORT ---
Subjective Subjective Date of Service: 12/01/21 Interval history: POD1 s/p left hip IM Nail. Patient is sleeping in the bed comfortably. No overnight events. Pain is managed. Sitter at bedside. Physical Exam Vital Signs: Vital Signs: Last Vital Signs Temp 97 F 12/01/21 07:05 Pulse 61 12/01/21 07:05 Resp 18 12/01/21 07:05 BP 152/83 H 12/01/21 07:05 Pulse Ox 96 12/01/21 07:05 BMI result Body Mass Index 19.1 Const: General: cooperative, healthy appearing and no acute distress Resp: Effort & Inspection: normal respiratory effort and able to speak in complete sentences Cardio: Rate: regular rate Peripheral pulses: Peripheral pulses 2+ throughout GI: Palpation (GI): Soft to palpation Skin: Lesions: no lesions Rashes: no rashes Extrem: Other: Left hip bandages are clean, dry, and intact. NVI. Procedures Date of Service Date of Service: 12/01/21 Progress Note: A&P Assessment and plan (1) Closed intertrochanteric fracture of femur: Status: Acute Plan Continue pain mgmnt Begin dvt ppx Lovenox and resume Eliquis 48 hours post op begin PT for left hip IM Nail - WBAT Dispo planning-Pending PT eval, pain mgmnt Fall Risk Details Current Medications: Current Medications Amiodarone HCl (Amiodarone Hcl 200 Mg Tablet) 200 mg PO DAILY [facility] Last Admin: 11/30/21 13:17 Dose: 200 mg Documented by: Bisacodyl (Bisacodyl 10 Mg Supp.Rect) 10 mg [place] DAILY PRN PRN Reason: Constipation Docusate Sodium (Docusate Sodium 100 Mg Capsule) 100 mg PO DAILY PRN PRN Reason: Constipation Famotidine (Famotidine 20 Mg Tablet) 20 mg PO BID [facility] Last Admin: 11/30/21 20:11 Dose: 20 mg Documented by: Heparin Sodium (Porcine) (Heparin Sodium,Porcine 5,000 Unit/Ml Vial) 5,000 unit SUBCUT Q12H [facility] Last Admin: 12/01/21 06:21 Dose: 5,000 unit Documented by: Cefazolin Sodium/Dextrose (Ancef) 2 gm in 50 mls @ 100 mls/hr IV PREOP ONE Stop: 12/01/21 12:06 Dextrose/Lactated Ringer's (D5lr) 1,000 mls @ 100 mls/hr IVCONT .Q10H [facility] Last Admin: 12/01/21 06:20 Dose: 100 mls/hr Documented by: Cefazolin Sodium/Dextrose (Ancef) 2 gm in 50 mls @ 100 mls/hr IV POSTOP@2030 [facility] Last Infusion: 11/30/21 21:24 Dose: Infused Documented by: Levothyroxine Sodium (Levothyroxine Sodium 75 Mcg Tablet) 37.5 mcg PO DAILY [facility] Last Admin: 11/30/21 12:42 Dose: Not Given Documented by: Lisinopril (Lisinopril 5 Mg Tablet) 5 mg PO DAILY [facility]; Protocol Last Admin: 11/30/21 12:42 Dose: Not Given Documented by: Lorazepam (Lorazepam 1 Mg Tablet) 1 mg PO BID PRN PRN Reason: Anxiety Last Admin: 11/30/21 05:25 Dose: 1 mg Documented by: Melatonin (Melatonin 3 Mg Tablet) 3 mg PO BEDTIME PRN PRN Reason: Insomnia Metoprolol Tartrate (Metoprolol Tartrate 25 Mg Tablet) 25 mg PO BID [facility]; Protocol Last Admin: 11/30/21 20:10 Dose: 25 mg Documented by: Morphine Sulfate (Morphine Sulfate 4 Mg/Ml Cartridge) 2 mg IVPUSH Q4H PRN; Protocol PRN Reason: Pain, Severe (Pain Scale 7-10) Last Admin: 12/01/21 03:08 Dose: 2 mg Documented by: Ondansetron HCl (Ondansetron Hcl 4 Mg/2 Ml Vial) 4 mg IVPUSH Q8H PRN PRN Reason: Nausea and Vomiting Last Admin: 11/28/21 20:01 Dose: 4 mg Documented by: Paroxetine HCl (Paroxetine Hcl 10 Mg Tablet) 10 mg PO DAILY [facility] Last Admin: 11/30/21 12:42 Dose: Not Given Documented by: Pharmacy Consult (Consult Rx Perform Med Rec) 1 each MISCELLANE ONCE PRN PRN Reason: Consult order Senna (Sennosides 8.6 Mg Tablet) 8.6 mg PO BEDTIME [facility] Last Admin: 11/30/21 20:10 Dose: 8.6 mg Documented by: Vitamin D (Cholecalciferol (Vitamin D3) 25 Mcg Tablet) 25 mcg PO DAILY [facility] Last Admin: 11/30/21 12:42 Dose: Not Given Documented by: Time Spent With Patient Time: Total time spent is greater than 50% in coordination of care (as documented) at patient's floor/unit and/or counseling patient: Time with patient: less than 15 minutes Quality Stroke Does the patient have a stroke diagnosis?: No VTE Prior VTE?: No VTE Risk Level:: Medical - moderate - high VTE Device Contraindication: N/A - Device Ordered VTE Drug Contraindication: N/A - Med Ordered
[2021-12-01 08:50] LABS: Mean Corpuscular Hemoglobin 30.8 pg (27.0-33.0); Mean Corpuscular Volume 93.4 fL (80.0-98.0); Platelet Count 127 X10*3/uL (160-400); Red Blood Count 1.98 X10*6/uL (4.20-5.50); Red Cell Distribution Width 14.2 % (11.0-16.0); White Blood Count 6.3 X10*3/uL (4.8-10.8)
[2021-12-01 09:09] LABS: Anion Gap 9 (12-20); Blood Urea Nitrogen 11 mg/dL (9-16); Calcium 8.1 mg/dL (8.4-10.2); Carbon Dioxide 28 mmol/L (22-29); Chloride 101 mmol/L (96-108); Creatinine Clr Calc Pharmacy 36.5; Estimated Glomerular Filt Rate 57; Glucose Random 176 mg/dL (60-115); Potassium 3.5 mmol/L (3.3-5.1); Sodium 134 mmol/L (135-145)
[2021-12-01 09:24] LABS: Hemoglobin 6.1 g/dl (12.0-16.0)
[2021-12-01 09:25] LABS: Hematocrit 18.5 % (37.0-47.0)
--- NOTE | 2021-12-01 09:26 | W.PM.OPN ---
Operative Note Operative Note Date of Service: 11/30/21 Narrative: Pre-op diagnosis: right hip IT fracture Post-op diagnosis: same Procedure: Right hip IMN Implants: [id number] with 95 mm lag and 40 mm interlock Surgeon: Meño Connors MD Anesthesia: GETA Was an Interactive Media Marketing Director used for this Procedure?: No Estimated blood loss (mL): 200 IV fluids (mL): 600 Urine output (mL): 300 Pathology: none sent Condition: stable Disposition: PACU Procedure in detail: Patient was brought to the operating room and prepped and draped in standard sterile fashion. Time-out was called to identify proper site procedure proper surgeon and IV antibiotics per weight were administered. She was positioned on the fracture table and a traction and slight internal rotation were performed and biplanar fluoroscopy confirmed initial fracture reduction. I then made a stab incision proximal to the greater trochanter in using a guidewire made a entry point just lateral to the tip of the greater trochanter and placed a guidewire into the femoral metadiaphysis. I then over-reamed with 15 mm Reamer placed my ball-tip guidewire down distally in the femur and measured my length. I selected a [id number] nail and reamed up to a 13. I then placed the nail without difficulty. I then turned my attention to the hip screw where I used a guidewire and a tip apex distance of less than 1.5 measured a 95mm hip screw. I then pre drilled and placed the hip screw using biplanar fluoroscopy. Once I was satisfied with the position of the hip screw I turned my attention to the distal aspect of the nail. Using perfect unga technique I placed 1 static distal interlocking screw in standard AO technique. I then removed all I then placed my set screw proximally and removed all extraneous instrumentation. Final biplanar radiographs were taken. I was satisfied with the position of the hardware and the fracture reduction. I think copiously irrigated closed with absorbable sutures brittanie and injected 30 mL of into the area of the incisions. Traction was let down patient was placed in sterile dressing awakened from anesthesia brought to recovery room stable condition there were no known complications.
[2021-12-01] MEDS: Famotidine 20 MG TABLET PO ×2 (09:54→21:01)
[2021-12-01] MEDS: Cholecalciferol (Vitamin D3) 25 MCG TABLET PO (09:54)
[2021-12-01] MEDS: Levothyroxine Sodium 75 MCG TABLET 37.5 MCG PO (09:54)
[2021-12-01] MEDS: Metoprolol Tartrate 25 MG TABLET PO ×2 (09:54→21:01)
[2021-12-01] MEDS: Amiodarone HCL 200 MG TABLET PO (09:54)
[2021-12-01] MEDS: lisinopriL 5 MG TABLET PO (09:54)
[2021-12-01] MEDS: PARoxetine HCL 10 MG TABLET PO (09:55)
--- NOTE | 2021-12-01 10:24 | P.PNIM_ITS ---
Subjective Subjective Date of Service: 12/01/21 Interval History: CC: f/u on fall, hip fracture Interval history: had surgical repair yeserday, has some pain in the hip, she's more confused than usual Review of Systems Gen: no fever Resp: no sob, no cough Neuro: Confused Physical Exam Vital Signs: Vital Signs: Last Vital Signs Temp 97 F 12/01/21 07:05 Pulse 61 12/01/21 07:05 Resp 18 12/01/21 07:05 BP 152/83 H 12/01/21 07:05 Pulse Ox 96 12/01/21 07:05 BMI result Body Mass Index 19.1 Const: Other: Constitutional: Alert, in no distress Respiratory: Clear to auscultation. No wheezing, rales or rhonchi. Cardiovascular: S1 S, regular. No murmurs, rubs or gallops. Gastrointestinal: Abdomen soft, non-tender, non-distended. Normal bowel sounds.? Neurologic: Cranial nerves II-XII grossly intact. No focal neurological deficits. Moves all extremities spontaneously.? Skin: No rashes or lesions.? surgical site without hematoma Musculoskeletal: No cyanosis or clubbing, left hip pain with movement Psychiatric: flat affect Objective Data Active Medications Amiodarone HCl (Amiodarone Hcl 200 Mg Tablet) 200 mg PO DAILY [facility] Last Admin: 12/01/21 09:54 Dose: 200 mg Documented by: JACINTO Bisacodyl (Bisacodyl 10 Mg Supp.Rect) 10 mg [place] DAILY PRN PRN Reason: Constipation Docusate Sodium (Docusate Sodium 100 Mg Capsule) 100 mg PO DAILY PRN PRN Reason: Constipation Enoxaparin Sodium (Enoxaparin Sodium 40 Mg/0.4 Ml Syringe) 40 mg SUBCUT Q24H [facility] Famotidine (Famotidine 20 Mg Tablet) 20 mg PO BID [facility] Last Admin: 12/01/21 09:54 Dose: 20 mg Documented by: JACINTO Heparin Sodium (Porcine) (Heparin Sodium,Porcine 5,000 Unit/Ml Vial) 5,000 unit SUBCUT Q12H [facility] Last Admin: 12/01/21 06:21 Dose: 5,000 unit Documented by: LAMONT Cefazolin Sodium/Dextrose (Ancef) 2 gm in 50 mls @ 100 mls/hr IV PREOP ONE Stop: 12/01/21 12:06 Last Admin: 12/01/21 09:40 Dose: Not Given Documented by: JACINTO Non-Admin Reason: post op Dextrose/Lactated Ringer's (D5lr) 1,000 mls @ 100 mls/hr IVCONT .Q10H [facility] Last Admin: 12/01/21 06:20 Dose: 100 mls/hr Documented by: LAMONT Cefazolin Sodium/Dextrose (Ancef) 2 gm in 50 mls @ 100 mls/hr IV POSTOP@2029 [facility] Last Infusion: 11/30/21 21:24 Dose: 0 mls/hr Documented by: OLIVER Levothyroxine Sodium (Levothyroxine Sodium 75 Mcg Tablet) 37.5 mcg PO DAILY [facility] Last Admin: 12/01/21 09:54 Dose: 37.5 mcg Documented by: JACINTO Lisinopril (Lisinopril 5 Mg Tablet) 5 mg PO DAILY [facility]; Protocol Last Admin: 12/01/21 09:54 Dose: 5 mg Documented by: JACINTO Lorazepam (Lorazepam 1 Mg Tablet) 1 mg PO BID PRN PRN Reason: Anxiety Last Admin: 11/30/21 05:25 Dose: 1 mg Documented by: MARIE Melatonin (Melatonin 3 Mg Tablet) 3 mg PO BEDTIME PRN PRN Reason: Insomnia Metoprolol Tartrate (Metoprolol Tartrate 25 Mg Tablet) 25 mg PO BID [facility]; Protocol Last Admin: 12/01/21 09:54 Dose: 25 mg Documented by: JACINTO Morphine Sulfate (Morphine Sulfate 4 Mg/Ml Cartridge) 2 mg IVPUSH Q4H PRN; Protocol PRN Reason: Pain, Severe (Pain Scale 7-10) Last Admin: 12/01/21 03:08 Dose: 2 mg Documented by: Ondansetron HCl (Ondansetron Hcl 4 Mg/2 Ml Vial) 4 mg IVPUSH Q8H PRN PRN Reason: Nausea and Vomiting Last Admin: 11/28/21 20:01 Dose: 4 mg Documented by: ARMANDO Paroxetine HCl (Paroxetine Hcl 10 Mg Tablet) 10 mg PO DAILY [facility] Last Admin: 12/01/21 09:55 Dose: 10 mg Documented by: JACINTO Pharmacy Consult (Consult Rx Perform Med Rec) 1 each MISCELLANE ONCE PRN PRN Reason: Consult order Senna (Sennosides 8.6 Mg Tablet) 8.6 mg PO BEDTIME [facility] Last Admin: 11/30/21 20:10 Dose: 8.6 mg Documented by: OLIVER Vitamin D (Cholecalciferol (Vitamin D3) 25 Mcg Tablet) 25 mcg PO DAILY [facility] Last Admin: 12/01/21 09:54 Dose: 25 mcg Documented by: JACINTO Labs CBC & Chem 7: 12/01/21 08:29 12/01/21 08:29 Labs: Laboratory Results - last 24 hr 11/30/21 12/01/21 12/01/21 14:49 08:29 08:29 MCV 93.4 MCH 30.8 MCHC 33.0 RDW 14.2 Plt Count 127 L D MPV 9.0 L Absolute Nucleated RBC 0.000 Nucleated RBC % (auto) 0.0 Anion Gap 9 L Estim Creat Clear Calc 36.5 Estimated GFR 57 Random Glucose 176 H Calcium 8.1 L Blood Type O Positive Antibody Screen NEGATIVE Crossmatch See Detail Assessment and Plan (1) Chronic a-fib: Status: Acute (2) Closed intertrochanteric fracture of femur: Status: Acute (3) Unwitnessed fall: Status: Acute Plan 85 year female with afib on eliquis, cardiomyopatyh has AICD, hypothyroidims, HTN, HLD here with what sounds like mechanical fall resulting in left hip fracture #Acute comminuted intertrochanteric fracture left femur. -s.p operative repair 11/30 -pain control with morphine. -post care by ortho #Fall, no evidence of arryhtmia, likely mechanical #Chronic AFIB--rhythm control with amiodarone, metoprolol for rate control -restart Eliquis tomorrow, #Acute blood anemia---H/H down signficantly since after surgery, needs transfusion today --2 units. Continue hold Eliquis #HyOthyroidism--continue levothyroxine #Confusion d/t Delirium related to situation change, anesthetic, I would not Call encephalopathy at this time. #Mild hyponatremia--monitor, fluid restriction, low sodium in associated with high mortality in hospitalized pt #HTN--continue Metoprolol- #Full code #heparin for DVT prophylaxis Hospitalization need: Post operative care, need tansfusion, monitoring and management of delirium before discharge Quality Stroke Does the patient have a stroke diagnosis?: No VTE Prior VTE?: No VTE Risk Level:: Medical - moderate - high VTE Device Contraindication: N/A - Device Ordered VTE Drug Contraindication: N/A - Med Ordered
--- NOTE | 2021-12-01 12:32 | HO.POSTANES ---
Post Anesthesia Evaluation Post Anesthesia Evaluation Vital Signs: Vital Signs Temp Pulse Resp BP Pulse Ox 12/01/21 11:23 99.6 F 68 16 119/56 L 12/01/21 11:06 100 F 67 16 131/63 12/01/21 07:05 97 F 61 18 152/83 H 96 12/01/21 04:08 18 Anesthesia: General Mental Status: Awake (confused) Pain Control: Satisfactory Nausea/Vomiting: None Hydration: Adequate Anesthesia-Related Issues: No Anes. Related Issues
[2021-12-01] MEDS: LORazepam 1 MG TABLET PO (15:02)
[2021-12-01] MEDS: Enoxaparin Sodium 40 MG/0.4 ML SYRINGE SUBCUT (15:35)
[2021-12-01 15:47] LABS: Appearance Urine CLEAR; Color Urine YELLOW; Glucose Urine UA NEG (NEG); Leukocyte Esterase Urine NEG (NEG); Nitrite Urine NEG (NEG); Specific Gravity - Urine >= 1.030 (1.005-1.025); UACC Culture Trigger NO; Urine Blood 2+ (NEG); Urine Ketones NEG (NEG); Urine Protein 1+ MG/DL (NEG-TRACE)
[2021-12-01 15:55] LABS: Squamous Epithelial Cell Urine 1+ /LPF; WBC Urine 0-2 /HPF (0-4)
[2021-12-01] MEDS: ceFAZolin Sodium/Dextrose,Iso 2 GM/50 ML PIGGYBACK IV (20:59)
[2021-12-01] MEDS: Sennosides 8.6 MG TABLET PO (21:01)
[2021-12-02] MEDS: Dextrose 5 % and Lactated Ring 1,000 ML 100 ML IVCONT ×2 (03:48→14:40)
[2021-12-02 05:58] LABS: Hematocrit 31.1 % (37.0-47.0); Hemoglobin 10.4 g/dl (12.0-16.0); Mean Corpuscular HGB Conc 33.4 g/dl (31.0-35.0); Mean Corpuscular Hemoglobin 30.3 pg (27.0-33.0); Mean Corpuscular Volume 90.7 fL (80.0-98.0); Mean Platelet Volume 9.1 fL (9.4-12.3); Platelet Count 130 X10*3/uL (160-400); Red Blood Count 3.43 X10*6/uL (4.20-5.50); Red Cell Distribution Width 14.6 % (11.0-16.0); White Blood Count 7.6 X10*3/uL (4.8-10.8)
[2021-12-02] MEDS: Morphine Sulfate 4 MG/ML CARTRIDGE 2 MG IVPUSH (06:25)
[2021-12-02 07:16] VITALS: BP 162/66; PULSE 68; RESP 20; TEMP 37.2; O2SAT 98
[2021-12-02] MEDS: Metoprolol Tartrate 25 MG TABLET PO ×2 (07:32→20:47)
[2021-12-02] MEDS: lisinopriL 5 MG TABLET PO (07:32)
[2021-12-02] MEDS: Famotidine 20 MG TABLET PO ×2 (07:32→20:47)
[2021-12-02] MEDS: Cholecalciferol (Vitamin D3) 25 MCG TABLET PO (07:33)
[2021-12-02] MEDS: Levothyroxine Sodium 75 MCG TABLET 37.5 MCG PO (07:33)
[2021-12-02] MEDS: PARoxetine HCL 10 MG TABLET PO (07:33)
[2021-12-02] MEDS: Amiodarone HCL 200 MG TABLET PO (07:34)
--- NOTE | 2021-12-02 07:38 | PM.PNORT ---
Subjective Subjective Date of Service: 12/02/21 Interval history: POD2 s/p lt hip IM Nail. Patient is resting comfortably in bed. Needs a sitter and is restless overnight. No additional complaints. Physical Exam Vital Signs: Vital Signs: Last Vital Signs Temp 99.0 F 12/02/21 07:16 Pulse 68 12/02/21 07:16 Resp 20 12/02/21 07:16 BP 162/66 H 12/02/21 07:16 Pulse Ox 98 12/02/21 07:16 BMI result Body Mass Index 19.1 Const: General: cooperative, healthy appearing and no acute distress Resp: Effort & Inspection: normal respiratory effort and able to speak in complete sentences Cardio: Rate: regular rate Peripheral pulses: Peripheral pulses 2+ throughout GI: Palpation (GI): Soft to palpation Skin: Lesions: no lesions Rashes: no rashes Extrem: Other: Left hip bandages are clean, dry, and intact. [facility] Procedures Date of Service Date of Service: 12/02/21 Progress Note: A&P Assessment and plan (1) Closed intertrochanteric fracture of femur: Status: Acute Assessment and Plan: Continue pain mgmnt Contine Lovenox for dvt ppx continue PT for lt hip IM Nail Dispo planning-Pending PT eval, pain mgmnt Fall Risk Details Current Medications: Current Medications Amiodarone HCl (Amiodarone Hcl 200 Mg Tablet) 200 mg PO DAILY [facility] Last Admin: 12/02/21 07:34 Dose: 200 mg Documented by: Apixaban (Apixaban 2.5 Mg Tablet) 2.5 mg PO BID [facility] Bisacodyl (Bisacodyl 10 Mg Supp.Rect) 10 mg [place] DAILY PRN PRN Reason: Constipation Docusate Sodium (Docusate Sodium 100 Mg Capsule) 100 mg PO DAILY PRN PRN Reason: Constipation Famotidine (Famotidine 20 Mg Tablet) 20 mg PO BID [facility] Last Admin: 12/02/21 07:32 Dose: 20 mg Documented by: Dextrose/Lactated Ringer's (D5lr) 1,000 mls @ 100 mls/hr IVCONT .Q10H [facility] Last Admin: 12/02/21 03:48 Dose: 100 mls/hr Documented by: Cefazolin Sodium/Dextrose (Ancef) 2 gm in 50 mls @ 100 mls/hr IV POSTOP@2030 [facility] Last Infusion: 12/01/21 21:33 Dose: Infused Documented by: Levothyroxine Sodium (Levothyroxine Sodium 75 Mcg Tablet) 37.5 mcg PO DAILY [facility] Last Admin: 12/02/21 07:33 Dose: 37.5 mcg Documented by: Lisinopril (Lisinopril 5 Mg Tablet) 5 mg PO DAILY [facility]; Protocol Last Admin: 12/02/21 07:32 Dose: 5 mg Documented by: Lorazepam (Lorazepam 1 Mg Tablet) 1 mg PO BID PRN PRN Reason: Anxiety Last Admin: 12/01/21 15:02 Dose: 1 mg Documented by: Melatonin (Melatonin 3 Mg Tablet) 3 mg PO BEDTIME PRN PRN Reason: Insomnia Metoprolol Tartrate (Metoprolol Tartrate 25 Mg Tablet) 25 mg PO BID [facility]; Protocol Last Admin: 12/02/21 07:32 Dose: 25 mg Documented by: Morphine Sulfate (Morphine Sulfate 4 Mg/Ml Cartridge) 2 mg IVPUSH Q4H PRN; Protocol PRN Reason: Pain, Severe (Pain Scale 7-10) Last Admin: 12/02/21 06:25 Dose: 2 mg Documented by: Ondansetron HCl (Ondansetron Hcl 4 Mg/2 Ml Vial) 4 mg IVPUSH Q8H PRN PRN Reason: Nausea and Vomiting Last Admin: 11/28/21 20:01 Dose: 4 mg Documented by: Paroxetine HCl (Paroxetine Hcl 10 Mg Tablet) 10 mg PO DAILY [facility] Last Admin: 12/02/21 07:33 Dose: 10 mg Documented by: Pharmacy Consult (Consult Rx Perform Med Rec) 1 each MISCELLANE ONCE PRN PRN Reason: Consult order Senna (Sennosides 8.6 Mg Tablet) 8.6 mg PO BEDTIME [facility] Last Admin: 12/01/21 21:01 Dose: 8.6 mg Documented by: Vitamin D (Cholecalciferol (Vitamin D3) 25 Mcg Tablet) 25 mcg PO DAILY [facility] Last Admin: 12/02/21 07:33 Dose: 25 mcg Documented by: Time Spent With Patient Time: Total time spent is greater than 50% in coordination of care (as documented) at patient's floor/unit and/or counseling patient: Quality Stroke Does the patient have a stroke diagnosis?: No VTE Prior VTE?: No VTE Risk Level:: Medical - moderate - high VTE Device Contraindication: N/A - Device Ordered VTE Drug Contraindication: N/A - Med Ordered
[2021-12-02] MEDS: LORazepam 1 MG TABLET PO (09:58)
--- NOTE | 2021-12-02 10:36 | HO.PM.IMPN ---
Subjective Subjective Date of Service: 12/04/21 Interval History: CC: f/u on fall, hip fracture Interval history: pod d3 for left hip repair, post op care characterized by pain and delirium Review of Systems Gen: no fever Resp: no sob, no cough Neuro: Confused Physical Exam Vital Signs: Vital Signs: Last Vital Signs Temp 99.0 F 12/02/21 07:16 Pulse 68 12/02/21 07:16 Resp 20 12/02/21 07:16 BP 162/66 H 12/02/21 07:16 Pulse Ox 98 12/02/21 07:16 BMI result Body Mass Index 19.1 Const: Other: Constitutional: Alert, in no distress Respiratory: Clear to auscultation. No wheezing, rales or rhonchi. Cardiovascular: S1 S, regular. No murmurs, rubs or gallops. Gastrointestinal: Abdomen soft, non-tender, non-distended. Normal bowel sounds.? Neurologic: Cranial nerves II-XII grossly intact. No focal neurological deficits. Moves all extremities spontaneously.? Skin: No rashes or lesions.? surgical site without hematoma Musculoskeletal: No cyanosis or clubbing, left hip pain with movement Psychiatric: flat affect Objective Data Active Medications Amiodarone HCl (Amiodarone Hcl 200 Mg Tablet) 200 mg PO DAILY [facility] Last Admin: 12/02/21 07:34 Dose: 200 mg Documented by: BOSTON Apixaban (Apixaban 2.5 Mg Tablet) 2.5 mg PO BID [facility] Bisacodyl (Bisacodyl 10 Mg Supp.Rect) 10 mg [place] DAILY PRN PRN Reason: Constipation Docusate Sodium (Docusate Sodium 100 Mg Capsule) 100 mg PO DAILY PRN PRN Reason: Constipation Famotidine (Famotidine 20 Mg Tablet) 20 mg PO BID [facility] Last Admin: 12/02/21 07:32 Dose: 20 mg Documented by: BOSTON Dextrose/Lactated Ringer's (D5lr) 1,000 mls @ 100 mls/hr IVCONT .Q10H [facility] Last Admin: 12/02/21 03:48 Dose: 100 mls/hr Documented by: LAMONT Acetaminophen (Ofirmev) 1,000 mg in 100 mls @ 16.7 mls/hr IV .Q6H PRN PRN Reason: Pain, Severe (Pain Scale 7-10) Levothyroxine Sodium (Levothyroxine Sodium 75 Mcg Tablet) 37.5 mcg PO DAILY [facility] Last Admin: 12/02/21 07:33 Dose: 37.5 mcg Documented by: BOSTON Lisinopril (Lisinopril 5 Mg Tablet) 5 mg PO DAILY [facility]; Protocol Last Admin: 12/02/21 07:32 Dose: 5 mg Documented by: BOSTON Lorazepam (Lorazepam 1 Mg Tablet) 1 mg PO BID PRN PRN Reason: Anxiety Last Admin: 12/02/21 09:58 Dose: 1 mg Documented by: BOSTON Melatonin (Melatonin 3 Mg Tablet) 3 mg PO BEDTIME PRN PRN Reason: Insomnia Metoprolol Tartrate (Metoprolol Tartrate 25 Mg Tablet) 25 mg PO BID [facility]; Protocol Last Admin: 12/02/21 07:32 Dose: 25 mg Documented by: BOSTON Ondansetron HCl (Ondansetron Hcl 4 Mg/2 Ml Vial) 4 mg IVPUSH Q8H PRN PRN Reason: Nausea and Vomiting Last Admin: 11/28/21 20:01 Dose: 4 mg Documented by: ARMANDO Paroxetine HCl (Paroxetine Hcl 10 Mg Tablet) 10 mg PO DAILY [facility] Last Admin: 12/02/21 07:33 Dose: 10 mg Documented by: BOSTON Pharmacy Consult (Consult Rx Perform Med Rec) 1 each MISCELLANE ONCE PRN PRN Reason: Consult order Senna (Sennosides 8.6 Mg Tablet) 8.6 mg PO BEDTIME [facility] Last Admin: 12/01/21 21:01 Dose: 8.6 mg Documented by: OLIVER Vitamin D (Cholecalciferol (Vitamin D3) 25 Mcg Tablet) 25 mcg PO DAILY [facility] Last Admin: 12/02/21 07:33 Dose: 25 mcg Documented by: BOSTON Labs CBC & Chem 7: 12/03/21 05:30 12/03/21 05:30 Labs: Laboratory Results - last 24 hr 11/30/21 12/01/21 12/01/21 14:49 08:29 15:23 MCV MCH MCHC RDW Plt Count MPV Absolute Nucleated RBC Nucleated RBC % (auto) Smear Path Review SEE NOTE Urine Color YELLOW Urine Appearance CLEAR Urine pH 6.0 Ur Specific [place] >= 1.030 H Urine Protein 1+ H Urine Glucose (UA) NEG Urine Ketones NEG Urine Blood 2+ H Urine Nitrite NEG Ur Leukocyte Esterase NEG Urine RBC 15-29 H Urine WBC 0-2 Ur Squamous Epith Cells 1+ Urine Bacteria NONE Blood Type O Positive Antibody Screen NEGATIVE Crossmatch See Detail 12/02/21 05:44 MCV 90.7 MCH 30.3 MCHC 33.4 RDW 14.6 Plt Count 130 L MPV 9.1 L Absolute Nucleated RBC 0.000 Nucleated RBC % (auto) 0.0 Smear Path Review Urine Color Urine Appearance Urine pH Ur Specific [place] Urine Protein Urine Glucose (UA) Urine Ketones Urine Blood Urine Nitrite Ur Leukocyte Esterase Urine RBC Urine WBC Ur Squamous Epith Cells Urine Bacteria Blood Type Antibody Screen Crossmatch Assessment and Plan (1) Chronic a-fib: Status: Acute (2) Closed intertrochanteric fracture of femur: Status: Acute (3) Unwitnessed fall: Status: Acute Plan 85 year female with afib on eliquis, cardiomyopatyh has AICD, hypothyroidims, HTN, HLD here with what sounds like mechanical fall resulting in left hip fracture #Acute comminuted intertrochanteric fracture left femur. -s.p operative repair 11/30 -IV Tyelenol and dilaudid for pain -post care by ortho -Eliquis for DVT prophy #Fall, no evidence of arryhtmia, likely mechanical #Chronic AFIB--rhythm control with amiodarone, metoprolol for rate control -eliquis #Acute blood anemia---Hgb dropped from 12 on 11/28 to 6 on 12/01, transfused 2 units of 12/01 with good effect #HyOthyroidism--continue levothyroxine #Confusion d/t Delirium and now opioid related metabolic encephalopathy. Avoid opioid, redirect. No UTI #Mild hyponatremia--mild and has been stable #HTN--continue Metoprolol- #Full code #heparin for DVT prophylaxis--eliquis Hospitalization need: Post operative care, management of delirium before safe discharge Quality Stroke Does the patient have a stroke diagnosis?: No VTE Prior VTE?: No VTE Risk Level:: Medical - moderate - high VTE Device Contraindication: N/A - Device Ordered VTE Drug Contraindication: N/A - Med Ordered
[2021-12-02 11:14] VITALS: BP 162/66; PULSE 68; O2SAT 98
[2021-12-02] MEDS: Apixaban 2.5 MG TABLET PO ×2 (11:36→20:47)
[2021-12-02 15:25] VITALS: BP 165/73; PULSE 78; RESP 18; TEMP 36.7; O2SAT 95
[2021-12-02] MEDS: HYDROmorphone HCl 0.5 MG/0.5 ML SYRINGE 0.25 MG IVPUSH (15:29)
[2021-12-02] MEDS: Sennosides 8.6 MG TABLET PO (20:46)
[2021-12-02 20:49] VITALS: BP 133/63; PULSE 74
[2021-12-02 23:46] VITALS: BP 166/77; PULSE 80; RESP 18; TEMP 36.6; O2SAT 97
[2021-12-03] MEDS: HYDROmorphone HCl 0.5 MG/0.5 ML SYRINGE 0.25 MG IVPUSH ×4 (00:28→23:09)
[2021-12-03] MEDS: LORazepam 1 MG TABLET PO ×2 (05:24→15:30)
[2021-12-03 06:09] LABS: Hematocrit 29.7 % (37.0-47.0); Hemoglobin 10.4 g/dl (12.0-16.0); Mean Corpuscular Volume 88.7 fL (80.0-98.0); Mean Platelet Volume 9.3 fL (9.4-12.3); Platelet Count 169 X10*3/uL (160-400); Red Blood Count 3.35 X10*6/uL (4.20-5.50); Red Cell Distribution Width 14.2 % (11.0-16.0); White Blood Count 6.7 X10*3/uL (4.8-10.8)
[2021-12-03 07:08] VITALS: BP 136/61; PULSE 65; RESP 20; TEMP 36.4; O2SAT 94
[2021-12-03 08:36] LABS: Anion Gap 11 (12-20); Blood Urea Nitrogen 7 mg/dL (9-16); Calcium 8.2 mg/dL (8.4-10.2); Carbon Dioxide 26 mmol/L (22-29); Chloride 98 mmol/L (96-108); Creatinine Clr Calc Pharmacy 44.6; Estimated Glomerular Filt Rate > 60; Glucose Random 128 mg/dL (60-115); Potassium 2.9 mmol/L (3.3-5.1); Sodium 132 mmol/L (135-145)
--- NOTE | 2021-12-03 08:50 | P.PNOP_ITS ---
Subjective Subjective Date of Service: 12/03/21 Interval history: POD3 s/p lt hip IM Nail. Patient is resting comfortably in bed. Needs a sitter and is restless overnight. No additional complaints. Physical Exam Vital Signs: Vital Signs: Last Vital Signs Temp 97.6 F 12/03/21 07:08 Pulse 65 12/03/21 07:08 Resp 20 12/03/21 07:08 BP 136/61 12/03/21 07:08 Pulse Ox 94 12/03/21 07:08 BMI result Body Mass Index 19.1 Const: General: cooperative, healthy appearing and no acute distress Resp: Effort & Inspection: normal respiratory effort and able to speak in complete sentences Cardio: Rate: regular rate Peripheral pulses: Peripheral pulses 2+ throughout GI: Palpation (GI): Soft to palpation Skin: Lesions: no lesions Rashes: no rashes Extrem: Other: Left hip bandages are clean, dry, and intact. [facility] Procedures Date of Service Date of Service: 12/03/21 Progress Note: A&P Assessment and plan (1) Closed intertrochanteric fracture of femur: Status: Acute Plan Continue pain mgmnt Continue Lovenox for dvt ppx Continue PT for lt hip IM Nail - WBAT Dispo planning- Cleared from ortho standpoint to return back to facility Fall Risk Details Current Medications: Current Medications Amiodarone HCl (Amiodarone Hcl 200 Mg Tablet) 200 mg PO DAILY [facility] Last Admin: 12/02/21 07:34 Dose: 200 mg Documented by: Apixaban (Apixaban 2.5 Mg Tablet) 2.5 mg PO BID [facility] Last Admin: 12/02/21 20:47 Dose: 2.5 mg Documented by: Bisacodyl (Bisacodyl 10 Mg Supp.Rect) 10 mg [place] DAILY PRN PRN Reason: Constipation Docusate Sodium (Docusate Sodium 100 Mg Capsule) 100 mg PO DAILY PRN PRN Reason: Constipation Famotidine (Famotidine 20 Mg Tablet) 20 mg PO BID [facility] Last Admin: 12/02/21 20:47 Dose: 20 mg Documented by: Hydromorphone HCl (Hydromorphone Hcl 0.5 Mg/0.5 Ml Syringe) 0.25 mg IVPUSH Q6H PRN; Protocol PRN Reason: Pain, Severe (Pain Scale 7-10) Last Admin: 12/03/21 00:28 Dose: 0.25 mg Documented by: Acetaminophen (Ofirmev) 1,000 mg in 100 mls @ 400 mls/hr IV .Q15M PRN PRN Reason: Pain, Severe (Pain Scale 7-10) Last Infusion: 12/02/21 23:01 Dose: Infused Documented by: Levothyroxine Sodium (Levothyroxine Sodium 75 Mcg Tablet) 37.5 mcg PO DAILY [facility] Last Admin: 12/02/21 07:33 Dose: 37.5 mcg Documented by: Lisinopril (Lisinopril 5 Mg Tablet) 5 mg PO DAILY [facility]; Protocol Last Admin: 12/02/21 07:32 Dose: 5 mg Documented by: Lorazepam (Lorazepam 1 Mg Tablet) 1 mg PO BID PRN PRN Reason: Anxiety Last Admin: 12/03/21 05:24 Dose: 1 mg Documented by: Melatonin (Melatonin 3 Mg Tablet) 3 mg PO BEDTIME PRN PRN Reason: Insomnia Metoprolol Tartrate (Metoprolol Tartrate 25 Mg Tablet) 25 mg PO BID [facility]; Protocol Last Admin: 12/02/21 20:47 Dose: 25 mg Documented by: Ondansetron HCl (Ondansetron Hcl 4 Mg/2 Ml Vial) 4 mg IVPUSH Q8H PRN PRN Reason: Nausea and Vomiting Last Admin: 11/28/21 20:01 Dose: 4 mg Documented by: Paroxetine HCl (Paroxetine Hcl 10 Mg Tablet) 10 mg PO DAILY [facility] Last Admin: 12/02/21 07:33 Dose: 10 mg Documented by: Pharmacy Consult (Consult Rx Perform Med Rec) 1 each MISCELLANE ONCE PRN PRN Reason: Consult order Senna (Sennosides 8.6 Mg Tablet) 8.6 mg PO BEDTIME [facility] Last Admin: 12/02/21 20:46 Dose: 8.6 mg Documented by: Vitamin D (Cholecalciferol (Vitamin D3) 25 Mcg Tablet) 25 mcg PO DAILY [facility] Last Admin: 12/02/21 07:33 Dose: 25 mcg Documented by: Time Spent With Patient Time: Total time spent is greater than 50% in coordination of care (as documented) at patient's floor/unit and/or counseling patient: Quality Stroke Does the patient have a stroke diagnosis?: No VTE Prior VTE?: No VTE Risk Level:: Medical - moderate - high VTE Device Contraindication: N/A - Device Ordered VTE Drug Contraindication: N/A - Med Ordered
[2021-12-03] MEDS: Famotidine 20 MG TABLET PO ×2 (09:50→20:06)
[2021-12-03] MEDS: Amiodarone HCL 200 MG TABLET PO (09:50)
[2021-12-03] MEDS: lisinopriL 5 MG TABLET PO (09:50)
[2021-12-03] MEDS: PARoxetine HCL 10 MG TABLET PO (09:50)
[2021-12-03] MEDS: Metoprolol Tartrate 25 MG TABLET PO ×2 (09:50→20:06)
[2021-12-03] MEDS: Cholecalciferol (Vitamin D3) 25 MCG TABLET PO (09:51)
[2021-12-03] MEDS: Apixaban 2.5 MG TABLET PO ×2 (09:51→20:06)
[2021-12-03] MEDS: Levothyroxine Sodium 75 MCG TABLET 37.5 MCG PO (09:51)
[2021-12-03 10:20] VITALS: BP 136/61; PULSE 65; O2SAT 94
[2021-12-03 16:00] VITALS: BP 131/67; PULSE 76; RESP 19; TEMP 36.2; O2SAT 94
[2021-12-03] MEDS: Sennosides 8.6 MG TABLET PO (20:06)
[2021-12-03 23:44] VITALS: BP 148/68; PULSE 63; RESP 14; TEMP 36.5; O2SAT 92
[2021-12-04] MEDS: Melatonin 3 MG TABLET PO (00:54)
[2021-12-04] MEDS: ondansetron HCL 4 MG/2 ML VIAL IVPUSH (05:14)
[2021-12-04] MEDS: HYDROmorphone HCl 0.5 MG/0.5 ML SYRINGE 0.25 MG IVPUSH ×4 (05:14→22:55)
[2021-12-04 07:02] VITALS: BP 157/80; PULSE 75; RESP 16; TEMP 36.6; O2SAT 95
[2021-12-04 08:16] VITALS: BP 157/80; PULSE 75; O2SAT 95
--- NOTE | 2021-12-04 08:33 | MHC.CDI.CONC ---
CDI Concurrent Query Documentation Clarification: PHYSICIAN'S DOCUMENTATION REQUEST Date of Query: 12/04/21 0834 Patient Name: Nina Sousa Admit Date: 11/28/21 Dear Doctor, A review of the medical record indicates additional documentation may be needed. Please review below and update the documentation accordingly. Clinical Indicators: Is there a diagnosis that correlates with these lab findings: Risk Factors/Clinical Indicators/Treatments LABS: 12/03 - potassium 2.9 L Please indicate in your progress notes if you are in agreement that the above diagnosis is valid for this patient: Hypokalemia or other etiology of labs: Yes, [ ] is a valid diagnosis for this patient No, [ ] is a not a valid diagnosis for this patient Other (please specify) Unable to determine Use of terms such as suspected, likely, concern for, or probable (associated with a specific diagnosis that is being evaluated, monitored, or treated as if it exists) are acceptable and can be coded in the inpatient setting, when documented at the time of discharge. Thank you, Oliva Grimes, [facility], CDIS Extension: [phone] Please use your independent medical judgment in providing your response. THIS QUERY IS PART OF THE PERMANENT MEDICAL RECORD Provider Response: Other Other Diagnosis: Hypokalemia
--- NOTE | 2021-12-04 09:30 | P.DS_ITS ---
DS: Providers Provider Date of Service: 01/05/22 Date of admission: 11/28/21 18:21 Primary care physician: Manish King MD DS: Diagnosis Discharge Diagnosis (1) Chronic a-fib: (2) Closed intertrochanteric fracture of femur: Status: Resolved (3) Unwitnessed fall: Status: Resolved DS: Summary Hospital Course Hospital Course: Chief Complaint: Fall 84-year-old female? with chronic AFIB on eliquis coming, hypothyroidism,? HLD, nonischemic cardiomyopathy status post biventricular AICD,? who presented from SNF with unwitness fall? and found to have acute comminuted intertrochanteric fracture left femur. No dislocation. Patient is presently drowsy and not able to offer detail history other than telling me she was trying to use the bathroom, report is she tipped over on comode and there was no losss of consc iousness and was complaining of pain the left hip as result of fracture. Hospital course: ?#Acute comminuted intertrochanteric fracture left femur from fall. She was operated on by Dr. Connors on 11/30 following holding Eliquis for 2 days. She has been treated for pain with morphine, then Dilaudid and Tylenol. being discharge on Tylenol and low-dose oxycodone and on Eliquis for DVT prophylaxis. #Fall, no evidence of arryhtmia, likely mechanical fall, #Chronic AFIB--rhythm control with amiodarone, metoprolol for rate control, Eliquis was on hold briefly but was restarted after surgery. #Acute blood loss anemia---Hgb dropped from 12 on 11/28 to 6 on 12/01, transfused 2 units of 12/01 with good effect, last hemoglobin 10.4 on 12/03 #Hyothyroidism--continue levothyroxine #Confusion d/t Delirium? and opioid related metabolic encephalopathy. Likely multifactorial including effect of morphine, situational delirium , now resolved answering questions appropriately. # Hypokalemia repleted and improved to 3.2 received additional dose of potassium, check labs on Tuesday #Mild hyponatremia--mild and has been stable #HTN--continue Metoprolol ? Time Spent with Patient Time attestation: Total time spent providing and/or coordinating discharge services: Discharge coordination time: Greater than 30 minutes Quality: Stroke Does the patient have a stroke diagnosis?: No Physical Exam Vital Signs: Vital Signs: Last Vital Signs Temp 97.8 F 12/04/21 07:02 Pulse 75 12/04/21 08:16 Resp 16 12/04/21 07:02 BP 157/80 H 12/04/21 08:16 Pulse Ox 95 12/04/21 08:16 BMI result Body Mass Index 19.1 Discharge Plan Discharge Anticipated Discharge Date/Time: 12/04/21 09:46 Patient Disposition: Xfer SNF Discharge Diagnosis: Hip fracture, Fall, Encephalpathy Referrals: [facility] [Outside] - 1 Week Manish King MD [Primary Care Provider] - 1 Week Leonel Julio PA-C [Physician Junior Systems Engineer] - 2 Weeks (12/14/21 2:00 [facility] [place] [facility] Leonel Julio PA-C) Discharge Medications: New melatonin 3 mg Tablet 3 mg PO BEDTIME PRN (Reason: Insomnia) Qty: 30 0RF docusate sodium 100 mg Capsule 100 mg PO DAILY Qty: 30 0RF oxycodone 5 mg Tablet 2.5 mg PO Q4H PRN (Reason: Pain, Moderate (Pain Scale 4-6) Qty: 12 0RF Continued apixaban [Eliquis] 2.5 mg tablet 2.5 mg PO BID Qty: 180 3RF paroxetine HCl 10 mg tablet 1 tab PO DAILY 0RF amiodarone 200 mg tablet 1 tab PO DAILY 0RF levothyroxine 75 mcg tablet 0.5 tab PO DAILY 0RF lisinopril 5 mg tablet 1 tab PO DAILY 0RF lorazepam 1 mg tablet 1 tab PO BID PRN (Reason: Anxiety) 0RF metoprolol tartrate 25 mg tablet 1 tab PO BID 0RF sennosides [senna] 8.6 mg Tablet 8.6 mg PO BEDTIME 0RF acetaminophen [Tylenol] 325 mg Tablet 650 mg PO Q6H PRN (Reason: Pain) 0RF famotidine 20 mg Tablet 20 mg PO BID 0RF bisacodyl 10 mg Suppository 10 mg [place] DAILY PRN (Reason: Constipation) 0RF cholecalciferol (vitamin D3) 25 mcg (1,000 unit) Tablet 25 mcg PO DAILY 0RF Discontinued nitrofurantoin monohyd/m-cryst [Macrobid] 100 mg Capsule 100 mg PO BID 0RF Rx Instructions: must administer with a meal/food, start date as of 11/27/21 with end date of 12/04/21 Discharge Orders: Discharge Order (Routine); Ordered 12/05/21 Ordered By: Elise San Diet: advance to usual diet and regular diet Activity on Discharge: As tolerated Stand Alone Forms: Patient Portal Discharge page Care Plan Goals: Full recovery from hip fracture and delirium asses pain, minimize narcotics to avoid encephalopathy continue bilateral heel protectors Check BMP on Thursday 12/07 Health Concerns: Hip fracture and delirium Plan of Treatment: To rehab, Assessment: Gait training, strengthening, ADLs, WBAT with walker Keep dressing clean,dry and intact-no showering or tub baths Follow up with Orthopedics in 2 weeks Discharge Date/Time: 12/05/21 18:35
[2021-12-04] MEDS: Levothyroxine Sodium 75 MCG TABLET 37.5 MCG PO (09:46)
[2021-12-04] MEDS: lisinopriL 5 MG TABLET PO (09:48)
[2021-12-04] MEDS: Famotidine 20 MG TABLET PO ×2 (09:48→21:05)
[2021-12-04] MEDS: Cholecalciferol (Vitamin D3) 25 MCG TABLET PO (09:48)
[2021-12-04] MEDS: Amiodarone HCL 200 MG TABLET PO (09:48)
[2021-12-04] MEDS: Apixaban 2.5 MG TABLET PO ×2 (09:49→21:05)
[2021-12-04] MEDS: Metoprolol Tartrate 25 MG TABLET PO ×2 (09:49→21:05)
[2021-12-04 09:56] LABS: Anion Gap 11 (12-20); Carbon Dioxide 27 mmol/L (22-29); Chloride 97 mmol/L (96-108); Potassium 2.8 mmol/L (3.3-5.1); Sodium 132 mmol/L (135-145)
[2021-12-04] MEDS: PARoxetine HCL 10 MG TABLET PO (11:13)
[2021-12-04] MEDS: Potassium Chloride/H20 10 MEQ/100 ML PIGGYBACK 100 MEQ IV ×3 (12:05→16:11)
--- NOTE | 2021-12-04 12:24 | MHC.CM.PN ---
Addendum entered by Isela Marquez 12/05/21 14:23: PTS DC HELD YESTERDAY DUE TO LOW K. PT WILL DC TODAY BACK TO [facility] SON INFORMED VIA T/C Original Note: PT TO RETURN TO [facility] THIS AFTERNOON AT 1330 HOURS. CM CALLED PTS SON/HCP, PETER [phone] AND INFORMED HIM OF DC AND PTS MEDICARE/ RIGHTS PT WILL BE TRANSPORTED VIA [facility]
[2021-12-04] MEDS: LORazepam 1 MG TABLET PO ×2 (14:53→21:05)
[2021-12-04 16:00] VITALS: BP 159/69; PULSE 68; RESP 16; TEMP 36.9; O2SAT 97
[2021-12-04] MEDS: Sennosides 8.6 MG TABLET PO (21:06)
[2021-12-04 23:13] VITALS: BP 168/74; PULSE 74; RESP 20; TEMP 36.9; O2SAT 93
[2021-12-05 08:00] VITALS: BP 172/91; PULSE 80; RESP 18; TEMP 35.5; O2SAT 95
[2021-12-05 08:48] LABS: Anion Gap 14 (12-20); Calcium 8.6 mg/dL (8.4-10.2); Carbon Dioxide 28 mmol/L (22-29); Chloride 98 mmol/L (96-108); Creatinine Clr Calc Pharmacy 39.4; Estimated Glomerular Filt Rate > 60; Glucose Random 140 mg/dL (60-115); Potassium 3.2 mmol/L (3.3-5.1); Sodium 137 mmol/L (135-145)
[2021-12-05 08:49] VITALS: RESP 15
[2021-12-05] MEDS: HYDROmorphone HCl 0.5 MG/0.5 ML SYRINGE 0.25 MG IVPUSH (08:49)
[2021-12-05] MEDS: PARoxetine HCL 10 MG TABLET PO (08:49)
[2021-12-05] MEDS: Famotidine 20 MG TABLET PO (08:49)
[2021-12-05] MEDS: Metoprolol Tartrate 25 MG TABLET PO (08:49)
[2021-12-05] MEDS: lisinopriL 5 MG TABLET PO (08:50)
[2021-12-05] MEDS: Cholecalciferol (Vitamin D3) 25 MCG TABLET PO (08:50)
[2021-12-05] MEDS: Amiodarone HCL 200 MG TABLET PO (08:50)
[2021-12-05] MEDS: Apixaban 2.5 MG TABLET PO (08:50)
[2021-12-05] MEDS: LORazepam 1 MG TABLET PO (08:50)
[2021-12-05] MEDS: Levothyroxine Sodium 75 MCG TABLET 37.5 MCG PO (08:50)
[2021-12-05 09:28] LABS: Blood Urea Nitrogen 12 mg/dL (9-16)
[2021-12-05] MEDS: Potassium Chloride Packet 20 MEQ PACKET PO (11:43)
[2021-12-05] MEDS: oxyCODONE HCl Immed Release 5 MG TABLET 2.5 MG PO (11:44)
[2021-12-05] MEDS: Docusate Sodium 100 MG CAPSULE PO (11:44)
[2021-12-05] MEDS: Acetaminophen 325 MG TABLET 650 MG PO (11:44)
--- NOTE | 2021-12-05 14:43 | P.DS_ITS ---
DS: Providers Provider Date of Service: 12/05/21 Date of admission: 11/28/21 18:21 Primary care physician: Manish King MD DS: Diagnosis Discharge Diagnosis (1) Chronic a-fib: (2) Closed intertrochanteric fracture of femur: Status: Acute (3) Unwitnessed fall: Status: Resolved DS: Summary Hospital Course Hospital Course: Chief Complaint: Fall 84-year-old female? with chronic AFIB on eliquis coming, hypothyroidism,? HLD, nonischemic cardiomyopathy status post biventricular AICD,? who presented from SNF with unwitness fall? and found to have acute comminuted intertrochanteric fracture left femur. No dislocation. Patient is presently drowsy and not able to offer detail history other than telling me she was trying to use the bathroom, report is she tipped over on comode and there was no losss of consciou sness and was complaining of pain the left hip as result of fracture. Hospital course: ?#Acute comminuted intertrochanteric fracture left femur from fall. She was operated on by Dr. Connors on 11/30 following holding Eliquis for 2 days. She has been treated for pain with morphine, then Dilaudid and Tylenol. being discharge on Tylenol and low-dose oxycodone and on Eliquis for DVT prophylaxis. #Fall, no evidence of arryhtmia, likely mechanical fall, #Chronic AFIB--rhythm control with amiodarone, metoprolol for rate control, Eliquis was on hold briefly but was restarted after surgery. #Acute blood loss anemia---Hgb dropped from 12 on 11/28 to 6 on 12/01, transfused 2 units of 12/01 with good effect, last hemoglobin 10.4 on 12/03 #Hyothyroidism--continue levothyroxine #Confusion d/t Delirium? and opioid related metabolic encephalopathy. Likely multifactorial including effect of morphine, situational delirium , now resolved answering questions appropriately. # Hypokalemia repleted and improved to 3.2 received additional dose of potassium, check labs on Tuesday #Mild hyponatremia--mild and has been stable #HTN--continue Metoprolol ? Time Spent with Patient Time attestation: Total time spent providing and/or coordinating discharge services: Discharge coordination time: Greater than 30 minutes Quality: Stroke Does the patient have a stroke diagnosis?: No Physical Exam Vital Signs: Vital Signs: Last Vital Signs Temp 96 F L 12/05/21 08:00 Pulse 80 12/05/21 08:00 Resp 15 12/05/21 08:49 BP 172/91 H 12/05/21 08:00 Pulse Ox 95 12/05/21 08:00 BMI result Body Mass Index 19.1 Const: Other: Constitutional: awake alert, in no distress neck no JVD Respiratory: Clear to auscultation. No wheezing, rales or rhonchi. Cardiovascular: S1 S,? regular. No murmurs, rubs or gallops. Gastrointestinal: Abdomen soft, non-tender, non-distended. Normal bowel sounds.? Neurologic: Cranial nerves II-XII intact. No focal neurological deficits. Moves all extremities spontaneously.? Skin: left leg bruising Musculoskeletal: left hip pain with movement Psychiatric: flat affect redness bilateral heels, continue heel protected DS: Data Data Completed and Pending Labs on day of discharge: Laboratory Results - last 24 hr 12/05/21 08:07 Sodium 137 Potassium 3.2 L Chloride 98 Carbon Dioxide 28 Anion Gap 14 BUN 12 D Creatinine 0.86 Estim Creat Clear Calc 39.4 Estimated GFR > 60 Random Glucose 140 H Calcium 8.6 Discharge Plan Discharge Anticipated Discharge Date/Time: 12/04/21 09:46 Patient Disposition: er SNF Discharge Diagnosis: Hip fracture, Fall, Encephalpathy Referrals: [facility] [Outside] - 1 Week Manish King MD [Primary Care Provider] - 1 Week Leonel Julio PA-C [Physician Building Maintenance Supervisor] - 2 Weeks (12/14/21 2:00 [facility] [place] [facility] Leonel Julio PA-C) Discharge Medications: New melatonin 3 mg Tablet 3 mg PO BEDTIME PRN (Reason: Insomnia) Qty: 30 0RF docusate sodium 100 mg Capsule 100 mg PO DAILY Qty: 30 0RF oxycodone 5 mg Tablet 2.5 mg PO Q4H PRN (Reason: Pain, Moderate (Pain Scale 4-6) Qty: 12 0RF Continued apixaban [Eliquis] 2.5 mg tablet 2.5 mg PO BID Qty: 180 3RF paroxetine HCl 10 mg tablet 1 tab PO DAILY 0RF amiodarone 200 mg tablet 1 tab PO DAILY 0RF levothyroxine 75 mcg tablet 0.5 tab PO DAILY 0RF lisinopril 5 mg tablet 1 tab PO DAILY 0RF lorazepam 1 mg tablet 1 tab PO BID PRN (Reason: Anxiety) 0RF metoprolol tartrate 25 mg tablet 1 tab PO BID 0RF sennosides [senna] 8.6 mg Tablet 8.6 mg PO BEDTIME 0RF acetaminophen [Tylenol] 325 mg Tablet 650 mg PO Q6H PRN (Reason: Pain) 0RF famotidine 20 mg Tablet 20 mg PO BID 0RF bisacodyl 10 mg Suppository 10 mg [place] DAILY PRN (Reason: Constipation) 0RF cholecalciferol (vitamin D3) 25 mcg (1,000 unit) Tablet 25 mcg PO DAILY 0RF Discontinued nitrofurantoin monohyd/m-cryst [Macrobid] 100 mg Capsule 100 mg PO BID 0RF Rx Instructions: must administer with a meal/food, start date as of 11/27/21 with end date of 12/04/21 Discharge Orders: Discharge Order (Routine); Ordered 12/05/21 Ordered By: Elise San Diet: advance to usual diet and regular diet Activity on Discharge: As tolerated Stand Alone Forms: Patient Portal Discharge page Care Plan Goals: Full recovery from hip fracture and delirium asses pain, minimize narcotics to avoid encephalopathy continue bilateral heel protectors Check BMP on Thursday 12/07 Health Concerns: Hip fracture and delirium Plan of Treatment: To rehab, Assessment: Gait training, strengthening, ADLs, WBAT with walker Keep dressing clean,dry and intact-no showering or tub baths Follow up with Orthopedics in 2 weeks
[2021-12-05 16:00] VITALS: BP 134/63; PULSE 71; RESP 18; TEMP 37.6; O2SAT 92
== END 2021-12-05 18:35 | disposition skilled nursing facility (03) | DRG 480 ==
LOC: HO.ED 16:53 → HO.EDOVER 18:26 → HO.S3 19:05
PROVIDERS: Orthopaedic Surgery; Admitting Provider Internal Medicine; Emergency Provider Emergency Medicine; PCP Internal Medicine; Visit Provider Hospitalist
DX: S72.142A Displaced intertrochanteric fracture of left femur, initial encounter for closed fracture (principal); G92.8 Other toxic encephalopathy; E87.1 Hypo-osmolality and hyponatremia; D62 Acute posthemorrhagic anemia; F05 Delirium due to known physiological condition; W01.0XXA Fall on same level from slipping, tripping and stumbling without subsequent striking against object, initial encounter; Y92.129 Unspecified place in nursing home as the place of occurrence of the external cause; E03.9 Hypothyroidism, unspecified; E78.5 Hyperlipidemia, unspecified; I48.0 Paroxysmal atrial fibrillation; E87.6 Hypokalemia; R29.6 Repeated falls; Z95.810 Presence of automatic (implantable) cardiac defibrillator; Z20.822 Contact with and (suspected) exposure to COVID-19; Z91.81 History of falling; Z79.01 Long term (current) use of anticoagulants; Z79.890 Hormone replacement therapy; Z79.899 Other long term (current) drug therapy; T40.2X5A Adverse effect of other opioids, initial encounter
CPT/HCPCS: 36415; 70450; 71045; 72125; 73502; 80048; 80051; 80076; 81001; 82550; 82947; 83735; 84484; 85025; 85027; 85610; 85730; 86850; 86900; 86901; 86923; 87086; 87635; 93005; 96374; 96375; 97116; 97162; 97166; 97530; 97535; 99285; C1713; C1758; C1769; J0131; J0690; J1170; J1650; J2270; J2405; J3010; P9016

== ENCOUNTER → 2021-12-11 12:29 | Outpatient (BNVA) | payer MEDICARE, OTHER, SELFPAY | PROVIDERS: Visit Provider Physician Assistant | DX: Z48.89 Encounter for other specified surgical aftercare (principal) | CPT/HCPCS: 99212 ==

== ENCOUNTER → 2021-12-18 10:33 | Outpatient (BNVA) | payer MEDICARE, OTHER, SELFPAY | PROVIDERS: Visit Provider Physician Assistant | DX: S72.142D Displaced intertrochanteric fracture of left femur, subsequent encounter for closed fracture with routine healing (principal) | CPT/HCPCS: 99212 ==

== ENCOUNTER 2022-01-17 17:56 | Emergency (ER) | payer MEDICARE, OTHER, SELFPAY ==
--- NOTE | ~2022-01-17 | CT_ITS ---
CT head/brain wo con CLINICAL INFORMATION: Reason for Exam fall, on elequis COMPARISON: No prior CT scan available for comparison. TECHNIQUE: Department standard protocol. This CT examination was performed using dose optimization techniques as appropriate, variously including the following: *Automated exposure control *Adjustment of mA and/or kV according to patient size (this includes techniques or standardized protocols for targeted exams where dose is matched to indication/reason for exam; i.e. extremities or head) *Use of iterative reconstruction technique DLP: 548 mGy-cm FINDINGS: CEREBRAL HEMISPHERES: There is no evidence of intra-axial or extra-axial mass, hemorrhage or acute infarct. BRAIN PARENCHYMA: Deep white matter and paraventricular hypoattenuation, nonspecific; most likely changes secondary to chronic ischemia due to microvascular angiopathy. SUBDURAL SPACE: No bleed. BASAL GANGLIA AND PINEAL GLAND: Unremarkable VENTRICLES: Symmetric and normal in size. CEREBELLUM AND BRAINSTEM: No space-occupying mass, hemorrhage or acute infarct. CEREBELLOPONTINE ANGLES: No lesion found. ORBITS: No intraorbital mass. VESSELS: Unremarkable SKULL BASE: Unremarkable INCLUDED SINUSES AT SKULL BASE: Clear SKULL AND SKIN: No fracture or bone lesion found. CT/CT head/brain wo con IMPRESSION: Deep white matter and periventricular hypoattenuation, nonspecific; most likely sequela of chronic microvascular angiopathy ischemia. No intracranial bleed.
--- NOTE | ~2022-01-17 | CT_ITS ---
EXAMINATION: CT LUMBAR SPINE without contrast CLINICAL INFORMATION: Fall COMPARISON: Prior x-ray September 2021 TECHNIQUE: Helical non-contrast CT images were obtained through the lumbar spine and 1.25 and 2.5 mm axial reconstructions were reviewed along with sagittal and coronal MPRs. This CT examination was performed using dose optimization techniques as appropriate, variously including the following: *Automated exposure control *Adjustment of mA and/or kV according to patient size (this includes techniques or standardized protocols for targeted exams where dose is matched to indication/reason for exam; i.e. extremities or head) *Use of iterative reconstruction technique CONTRAST: A noncontrasted study DLP: 548 mGy-cm FINDINGS: FRACTURES: Complete compression fractures vertebra planum T12 and L1. Partial compression fracture of L3, this has progressed when compared with the prior x-ray of September 2021. L2, L4 on L5 remain intact. The vertebral body of T12 fractures displaced into the central canal, potentially compression on the cord or conus medullaris. VERTEBRAL ALIGNMENT: There is mild grade 1 anterior spondylolisthesis of L4 on L5. SOFT TISSUE: There is heavy aortic vascular calcifications. DISCS: There is narrowing of the disc space at suggesting underlying degenerative disc disease. L1-L2: No central or foraminal stenosis. L2-L3: No central or foraminal stenosis. L3-L4: No osseous a stenosis of central canal or foramen. L4-L5: Bilateral advance facet joints arthropathy. Underlying disc disease. Cannot rule out underlying stenosis. L5-S1: Bilateral facet joints arthropathy. Disc disease. No osseous a stenosis of central canal or foramen. OTHER FINDINGS: Surrounding structures otherwise normal. CT/CT lumbar spine wo con IMPRESSION: *Redemonstration of Compression fracture vertebra plana at T12 the posterior element of the vertebral body displaced posteriorly into the central canal, potentially compressing on the spinal cord. *Progression of Compression fracture vertebra plana L1. *Progression of partial compression fracture of L3. *Underlying degenerative disc disease. *Narrowing of the central canal at L4-L5 caused by combination of facet joints arthropathy, disc bulge and mild grade 1 anterior listhesis of L4 on L5. MRI could be utilized for further characterization if clinically indicated.
[2022-01-17 18:01] VITALS: BP 126/62; PULSE 64; O2SAT 95
[2022-01-17 18:04] VITALS: BP 126/62; PULSE 63; RESP 16; TEMP 37.1; O2SAT 97; BMI 20.5
--- NOTE | 2022-01-17 18:56 | ECG_ITS ---
Test Reason : WEAK Blood Pressure : / mmHG Vent. Rate : 063 BPM Atrial Rate : 063 BPM P-R Int : 244 ms QRS Dur : 162 ms QT Int : 512 ms P-R-T Axes : 019 165 117 degrees QTc Int : 525 ms AV dual-paced rhythm with prolonged AV conduction with frequent ventricular-paced complexes Abnormal ECG When compared with ECG of 28-NOV-2021 16:43, No significant changes seen Referred By: Amber Merino Electronically Signed By:ALL SCHMITT MD
--- NOTE | 2022-01-17 19:13 | ED.FALL ---
HPI - Fall General Chief Complaint: Fall Stated Complaint: UNWIT FALL FROM TOILET,LOW BACK/BUTTOCK PAIN Time Seen by Provider: 01/17/22 18:03 Source: EMS Mode of arrival: EMS Limitations: other (History of dementia) History of Present Illness HPI Narrative: Patient comes to emergency room via ambulance from [facility]. According to the staff, patient was sitting on the toilet, seems that she was dizzy slit of the toilet and landed on her buttocks. Patient has history of dementia, however she states that she did not lose consciousness, she does not have a headache, did not hit her head. Patient is on Eliquis. Of note, a few weeks ago patient had left-sided hip replacement. Patient states that her hip does not hurt, only the lumbar part of her back. Related Data Home Medications Medication Instructions Recorded Confirmed amiodarone 200 mg tablet 1 tab PO DAILY 08/17/21 11/28/21 levothyroxine 75 mcg tablet 0.5 tab PO DAILY 08/17/21 11/28/21 lisinopril 5 mg tablet 1 tab PO DAILY 08/17/21 11/28/21 lorazepam 1 mg tablet 1 tab PO BID PRN 08/17/21 11/28/21 metoprolol tartrate 25 mg tablet 1 tab PO BID 08/17/21 11/28/21 paroxetine HCl 10 mg tablet 1 tab PO DAILY 08/17/21 11/28/21 acetaminophen 325 mg tablet 650 mg PO Q6H PRN 11/28/21 11/28/21 (Tylenol) bisacodyl 10 mg rectal suppository 10 mg [place] DAILY PRN 11/28/21 11/28/21 cholecalciferol (vitamin D3) 25 25 mcg PO DAILY 11/28/21 11/28/21 mcg (1,000 unit) tablet famotidine 20 mg tablet 20 mg PO BID 11/28/21 11/28/21 sennosides 8.6 mg tablet (senna) 8.6 mg PO BEDTIME 11/28/21 11/28/21 Previous Rx's Medication Instructions Recorded apixaban 2.5 mg tablet (Eliquis) 2.5 mg PO BID #180 tab 04/07/21 docusate sodium 100 mg capsule 100 mg PO DAILY #30 cap 12/05/21 melatonin 3 mg tablet 3 mg PO BEDTIME PRN #30 tab 12/05/21 oxycodone 5 mg tablet 2.5 mg PO Q4H PRN #12 tab 12/05/21 Allergies Allergy/AdvReac Type Severity Reaction Status Date / Time No Known Allergies Allergy Verified 12/18/21 10:46 [No Known Allergies*] Review of Systems Review of Systems: Constitutional : No Weight loss, No Fever, No Chills, No Night Sweats, No Fatigue, No Malaise ENT/Mouth : No Hearing loss, No Ear Pain, No Nasal Congestion, No Sinus Pain, No Hoarseness, No sore throat, No Rhinorrhea, No Swallowing Difficulty Eyes: No Eye Pain, No Swelling, No Redness, No Foreign Body, No Discharge, No Vision Changes Cardiovascular : No Chest Pain, No SOB, No Dyspnea on Exertion, No Orthopnea, No Edema, No Palpitations Respiratory : No Cough, No Sputum, No Wheezing, No Smoke Exposure, No Dyspnea Gastrointestinal : No Nausea, No Vomiting, No Diarrhea, No Constipation, No abdominal Pain, No Hematochezia, No Melena Genitourinary : no irregular bleeding, No Dysuria, No Urinary Frequency, No Hematuria, No Urinary Incontinence, No Urgency, No Flank Pain, No Urinary Flow Changes, No Hesitancy Musculoskeletal : Complaining of lumbar pain Skin : No Skin Lesions, No rash Neuro : No Weakness, No Numbness, No Paresthesias, No Loss of Consciousness, No Dizziness, No Headache Psych : No Anxiety/Panic, No Depression, No SI/HI/AH/VH, No Social Issues, Heme/Lymph: No Bruising, No Bleeding,No Lymphadenopathy Endocrine : No Polyuria, No Polydipsia, No Temperature Intolerance [facility] Past Medical History Medical History Anxiety Biventricular ICD (implantable cardioverter-defibrillator) in place Chronic a-fib CVA (cerebral vascular accident) Fatty liver Frailty Frequent PVCs Heart failure with reduced ejection fraction Hypertension Hypothyroidism Nonischemic cardiomyopathy Palpitations Paroxysmal atrial fibrillation Surgical History History of permanent cardiac pacemaker placement Hx of Achilles tendon repair Hx of hysterectomy Family History Family History Father No problems noted. Mother No problems noted. Social History Social History Household Members: None Housing: House Unable to assess alcohol history related to: Unknown Alcohol intake: never Patient Tobacco Use Status: Never used Tobacco Second Hand Smoke Exposure: No Advance Directives: Yes Advance Directives on File: Yes Advance Directives Date on File: 10/19/21 service: No Current occupational status: retired Current occupation: right handed Physical Exam Vital Signs: Vital Signs: Last Vital Signs Temp 98.8 F 01/17/22 18:04 Pulse 60 01/17/22 22:01 Resp 22 H 01/17/22 22:01 BP 144/70 H 01/17/22 22:01 Pulse Ox 95 01/17/22 22:01 BMI result Body Mass Index 20.5 Const: Other: Appearance: Alert. Oriented X1 No acute distress. Eyes: Pupils equal, round and reactive to light. ENT: Pharynx normal. Neck: Normal inspection. Neck supple. No lymph nodes noted. No crepitus CVS: Normal heart rate and rhythm. Pulses normal. Normal S1 and S2 Respiratory: No respiratory distress. Breath sounds normal. No Wheezing. No rales Abdomen: Soft and nontender. No rigidity. No distention. Skin: Skin warm and dry. Normal skin color. Normal skin turgor. Back: Pain to palpation in lumbar area and buttocks, no C-spine or thoracic spine tenderness Extremities: No lower extremity edema. No Lacerations. No Rash Neuro: Oriented X 1. No motor deficit. No sensory deficit. Moving all extremities. No slurred speech. CN 2 through 12 grossly intact Psych: calm, cooperative, normal affect Course Course Course Narrative: CT scan of head and lumbar spine pending. This time, patient states she feels well, declined pain medication. I discussed with the patient under no acute findings other than progression compression fractures of L1 and L3. At this time, patient states that she has no pain, feels well otherwise. MDM - Fall Lab Data Result diagrams: 01/17/22 19:53 01/17/22 19:53 Labs: Lab Results 01/17/22 01/17/22 01/17/22 Range/Units 19:53 19:53 19:53 WBC 5.7 (4.8-10.8) X10*3/uL RBC 4.20 (4.20-5.50) X10*6/uL Hgb 12.9 (12.0-16.0) g/dl Hct 39.6 (37.0-47.0) % MCV 94.3 (80.0-98.0) fL MCH 30.7 (27.0-33.0) pg MCHC 32.6 (31.0-35.0) g/dl RDW 14.8 (11.0-16.0) % Plt Count 155 L (160-400) X10*3/uL MPV 9.7 (9.4-12.3) fL Immature Gran % (Auto) 0.2 (0.0-0.4) % Neut % (Auto) 52.4 (45-73) % Lymph % (Auto) 36.2 (20-40) % [place] % (Auto) 9.3 (2-11) % Eos % (Auto) 1.6 (0-4) % Baso % (Auto) 0.3 (0-2) % Lymph # (Auto) 2.1 (1.2-4.9) X10*3/uL [place] # (Auto) 0.5 (0.1-1.2) X10*3/uL Eos # (Auto) 0.1 (0.0-0.4) X10*3/uL Baso # (Auto) 0.0 (0.0-0.2) X10*3/uL Abs Immat Gran (auto) 0.01 (0.00-0.03) X10*3/uL Absolute Neuts (auto) 3.0 (2.0-8.3) x10*3/uL Absolute Nucleated RBC 0.000 (0.0-0.012) X10*3/uL Nucleated RBC % (auto) 0.0 (0.0-0.2) /100WBC Sodium 137 (135-145) mmol/L Potassium 4.6 D (3.3-5.1) mmol/L Chloride 101 (96-108) mmol/L Carbon Dioxide 28 (22-29) mmol/L Anion Gap 13 (12-20) BUN 17 H (9-16) mg/dL Creatinine 1.34 (0.5-1.4) mg/dL Estim Creat Clear Calc 21.6 Estimated GFR 38 Random Glucose 112 (60-115) mg/dL Calcium 8.9 (8.4-10.2) mg/dL Troponin I High Sens 8.4 (<3.5-17.0) ng/L Imaging Data CT scan - head: Radiologist's impression: FINDINGS: ? CEREBRAL HEMISPHERES: There is no evidence of intra-axial or extra-axial mass, hemorrhage or acute infarct. BRAIN PARENCHYMA: Deep white matter and paraventricular hypoattenuation, nonspecific; most likely changes secondary to chronic ischemia due to microvascular angiopathy. SUBDURAL SPACE: No bleed. BASAL GANGLIA AND PINEAL GLAND: Unremarkable VENTRICLES: Symmetric and normal in size. CEREBELLUM AND BRAINSTEM: No space-occupying mass, hemorrhage or acute infarct. CEREBELLOPONTINE ANGLES: No lesion found. ORBITS: No intraorbital mass. VESSELS: Unremarkable SKULL BASE: Unremarkable INCLUDED SINUSES AT SKULL BASE: Clear SKULL AND SKIN: No fracture or bone lesion found. CT/CT head/brain wo con IMPRESSION: Deep white matter and periventricular hypoattenuation, nonspecific; most likely sequela of chronic microvascular angiopathy ischemia. ? No intracranial bleed. Lumbar CT scan: Radiologist's impression: FINDINGS: FRACTURES: Complete compression fractures vertebra planum T12 and L1. Partial compression fracture of L3, this has progressed when compared with the prior x-ray of September 2021. L2, L4 on L5 remain intact. The vertebral body of T12 fractures displaced into the central canal, potentially compression on the cord or conus medullaris. VERTEBRAL ALIGNMENT: There is mild grade 1 anterior spondylolisthesis of L4 on L5. SOFT TISSUE: There is heavy aortic vascular calcifications. DISCS: There is narrowing of the disc space at suggesting underlying degenerative disc disease. L1-L2: No central or foraminal stenosis. L2-L3:? No central or foraminal stenosis. L3-L4:? No osseous a stenosis of central canal or foramen. L4-L5: ? Bilateral advance facet joints arthropathy. Underlying disc disease. Cannot rule out underlying stenosis. L5-S1: Bilateral facet joints arthropathy. Disc disease. No osseous a stenosis of central canal or foramen. OTHER FINDINGS: Surrounding structures otherwise normal. CT/CT lumbar spine wo con IMPRESSION: *Redemonstration of Compression fracture vertebra plana at T12 the posterior element of the vertebral body displaced posteriorly into the central canal, potentially compressing on the spinal cord. ? *Progression of Compression fracture vertebra plana L1. ? *Progression of partial compression fracture of L3. ? *Underlying degenerative disc disease. ? *Narrowing of the central canal at L4-L5 caused by combination of facet joints arthropathy, disc bulge and mild grade 1 anterior listhesis of L4 on L5. MRI could be utilized for further characterization if clinically indicated. Discharge Plan Discharge Clinical Impression: Compression fracture of L1 vertebra Patient Disposition: Home, Self-Care Instructions: Vertebral Compression Fracture (ED) Additional Instructions: CT scan of the head shows no acute findings. CT scan of the lumbar spine shows progression of compression fractures of L1 and L3. Please follow-up with your primary care physician tomorrow. If you have any worsening or new symptoms, please return to the emergency room or call 911 Prescriptions: No Action apixaban [Eliquis] 2.5 mg tablet 2.5 mg PO BID Qty: 180 3RF paroxetine HCl 10 mg tablet 1 tab PO DAILY 0RF amiodarone 200 mg tablet 1 tab PO DAILY 0RF levothyroxine 75 mcg tablet 0.5 tab PO DAILY 0RF lisinopril 5 mg tablet 1 tab PO DAILY 0RF lorazepam 1 mg tablet 1 tab PO BID PRN (Reason: Anxiety) 0RF metoprolol tartrate 25 mg tablet 1 tab PO BID 0RF sennosides [senna] 8.6 mg Tablet 8.6 mg PO BEDTIME 0RF acetaminophen [Tylenol] 325 mg Tablet 650 mg PO Q6H PRN (Reason: Pain) 0RF famotidine 20 mg Tablet 20 mg PO BID 0RF bisacodyl 10 mg Suppository 10 mg [place] DAILY PRN (Reason: Constipation) 0RF cholecalciferol (vitamin D3) 25 mcg (1,000 unit) Tablet 25 mcg PO DAILY 0RF melatonin 3 mg Tablet 3 mg PO BEDTIME PRN (Reason: Insomnia) Qty: 30 0RF docusate sodium 100 mg Capsule 100 mg PO DAILY Qty: 30 0RF oxycodone 5 mg Tablet 2.5 mg PO Q4H PRN (Reason: Pain, Moderate (Pain Scale 4-6) Qty: 12 0RF
[2022-01-17 19:57] LABS: MANUAL DIFF FLAG NO
[2022-01-17 19:59] LABS: Basophils Percent Auto 0.3 % (0-2); Eosinophils Absolute Auto 0.1 X10*3/uL (0.0-0.4); Eosinophils Percent Auto 1.6 % (0-4); Hematocrit 39.6 % (37.0-47.0); Hemoglobin 12.9 g/dl (12.0-16.0); Imm Gran Abs Auto 0.01 X10*3/uL (0.00-0.03); Imm Gran Pct Auto 0.2 % (0.0-0.4); Lymphocytes Absolute Auto 2.1 X10*3/uL (1.2-4.9); Lymphocytes Percent Auto 36.2 % (20-40); Mean Corpuscular HGB Conc 32.6 g/dl (31.0-35.0); Mean Corpuscular Hemoglobin 30.7 pg (27.0-33.0); Mean Corpuscular Volume 94.3 fL (80.0-98.0); Mean Platelet Volume 9.7 fL (9.4-12.3); Monocytes Absolute Auto 0.5 X10*3/uL (0.1-1.2); Monocytes Percent Auto 9.3 % (2-11); Neutrophils Percent Auto 52.4 % (45-73); Platelet Count 155 X10*3/uL (160-400); Red Cell Distribution Width 14.8 % (11.0-16.0); White Blood Count 5.7 X10*3/uL (4.8-10.8)
[2022-01-17 20:12] LABS: Anion Gap 13 (12-20); Blood Urea Nitrogen 17 mg/dL (9-16); Calcium 8.9 mg/dL (8.4-10.2); Carbon Dioxide 28 mmol/L (22-29); Chloride 101 mmol/L (96-108); Creatinine Clr Calc Pharmacy 21.6; Estimated Glomerular Filt Rate 38; Glucose Random 112 mg/dL (60-115); Potassium 4.6 mmol/L (3.3-5.1); Sodium 137 mmol/L (135-145)
[2022-01-17 20:18] LABS: Troponin-I High Sensitivity 8.4 ng/L (<3.5-17.0)
[2022-01-17 22:01] VITALS: BP 144/70; PULSE 60; RESP 22; O2SAT 95
[2022-01-17 23:59] VITALS: BP 148/70; PULSE 60; RESP 16; TEMP 36.9; O2SAT 98
[2022-01-18 02:00] VITALS: RESP 16
--- NOTE | 2022-01-18 02:37 | PC.NURSE ---
Pt's transport back to SNF/rehab delayed will be in ER for the night.
[2022-01-18 04:00] VITALS: BP 142/84; PULSE 72; RESP 16; TEMP 36.6; O2SAT 97
[2022-01-18 05:23] VITALS: BP 160/85; PULSE 60; RESP 16; TEMP 36.7; O2SAT 95
[2022-01-18] MEDS: Ondansetron ODT 4 MG TAB.RAPDIS TRANSLINGU (05:55)
[2022-01-18] MEDS: Acetaminophen 325 MG TABLET 975 MG PO (06:30)
--- NOTE | 2022-01-18 07:01 | PC.NURSE ---
Addendum entered by Meera Restrepo RN 01/18/22 07:56: Storm Kat called for a 3rd time, left message with hospital tray service worker that patient is returning via EMS at this time, no concerning findings on imaging. Addendum entered by Meera Restrepo RN 01/18/22 07:12: Second attempt to call report to Storm Kat Original Note: Attempted to call report to Storm Kat
== END 2022-01-18 07:57 | disposition home or self-care (01) ==
PROVIDERS: Emergency Provider Emergency Medicine; PCP Family Medicine
DX: S32.019A Unspecified fracture of first lumbar vertebra, initial encounter for closed fracture (principal); R42 Dizziness and giddiness; M54.50 Low back pain, unspecified; R51.9 Headache, unspecified; W01.0XXA Fall on same level from slipping, tripping and stumbling without subsequent striking against object, initial encounter; Y93.9 Activity, unspecified; Y92.9 Unspecified place or not applicable; Y99.9 Unspecified external cause status; Z79.899 Other long term (current) drug therapy; Z79.01 Long term (current) use of anticoagulants
CPT/HCPCS: 36415; 70450; 72131; 80048; 84484; 85025; 93005; 99284

== ENCOUNTER 2022-02-11 11:07 | Outpatient (REF) | payer MEDICARE, SELFPAY ==
[2022-02-09 06:23] LABS: MANUAL DIFF FLAG NO
[2022-02-09 07:04] LABS: Basophils Percent Auto 0.4 % (0-2); Eosinophils Absolute Auto 0.1 X10*3/uL (0.0-0.4); Eosinophils Percent Auto 1.6 % (0-4); Hematocrit 34.2 % (37.0-47.0); Hemoglobin 11.1 g/dl (12.0-16.0); Imm Gran Abs Auto 0.02 X10*3/uL (0.00-0.03); Imm Gran Pct Auto 0.4 % (0.0-0.4); Lymphocytes Absolute Auto 2.5 X10*3/uL (1.2-4.9); Mean Corpuscular HGB Conc 32.5 g/dl (31.0-35.0); Mean Corpuscular Hemoglobin 30.7 pg (27.0-33.0); Mean Corpuscular Volume 94.5 fL (80.0-98.0); Mean Platelet Volume 9.7 fL (9.4-12.3); Monocytes Absolute Auto 0.5 X10*3/uL (0.1-1.2); Neutrophils Absolute Auto 1.8 x10*3/uL (2.0-8.3); Neutrophils Percent Auto 36.6 % (45-73); Platelet Count 170 X10*3/uL (160-400); Red Blood Count 3.62 X10*6/uL (4.20-5.50); Red Cell Distribution Width 15.1 % (11.0-16.0); White Blood Count 4.9 X10*3/uL (4.8-10.8)
[2022-02-09 07:39] LABS: Anion Gap 13 (12-20); Blood Urea Nitrogen 26 mg/dL (9-16); Calcium 8.8 mg/dL (8.4-10.2); Carbon Dioxide 25 mmol/L (22-29); Chloride 104 mmol/L (96-108); Estimated Glomerular Filt Rate 37; Glucose Random 92 mg/dL (60-115); Potassium 4.6 mmol/L (3.3-5.1); Sodium 137 mmol/L (135-145)
== END 2022-02-11 11:08 | disposition home or self-care (01) ==
LOC: HO.MMNH1L 11:07
PROVIDERS: Visit Provider Family Medicine
DX: Z13.89 Encounter for screening for other disorder (principal)
CPT/HCPCS: 36415; 80048; 85025

== ENCOUNTER 2022-02-11 11:17 | Outpatient (REF) | payer MEDICARE, SELFPAY ==
[2022-02-01 06:47] LABS: MANUAL DIFF FLAG NO
[2022-02-01 06:50] LABS: Basophils Absolute Auto 0.1 X10*3/uL (0.0-0.2); Basophils Percent Auto 0.9 % (0-2); Eosinophils Absolute Auto 0.1 X10*3/uL (0.0-0.4); Eosinophils Percent Auto 2.4 % (0-4); Hematocrit 37.5 % (37.0-47.0); Imm Gran Abs Auto 0.01 X10*3/uL (0.00-0.03); Imm Gran Pct Auto 0.2 % (0.0-0.4); Lymphocytes Absolute Auto 2.6 X10*3/uL (1.2-4.9); Lymphocytes Percent Auto 47.8 % (20-40); Mean Corpuscular Hemoglobin 30.4 pg (27.0-33.0); Mean Corpuscular Volume 94.9 fL (80.0-98.0); Mean Platelet Volume 9.5 fL (9.4-12.3); Monocytes Absolute Auto 0.6 X10*3/uL (0.1-1.2); Monocytes Percent Auto 10.9 % (2-11); Neutrophils Percent Auto 37.8 % (45-73); Platelet Count 177 X10*3/uL (160-400); Red Blood Count 3.95 X10*6/uL (4.20-5.50); Red Cell Distribution Width 15.2 % (11.0-16.0); White Blood Count 5.3 X10*3/uL (4.8-10.8)
[2022-02-01 07:23] LABS: Anion Gap 11 (12-20); Blood Urea Nitrogen 22 mg/dL (9-16); Calcium 8.9 mg/dL (8.4-10.2); Carbon Dioxide 29 mmol/L (22-29); Chloride 102 mmol/L (96-108); Estimated Glomerular Filt Rate 34; Glucose Random 90 mg/dL (60-115); Potassium 4.5 mmol/L (3.3-5.1); Sodium 137 mmol/L (135-145)
== END 2022-02-11 11:18 | disposition home or self-care (01) ==
LOC: HO.MMNH1L 11:17
PROVIDERS: Visit Provider Family Medicine
DX: I48.0 Paroxysmal atrial fibrillation (principal); I10 Essential (primary) hypertension
CPT/HCPCS: 36415; 80048; 85025

== ENCOUNTER 2022-02-15 06:28 | Outpatient (REF) | payer MEDICARE, SELFPAY ==
[2022-02-15 06:38] LABS: MANUAL DIFF FLAG NO
[2022-02-15 07:15] LABS: Basophils Percent Auto 0.5 % (0-2); Eosinophils Absolute Auto 0.2 X10*3/uL (0.0-0.4); Eosinophils Percent Auto 2.7 % (0-4); Hematocrit 32.5 % (37.0-47.0); Hemoglobin 10.5 g/dl (12.0-16.0); Imm Gran Abs Auto 0.02 X10*3/uL (0.00-0.03); Imm Gran Pct Auto 0.4 % (0.0-0.4); Lymphocytes Absolute Auto 2.8 X10*3/uL (1.2-4.9); Lymphocytes Percent Auto 50.3 % (20-40); Mean Corpuscular HGB Conc 32.3 g/dl (31.0-35.0); Mean Corpuscular Hemoglobin 30.7 pg (27.0-33.0); Mean Platelet Volume 9.6 fL (9.4-12.3); Monocytes Absolute Auto 0.6 X10*3/uL (0.1-1.2); Monocytes Percent Auto 10.7 % (2-11); Neutrophils Percent Auto 35.4 % (45-73); Platelet Count 181 X10*3/uL (160-400); Red Blood Count 3.42 X10*6/uL (4.20-5.50); Red Cell Distribution Width 15.3 % (11.0-16.0); White Blood Count 5.6 X10*3/uL (4.8-10.8)
[2022-02-15 07:52] LABS: Anion Gap 12 (12-20); Blood Urea Nitrogen 27 mg/dL (9-16); Calcium 8.4 mg/dL (8.4-10.2); Carbon Dioxide 25 mmol/L (22-29); Chloride 104 mmol/L (96-108); Estimated Glomerular Filt Rate 36; Glucose Random 92 mg/dL (60-115); Potassium 4.4 mmol/L (3.3-5.1); Sodium 137 mmol/L (135-145)
== END 2022-02-15 06:29 | disposition home or self-care (01) ==
LOC: HO.MMNH1L 06:28
PROVIDERS: Visit Provider Family Medicine
DX: I48.0 Paroxysmal atrial fibrillation (principal); I10 Essential (primary) hypertension
CPT/HCPCS: 36415; 80048; 85025

== ENCOUNTER 2022-02-22 06:19 | Outpatient (REF) | payer MEDICARE, SELFPAY ==
[2022-02-22 06:22] LABS: MANUAL DIFF FLAG NO
[2022-02-22 07:00] LABS: Basophils Percent Auto 0.7 % (0-2); Eosinophils Absolute Auto 0.1 X10*3/uL (0.0-0.4); Eosinophils Percent Auto 1.9 % (0-4); Hematocrit 31.6 % (37.0-47.0); Hemoglobin 10.2 g/dl (12.0-16.0); Imm Gran Abs Auto 0.02 X10*3/uL (0.00-0.03); Imm Gran Pct Auto 0.4 % (0.0-0.4); Mean Corpuscular HGB Conc 32.3 g/dl (31.0-35.0); Mean Corpuscular Hemoglobin 30.6 pg (27.0-33.0); Mean Corpuscular Volume 94.9 fL (80.0-98.0); Mean Platelet Volume 9.4 fL (9.4-12.3); Monocytes Absolute Auto 0.6 X10*3/uL (0.1-1.2); Monocytes Percent Auto 9.9 % (2-11); Neutrophils Absolute Auto 1.9 x10*3/uL (2.0-8.3); Neutrophils Percent Auto 34.1 % (45-73); Platelet Count 178 X10*3/uL (160-400); Red Blood Count 3.33 X10*6/uL (4.20-5.50); Red Cell Distribution Width 15.4 % (11.0-16.0); White Blood Count 5.7 X10*3/uL (4.8-10.8)
[2022-02-22 07:17] LABS: Anion Gap 12 (12-20); Blood Urea Nitrogen 22 mg/dL (9-16); Calcium 8.4 mg/dL (8.4-10.2); Carbon Dioxide 27 mmol/L (22-29); Chloride 105 mmol/L (96-108); Estimated Glomerular Filt Rate 37; Glucose Random 84 mg/dL (60-115); Potassium 4.6 mmol/L (3.3-5.1); Sodium 139 mmol/L (135-145)
== END 2022-02-22 06:20 | disposition home or self-care (01) ==
LOC: HO.MMNH1L 06:19
PROVIDERS: Visit Provider Family Medicine
DX: I48.0 Paroxysmal atrial fibrillation (principal); I10 Essential (primary) hypertension
CPT/HCPCS: 36415; 80048; 85025

== ENCOUNTER 2022-03-01 09:21 | Outpatient (REF) | payer MEDICARE, SELFPAY ==
[2022-03-01 06:41] LABS: MANUAL DIFF FLAG NO
[2022-03-01 06:53] LABS: Basophils Percent Auto 0.6 % (0-2); Eosinophils Absolute Auto 0.1 X10*3/uL (0.0-0.4); Eosinophils Percent Auto 2.1 % (0-4); Hematocrit 32.3 % (37.0-47.0); Hemoglobin 10.4 g/dl (12.0-16.0); Imm Gran Abs Auto 0.03 X10*3/uL (0.00-0.03); Imm Gran Pct Auto 0.6 % (0.0-0.4); Lymphocytes Absolute Auto 2.6 X10*3/uL (1.2-4.9); Lymphocytes Percent Auto 48.2 % (20-40); Mean Corpuscular HGB Conc 32.2 g/dl (31.0-35.0); Mean Corpuscular Hemoglobin 30.6 pg (27.0-33.0); Mean Platelet Volume 9.3 fL (9.4-12.3); Monocytes Absolute Auto 0.6 X10*3/uL (0.1-1.2); Monocytes Percent Auto 10.7 % (2-11); Neutrophils Percent Auto 37.8 % (45-73); Platelet Count 178 X10*3/uL (160-400); Red Cell Distribution Width 15.3 % (11.0-16.0); White Blood Count 5.3 X10*3/uL (4.8-10.8)
[2022-03-01 07:14] LABS: Anion Gap 11 (12-20); Blood Urea Nitrogen 22 mg/dL (9-16); Calcium 8.4 mg/dL (8.4-10.2); Carbon Dioxide 28 mmol/L (22-29); Chloride 104 mmol/L (96-108); Estimated Glomerular Filt Rate 37; Glucose Random 88 mg/dL (60-115); Potassium 4.3 mmol/L (3.3-5.1); Sodium 139 mmol/L (135-145)
== END 2022-03-01 09:22 | disposition home or self-care (01) ==
LOC: HO.MMNH1L 09:21
PROVIDERS: Visit Provider Family Medicine
DX: I48.0 Paroxysmal atrial fibrillation (principal); I10 Essential (primary) hypertension
CPT/HCPCS: 36415; 80048; 85025

== ENCOUNTER 2022-03-08 06:20 | Outpatient (REF) | payer MEDICARE, SELFPAY ==
[2022-03-08 06:59] LABS: Hematocrit 33.6 % (37.0-47.0); Hemoglobin 10.7 g/dl (12.0-16.0); Mean Corpuscular HGB Conc 31.8 g/dl (31.0-35.0); Mean Corpuscular Hemoglobin 30.5 pg (27.0-33.0); Mean Corpuscular Volume 95.7 fL (80.0-98.0); Mean Platelet Volume 9.5 fL (9.4-12.3); Platelet Count 195 X10*3/uL (160-400); Red Blood Count 3.51 X10*6/uL (4.20-5.50); Red Cell Distribution Width 15.7 % (11.0-16.0); White Blood Count 5.6 X10*3/uL (4.8-10.8)
[2022-03-08 07:16] LABS: Anion Gap 12 (12-20); Blood Urea Nitrogen 19 mg/dL (9-16); Calcium 8.7 mg/dL (8.4-10.2); Carbon Dioxide 26 mmol/L (22-29); Chloride 107 mmol/L (96-108); Estimated Glomerular Filt Rate 35; Glucose Random 91 mg/dL (60-115); Potassium 4.3 mmol/L (3.3-5.1); Sodium 141 mmol/L (135-145)
== END 2022-03-08 06:21 | disposition home or self-care (01) ==
LOC: HO.MMNH1L 06:20
PROVIDERS: Visit Provider Family Medicine
DX: I48.0 Paroxysmal atrial fibrillation (principal); I10 Essential (primary) hypertension
CPT/HCPCS: 36415; 80048; 85027

== ENCOUNTER 2022-03-16 06:48 | Outpatient (REF) | payer MEDICARE, SELFPAY ==
[2022-03-16 06:53] LABS: Hematocrit 32.2 % (37.0-47.0); Hemoglobin 10.3 g/dl (12.0-16.0); Mean Corpuscular Hemoglobin 30.8 pg (27.0-33.0); Mean Corpuscular Volume 96.4 fL (80.0-98.0); Mean Platelet Volume 9.5 fL (9.4-12.3); Platelet Count 182 X10*3/uL (160-400); Red Blood Count 3.34 X10*6/uL (4.20-5.50); Red Cell Distribution Width 15.4 % (11.0-16.0); White Blood Count 5.8 X10*3/uL (4.8-10.8)
[2022-03-16 06:56] LABS: Anion Gap 10 (12-20); Blood Urea Nitrogen 19 mg/dL (9-16); Calcium 8.6 mg/dL (8.4-10.2); Carbon Dioxide 27 mmol/L (22-29); Chloride 108 mmol/L (96-108); Estimated Glomerular Filt Rate 40; Glucose Random 92 mg/dL (60-115); Potassium 4.4 mmol/L (3.3-5.1); Sodium 141 mmol/L (135-145)
== END 2022-03-16 06:49 | disposition home or self-care (01) ==
LOC: HO.MMNH1L 06:48
PROVIDERS: Visit Provider Family Medicine
DX: I48.0 Paroxysmal atrial fibrillation (principal); I10 Essential (primary) hypertension
CPT/HCPCS: 36415; 80048; 85027

== ENCOUNTER 2022-03-22 06:28 | Outpatient (REF) | payer MEDICARE, SELFPAY ==
[2022-03-22 06:30] LABS: MANUAL DIFF FLAG NO
[2022-03-22 06:45] LABS: Basophils Absolute Auto 0.1 X10*3/uL (0.0-0.2); Eosinophils Absolute Auto 0.2 X10*3/uL (0.0-0.4); Eosinophils Percent Auto 3.1 % (0-4); Hematocrit 34.7 % (37.0-47.0); Hemoglobin 11.2 g/dl (12.0-16.0); Imm Gran Abs Auto 0.03 X10*3/uL (0.00-0.03); Imm Gran Pct Auto 0.6 % (0.0-0.4); Lymphocytes Absolute Auto 2.4 X10*3/uL (1.2-4.9); Lymphocytes Percent Auto 45.6 % (20-40); Mean Corpuscular HGB Conc 32.3 g/dl (31.0-35.0); Mean Corpuscular Hemoglobin 30.9 pg (27.0-33.0); Mean Corpuscular Volume 95.9 fL (80.0-98.0); Mean Platelet Volume 9.7 fL (9.4-12.3); Monocytes Absolute Auto 0.6 X10*3/uL (0.1-1.2); Monocytes Percent Auto 11.1 % (2-11); Neutrophils Percent Auto 38.6 % (45-73); Platelet Count 190 X10*3/uL (160-400); Red Blood Count 3.62 X10*6/uL (4.20-5.50); Red Cell Distribution Width 15.1 % (11.0-16.0); White Blood Count 5.2 X10*3/uL (4.8-10.8)
[2022-03-22 07:23] LABS: Anion Gap 11 (12-20); Blood Urea Nitrogen 21 mg/dL (9-16); Calcium 8.9 mg/dL (8.4-10.2); Carbon Dioxide 25 mmol/L (22-29); Chloride 108 mmol/L (96-108); Estimated Glomerular Filt Rate 42; Glucose Random 88 mg/dL (60-115); Potassium 4.3 mmol/L (3.3-5.1); Sodium 140 mmol/L (135-145)
== END 2022-03-22 06:29 | disposition home or self-care (01) ==
LOC: HO.MMNH1L 06:28
PROVIDERS: Visit Provider Family Medicine
DX: I48.0 Paroxysmal atrial fibrillation (principal); I10 Essential (primary) hypertension
CPT/HCPCS: 36415; 80048; 85025

== ENCOUNTER 2022-03-29 06:46 | Outpatient (REF) | payer MEDICARE, SELFPAY ==
[2022-03-29 06:46] LABS: Hematocrit 31.4 % (37.0-47.0); Hemoglobin 10.2 g/dl (12.0-16.0); Mean Corpuscular HGB Conc 32.5 g/dl (31.0-35.0); Mean Corpuscular Hemoglobin 31.1 pg (27.0-33.0); Mean Corpuscular Volume 95.7 fL (80.0-98.0); Mean Platelet Volume 9.5 fL (9.4-12.3); Platelet Count 178 X10*3/uL (160-400); Red Blood Count 3.28 X10*6/uL (4.20-5.50); Red Cell Distribution Width 15.1 % (11.0-16.0); White Blood Count 6.4 X10*3/uL (4.8-10.8)
[2022-03-29 06:48] LABS: Anion Gap 10 (12-20); Blood Urea Nitrogen 22 mg/dL (9-16); Calcium 8.3 mg/dL (8.4-10.2); Carbon Dioxide 29 mmol/L (22-29); Chloride 104 mmol/L (96-108); Estimated Glomerular Filt Rate 34; Glucose Random 99 mg/dL (60-115); Potassium 4.2 mmol/L (3.3-5.1); Sodium 139 mmol/L (135-145)
== END 2022-03-29 06:47 | disposition home or self-care (01) ==
LOC: HO.MMNH1L 06:46
PROVIDERS: Visit Provider Family Medicine
DX: I48.0 Paroxysmal atrial fibrillation (principal); I10 Essential (primary) hypertension
CPT/HCPCS: 36415; 80048; 85027

== ENCOUNTER 2022-04-05 06:15 | Outpatient (REF) | payer MEDICARE, SELFPAY ==
[2022-04-05 06:24] LABS: MANUAL DIFF FLAG NO
[2022-04-05 06:44] LABS: Basophils Percent Auto 0.8 % (0-2); Eosinophils Absolute Auto 0.2 X10*3/uL (0.0-0.4); Eosinophils Percent Auto 3.9 % (0-4); Hematocrit 32.5 % (37.0-47.0); Hemoglobin 10.4 g/dl (12.0-16.0); Imm Gran Abs Auto 0.03 X10*3/uL (0.00-0.03); Imm Gran Pct Auto 0.6 % (0.0-0.4); Lymphocytes Absolute Auto 2.4 X10*3/uL (1.2-4.9); Lymphocytes Percent Auto 46.7 % (20-40); Mean Corpuscular Hemoglobin 31.1 pg (27.0-33.0); Mean Corpuscular Volume 97.3 fL (80.0-98.0); Mean Platelet Volume 9.3 fL (9.4-12.3); Monocytes Absolute Auto 0.6 X10*3/uL (0.1-1.2); Monocytes Percent Auto 11.8 % (2-11); Neutrophils Absolute Auto 1.9 x10*3/uL (2.0-8.3); Neutrophils Percent Auto 36.2 % (45-73); Platelet Count 198 X10*3/uL (160-400); Red Blood Count 3.34 X10*6/uL (4.20-5.50); Red Cell Distribution Width 14.6 % (11.0-16.0); White Blood Count 5.2 X10*3/uL (4.8-10.8)
[2022-04-05 07:20] LABS: Anion Gap 11 (12-20); Blood Urea Nitrogen 17 mg/dL (9-16); Calcium 8.4 mg/dL (8.4-10.2); Carbon Dioxide 27 mmol/L (22-29); Chloride 109 mmol/L (96-108); Estimated Glomerular Filt Rate 41; Glucose Random 87 mg/dL (60-115); Potassium 4.1 mmol/L (3.3-5.1); Sodium 143 mmol/L (135-145)
== END 2022-04-05 06:16 | disposition home or self-care (01) ==
LOC: HO.MMNH1L 06:15
PROVIDERS: Visit Provider Family Medicine
DX: I48.0 Paroxysmal atrial fibrillation (principal); I10 Essential (primary) hypertension
CPT/HCPCS: 36415; 80048; 85025

== ENCOUNTER → 2022-04-06 14:41 | Outpatient (BNVA) | payer MEDICARE, OTHER, SELFPAY | PROVIDERS: PCP Family Medicine; Referring Provider Family Medicine; Visit Provider Internal Medicine Cardiovascular Disease | DX: Z45.02 Encounter for adjustment and management of automatic implantable cardiac defibrillator (principal); I42.8 Other cardiomyopathies; I48.0 Paroxysmal atrial fibrillation | CPT/HCPCS: 93005; 99212 ==

== ENCOUNTER 2022-04-12 06:41 | Outpatient (REF) | payer MEDICARE, SELFPAY ==
[2022-04-12 06:31] LABS: MANUAL DIFF FLAG NO
[2022-04-12 06:51] LABS: Basophils Percent Auto 0.5 % (0-2); Eosinophils Absolute Auto 0.2 X10*3/uL (0.0-0.4); Eosinophils Percent Auto 3.1 % (0-4); Hematocrit 32.9 % (37.0-47.0); Hemoglobin 10.6 g/dl (12.0-16.0); Imm Gran Abs Auto 0.02 X10*3/uL (0.00-0.03); Imm Gran Pct Auto 0.4 % (0.0-0.4); Lymphocytes Absolute Auto 2.5 X10*3/uL (1.2-4.9); Lymphocytes Percent Auto 45.5 % (20-40); Mean Corpuscular HGB Conc 32.2 g/dl (31.0-35.0); Mean Corpuscular Hemoglobin 31.1 pg (27.0-33.0); Mean Corpuscular Volume 96.5 fL (80.0-98.0); Mean Platelet Volume 9.5 fL (9.4-12.3); Monocytes Absolute Auto 0.6 X10*3/uL (0.1-1.2); Monocytes Percent Auto 11.3 % (2-11); Neutrophils Absolute Auto 2.1 x10*3/uL (2.0-8.3); Neutrophils Percent Auto 39.2 % (45-73); Platelet Count 189 X10*3/uL (160-400); Red Blood Count 3.41 X10*6/uL (4.20-5.50); Red Cell Distribution Width 14.5 % (11.0-16.0); White Blood Count 5.5 X10*3/uL (4.8-10.8)
[2022-04-12 07:19] LABS: Anion Gap 14 (12-20); Blood Urea Nitrogen 21 mg/dL (9-16); Calcium 8.5 mg/dL (8.4-10.2); Carbon Dioxide 24 mmol/L (22-29); Chloride 108 mmol/L (96-108); Estimated Glomerular Filt Rate 36; Glucose Random 91 mg/dL (60-115); Potassium 4.1 mmol/L (3.3-5.1); Sodium 142 mmol/L (135-145)
== END 2022-04-12 06:42 | disposition home or self-care (01) ==
LOC: HO.MMNH1L 06:41
PROVIDERS: Visit Provider Family Medicine
DX: I48.0 Paroxysmal atrial fibrillation (principal); I10 Essential (primary) hypertension
CPT/HCPCS: 36415; 80048; 85025

== ENCOUNTER 2022-04-19 06:37 | Outpatient (REF) | payer MEDICARE, SELFPAY ==
[2022-04-19 06:19] LABS: MANUAL DIFF FLAG NO
[2022-04-19 07:12] LABS: Basophils Percent Auto 0.5 % (0-2); Eosinophils Absolute Auto 0.2 X10*3/uL (0.0-0.4); Eosinophils Percent Auto 2.4 % (0-4); Hematocrit 31.8 % (37.0-47.0); Hemoglobin 10.1 g/dl (12.0-16.0); Imm Gran Abs Auto 0.03 X10*3/uL (0.00-0.03); Imm Gran Pct Auto 0.5 % (0.0-0.4); Lymphocytes Absolute Auto 2.7 X10*3/uL (1.2-4.9); Lymphocytes Percent Auto 43.3 % (20-40); Mean Corpuscular HGB Conc 31.8 g/dl (31.0-35.0); Mean Corpuscular Volume 97.5 fL (80.0-98.0); Mean Platelet Volume 9.7 fL (9.4-12.3); Monocytes Absolute Auto 0.7 X10*3/uL (0.1-1.2); Monocytes Percent Auto 10.6 % (2-11); Neutrophils Absolute Auto 2.7 x10*3/uL (2.0-8.3); Neutrophils Percent Auto 42.7 % (45-73); Platelet Count 170 X10*3/uL (160-400); Red Blood Count 3.26 X10*6/uL (4.20-5.50); Red Cell Distribution Width 14.5 % (11.0-16.0); White Blood Count 6.3 X10*3/uL (4.8-10.8)
[2022-04-19 07:33] LABS: Anion Gap 15 (12-20); Blood Urea Nitrogen 25 mg/dL (9-16); Calcium 8.2 mg/dL (8.4-10.2); Carbon Dioxide 26 mmol/L (22-29); Chloride 104 mmol/L (96-108); Estimated Glomerular Filt Rate 35; Glucose Random 87 mg/dL (60-115); Potassium 4.5 mmol/L (3.3-5.1); Sodium 140 mmol/L (135-145)
== END 2022-04-19 06:38 | disposition home or self-care (01) ==
LOC: HO.MMNH1L 06:37
PROVIDERS: Visit Provider Family Medicine
DX: I48.0 Paroxysmal atrial fibrillation (principal); I10 Essential (primary) hypertension
CPT/HCPCS: 36415; 80048; 85025

== ENCOUNTER 2022-04-26 06:23 | Outpatient (REF) | payer MEDICARE, SELFPAY ==
[2022-04-26 06:13] LABS: MANUAL DIFF FLAG NO
[2022-04-26 06:19] LABS: Basophils Percent Auto 0.7 % (0-2); Eosinophils Absolute Auto 0.2 X10*3/uL (0.0-0.4); Eosinophils Percent Auto 3.2 % (0-4); Hematocrit 32.8 % (37.0-47.0); Hemoglobin 10.6 g/dl (12.0-16.0); Imm Gran Abs Auto 0.02 X10*3/uL (0.00-0.03); Imm Gran Pct Auto 0.3 % (0.0-0.4); Lymphocytes Absolute Auto 2.8 X10*3/uL (1.2-4.9); Lymphocytes Percent Auto 47.3 % (20-40); Mean Corpuscular HGB Conc 32.3 g/dl (31.0-35.0); Mean Corpuscular Hemoglobin 31.4 pg (27.0-33.0); Mean Platelet Volume 9.7 fL (9.4-12.3); Monocytes Absolute Auto 0.7 X10*3/uL (0.1-1.2); Monocytes Percent Auto 11.2 % (2-11); Neutrophils Absolute Auto 2.2 x10*3/uL (2.0-8.3); Neutrophils Percent Auto 37.3 % (45-73); Platelet Count 168 X10*3/uL (160-400); Red Blood Count 3.38 X10*6/uL (4.20-5.50); Red Cell Distribution Width 14.3 % (11.0-16.0)
[2022-04-26 06:52] LABS: Anion Gap 15 (12-20); Blood Urea Nitrogen 25 mg/dL (9-16); Calcium 8.5 mg/dL (8.4-10.2); Carbon Dioxide 26 mmol/L (22-29); Chloride 105 mmol/L (96-108); Estimated Glomerular Filt Rate 35; Glucose Random 87 mg/dL (60-115); Potassium 4.2 mmol/L (3.3-5.1); Sodium 142 mmol/L (135-145)
== END 2022-04-26 06:24 | disposition home or self-care (01) ==
LOC: HO.MMNH1L 06:23
PROVIDERS: Visit Provider Family Medicine
DX: I48.0 Paroxysmal atrial fibrillation (principal); I10 Essential (primary) hypertension
CPT/HCPCS: 36415; 80048; 85025

== ENCOUNTER 2022-05-03 06:30 | Outpatient (REF) | payer MEDICARE, SELFPAY ==
[2022-05-03 06:17] LABS: MANUAL DIFF FLAG NO
[2022-05-03 06:27] LABS: Basophils Percent Auto 0.7 % (0-2); Eosinophils Absolute Auto 0.2 X10*3/uL (0.0-0.4); Eosinophils Percent Auto 2.8 % (0-4); Hematocrit 33.6 % (37.0-47.0); Hemoglobin 10.7 g/dl (12.0-16.0); Imm Gran Abs Auto 0.03 X10*3/uL (0.00-0.03); Imm Gran Pct Auto 0.6 % (0.0-0.4); Lymphocytes Absolute Auto 2.7 X10*3/uL (1.2-4.9); Lymphocytes Percent Auto 49.6 % (20-40); Mean Corpuscular HGB Conc 31.8 g/dl (31.0-35.0); Mean Corpuscular Volume 97.4 fL (80.0-98.0); Mean Platelet Volume 9.4 fL (9.4-12.3); Monocytes Absolute Auto 0.6 X10*3/uL (0.1-1.2); Monocytes Percent Auto 10.9 % (2-11); Neutrophils Absolute Auto 1.9 x10*3/uL (2.0-8.3); Neutrophils Percent Auto 35.4 % (45-73); Platelet Count 164 X10*3/uL (160-400); Red Blood Count 3.45 X10*6/uL (4.20-5.50); White Blood Count 5.3 X10*3/uL (4.8-10.8)
[2022-05-03 06:57] LABS: Anion Gap 14 (12-20); Blood Urea Nitrogen 21 mg/dL (9-16); Calcium 8.9 mg/dL (8.4-10.2); Carbon Dioxide 29 mmol/L (22-29); Chloride 105 mmol/L (96-108); Estimated Glomerular Filt Rate 33; Glucose Random 91 mg/dL (60-115); Potassium 4.9 mmol/L (3.3-5.1); Sodium 143 mmol/L (135-145)
== END 2022-05-03 06:31 | disposition home or self-care (01) ==
LOC: HO.MMNH1L 06:30
PROVIDERS: Visit Provider Family Medicine
DX: I48.0 Paroxysmal atrial fibrillation (principal); I10 Essential (primary) hypertension
CPT/HCPCS: 36415; 80048; 85025

== ENCOUNTER 2022-05-10 06:33 | Outpatient (REF) | payer MEDICARE, SELFPAY ==
[2022-05-10 06:24] LABS: MANUAL DIFF FLAG NO
[2022-05-10 06:45] LABS: Basophils Absolute Auto 0.1 X10*3/uL (0.0-0.2); Basophils Percent Auto 0.9 % (0-2); Eosinophils Absolute Auto 0.2 X10*3/uL (0.0-0.4); Eosinophils Percent Auto 2.7 % (0-4); Hematocrit 35.6 % (37.0-47.0); Hemoglobin 11.7 g/dl (12.0-16.0); Imm Gran Abs Auto 0.01 X10*3/uL (0.00-0.03); Imm Gran Pct Auto 0.2 % (0.0-0.4); Lymphocytes Absolute Auto 2.7 X10*3/uL (1.2-4.9); Lymphocytes Percent Auto 47.9 % (20-40); Mean Corpuscular HGB Conc 32.9 g/dl (31.0-35.0); Mean Corpuscular Hemoglobin 31.5 pg (27.0-33.0); Mean Platelet Volume 9.4 fL (9.4-12.3); Monocytes Absolute Auto 0.7 X10*3/uL (0.1-1.2); Monocytes Percent Auto 11.7 % (2-11); Neutrophils Absolute Auto 2.1 x10*3/uL (2.0-8.3); Neutrophils Percent Auto 36.6 % (45-73); Platelet Count 173 X10*3/uL (160-400); Red Blood Count 3.71 X10*6/uL (4.20-5.50); Red Cell Distribution Width 13.7 % (11.0-16.0); White Blood Count 5.6 X10*3/uL (4.8-10.8)
[2022-05-10 06:52] LABS: Anion Gap 15 (12-20); Blood Urea Nitrogen 21 mg/dL (9-16); Carbon Dioxide 26 mmol/L (22-29); Chloride 105 mmol/L (96-108); Estimated Glomerular Filt Rate 34; Glucose Random 93 mg/dL (60-115); Potassium 4.4 mmol/L (3.3-5.1); Sodium 142 mmol/L (135-145)
== END 2022-05-10 06:34 | disposition home or self-care (01) ==
LOC: HO.MMNH1L 06:33
PROVIDERS: Visit Provider Family Medicine
DX: I48.0 Paroxysmal atrial fibrillation (principal); I10 Essential (primary) hypertension
CPT/HCPCS: 36415; 80048; 85025

== ENCOUNTER 2022-05-18 06:25 | Outpatient (REF) | payer MEDICARE, SELFPAY ==
[2022-05-18 06:28] LABS: MANUAL DIFF FLAG NO
[2022-05-18 06:57] LABS: Basophils Percent Auto 0.5 % (0-2); Eosinophils Absolute Auto 0.2 X10*3/uL (0.0-0.4); Eosinophils Percent Auto 2.7 % (0-4); Hematocrit 33.6 % (37.0-47.0); Hemoglobin 10.6 g/dl (12.0-16.0); Imm Gran Abs Auto 0.01 X10*3/uL (0.00-0.03); Imm Gran Pct Auto 0.2 % (0.0-0.4); Lymphocytes Absolute Auto 2.5 X10*3/uL (1.2-4.9); Lymphocytes Percent Auto 44.6 % (20-40); Mean Corpuscular HGB Conc 31.5 g/dl (31.0-35.0); Mean Corpuscular Hemoglobin 31.1 pg (27.0-33.0); Mean Corpuscular Volume 98.5 fL (80.0-98.0); Mean Platelet Volume 9.7 fL (9.4-12.3); Monocytes Absolute Auto 0.6 X10*3/uL (0.1-1.2); Monocytes Percent Auto 10.8 % (2-11); Neutrophils Absolute Auto 2.3 x10*3/uL (2.0-8.3); Neutrophils Percent Auto 41.2 % (45-73); Platelet Count 160 X10*3/uL (160-400); Red Blood Count 3.41 X10*6/uL (4.20-5.50); Red Cell Distribution Width 13.7 % (11.0-16.0); White Blood Count 5.5 X10*3/uL (4.8-10.8)
[2022-05-18 07:36] LABS: Anion Gap 13 (12-20); Blood Urea Nitrogen 24 mg/dL (9-16); Calcium 8.4 mg/dL (8.4-10.2); Carbon Dioxide 26 mmol/L (22-29); Chloride 104 mmol/L (96-108); Estimated Glomerular Filt Rate 36; Glucose Random 94 mg/dL (60-115); Potassium 4.6 mmol/L (3.3-5.1); Sodium 138 mmol/L (135-145)
== END 2022-05-18 06:26 | disposition home or self-care (01) ==
LOC: HO.MMNH1L 06:25
PROVIDERS: Visit Provider Family Medicine
DX: I48.0 Paroxysmal atrial fibrillation (principal); I10 Essential (primary) hypertension
CPT/HCPCS: 36415; 80048; 85025

== ENCOUNTER 2022-05-24 06:52 | Outpatient (REF) | payer MEDICARE, SELFPAY ==
[2022-05-24 07:01] LABS: Hematocrit 34.2 % (37.0-47.0); Hemoglobin 10.9 g/dl (12.0-16.0); Mean Corpuscular HGB Conc 31.9 g/dl (31.0-35.0); Mean Corpuscular Volume 97.2 fL (80.0-98.0); Mean Platelet Volume 9.4 fL (9.4-12.3); Platelet Count 169 X10*3/uL (160-400); Red Blood Count 3.52 X10*6/uL (4.20-5.50); White Blood Count 5.5 X10*3/uL (4.8-10.8)
[2022-05-24 07:41] LABS: Anion Gap 13 (12-20); Blood Urea Nitrogen 31 mg/dL (9-16); Calcium 8.8 mg/dL (8.4-10.2); Carbon Dioxide 28 mmol/L (22-29); Chloride 107 mmol/L (96-108); Estimated Glomerular Filt Rate 29; Glucose Random 97 mg/dL (60-115); Potassium 4.6 mmol/L (3.3-5.1); Sodium 143 mmol/L (135-145)
== END 2022-05-24 06:53 | disposition home or self-care (01) ==
LOC: HO.MMNH1L 06:52
PROVIDERS: Visit Provider Family Medicine
DX: I48.0 Paroxysmal atrial fibrillation (principal); I10 Essential (primary) hypertension
CPT/HCPCS: 36415; 80048; 85027

== ENCOUNTER 2022-05-31 06:41 | Outpatient (REF) | payer MEDICARE, SELFPAY ==
[2022-05-31 06:44] LABS: Hematocrit 33.5 % (37.0-47.0); Hemoglobin 10.6 g/dl (12.0-16.0); Mean Corpuscular HGB Conc 31.6 g/dl (31.0-35.0); Mean Corpuscular Hemoglobin 30.6 pg (27.0-33.0); Mean Corpuscular Volume 96.8 fL (80.0-98.0); Mean Platelet Volume 9.5 fL (9.4-12.3); Platelet Count 167 X10*3/uL (160-400); Red Blood Count 3.46 X10*6/uL (4.20-5.50); Red Cell Distribution Width 13.7 % (11.0-16.0); White Blood Count 5.4 X10*3/uL (4.8-10.8)
[2022-05-31 07:16] LABS: Anion Gap 13 (12-20); Blood Urea Nitrogen 26 mg/dL (9-16); Calcium 8.6 mg/dL (8.4-10.2); Carbon Dioxide 25 mmol/L (22-29); Chloride 109 mmol/L (96-108); Estimated Glomerular Filt Rate 29; Glucose Random 79 mg/dL (60-115); Potassium 4.2 mmol/L (3.3-5.1); Sodium 143 mmol/L (135-145)
== END 2022-05-31 06:42 | disposition home or self-care (01) ==
LOC: HO.MMNH1L 06:41
PROVIDERS: Visit Provider Family Medicine
DX: I48.0 Paroxysmal atrial fibrillation (principal); I10 Essential (primary) hypertension
CPT/HCPCS: 36415; 80048; 85027

== ENCOUNTER 2022-06-07 06:36 | Outpatient (REF) | payer MEDICARE, SELFPAY ==
[2022-06-07 06:56] LABS: Hematocrit 33.9 % (37.0-47.0); Hemoglobin 10.9 g/dl (12.0-16.0); Mean Corpuscular HGB Conc 32.2 g/dl (31.0-35.0); Mean Corpuscular Hemoglobin 31.1 pg (27.0-33.0); Mean Corpuscular Volume 96.9 fL (80.0-98.0); Mean Platelet Volume 9.8 fL (9.4-12.3); Platelet Count 150 X10*3/uL (160-400); Red Cell Distribution Width 13.5 % (11.0-16.0); White Blood Count 5.3 X10*3/uL (4.8-10.8)
[2022-06-07 07:22] LABS: Anion Gap 13 (12-20); Blood Urea Nitrogen 23 mg/dL (9-16); Calcium 8.8 mg/dL (8.4-10.2); Carbon Dioxide 25 mmol/L (22-29); Chloride 110 mmol/L (96-108); Estimated Glomerular Filt Rate 34; Glucose Random 78 mg/dL (60-115); Potassium 4.2 mmol/L (3.3-5.1); Sodium 144 mmol/L (135-145)
== END 2022-06-07 06:37 | disposition home or self-care (01) ==
LOC: HO.MMNH1L 06:36
PROVIDERS: Visit Provider Family Medicine
DX: I48.0 Paroxysmal atrial fibrillation (principal); I10 Essential (primary) hypertension
CPT/HCPCS: 36415; 80048; 85027

== ENCOUNTER 2022-06-10 08:25 | Outpatient (REF) | payer MEDICARE, SELFPAY ==
[2022-06-10 06:52] LABS: Anion Gap 13 (12-20); Blood Urea Nitrogen 18 mg/dL (9-16); Calcium 8.9 mg/dL (8.4-10.2); Carbon Dioxide 28 mmol/L (22-29); Chloride 107 mmol/L (96-108); Estimated Glomerular Filt Rate 36; Glucose Random 89 mg/dL (60-115); Potassium 4.1 mmol/L (3.3-5.1); Sodium 144 mmol/L (135-145)
== END 2022-06-10 08:26 ==
LOC: HO.MMNH1L 08:25
PROVIDERS: Visit Provider Family Medicine
DX: I42.0 Dilated cardiomyopathy (principal)
CPT/HCPCS: 36415; 80048

== ENCOUNTER 2022-06-14 07:40 | Outpatient (REF) | payer MEDICARE, SELFPAY ==
[2022-06-14 07:20] LABS: MANUAL DIFF FLAG NO
[2022-06-14 07:44] LABS: Basophils Percent Auto 0.6 % (0-2); Eosinophils Absolute Auto 0.1 X10*3/uL (0.0-0.4); Eosinophils Percent Auto 1.5 % (0-4); Hematocrit 32.9 % (37.0-47.0); Hemoglobin 10.8 g/dl (12.0-16.0); Imm Gran Abs Auto 0.03 X10*3/uL (0.00-0.03); Imm Gran Pct Auto 0.6 % (0.0-0.4); Lymphocytes Percent Auto 38.6 % (20-40); Mean Corpuscular HGB Conc 32.8 g/dl (31.0-35.0); Mean Corpuscular Hemoglobin 31.1 pg (27.0-33.0); Mean Corpuscular Volume 94.8 fL (80.0-98.0); Mean Platelet Volume 9.9 fL (9.4-12.3); Monocytes Absolute Auto 0.6 X10*3/uL (0.1-1.2); Monocytes Percent Auto 11.2 % (2-11); Neutrophils Absolute Auto 2.5 x10*3/uL (2.0-8.3); Neutrophils Percent Auto 47.5 % (45-73); Platelet Count 129 X10*3/uL (160-400); Red Blood Count 3.47 X10*6/uL (4.20-5.50); Red Cell Distribution Width 13.6 % (11.0-16.0); White Blood Count 5.3 X10*3/uL (4.8-10.8)
[2022-06-14 07:51] LABS: Anion Gap 13 (12-20); Blood Urea Nitrogen 17 mg/dL (9-16); Calcium 8.4 mg/dL (8.4-10.2); Carbon Dioxide 27 mmol/L (22-29); Chloride 104 mmol/L (96-108); Estimated Glomerular Filt Rate 44; Glucose Random 95 mg/dL (60-115); Potassium 3.7 mmol/L (3.3-5.1); Sodium 140 mmol/L (135-145)
== END 2022-06-14 07:41 | disposition home or self-care (01) ==
LOC: HO.MMNH1L 07:40
PROVIDERS: Visit Provider Family Medicine
DX: I48.0 Paroxysmal atrial fibrillation (principal); I10 Essential (primary) hypertension
CPT/HCPCS: 36415; 80048; 85025

== ENCOUNTER → 2022-07-05 09:39 | Outpatient (BNVA) | payer MEDICARE, OTHER, SELFPAY | PROVIDERS: PCP Family Medicine; Visit Provider Surgery Vascular Surgery | DX: I73.9 Peripheral vascular disease, unspecified (principal); I83.12 Varicose veins of left lower extremity with inflammation | CPT/HCPCS: 99202 ==

== ENCOUNTER 2022-07-12 06:21 | Outpatient (REF) | payer MEDICARE, SELFPAY ==
[2022-07-12 06:49] LABS: Hematocrit 33.7 % (37.0-47.0); Hemoglobin 10.7 g/dl (12.0-16.0); Mean Corpuscular HGB Conc 31.8 g/dl (31.0-35.0); Mean Corpuscular Hemoglobin 30.4 pg (27.0-33.0); Mean Corpuscular Volume 95.7 fL (80.0-98.0); Mean Platelet Volume 9.9 fL (9.4-12.3); Platelet Count 163 X10*3/uL (160-400); Red Blood Count 3.52 X10*6/uL (4.20-5.50); Red Cell Distribution Width 13.7 % (11.0-16.0); White Blood Count 5.1 X10*3/uL (4.8-10.8)
[2022-07-12 07:13] LABS: Anion Gap 15 (12-20); Blood Urea Nitrogen 22 mg/dL (9-16); Calcium 8.7 mg/dL (8.4-10.2); Carbon Dioxide 23 mmol/L (22-29); Chloride 108 mmol/L (96-108); Estimated Glomerular Filt Rate 33; Glucose Random 90 mg/dL (60-115); Potassium 4.2 mmol/L (3.3-5.1); Sodium 142 mmol/L (135-145)
== END 2022-07-12 06:22 | disposition home or self-care (01) ==
LOC: HO.MMNH1L 06:21
PROVIDERS: Visit Provider Family Medicine
DX: I48.0 Paroxysmal atrial fibrillation (principal); I10 Essential (primary) hypertension
CPT/HCPCS: 36415; 80048; 85027

== ENCOUNTER 2022-08-10 12:59 | Outpatient (REF) | payer MEDICARE, OTHER, SELFPAY ==
--- NOTE | ~2022-08-10 | US_ITS ---
EXAMINATION: Noninvasive assessment of the bilateral lower extremities with ARTERIAL DUPLEX and ANKLE BRACHIAL INDICES (ABIs). CLINICAL INFORMATION: Peripheral vascular disease TECHNIQUE: Duplex Doppler techniques with waveform analysis and measurement of velocities in the bilateral common femoral, profunda femoris, superficial femoral, popliteal and tibial arteries were performed. Additionally, ankle pulse volume recordings, ankle pressure measurements and ankle brachial indices were obtained of the lower extremity arterial system bilaterally. The study was performed only at rest. COMPARISON: None FINDINGS: DIRECT DUPLEX DOPPLER FINDINGS: RIGHT LEG: Common femoral artery: 75.8 cm/s, phasicity: Triphasic Profunda femoris artery: 91.1 cm/s, phasicity: Monophasic Superficial femoral artery (proximal): 52.7 cm/s, phasicity: Monophasic Superficial femoral artery (mid): 36.0 cm/s, phasicity: Monophasic. There is a short segment area of occlusion with subsequent reconstituted flow in the distal superficial femoral artery. Multiple collateral vessels are seen. Superficial femoral artery (distal): 42.0 cm/s, phasicity: Monophasic Popliteal artery: 43.1 cm/s, phasicity: Monophasic Posterior tibial artery: 21.5 cm/s, phasicity: Monophasic Peroneal artery: 15.4 cm/s, phasicity: Monophasic LEFT LEG: Common femoral artery: 98.8 cm/s, phasicity: Triphasic Profunda femoris artery: 170 cm/s, phasicity: Triphasic Superficial femoral artery (proximal): 39.9 cm/s, phasicity: Monophasic Superficial femoral artery (mid): 29.5 cm/s, phasicity: Monophasic Superficial femoral artery (distal): 42.0 cm/s, phasicity: Monophasic Popliteal artery: 48.4 cm/s, phasicity: Monophasic Posterior tibial artery: 111 cm/s, phasicity: Monophasic Peroneal artery: 81.6 cm/s, phasicity: Monophasic ANKLE-BRACHIAL INDEX: Right: 0.76? Left: 0.6 ANKLE PRESSURES: Right: PT 109, DP 124 Left: PT?98, DP?87 ANKLE PVR WAVEFORMS: Right: Markedly dampened Left: Moderately dampened US/US arterial duplex LE BI IMPRESSION: Right leg: Short segment occlusion in the mid superficial femoral artery with reconstituted flow in the distal superficial femoral artery. Monophasic waveforms and decreased velocities seen throughout the femoral, popliteal and below-knee runoff vessels. Left leg: Decrease velocities with monophasic waveforms throughout the left superficial femoral, popliteal and below-knee runoff vessels. Ankle-brachial index is moderately decreased. Findings are consistent with moderate peripheral arterial disease although focal stenosis and occlusion are not visualized but highly suspected JEANNIE Reference: - >1.4 = calcified vessels - 0.9 - 1.4 = normal - no significant arterial disease - 0.7 - 0.89 = mild peripheral arterial disease - 0.51 - 0.69 = moderate peripheral arterial disease - ? 0.50 = severe peripheral arterial disease - < .30 = critical arterial disease
== END 2022-08-10 13:00 | disposition home or self-care (01) ==
LOC: HO.US 12:59
PROVIDERS: Visit Provider Surgery Vascular Surgery
DX: I73.9 Peripheral vascular disease, unspecified (principal)
CPT/HCPCS: 93925

== ENCOUNTER 2022-08-16 07:29 | Outpatient (REF) | payer MEDICARE, SELFPAY ==
[2022-08-16 07:17] LABS: MANUAL DIFF FLAG NO
[2022-08-16 07:51] LABS: Basophils Percent Auto 0.8 % (0-2); Eosinophils Absolute Auto 0.2 X10*3/uL (0.0-0.4); Hematocrit 33.1 % (37.0-47.0); Hemoglobin 10.7 g/dl (12.0-16.0); Imm Gran Abs Auto 0.01 X10*3/uL (0.00-0.03); Imm Gran Pct Auto 0.2 % (0.0-0.4); Lymphocytes Absolute Auto 2.4 X10*3/uL (1.2-4.9); Lymphocytes Percent Auto 49.7 % (20-40); Mean Corpuscular HGB Conc 32.3 g/dl (31.0-35.0); Mean Corpuscular Hemoglobin 31.1 pg (27.0-33.0); Mean Corpuscular Volume 96.2 fL (80.0-98.0); Mean Platelet Volume 9.7 fL (9.4-12.3); Monocytes Absolute Auto 0.5 X10*3/uL (0.1-1.2); Monocytes Percent Auto 11.3 % (2-11); Neutrophils Absolute Auto 1.6 x10*3/uL (2.0-8.3); Platelet Count 152 X10*3/uL (160-400); Red Blood Count 3.44 X10*6/uL (4.20-5.50); Red Cell Distribution Width 14.4 % (11.0-16.0); White Blood Count 4.8 X10*3/uL (4.8-10.8)
[2022-08-16 08:13] LABS: Anion Gap 8 (12-20); Blood Urea Nitrogen 15 mg/dL (9-16); Calcium 8.4 mg/dL (8.4-10.2); Carbon Dioxide 28 mmol/L (22-29); Chloride 112 mmol/L (96-108); Estimated Glomerular Filt Rate 40; Glucose Random 89 mg/dL (60-115); Potassium 3.7 mmol/L (3.3-5.1); Sodium 144 mmol/L (135-145)
== END 2022-08-16 07:30 | disposition home or self-care (01) ==
LOC: HO.MMNH1L 07:29
PROVIDERS: Visit Provider Family Medicine
DX: I48.0 Paroxysmal atrial fibrillation (principal); I10 Essential (primary) hypertension
CPT/HCPCS: 36415; 80048; 85025

== ENCOUNTER 2022-09-13 06:14 | Outpatient (REF) | payer MEDICARE, SELFPAY ==
[2022-09-13 06:21] LABS: MANUAL DIFF FLAG NO
[2022-09-13 06:41] LABS: Basophils Absolute Auto 0.1 X10*3/uL (0.0-0.2); Basophils Percent Auto 1.1 % (0-2); Eosinophils Absolute Auto 0.3 X10*3/uL (0.0-0.4); Eosinophils Percent Auto 5.9 % (0-4); Hematocrit 33.5 % (37.0-47.0); Hemoglobin 10.7 g/dl (12.0-16.0); Imm Gran Abs Auto 0.01 X10*3/uL (0.00-0.03); Imm Gran Pct Auto 0.2 % (0.0-0.4); Lymphocytes Absolute Auto 2.1 X10*3/uL (1.2-4.9); Lymphocytes Percent Auto 48.3 % (20-40); Mean Corpuscular HGB Conc 31.9 g/dl (31.0-35.0); Mean Corpuscular Hemoglobin 30.4 pg (27.0-33.0); Mean Corpuscular Volume 95.2 fL (80.0-98.0); Monocytes Absolute Auto 0.4 X10*3/uL (0.1-1.2); Monocytes Percent Auto 9.8 % (2-11); Neutrophils Absolute Auto 1.5 x10*3/uL (2.0-8.3); Neutrophils Percent Auto 34.7 % (45-73); Platelet Count 150 X10*3/uL (160-400); Red Blood Count 3.52 X10*6/uL (4.20-5.50); White Blood Count 4.4 X10*3/uL (4.8-10.8)
[2022-09-13 07:30] LABS: Anion Gap 11 (12-20); Blood Urea Nitrogen 13 mg/dL (9-16); Calcium 8.5 mg/dL (8.4-10.2); Carbon Dioxide 25 mmol/L (22-29); Chloride 110 mmol/L (96-108); Estimated Glomerular Filt Rate 46; Glucose Random 80 mg/dL (60-115); Potassium 3.8 mmol/L (3.3-5.1); Sodium 142 mmol/L (135-145)
== END 2022-09-13 06:15 | disposition home or self-care (01) ==
LOC: HO.MMNH1L 06:14
PROVIDERS: Visit Provider Family Medicine
DX: I48.0 Paroxysmal atrial fibrillation (principal); I10 Essential (primary) hypertension
CPT/HCPCS: 36415; 80048; 85025

== ENCOUNTER 2022-10-07 10:14 | Outpatient (REF) | payer MEDICARE, OTHER, SELFPAY ==
--- NOTE | ~2022-10-07 | US_ITS ---
EXAMINATION: US LOWER EXTREMITY VENOUS (REFLUX EXAM), BILATERAL CLINICAL INDICATION: Chronic venous insufficiency with lower extremity varicose veins COMPARISON: None. TECHNIQUE: Color flow triplex imaging and compression Doppler was performed to evaluate both the deep and the superficial systems bilaterally. To evaluate the superficial system, the examination was performed in the upright position. Color-flow Doppler ultrasound and compression ultrasound were utilized. In addition, maneuvers were utilized to demonstrate reflux. FINDINGS: 1. DEEP VENOUS ULTRASOUND OF THE RIGHT LOWER EXTREMITY: Common Femoral Vein: Compressible, normal respiratory variation and augmented flow. Femoral Vein: Compressible, normal color flow and augmentation. Popliteal Vein: Compressible, normal augmentation. Deep Reflux: There is no evidence of reflux in the deep system in either the common femoral vein or the popliteal vein. There is no evidence of a Allen's cyst. Subcutaneous edema seen within the calf. 2. SUPERFICIAL ULTRASOUND WITH DOPPLER OF RIGHT LOWER EXTREMITY: GREAT SAPHENOUS VEIN: Saphenofemoral Junction: 0.6 cm; Reflux: 0 ms Proximal Thigh: 0.6 cm; Reflux: 0 ms Mid Thigh: 0.3 cm; Reflux: 0 ms Above Knee: 0.1 cm; Reflux: 1240 ms At Knee: 0.2 cm; Reflux: 1044 ms Below Knee: 0.2 cm; Reflux: 856 ms Mid Calf: 0.1 cm; Reflux: 0 ms Ankle: 0.1 cm; Reflux: 0 ms DUPLICATED MEDIAL GREAT SAPHENOUS VEIN: Diameter: None Imaged Reflux: NA DUPLICATED LATERAL GREAT SAPHENOUS VEIN: Diameter: None Imaged Reflux: NA SMALL SAPHENOUS VEIN: Proximal: 0.1 cm; Reflux: 0 ms Distal: 0.1 cm; Reflux: 0 ms VEIN OF GIACOMINI: None Imaged. PERFORATORS: Location: None Imaged Size: NA Reflux: NA VARICOSITIES: Location: Proximal calf Size: 0.3 cm Reflux: 2200 3. DEEP VENOUS ULTRASOUND OF THE LEFT LOWER EXTREMITY: Common Femoral Vein: Compressible, normal respiratory variation and augmented flow. Femoral Vein: Compressible, normal color flow and augmentation. Popliteal Vein: Compressible, normal augmentation. Deep Reflux: There is no evidence of reflux in the deep system in either the common femoral vein or the popliteal vein. There is no evidence of a Allen's cyst. There is subcutaneous edema within the soft tissues of the calf. 4. SUPERFICIAL ULTRASOUND WITH DOPPLER OF LEFT LOWER EXTREMITY: GREAT SAPHENOUS VEIN: Saphenofemoral Junction: 0.9 cm; Reflux: 0 ms Proximal Thigh: 0.4 cm; Reflux: 0 ms Mid Thigh: 0.3 cm; Reflux: 0 ms Above Knee: 0.2 cm; Reflux: 0 ms At Knee: 0.2 cm; Reflux: 0 ms Below Knee: 0.3 cm; Reflux: 1032 ms Mid Calf: 0.2 cm; Reflux: 1528 ms Ankle: 0.3 cm; Reflux: 0 ms DUPLICATED MEDIAL GREAT SAPHENOUS VEIN: Diameter: None Imaged Reflux: NA DUPLICATED LATERAL GREAT SAPHENOUS VEIN: Diameter: None Imaged Reflux: NA SMALL SAPHENOUS VEIN: Proximal: 0.2 cm; Reflux: 0 ms Distal: 0.1 cm; Reflux: 0 ms VEIN OF GIACOMINI: None Imaged. PERFORATORS: Location: None Imaged Size: NA Reflux: NA VARICOSITIES: Location: Proximal calf Size: 0.3 cm Reflux: 3200 ms US/US venous duplex LE BI IMPRESSION: Right: Moderate reflux within the great saphenous vein in the distal thigh to the proximal calf. Greater saphenous vein is normal in size. There is a small varicose vein in the proximal calf with reflux. Left: Moderate reflux within the great saphenous vein in the proximal to mid calf. Greater saphenous vein is normal in size. There is a small varicose vein in the proximal calf with reflux.
== END 2022-10-07 10:15 | disposition home or self-care (01) ==
LOC: HO.US 10:14
PROVIDERS: PCP Family Medicine; Visit Provider Surgery Vascular Surgery
DX: I83.893 Varicose veins of bilateral lower extremities with other complications (principal); I83.12 Varicose veins of left lower extremity with inflammation
CPT/HCPCS: 93970

== ENCOUNTER → 2022-10-13 10:14 | Outpatient (BNVA) | payer MEDICARE, SELFPAY | PROVIDERS: PCP Family Medicine; Visit Provider Internal Medicine Cardiovascular Disease | DX: I42.8 Other cardiomyopathies (principal); I48.0 Paroxysmal atrial fibrillation; Z95.810 Presence of automatic (implantable) cardiac defibrillator | CPT/HCPCS: 93005; 99212 ==

== ENCOUNTER 2022-10-18 06:53 | Outpatient (REF) | payer MEDICARE, SELFPAY ==
[2022-10-18 06:41] LABS: MANUAL DIFF FLAG NO
[2022-10-18 07:15] LABS: Basophils Percent Auto 0.8 % (0-2); Eosinophils Absolute Auto 0.2 X10*3/uL (0.0-0.4); Eosinophils Percent Auto 3.6 % (0-4); Hematocrit 32.6 % (37.0-47.0); Hemoglobin 10.5 g/dl (12.0-16.0); Imm Gran Abs Auto 0.02 X10*3/uL (0.00-0.03); Imm Gran Pct Auto 0.4 % (0.0-0.4); Lymphocytes Absolute Auto 1.9 X10*3/uL (1.2-4.9); Mean Corpuscular HGB Conc 32.2 g/dl (31.0-35.0); Mean Corpuscular Hemoglobin 30.6 pg (27.0-33.0); Monocytes Absolute Auto 0.5 X10*3/uL (0.1-1.2); Monocytes Percent Auto 10.2 % (2-11); Neutrophils Absolute Auto 2.7 x10*3/uL (2.0-8.3); Platelet Count 166 X10*3/uL (160-400); Red Blood Count 3.43 X10*6/uL (4.20-5.50); White Blood Count 5.3 X10*3/uL (4.8-10.8)
[2022-10-18 07:31] LABS: Anion Gap 13 (12-20); Blood Urea Nitrogen 17 mg/dL (9-16); Calcium 8.5 mg/dL (8.4-10.2); Carbon Dioxide 24 mmol/L (22-29); Chloride 110 mmol/L (96-108); Estimated Glomerular Filt Rate 43; Glucose Random 90 mg/dL (60-115); Potassium 3.5 mmol/L (3.3-5.1); Sodium 143 mmol/L (135-145)
== END 2022-10-18 06:54 | disposition home or self-care (01) ==
LOC: HO.MMNH1L 06:53
PROVIDERS: Visit Provider Family Medicine
DX: I48.0 Paroxysmal atrial fibrillation (principal); I10 Essential (primary) hypertension; Z45.018 Encounter for adjustment and management of other part of cardiac pacemaker
CPT/HCPCS: 36415; 80048; 85025

== ENCOUNTER → 2022-10-26 14:07 | Outpatient (BNVA) | payer MEDICARE, OTHER, SELFPAY | PROVIDERS: PCP Family Medicine; Visit Provider Surgery Vascular Surgery | DX: I73.9 Peripheral vascular disease, unspecified (principal); I83.12 Varicose veins of left lower extremity with inflammation | CPT/HCPCS: 99212 ==

== ENCOUNTER 2022-11-15 06:47 | Outpatient (REF) | payer MEDICARE, SELFPAY ==
[2022-11-15 06:27] LABS: MANUAL DIFF FLAG NO
[2022-11-15 07:25] LABS: Anion Gap 10 (12-20); Blood Urea Nitrogen 18 mg/dL (9-16); Calcium 8.5 mg/dL (8.4-10.2); Carbon Dioxide 29 mmol/L (22-29); Chloride 109 mmol/L (96-108); Estimated Glomerular Filt Rate 38; Glucose Random 79 mg/dL (60-115); Potassium 3.7 mmol/L (3.3-5.1); Sodium 144 mmol/L (135-145)
[2022-11-15 07:34] LABS: Basophils Percent Auto 0.6 % (0-2); Eosinophils Absolute Auto 0.2 X10*3/uL (0.0-0.4); Hematocrit 34.2 % (37.0-47.0); Imm Gran Abs Auto 0.02 X10*3/uL (0.00-0.03); Imm Gran Pct Auto 0.4 % (0.0-0.4); Lymphocytes Absolute Auto 2.3 X10*3/uL (1.2-4.9); Lymphocytes Percent Auto 45.6 % (20-40); Mean Corpuscular HGB Conc 32.2 g/dl (31.0-35.0); Mean Corpuscular Hemoglobin 30.9 pg (27.0-33.0); Mean Corpuscular Volume 96.1 fL (80.0-98.0); Mean Platelet Volume 9.8 fL (9.4-12.3); Monocytes Absolute Auto 0.5 X10*3/uL (0.1-1.2); Monocytes Percent Auto 9.7 % (2-11); Neutrophils Percent Auto 39.7 % (45-73); Platelet Count 150 X10*3/uL (160-400); Red Blood Count 3.56 X10*6/uL (4.20-5.50); Red Cell Distribution Width 14.4 % (11.0-16.0)
== END 2022-11-15 06:48 | disposition home or self-care (01) ==
LOC: HO.MMNH1L 06:47
PROVIDERS: Visit Provider Family Medicine
DX: I48.0 Paroxysmal atrial fibrillation (principal); I10 Essential (primary) hypertension
CPT/HCPCS: 36415; 80048; 85025

== ENCOUNTER 2022-12-13 06:27 | Outpatient (REF) | payer MEDICARE, SELFPAY ==
[2022-12-13 06:23] LABS: MANUAL DIFF FLAG NO
[2022-12-13 06:49] LABS: Basophils Absolute Auto 0.1 X10*3/uL (0.0-0.2); Eosinophils Absolute Auto 0.2 X10*3/uL (0.0-0.4); Eosinophils Percent Auto 2.9 % (0-4); Hematocrit 34.5 % (37.0-47.0); Hemoglobin 11.2 g/dl (12.0-16.0); Imm Gran Abs Auto 0.01 X10*3/uL (0.00-0.03); Imm Gran Pct Auto 0.2 % (0.0-0.4); Lymphocytes Absolute Auto 2.6 X10*3/uL (1.2-4.9); Lymphocytes Percent Auto 49.1 % (20-40); Mean Corpuscular HGB Conc 32.5 g/dl (31.0-35.0); Mean Corpuscular Volume 95.6 fL (80.0-98.0); Mean Platelet Volume 9.5 fL (9.4-12.3); Monocytes Absolute Auto 0.5 X10*3/uL (0.1-1.2); Monocytes Percent Auto 10.1 % (2-11); Neutrophils Absolute Auto 1.9 x10*3/uL (2.0-8.3); Neutrophils Percent Auto 36.7 % (45-73); Platelet Count 172 X10*3/uL (160-400); Red Blood Count 3.61 X10*6/uL (4.20-5.50); Red Cell Distribution Width 14.1 % (11.0-16.0); White Blood Count 5.2 X10*3/uL (4.8-10.8)
[2022-12-13 07:34] LABS: Anion Gap 13 (12-20); Blood Urea Nitrogen 18 mg/dL (9-16); Calcium 8.5 mg/dL (8.4-10.2); Carbon Dioxide 25 mmol/L (22-29); Chloride 108 mmol/L (96-108); Estimated Glomerular Filt Rate 40; Glucose Random 81 mg/dL (60-115); Potassium 3.9 mmol/L (3.3-5.1); Sodium 142 mmol/L (135-145)
== END 2022-12-13 06:28 | disposition home or self-care (01) ==
LOC: HO.MMNH1L 06:27
PROVIDERS: Visit Provider Family Medicine
DX: I48.0 Paroxysmal atrial fibrillation (principal); I10 Essential (primary) hypertension
CPT/HCPCS: 36415; 80048; 85025

== ENCOUNTER 2022-12-15 05:20 | Outpatient (REF) | payer MEDICARE, SELFPAY ==
[2022-12-15 05:53] LABS: Appearance Urine Turbid; Color Urine Yellow; Glucose Urine UA Negative (Negative); Leukocyte Esterase Urine Small (1+) (Negative); Nitrite Urine Negative (Negative); PH 5.5 (5.0-9.0); Specific Gravity - Urine 1.025 (1.005-1.025); UMIC TRIGGER UA YES; Urine Blood Negative (Negative); Urine Ketones Negative (Negative); Urine Protein 30 (1+) mg/dL (Neg-Trace)
[2022-12-15 06:18] LABS: Bacteria Urine 4+ (None Seen); Calcium Oxalate Crystals Urine Present; Hyaline Casts Urine 0-2 /LPF (0-2); WBC Urine 21-50 /HPF (0-5)
== END 2022-12-15 05:21 | disposition home or self-care (01) ==
LOC: HO.MMNH1L 05:20
PROVIDERS: Visit Provider Family Medicine
DX: I48.0 Paroxysmal atrial fibrillation (principal); N39.0 Urinary tract infection, site not specified; Z95.810 Presence of automatic (implantable) cardiac defibrillator
CPT/HCPCS: 81001; 87086; 87088; 87186

== ENCOUNTER 2022-12-17 14:55 | Outpatient (REF) | payer MEDICARE, SELFPAY ==
--- NOTE | ~2022-12-17 | US_ITS ---
EXAMINATION: US VENOUS ULTRASOUND WITH DOPPLER LOWER EXTREMITY, RIGHT CLINICAL INFORMATION: Pain COMPARISON: Previous exam Sep 2022 TECHNIQUE: Ultrasound of the deep veins is performed from the hip to the calf with compression sonography and color and pulse Doppler assessment. Spectral analysis with color-flow imaging is performed. FINDINGS: There is normal venous compression and respiratory variation and augmented flow. The visualized common femoral vein, superficial femoral vein, profunda femoral vein, popliteal vein, and the trifurcation region shows no evidence of deep venous thrombosis. There is no significant popliteal fossa cyst. US/US venous duplex LE RT IMPRESSION: No DVT demonstrated in the right lower extremity.
== END 2022-12-17 14:56 | disposition home or self-care (01) ==
LOC: HO.US 14:55
PROVIDERS: PCP Family Medicine; Visit Provider Nurse Practitioner Family
DX: I82.401 Acute embolism and thrombosis of unspecified deep veins of right lower extremity (principal)
CPT/HCPCS: 93971

== ENCOUNTER 2023-01-10 06:05 | Outpatient (REF) | payer MEDICARE, SELFPAY ==
[2023-01-10 05:58] LABS: MANUAL DIFF FLAG NO
[2023-01-10 06:57] LABS: Basophils Absolute Auto 0.1 X10*3/uL (0.0-0.2); Basophils Percent Auto 0.9 % (0-2); Eosinophils Absolute Auto 0.3 X10*3/uL (0.0-0.4); Eosinophils Percent Auto 4.5 % (0-4); Hematocrit 35.7 % (37.0-47.0); Hemoglobin 11.4 g/dl (12.0-16.0); Imm Gran Abs Auto 0.03 X10*3/uL (0.00-0.03); Imm Gran Pct Auto 0.5 % (0.0-0.4); Lymphocytes Percent Auto 53.2 % (20-40); Mean Corpuscular HGB Conc 31.9 g/dl (31.0-35.0); Mean Corpuscular Hemoglobin 30.6 pg (27.0-33.0); Monocytes Absolute Auto 0.6 X10*3/uL (0.1-1.2); Monocytes Percent Auto 10.5 % (2-11); Neutrophils Absolute Auto 1.7 x10*3/uL (2.0-8.3); Neutrophils Percent Auto 30.4 % (45-73); Platelet Count 124 X10*3/uL (160-400); Red Blood Count 3.72 X10*6/uL (4.20-5.50); White Blood Count 5.5 X10*3/uL (4.8-10.8)
[2023-01-10 07:04] LABS: Anion Gap 13 (12-20); Blood Urea Nitrogen 12 mg/dL (9-16); Calcium 8.7 mg/dL (8.4-10.2); Carbon Dioxide 28 mmol/L (22-29); Chloride 107 mmol/L (96-108); Estimated Glomerular Filt Rate 41; Glucose Random 88 mg/dL (60-115); Potassium 3.7 mmol/L (3.3-5.1); Sodium 144 mmol/L (135-145)
== END 2023-01-10 06:06 | disposition home or self-care (01) ==
LOC: HO.MMNH1L 06:05
PROVIDERS: Visit Provider Family Medicine
DX: I48.0 Paroxysmal atrial fibrillation (principal); I10 Essential (primary) hypertension
CPT/HCPCS: 36415; 80048; 85025

== ENCOUNTER 2023-02-14 06:21 | Outpatient (REF) | payer MEDICARE, SELFPAY ==
[2023-02-14 06:06] LABS: MANUAL DIFF FLAG NO
[2023-02-14 06:38] LABS: Anion Gap 12 (12-20); Blood Urea Nitrogen 20 mg/dL (9-16); Calcium 8.7 mg/dL (8.4-10.2); Carbon Dioxide 27 mmol/L (22-29); Chloride 109 mmol/L (96-108); Estimated Glomerular Filt Rate 41; Glucose Random 89 mg/dL (60-115); Potassium 3.6 mmol/L (3.3-5.1); Sodium 144 mmol/L (135-145)
[2023-02-14 07:02] LABS: Basophils Percent Auto 0.8 % (0-2); Eosinophils Absolute Auto 0.2 X10*3/uL (0.0-0.4); Eosinophils Percent Auto 3.5 % (0-4); Hematocrit 34.4 % (37.0-47.0); Hemoglobin 11.2 g/dl (12.0-16.0); Imm Gran Abs Auto 0.01 X10*3/uL (0.00-0.03); Imm Gran Pct Auto 0.2 % (0.0-0.4); Lymphocytes Absolute Auto 2.3 X10*3/uL (1.2-4.9); Lymphocytes Percent Auto 45.2 % (20-40); Mean Corpuscular HGB Conc 32.6 g/dl (31.0-35.0); Mean Corpuscular Hemoglobin 31.6 pg (27.0-33.0); Mean Corpuscular Volume 97.2 fL (80.0-98.0); Mean Platelet Volume 10.2 fL (9.4-12.3); Monocytes Absolute Auto 0.5 X10*3/uL (0.1-1.2); Monocytes Percent Auto 10.4 % (2-11); Neutrophils Percent Auto 39.9 % (45-73); Platelet Count 139 X10*3/uL (160-400); Red Blood Count 3.54 X10*6/uL (4.20-5.50); White Blood Count 5.1 X10*3/uL (4.8-10.8)
== END 2023-02-14 06:22 | disposition home or self-care (01) ==
LOC: HO.MMNH1L 06:21
PROVIDERS: Visit Provider Family Medicine
DX: I48.0 Paroxysmal atrial fibrillation (principal); I10 Essential (primary) hypertension
CPT/HCPCS: 36415; 80048; 85025

== ENCOUNTER 2023-03-14 06:19 | Outpatient (REF) | payer MEDICARE, SELFPAY ==
[2023-03-14 06:13] LABS: MANUAL DIFF FLAG NO
[2023-03-14 06:56] LABS: Anion Gap 12 (12-20); Blood Urea Nitrogen 15 mg/dL (9-16); Calcium 8.9 mg/dL (8.4-10.2); Carbon Dioxide 27 mmol/L (22-29); Chloride 107 mmol/L (96-108); Estimated Glomerular Filt Rate 41; Glucose Random 88 mg/dL (60-115); Potassium 3.5 mmol/L (3.3-5.1); Sodium 142 mmol/L (135-145)
[2023-03-14 06:58] LABS: Basophils Percent Auto 0.4 % (0-2); Eosinophils Absolute Auto 0.2 X10*3/uL (0.0-0.4); Eosinophils Percent Auto 3.3 % (0-4); Hematocrit 35.7 % (37.0-47.0); Hemoglobin 11.5 g/dl (12.0-16.0); Imm Gran Abs Auto 0.01 X10*3/uL (0.00-0.03); Imm Gran Pct Auto 0.2 % (0.0-0.4); Lymphocytes Absolute Auto 2.3 X10*3/uL (1.2-4.9); Lymphocytes Percent Auto 50.3 % (20-40); Mean Corpuscular HGB Conc 32.2 g/dl (31.0-35.0); Mean Corpuscular Volume 96.2 fL (80.0-98.0); Mean Platelet Volume 10.3 fL (9.4-12.3); Monocytes Absolute Auto 0.6 X10*3/uL (0.1-1.2); Monocytes Percent Auto 12.4 % (2-11); Neutrophils Absolute Auto 1.5 x10*3/uL (2.0-8.3); Neutrophils Percent Auto 33.4 % (45-73); Platelet Count 136 X10*3/uL (160-400); Red Blood Count 3.71 X10*6/uL (4.20-5.50); Red Cell Distribution Width 14.3 % (11.0-16.0); White Blood Count 4.5 X10*3/uL (4.8-10.8)
== END 2023-03-14 06:20 | disposition home or self-care (01) ==
LOC: HO.MMNH1L 06:19
PROVIDERS: Visit Provider Family Medicine
DX: I48.0 Paroxysmal atrial fibrillation (principal); I10 Essential (primary) hypertension
CPT/HCPCS: 36415; 80048; 85025

== ENCOUNTER → 2023-03-28 23:59 | Outpatient (BNV) | payer MEDICARE, OTHER, SELFPAY ==
--- NOTE | 2023-03-31 09:26 | MHC.OFFVIS ---
Intake Intake Visit Reasons: Remote HF Monitoring- [facility] Allergies No Known Allergies [No Known Allergies*] Allergy (Verified 10/26/22 14:11) PFSH Medical History Anxiety Biventricular ICD (implantable cardioverter-defibrillator) in place Chronic a-fib CVA (cerebral vascular accident) Fatty liver Frailty Frequent PVCs Heart failure with reduced ejection fraction Hypertension Hypothyroidism Nonischemic cardiomyopathy Palpitations Paroxysmal atrial fibrillation Surgical History History of permanent cardiac pacemaker placement Hx of Achilles tendon repair Hx of hysterectomy Family History Father No problems noted. Mother No problems noted. Social History Household Members: None Housing: House Unable to assess alcohol history related to: Unknown Alcohol intake: never Patient Tobacco Use Status: Never used Tobacco Second Hand Smoke Exposure: No Advance Directives Date on File: 10/19/21 service: No Current occupational status: retired Current occupation: right handed Office Procedures Cardiac Device Check Cardiac Device Check Details: Remote heart failure report generated 03/28/2023. Heart failure parameters are stable [id number] Cardiac Device Interrogation, cardio physiologic monitor Procedure code (CPT) selection complete Coding Level of Care Code Procedure Only Diagnoses CPT Codes Cardiac Device Check - Cardiac Device 15: [id number] Cardiac Device Interrogation, cardio physiologic monitor ([id number])
== END ==
PROVIDERS: PCP Family Medicine; Visit Provider Internal Medicine Cardiovascular Disease
DX: I50.20 Unspecified systolic (congestive) heart failure (principal); Z95.810 Presence of automatic (implantable) cardiac defibrillator
CPT/HCPCS: 93297

== ENCOUNTER 2023-04-12 10:45 | Outpatient (AMB) | payer MEDICARE, OTHER, SELFPAY ==
[2023-04-12 10:49] VITALS: BP 120/78; PULSE 60; BMI 21.5
--- NOTE | 2023-04-12 10:49 | A.OFFVIS_ITS ---
Intake Vital Signs 04/12/23 10:49 Height 5 ft Weight 110 lb 3.698 oz BMI 21.5 BP 120/78 Blood Pressure Location Lt brachial Position Sitting Pulse 60 Intake Visit Reasons: 6 mth follow up Intake Note: 6 month follow-up feeling good with ekg and echo Radial Drill Press Set Up Operator Required: No Health Care Coordinator: Health Care Coordinator Present Accompanied by: Son Allergies No Known Allergies [No Known Allergies*] Allergy (Verified 10/26/22 14:11) Medication List - Last Reconciled 04/12/23 by Nitish Frias MD acetaminophen (Tylenol) 650 mg PO Q6H PRN amiodarone 200 mg PO DAILY apixaban (Eliquis) 2.5 mg PO BID bisacodyl 10 mg IA DAILY PRN cholecalciferol (vitamin D3) 25 mcg PO DAILY docusate sodium 100 mg PO DAILY levothyroxine 75 mcg PO DAILY lisinopril 5 mg PO DAILY lorazepam 0.5 mg PO BID PRN melatonin 3 mg PO BEDTIME PRN metoprolol tartrate 25 mg PO BID paroxetine HCl 20 mg PO DAILY sennosides (senna) 8.6 mg PO BEDTIME HPI HPI Comments History of Present Illness Details Nina comes for follow-up, accompanied by her son. She is currently in a intermediate facility for rehab after a fall. She is currently not walking much. She has not had any hospitalization related to heart failure. Denies any palpitations, lightheadedness, syncope, ICD discharge. Takes all her medications. [facility] Medical History Anxiety Biventricular ICD (implantable cardioverter-defibrillator) in place Chronic a-fib CVA (cerebral vascular accident) Fatty liver Frailty Frequent PVCs Heart failure with reduced ejection fraction Hypertension Hypothyroidism Nonischemic cardiomyopathy Palpitations Paroxysmal atrial fibrillation Surgical History History of permanent cardiac pacemaker placement Hx of Achilles tendon repair Hx of hysterectomy Family History Father No problems noted. Mother No problems noted. Social History Household Members: None Housing: House Unable to assess alcohol history related to: Unknown Alcohol intake: never Patient Tobacco Use Status: Never used Tobacco Second Hand Smoke Exposure: No Advance Directives Date on File: 10/19/21 service: No Current occupational status: retired Current occupation: right handed Review of Systems Const Denies chills, Denies fatigue, Denies fever(s), Denies frequent falls, Denies weakness, Denies weight gain and Denies weight loss ENT Denies dizziness Card Denies chest pain, Denies leg edema, Denies lightheadedness, Denies palpitations, Denies dyspnea, Denies dyspnea on exertion, Denies orthopnea and Denies other (loss of consciousness) Resp Denies cough, Denies dyspnea and Denies dyspnea on exertion GI Denies hematochezia and Denies change in stool character Musc Denies abnormal gait, Denies muscle weakness, Denies numbness, Denies radiating pain into limb and Denies tingling Neuro Denies abnormal gait, Denies dizziness, Denies frequent falls, Denies numbness, Denies tingling and Denies weakness Endo Denies fatigue and Denies palpitations Physical Exam Vital Signs: Last Vital Signs Pulse 60 04/12/23 10:49 BP 120/78 04/12/23 10:49 BMI result Body Mass Index 21.5 Const General: cooperative, comfortable, alert, awake and well groomed Nutritional Appearance: underweight and other (Frail elderly woman) Orientation/consciousness: patient oriented x3 Limitations: wheelchair Neck Neck: Yes trachea midline, Yes supple and Yes no JVD Resp Effort & Inspection: normal respiratory effort Auscultation: clear to auscultation bilaterally Cardio Jugular venous distension: no JVD Rate: regular rate Rhythm: abnormal rhythm with ectopic beats Heart sounds: S1 normal heart sound present and S2 normal heart sound present Skin General skin exam: no rashes or lesions noted and ecchymosis Neuro General: patient oriented x3 and no focal motor deficits Extrem General: Yes no clubbing, cyanosis or edema Psych Appearance: grossly normal Office Procedures Cardiac Device Check Cardiac Device Check Details: Biventricular [facility] ICD in place. Programmed in DDDR at 60 beats per minute. Biventricular pacing 99% of the time. LV pacing thresholds are significantly elevated and stable. Capturing adequately at high threshold. Battery life is less than 3 months. Pacing and shock lead impedance is stable. No atrial fibrillation noted. No ventricular arrhythmias noted. [id number] Cardiac Device Check, multi lead implantable defibrillator Procedure code (CPT) selection complete EKG Details: EKG shows AV dual paced rhythm [id number]-[id number], Complete Assessment & Plan Assessment & Plan (1) Biventricular ICD (implantable cardioverter-defibrillator) in place: Code(s): Z95.810 - Presence of automatic (implantable) cardiac defibrillator Plan: Biventricular ICD in place. LV lead requires high pacing threshold. Although given her advanced age, son and patient decided not to pursue lead replacement but just pulse generator change. Will continue monitor battery life remotely every month. Risks and benefits of pulse generator change was discussed. Will refer to thoracic surgery for pulse generator change. (2) Nonischemic cardiomyopathy: Code(s): I42.8 - Other cardiomyopathies Plan: Nonischemic cardiomyopathy with heart failure syndrome. Clinically doing well without any recent hospitalization with decompensated congestive heart failure. Currently not on any diuretic regimen. Continue neurohormonal modulation with lisinopril as as metoprolol. 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 Signs and symptoms of heart failure were discussed. She understands and agrees. They want to continue pursue cardiac resynchronization therapy given significant improvement with heart failure syndrome. Continue amiodarone therapy to suppress PVCs which were making her Bi V pacing ineffective. Check for amiodarone toxicity. (3) Paroxysmal atrial fibrillation: Code(s): I48.0 - Paroxysmal atrial fibrillation Plan: Paroxysmal atrial fibrillation which has remained suppressed and has done well with rhythm control approach. Continue amiodarone therapy. Continue full oral anticoagulation, currently on Eliquis 2.5 mg b.i.d.. Quarterly renal function test should be pursued. Will follow up in the clinic in 3 months time, sooner p.r.n.. Thank you for allowing me to partake in her care Orders: Orders Liver Panel Today I48.0 - Paroxysmal atrial fibrillation TSH reflex Free T4 Today I48.0 - Paroxysmal atrial fibrillation XR chest 2V Today I48.0 - Paroxysmal atrial fibrillation Referrals Thoracic Surgery Referral Z95.810 - Presence of automatic (implantable) cardiac defibrillator Coding Level of Care Code Est Pt Level 4 (25117) Diagnoses Biventricular ICD (implantable cardioverter-defibrillator) in place Z95.810 Nonischemic cardiomyopathy I42.8 Paroxysmal atrial fibrillation I48.0 CPT Codes Cardiac Device Check - Cardiac Device 6: [id number] Cardiac Device Check, multi lead implantable defibrillator ([id number]) EKG - CPT: 50969-Ezmbempztklyebvyq, Complete ([id number])
== END 2023-04-12 11:14 | disposition home or self-care (01) ==
PROVIDERS: Visit Provider Internal Medicine Cardiovascular Disease
DX: I42.8 Other cardiomyopathies (principal); I48.0 Paroxysmal atrial fibrillation; Z95.810 Presence of automatic (implantable) cardiac defibrillator
CPT/HCPCS: 93284; 99214

== ENCOUNTER → 2023-04-12 10:45 | Outpatient (BNVA) | payer MEDICARE, OTHER, SELFPAY | PROVIDERS: Visit Provider Internal Medicine Cardiovascular Disease | DX: Z45.02 Encounter for adjustment and management of automatic implantable cardiac defibrillator (principal); I42.8 Other cardiomyopathies; I48.0 Paroxysmal atrial fibrillation | CPT/HCPCS: 93005; 99212 ==

== ENCOUNTER 2023-04-18 05:53 | Outpatient (REF) | payer MEDICARE, SELFPAY ==
[2023-04-18 05:53] LABS: MANUAL DIFF FLAG NO
[2023-04-18 06:20] LABS: Basophils Percent Auto 0.8 % (0-2); Eosinophils Absolute Auto 0.1 X10*3/uL (0.0-0.4); Eosinophils Percent Auto 2.8 % (0-4); Hematocrit 33.6 % (37.0-47.0); Hemoglobin 10.8 g/dl (12.0-16.0); Imm Gran Abs Auto 0.01 X10*3/uL (0.00-0.03); Imm Gran Pct Auto 0.2 % (0.0-0.4); Lymphocytes Absolute Auto 2.1 X10*3/uL (1.2-4.9); Lymphocytes Percent Auto 42.5 % (20-40); Mean Corpuscular HGB Conc 32.1 g/dl (31.0-35.0); Mean Corpuscular Hemoglobin 31.2 pg (27.0-33.0); Mean Corpuscular Volume 97.1 fL (80.0-98.0); Mean Platelet Volume 10.7 fL (9.4-12.3); Monocytes Absolute Auto 0.6 X10*3/uL (0.1-1.2); Monocytes Percent Auto 11.1 % (2-11); Neutrophils Absolute Auto 2.1 x10*3/uL (2.0-8.3); Neutrophils Percent Auto 42.6 % (45-73); Platelet Count 152 X10*3/uL (160-400); Red Blood Count 3.46 X10*6/uL (4.20-5.50); Red Cell Distribution Width 14.2 % (11.0-16.0)
[2023-04-18 06:30] LABS: Anion Gap 16 (12-20); Blood Urea Nitrogen 28 mg/dL (9-16); Calcium 8.6 mg/dL (8.4-10.2); Carbon Dioxide 20 mmol/L (22-29); Chloride 110 mmol/L (96-108); Estimated Glomerular Filt Rate 39; Glucose Random 93 mg/dL (60-115); Potassium 3.7 mmol/L (3.3-5.1); Sodium 142 mmol/L (135-145)
== END 2023-04-18 05:54 | disposition home or self-care (01) ==
LOC: HO.MMNH1L 05:53
PROVIDERS: Visit Provider Family Medicine
DX: I48.0 Paroxysmal atrial fibrillation (principal); I10 Essential (primary) hypertension
CPT/HCPCS: 36415; 80048; 85025

== ENCOUNTER 2023-04-25 11:40 | Outpatient (AMB) | payer MEDICARE, OTHER, SELFPAY ==
--- NOTE | 2023-04-25 11:54 | A.OFFVIS_ITS ---
Intake Vital Signs 04/25/23 11:56 Height 5 ft Weight 121 lb BMI 23.6 BP 117/59 L Blood Pressure Location Rt brachial Position Sitting Pulse 60 Intake Visit Reasons: Defibrillator battery change Intake Note: Patient was referred for defibrillator battery change. Pt' son Douglas Liu reports Luis Felipe Kat was supposed to order chest X-ray but he unsure if X-ray was completed. Chiropractor Assistant Required: No Accompanied by: son Douglas iLu Allergies No Known Allergies [No Known Allergies*] Allergy (Verified 04/25/23 11:54) HPI HPI Comments History of Present Illness Details Patient presents with her son from [facility] for evaluation for defibrillator generator replacement secondary to generator depletion. Chart was reviewed patient evaluated. Patient is in a collection of meds including Eliquis. [facility] Medical History Anxiety Biventricular ICD (implantable cardioverter-defibrillator) in place Chronic a-fib CVA (cerebral vascular accident) Fatty liver Frailty Frequent PVCs Heart failure with reduced ejection fraction Hypertension Hypothyroidism Nonischemic cardiomyopathy Palpitations Paroxysmal atrial fibrillation Surgical History History of permanent cardiac pacemaker placement Hx of Achilles tendon repair Hx of hysterectomy Family History Father No problems noted. Mother No problems noted. Social History Household Members: None Housing: House Unable to assess alcohol history related to: Unknown Alcohol intake: never Patient Tobacco Use Status: Never used Tobacco Second Hand Smoke Exposure: No Advance Directives Date on File: 10/19/21 service: No Current occupational status: retired Current occupation: right handed Physical Exam Vital Signs: Last Vital Signs Pulse 60 04/25/23 11:56 BP 117/59 L 04/25/23 11:56 BMI result Body Mass Index 23.6 Const Other: Elderly CT frail wheelchair-bound female. Chest Other: Chest breath sounds bilaterally, HS 1 and 2. Left chest defibrillator battery Assessment & Plan Assessment & Plan (1) Failure of generator of implanted defibrillator: Code(s): T82.111A - Breakdown (mechanical) of cardiac pulse generator (battery), initial encounter Plan Her reviewed with the patient and her son risks, benefits, alternatives of generator change including but not limited to bleeding, infection, numbness, pain, scarring and the patient and son wished to proceed. Arrangements will be made for this on a day which is convenient for them. Eliquis will be stopped per Cardiology recommendation. All questions were answered. Coding Level of Care Code New Pt Level 5 (66373) Diagnoses Failure of generator of implanted defibrillator T82.111A
[2023-04-25 11:56] VITALS: BP 117/59; PULSE 60; BMI 23.6
== END 2023-04-25 12:03 | disposition home or self-care (01) ==
PROVIDERS: PCP Family Medicine; Referring Provider Internal Medicine Cardiovascular Disease; Visit Provider Surgery
DX: T82.111A Breakdown (mechanical) of cardiac pulse generator (battery), initial encounter (principal)
CPT/HCPCS: 99204

== ENCOUNTER → 2023-04-25 11:40 | Outpatient (BNVA) | payer MEDICARE, SELFPAY | PROVIDERS: PCP Family Medicine; Referring Provider Internal Medicine Cardiovascular Disease; Visit Provider Surgery ==

== ENCOUNTER → 2023-05-03 23:59 | Outpatient (BNV) | payer MEDICARE, OTHER, SELFPAY ==
--- NOTE | 2023-05-03 15:43 | MHC.OFFVIS ---
Intake Intake Visit Reasons: Remote HF monitoring- [facility] Allergies No Known Allergies [No Known Allergies*] Allergy (Verified 04/25/23 11:54) PFSH Medical History Anxiety Biventricular ICD (implantable cardioverter-defibrillator) in place Chronic a-fib CVA (cerebral vascular accident) Fatty liver Frailty Frequent PVCs Heart failure with reduced ejection fraction Hypertension Hypothyroidism Nonischemic cardiomyopathy Palpitations Paroxysmal atrial fibrillation Surgical History (Updated 05/03/23 @ 14:16 by Maeve Briggs RN) History of hip surgery History of permanent cardiac pacemaker placement Hx of Achilles tendon repair Hx of hysterectomy Family History Father No problems noted. Mother No problems noted. Social History Household Members: None Household Members Other:: currently at [facility] Housing: House Housing Other:: rehab Unable to assess alcohol history related to: Unknown Alcohol intake: never Patient Tobacco Use Status: Never used Tobacco Second Hand Smoke Exposure: No Use of substances other than those prescribed or required for medical reasons: No Have you been hit, kicked, punched, or otherwise hurt by someone within the past year? If so, by whom?: No Are you DNR?: Yes Advance Directives: Yes (son is HCP) Advance Directives Information Provided: Yes Advance Directives on File: Yes Advance Directives Date on File: 10/19/21 Recently lost weight without trying: No Eating poorly because of decreased appetite: No Nutrition Risks: Surgical patient >75years service: No Current occupational status: retired Current occupation: right handed Office Procedures Cardiac Device Check Cardiac Device Check Details: Remote heart failure report generated 05/03/2023. Heart failure parameters are stable [id number] Cardiac Device Interrogation, cardio physiologic monitor Procedure code (CPT) selection complete Coding Level of Care Code Procedure Only Diagnoses CPT Codes Cardiac Device Check - Cardiac Device 15: [id number] Cardiac Device Interrogation, cardio physiologic monitor ([id number])
== END ==
PROVIDERS: PCP Family Medicine; Visit Provider Internal Medicine Cardiovascular Disease
DX: I50.22 Chronic systolic (congestive) heart failure (principal); Z95.810 Presence of automatic (implantable) cardiac defibrillator
CPT/HCPCS: 93297

== ENCOUNTER 2023-05-06 08:30 | Day surgery (SDC) | payer MEDICARE, OTHER, SELFPAY ==
[2023-05-03 14:20] VITALS: BMI 23.6
[2023-05-03 14:25] VITALS: BMI 23.6
--- NOTE | 2023-05-05 10:08 | HO.ANESPROP2 ---
Documented by User: Zoraida Mehta NP 05/05/23 10:11 HPI - Anesthesia Eval Consult details Narrative: 87yo F for Pacemaker Generator Change Eliquis for afib PMFSH Active Problems Active Problems: All Active Problems (Updated 07/05/22 @ 11:03 by Miguel Ángel Johnston MD) Familial hypercholesterolemia (Acute) Chronic systolic CHF (congestive heart failure) (Acute) Hyperlipidemia (Acute) Dizziness (Acute) Fracture, humerus closed (Acute) Acute dehydration (Acute) Acute respiratory failure (Acute) Proximal humerus fracture (Acute) Cerebral vascular accident (Acute) Closed fracture of maxillary sinus (Acute) Closed pelvic fracture (Acute) Fall (Acute) CHF exacerbation (Acute) Fracture of left inferior pubic ramus (Acute) Syncope and collapse (Acute) Acute kidney injury (Acute) RSV (respiratory syncytial virus infection) (Acute) Fracture of 2nd metatarsal (Acute) Fracture of 3rd metatarsal (Acute) Fracture of 4th metatarsal (Acute) Fracture of 5th metatarsal (Acute) Encounter for postoperative wound check (Acute) Hip fracture, right (Acute) Fracture, intertrochanteric, left femur (Acute) PAD (peripheral artery disease) (Acute) Varicose veins of left lower extremity with inflammation (Acute) Failure of generator of implanted defibrillator (Acute) Hx of hysterectomy (Acute) Hx of Achilles tendon repair (Acute) History of permanent cardiac pacemaker placement (Acute) Frequent PVCs (Acute) Biventricular ICD (implantable cardioverter-defibrillator) in place (Acute) Nonischemic cardiomyopathy (Acute) Heart failure with reduced ejection fraction (Acute) Paroxysmal atrial fibrillation (Acute) Frailty (Acute) Palpitations (Acute) Past Medical History Medical History Chronic a-fib CVA (cerebral vascular accident) Hypothyroidism Fatty liver Anxiety Hypertension Frailty Paroxysmal atrial fibrillation 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 Mother No problems noted. Family history of problems with anesthesia: No Surgical History Surgical History History of hip surgery History of permanent cardiac pacemaker placement Hx of Achilles tendon repair Hx of hysterectomy History of Problems with Anesthesia: No Social History Household Members: None Household Members Other:: currently at [facility] Housing: House Housing Other:: rehab Are you a primary child care coordinator to a significant other at home: No Do you presently have visiting nurse or other home services: No Unable to assess alcohol history related to: Unknown Alcohol intake: never Patient Tobacco Use Status: Never used Tobacco Second Hand Smoke Exposure: No Advance Directives Date on File: 10/19/21 service: No Current occupational status: retired Current occupation: right handed Meds Allergies Allergy/AdvReac Type Severity Reaction Status Date / Time No Known Allergies Allergy Verified 05/17/23 10:33 [No Known Allergies*] Home Medications Medication Instructions Recorded Confirmed Last Taken Type acetaminophen 325 mg tablet 650 mg PO Q6H PRN Pain 11/28/21 08/01/23 Unknown History (Tylenol) bisacodyl 10 mg rectal suppository 10 mg GA DAILY PRN Constipation 11/28/21 08/01/23 Unknown History cholecalciferol (vitamin D3) 25 25 mcg PO DAILY 11/28/21 08/01/23 Unknown History mcg (1,000 unit) tablet sennosides 8.6 mg tablet (senna) 8.6 mg PO BEDTIME 11/28/21 08/01/23 Unknown History amiodarone 200 mg tablet 200 mg PO DAILY 04/06/22 08/01/23 Unknown History lisinopril 5 mg tablet 5 mg PO DAILY 04/06/22 08/01/23 Unknown History metoprolol tartrate 25 mg tablet 25 mg PO BID 04/06/22 08/01/23 Unknown History paroxetine HCl 10 mg tablet 20 mg PO DAILY 04/06/22 08/01/23 Unknown History levothyroxine 75 mcg tablet 75 mcg PO DAILY 10/13/22 08/01/23 Unknown History lorazepam 1 mg tablet 0.5 mg PO BID PRN Anxiety 10/13/22 08/01/23 Unknown History Exam Exam Date and Time: May 05, 2023 1008 Height,Weight and Vital Signs: Height 5 ft Weight 54.885 kg Pertinent Lab Results Pertinent Lab Results: Laboratory Tests 04/18/23 04/18/23 04:22 04:22 WBC 5.0 Hgb 10.8 L Hct 33.6 L Plt Count 152 L Sodium 142 Potassium 3.7 Chloride 110 H Carbon Dioxide 20 L BUN 28 H Creatinine 1.29 Narrative Narrative: Cardiac Device Check 04/2023 Details: Biventricular [facility] ICD in place.? Programmed in DDDR at 60 beats per minute.? Biventricular pacing 99% of the time.? LV pacing thresholds are significantly elevated and stable.? Capturing adequately at high threshold.? Battery life is less than 3 months.? Pacing and shock lead impedance is stable.? No atrial fibrillation noted.? No ventricular arrhythmias noted. EKG 04/2023 AV dual paced rhythm ECHO 2020 Conclusions: - Normal left ventricular cavity size.? There is moderately? ? ? increased left ventricular wall thickness.? The left ventricular systolic function is severely decreased.? The visually estimated ejection fraction is between 20-25%. ? - Normal right ventricular cavity size and systolic function.? ? There is a pacemaker wire seen in the right ventricle.? Assessment and Plan Assessment Anesthesia Assessment: Chart Reviewed Final Anesthetic Review Family History of Problems with Anesthesia: No History of Problems with Anesthesia: No Documented by User: Pacheco Phillips MD 08/04/23 23:04 HPI - Anesthesia Eval Consult details Narrative: 87yo F for Pacemaker Generator Change decondtioned , b/l LE weakness . 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 Mother No problems noted. Surgical History Surgical History History of hip surgery History of permanent cardiac pacemaker placement Hx of Achilles tendon repair Hx of hysterectomy Social History Household Members: None Household Members Other:: currently at [facility] Housing: House Housing Other:: rehab Are you a primary child care coordinator to a significant other at home: No Do you presently have visiting nurse or other home services: No Unable to assess alcohol history related to: Unknown Alcohol intake: never Patient Tobacco Use Status: Never used Tobacco Second Hand Smoke Exposure: No Advance Directives Date on File: 10/19/21 service: No Current occupational status: retired Current occupation: right handed Meds Allergies Allergy/AdvReac Type Severity Reaction Status Date / Time No Known Allergies Allergy Verified 05/17/23 10:33 [No Known Allergies*] Home Medications Medication Instructions Recorded Confirmed Last Taken Type acetaminophen 325 mg tablet 650 mg PO Q6H PRN Pain 11/28/21 08/01/23 Unknown History (Tylenol) bisacodyl 10 mg rectal suppository 10 mg GA DAILY PRN Constipation 11/28/21 08/01/23 Unknown History cholecalciferol (vitamin D3) 25 25 mcg PO DAILY 11/28/21 08/01/23 Unknown History mcg (1,000 unit) tablet sennosides 8.6 mg tablet (senna) 8.6 mg PO BEDTIME 11/28/21 08/01/23 Unknown History amiodarone 200 mg tablet 200 mg PO DAILY 04/06/22 08/01/23 Unknown History lisinopril 5 mg tablet 5 mg PO DAILY 04/06/22 08/01/23 Unknown History metoprolol tartrate 25 mg tablet 25 mg PO BID 04/06/22 08/01/23 Unknown History paroxetine HCl 10 mg tablet 20 mg PO DAILY 04/06/22 08/01/23 Unknown History levothyroxine 75 mcg tablet 75 mcg PO DAILY 10/13/22 08/01/23 Unknown History lorazepam 1 mg tablet 0.5 mg PO BID PRN Anxiety 10/13/22 08/01/23 Unknown History Exam Airway Mallampati Class: III Loose/Missing/Broken Teeth: Yes Assessment and Plan Assessment Anesthesia Assessment: Anesthesia Plan Discussed Final Anesthetic Review NPO: Yes ASA Class: IV Final Preanesthetic Review: Meds/Allgs Chart Reviewed, Consent Obtained/Reviewed and Anes Risks/Benef Reviewed Patient Risk: High Procedure Risk: Intermediate Anesthetic Plan Anesthetic Plan: MAC: and Agree w/ Assess. and Plan Disposition: Standard PACU
--- NOTE | 2023-05-05 16:21 | MHC.SHP ---
Pre-Procedural Eval Section A Date of Service: 05/05/23 The patient is an INPATIENT: No Changes since office visit: No Cold of Flu in the past 2 weeks, No New Medical Problems, No Changes in Medication and No Patient answered all questions The History & Physical has been completed within 30 days and I have reviewed it.: Yes Section B Chief Complaint: Breakdown (mechanical) of cardiac pulse generator Allergies: Allergies Allergy/AdvReac Type Severity Reaction Status Date / Time No Known Allergies Allergy Verified 04/25/23 11:54 [No Known Allergies*] Plan I have reviewed the history and physical and performed a pertinent physical examination on my patient. No changes have occurred unless specified. Time Spent With Patient Time: Total time managing care of this patient today ____ minutes.
[2023-05-06 10:33] VITALS: BP 177/86; PULSE 60; RESP 18; TEMP 36.4; O2SAT 97
[2023-05-06] MEDS: Lactated Ringers 1,000 ML 50 ML IVCONT (11:30)
--- NOTE | 2023-05-06 12:12 | W.PM.OPN ---
Operative Note Operative Note Date of Service: 05/06/23 Narrative: Preoperative diagnosis: [] Generator depletion for defibrillator battery Postop diagnosis: [] Same Procedure [] generator change Surgeon: [] Jack Art Psychotherapist: [] JOSELYN Soriano Type of Anesthesia: [] MAC Indication for surgery: [] Depletion of the battery Findings: [] Patient brought to the operating room, placed on operative table in supine position, after adequate level of MAC anesthesia was induced, the patient's left chest was prepped and draped in usual sterile fashion. Using an incision from the prior scar from the previous defibrillator replacement, this carried down through skin, subcutaneous tissue, where the generator pocket was entered and generator uneventfully enucleated. Three leads were individually removed and sequentially placed into the new battery screwed in and each tested for security successfully. Generator was returned into the pocket. This was interrogated and was status quo to preop values.. For data specifics , please refer to [facility] work sheet. Wounds irrigated, secured hemostasis. It was closed following manner; interrupted inverted dermal 3-0 Vicryl sutures followed by Steri-Strips and sterile dressings were applied. Sponge, needle, and instrument counts reported correct. Patient tolerated procedure well and emerged anesthesia in stable condition. EBL minimal
[2023-05-06 12:23] VITALS: BP 163/77; PULSE 60; RESP 15; TEMP 36.1; O2SAT 97
[2023-05-06 12:38] VITALS: BP 162/84; PULSE 60; RESP 16; O2SAT 97
[2023-05-06 12:53] VITALS: BP 157/89; PULSE 60; RESP 16; O2SAT 96
[2023-05-06 13:08] VITALS: BP 146/82; PULSE 60; RESP 16; TEMP 36.7; O2SAT 96
== END 2023-05-06 14:00 | disposition home or self-care (01) ==
PROVIDERS: PCP Family Medicine; Visit Provider Surgery
PROC: (CPT 33264; principal; 2023-05-06 10:10)
DX: T82.111A Breakdown (mechanical) of cardiac pulse generator (battery), initial encounter (principal); Y71.2 Prosthetic and other implants, materials and accessory cardiovascular devices associated with adverse incidents; I48.20 Chronic atrial fibrillation, unspecified; I48.0 Paroxysmal atrial fibrillation; R54 Age-related physical debility; I11.0 Hypertensive heart disease with heart failure; I50.20 Unspecified systolic (congestive) heart failure; I42.8 Other cardiomyopathies; F41.1 Generalized anxiety disorder; Z79.01 Long term (current) use of anticoagulants; Z79.899 Other long term (current) drug therapy; Z86.73 Personal history of transient ischemic attack (TIA), and cerebral infarction without residual deficits
CPT/HCPCS: 33264; C1882; J0131; J0690; J3010

== ENCOUNTER → 2023-05-06 08:30 | Outpatient (BNV) | payer MEDICARE, OTHER, SELFPAY | PROVIDERS: PCP Family Medicine; Visit Provider Surgery | DX: T82.111A Breakdown (mechanical) of cardiac pulse generator (battery), initial encounter (principal) | CPT/HCPCS: 33264 ==

== ENCOUNTER 2023-05-17 06:42 | Outpatient (REF) | payer MEDICARE, OTHER, SELFPAY ==
[2023-05-17 06:31] LABS: MANUAL DIFF FLAG NO
[2023-05-17 07:23] LABS: Basophils Percent Auto 0.7 % (0-2); Eosinophils Absolute Auto 0.1 X10*3/uL (0.0-0.4); Eosinophils Percent Auto 3.2 % (0-4); Hematocrit 33.4 % (37.0-47.0); Hemoglobin 10.7 g/dl (12.0-16.0); Imm Gran Abs Auto 0.01 X10*3/uL (0.00-0.03); Imm Gran Pct Auto 0.2 % (0.0-0.4); Lymphocytes Absolute Auto 1.9 X10*3/uL (1.2-4.9); Lymphocytes Percent Auto 46.6 % (20-40); Mean Corpuscular Hemoglobin 31.4 pg (27.0-33.0); Mean Corpuscular Volume 97.9 fL (80.0-98.0); Mean Platelet Volume 10.4 fL (9.4-12.3); Monocytes Absolute Auto 0.4 X10*3/uL (0.1-1.2); Monocytes Percent Auto 9.8 % (2-11); Neutrophils Absolute Auto 1.6 x10*3/uL (2.0-8.3); Neutrophils Percent Auto 39.5 % (45-73); Platelet Count 135 X10*3/uL (160-400); Red Blood Count 3.41 X10*6/uL (4.20-5.50); Red Cell Distribution Width 14.9 % (11.0-16.0); White Blood Count 4.1 X10*3/uL (4.8-10.8)
[2023-05-17 07:49] LABS: Anion Gap 10 (12-20); Blood Urea Nitrogen 15 mg/dL (9-16); Calcium 8.9 mg/dL (8.4-10.2); Carbon Dioxide 25 mmol/L (22-29); Chloride 111 mmol/L (96-108); Estimated Glomerular Filt Rate 42; Glucose Random 96 mg/dL (60-115); Potassium 3.3 mmol/L (3.3-5.1); Sodium 143 mmol/L (135-145)
== END 2023-05-17 06:43 | disposition home or self-care (01) ==
LOC: HO.MMNH1L 06:42
PROVIDERS: Visit Provider Family Medicine
DX: I48.0 Paroxysmal atrial fibrillation (principal); I10 Essential (primary) hypertension
CPT/HCPCS: 36415; 80048; 85025

== ENCOUNTER 2023-05-17 10:25 | Outpatient (AMB) | payer MEDICARE, SELFPAY ==
--- NOTE | 2023-05-17 10:28 | MHC.OFFVIS ---
Intake Vital Signs 05/17/23 10:32 Weight 121 lb BP 151/70 H Blood Pressure Location Rt brachial Position Sitting Pulse 60 Intake Visit Reasons: S/P defib battery change Intake Note: Patient here s/p defib battery change on 05-06-2023. Reports incision healing well. Denies bleeding, oozing or discomfort. Power Barker Required: No Accompanied by: Son Allergies No Known Allergies [No Known Allergies*] Allergy (Verified 05/17/23 10:33) HPI HPI Comments History of Present Illness Details Patient presents with her son status post generator changes. No issues or complaints. Patient is otherwise doing well. [facility] Medical History Anxiety Biventricular ICD (implantable cardioverter-defibrillator) in place Chronic a-fib CVA (cerebral vascular accident) Fatty liver Frailty Frequent PVCs Heart failure with reduced ejection fraction Hypertension Hypothyroidism Nonischemic cardiomyopathy Palpitations Paroxysmal atrial fibrillation Surgical History History of hip surgery History of permanent cardiac pacemaker placement Hx of Achilles tendon repair Hx of hysterectomy Family History Father No problems noted. Mother No problems noted. Social History Household Members: None Household Members Other:: currently at [facility] Housing: House Housing Other:: rehab Are you a primary director long term care to a significant other at home: No Do you presently have visiting nurse or other home services: No Unable to assess alcohol history related to: Unknown Alcohol intake: never Patient Tobacco Use Status: Never used Tobacco Second Hand Smoke Exposure: No Advance Directives Date on File: 10/19/21 service: No Current occupational status: retired Current occupation: right handed Physical Exam Vital Signs: Last Vital Signs Pulse 60 05/17/23 10:32 BP 151/70 H 05/17/23 10:32 Chest Other: Incisions clean dry and intact, healing uneventfully Assessment & Plan Assessment & Plan (1) Failure of generator of implanted defibrillator: Code(s): T82.111A - Breakdown (mechanical) of cardiac pulse generator (battery), initial encounter Plan Patient and son have been given local wound instructions, and she will follow-up p.r.n. Coding Level of Care Code Global (39691) Diagnoses Failure of generator of implanted defibrillator T82.111A
[2023-05-17 10:32] VITALS: BP 151/70; PULSE 60
== END 2023-05-17 10:47 | disposition home or self-care (01) ==
PROVIDERS: PCP Family Medicine; Visit Provider Surgery
DX: T82.111A Breakdown (mechanical) of cardiac pulse generator (battery), initial encounter (principal)
CPT/HCPCS: 99024

== ENCOUNTER → 2023-06-06 23:59 | Outpatient (BNV) | payer MEDICARE, OTHER, SELFPAY ==
--- NOTE | 2023-06-06 15:31 | A.OFFVIS_ITS ---
Intake Intake Visit Reasons: REmote HF monitoring- [facility] Allergies No Known Allergies [No Known Allergies*] Allergy (Verified 05/17/23 10:33) PFSH Medical History Anxiety Biventricular ICD (implantable cardioverter-defibrillator) in place Chronic a-fib CVA (cerebral vascular accident) Fatty liver Frailty Frequent PVCs Heart failure with reduced ejection fraction Hypertension Hypothyroidism Nonischemic cardiomyopathy Palpitations Paroxysmal atrial fibrillation Surgical History History of hip surgery History of permanent cardiac pacemaker placement Hx of Achilles tendon repair Hx of hysterectomy Family History Father No problems noted. Mother No problems noted. Social History Household Members: None Household Members Other:: currently at [facility] Housing: House Housing Other:: rehab Are you a primary care transition coordinator to a significant other at home: No Do you presently have visiting nurse or other home services: No Unable to assess alcohol history related to: Unknown Alcohol intake: never Patient Tobacco Use Status: Never used Tobacco Second Hand Smoke Exposure: No Advance Directives Date on File: 10/19/21 service: No Current occupational status: retired Current occupation: right handed Office Procedures Cardiac Device Check Cardiac Device Check Details: Remote heart failure report generated 06/06/2023. Heart failure parameters are stable [id number] Cardiac Device Interrogation, cardio physiologic monitor Procedure code (CPT) selection complete Coding Level of Care Code Procedure Only CPT Codes Cardiac Device Check - Cardiac Device 15: [id number] Cardiac Device Interrogation, cardio physiologic monitor ([id number])
== END ==
PROVIDERS: PCP Family Medicine; Visit Provider Internal Medicine Cardiovascular Disease
DX: I50.22 Chronic systolic (congestive) heart failure (principal); Z95.810 Presence of automatic (implantable) cardiac defibrillator
CPT/HCPCS: 93297

== ENCOUNTER 2023-06-13 06:31 | Outpatient (REF) | payer MEDICARE, SELFPAY ==
[2023-06-13 06:04] LABS: MANUAL DIFF FLAG NO
[2023-06-13 06:57] LABS: Basophils Percent Auto 0.8 % (0-2); Eosinophils Absolute Auto 0.1 X10*3/uL (0.0-0.4); Eosinophils Percent Auto 2.9 % (0-4); Hematocrit 31.8 % (37.0-47.0); Hemoglobin 10.4 g/dl (12.0-16.0); Imm Gran Abs Auto 0.01 X10*3/uL (0.00-0.03); Imm Gran Pct Auto 0.2 % (0.0-0.4); Lymphocytes Absolute Auto 1.9 X10*3/uL (1.2-4.9); Mean Corpuscular HGB Conc 32.7 g/dl (31.0-35.0); Mean Corpuscular Hemoglobin 31.5 pg (27.0-33.0); Mean Corpuscular Volume 96.4 fL (80.0-98.0); Mean Platelet Volume 10.5 fL (9.4-12.3); Monocytes Absolute Auto 0.5 X10*3/uL (0.1-1.2); Monocytes Percent Auto 10.6 % (2-11); Neutrophils Absolute Auto 2.2 x10*3/uL (2.0-8.3); Neutrophils Percent Auto 46.5 % (45-73); Platelet Count 131 X10*3/uL (160-400); White Blood Count 4.8 X10*3/uL (4.8-10.8)
[2023-06-13 07:20] LABS: Anion Gap 11 (12-20); Blood Urea Nitrogen 16 mg/dL (9-16); Calcium 8.3 mg/dL (8.4-10.2); Carbon Dioxide 26 mmol/L (22-29); Chloride 109 mmol/L (96-108); Estimated Glomerular Filt Rate 47; Glucose Random 102 mg/dL (60-115); Potassium 3.1 mmol/L (3.3-5.1); Sodium 143 mmol/L (135-145)
== END 2023-06-13 06:32 | disposition home or self-care (01) ==
LOC: HO.MMNH1L 06:31
PROVIDERS: Visit Provider Family Medicine
DX: I48.0 Paroxysmal atrial fibrillation (principal); I10 Essential (primary) hypertension
CPT/HCPCS: 36415; 80048; 85025

== ENCOUNTER 2023-07-18 07:46 | Outpatient (REF) | payer MEDICARE, SELFPAY ==
[2023-07-18 06:22] LABS: MANUAL DIFF FLAG NO
[2023-07-18 07:07] LABS: Anion Gap 11 (12-20); Blood Urea Nitrogen 13 mg/dL (9-16); Calcium 8.8 mg/dL (8.4-10.2); Carbon Dioxide 28 mmol/L (22-29); Chloride 108 mmol/L (96-108); Estimated Glomerular Filt Rate 41; Glucose Random 88 mg/dL (60-115); Sodium 144 mmol/L (135-145)
[2023-07-18 07:35] LABS: Basophils Percent Auto 0.6 % (0-2); Eosinophils Absolute Auto 0.1 X10*3/uL (0.0-0.4); Eosinophils Percent Auto 2.4 % (0-4); Hematocrit 35.4 % (37.0-47.0); Hemoglobin 11.4 g/dl (12.0-16.0); Imm Gran Abs Auto 0.01 X10*3/uL (0.00-0.03); Imm Gran Pct Auto 0.2 % (0.0-0.4); Lymphocytes Percent Auto 40.6 % (20-40); Mean Corpuscular HGB Conc 32.2 g/dl (31.0-35.0); Mean Corpuscular Hemoglobin 31.5 pg (27.0-33.0); Mean Corpuscular Volume 97.8 fL (80.0-98.0); Mean Platelet Volume 10.3 fL (9.4-12.3); Monocytes Absolute Auto 0.5 X10*3/uL (0.1-1.2); Monocytes Percent Auto 10.4 % (2-11); Neutrophils Absolute Auto 2.2 x10*3/uL (2.0-8.3); Neutrophils Percent Auto 45.8 % (45-73); Platelet Count 131 X10*3/uL (160-400); Red Blood Count 3.62 X10*6/uL (4.20-5.50); Red Cell Distribution Width 14.4 % (11.0-16.0); White Blood Count 4.9 X10*3/uL (4.8-10.8)
== END 2023-07-18 07:47 | disposition home or self-care (01) ==
LOC: HO.MMNH1L 07:46
PROVIDERS: Visit Provider Family Medicine
DX: I48.0 Paroxysmal atrial fibrillation (principal); I10 Essential (primary) hypertension
CPT/HCPCS: 36415; 80048; 85025

== ENCOUNTER → 2023-07-18 23:59 | Outpatient (BNV) | payer MEDICARE, OTHER, SELFPAY ==
--- NOTE | 2023-07-18 12:31 | MHC.OFFVIS ---
Intake Intake Visit Reasons: Remote HF Monitoring- [facility] Allergies No Known Allergies [No Known Allergies*] Allergy (Verified 05/17/23 10:33) PFSH Medical History Anxiety Biventricular ICD (implantable cardioverter-defibrillator) in place Chronic a-fib CVA (cerebral vascular accident) Fatty liver Frailty Frequent PVCs Heart failure with reduced ejection fraction Hypertension Hypothyroidism Nonischemic cardiomyopathy Palpitations Paroxysmal atrial fibrillation Surgical History History of hip surgery History of permanent cardiac pacemaker placement Hx of Achilles tendon repair Hx of hysterectomy Family History Father No problems noted. Mother No problems noted. Social History Household Members: None Household Members Other:: currently at [facility] Housing: House Housing Other:: rehab Are you a primary resident care aide to a significant other at home: No Do you presently have visiting nurse or other home services: No Unable to assess alcohol history related to: Unknown Alcohol intake: never Patient Tobacco Use Status: Never used Tobacco Second Hand Smoke Exposure: No Advance Directives Date on File: 10/19/21 service: No Current occupational status: retired Current occupation: right handed Office Procedures Cardiac Device Check Cardiac Device Check Details: Remote heart failure report generated 07/18/2023. Heart failure parameters are stable [id number] Cardiac Device Interrogation, cardio physiologic monitor Procedure code (CPT) selection complete Coding Level of Care Code Procedure Only CPT Codes Cardiac Device Check - Cardiac Device 15: [id number] Cardiac Device Interrogation, cardio physiologic monitor ([id number])
== END ==
PROVIDERS: PCP Family Medicine; Visit Provider Internal Medicine Cardiovascular Disease
DX: I50.22 Chronic systolic (congestive) heart failure (principal); Z95.810 Presence of automatic (implantable) cardiac defibrillator
CPT/HCPCS: 93297

== ENCOUNTER 2023-08-01 12:55 | Outpatient (AMB) | payer MEDICARE, OTHER, SELFPAY ==
--- NOTE | 2023-08-01 13:00 | MHC.OFFVIS ---
Intake Vital Signs 08/01/23 13:03 Height 5 ft BMI Reason not done Patient refused/unable BP 144/86 H Blood Pressure Location Rt brachial Position Sitting Pulse 60 Intake Visit Reasons: 3 mth f/up device ck Intake Note: 3 month follow-up ekg and [facility] feeling good Briefcase Sewer Required: No Machine Veneer Repairer: Machine Veneer Repairer Present Accompanied by: Son Allergies No Known Allergies [No Known Allergies*] Allergy (Verified 05/17/23 10:33) Medication List - Last Reconciled 08/01/23 by Nitish Frias MD acetaminophen (Tylenol) 650 mg PO Q6H PRN amiodarone 200 mg PO DAILY amoxicillin 2,000 mg (4 x 500 mg) PO ONCE 1 day apixaban (Eliquis) 2.5 mg PO BID bisacodyl 10 mg GA DAILY PRN cholecalciferol (vitamin D3) 25 mcg PO DAILY docusate sodium 100 mg PO DAILY levothyroxine 75 mcg PO DAILY lisinopril 5 mg PO DAILY lorazepam 0.5 mg PO BID PRN melatonin 3 mg PO BEDTIME PRN metoprolol tartrate 25 mg PO BID paroxetine HCl 20 mg PO DAILY sennosides (senna) 8.6 mg PO BEDTIME HPI HPI Comments History of Present Illness Details Nina comes for follow-up. Patient having bilateral below knee edema but is always in a sitting posture. They are trying to use compression venous stocking. She has no worsening shortness of breath, orthopnea, PND. No palpitations, lightheadedness, syncope. No bleeding issues or neurologic events. No ICD discharge. Limited activity and is mostly wheelchair-bound. 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 Mother No problems noted. Social History Household Members: None Household Members Other:: currently at [facility] Housing: House Housing Other:: rehab Are you a primary manager medicare to a significant other at home: No Do you presently have visiting nurse or other home services: No Unable to assess alcohol history related to: Unknown Alcohol intake: never Patient Tobacco Use Status: Never used Tobacco Second Hand Smoke Exposure: No Advance Directives Date on File: 10/19/21 service: No Current occupational status: retired Current occupation: right handed Review of Systems Const Denies chills, Denies fatigue, Denies fever(s), Denies frequent falls, Denies weakness, Denies weight gain and Denies weight loss ENT Denies dizziness Card Denies chest pain, Denies leg edema, Denies lightheadedness, Denies palpitations, Denies dyspnea, Denies dyspnea on exertion, Denies orthopnea and Denies other (loss of consciousness) Resp Denies cough, Denies dyspnea and Denies dyspnea on exertion GI Denies hematochezia and Denies change in stool character Musc Denies abnormal gait, Denies muscle weakness, Denies numbness, Denies radiating pain into limb and Denies tingling Neuro Denies abnormal gait, Denies dizziness, Denies frequent falls, Denies numbness, Denies tingling and Denies weakness Endo Denies fatigue and Denies palpitations Physical Exam Vital Signs: Last Vital Signs Pulse 60 08/01/23 13:03 BP 144/86 H 08/01/23 13:03 Const General: cooperative, comfortable, alert, awake and well groomed Nutritional Appearance: underweight and other (Frail elderly woman) Orientation/consciousness: patient oriented x3 Limitations: wheelchair Neck Neck: Yes trachea midline, Yes supple and Yes no JVD Resp Effort & Inspection: normal respiratory effort Auscultation: clear to auscultation bilaterally Cardio Jugular venous distension: no JVD Rate: regular rate Rhythm: abnormal rhythm with ectopic beats Heart sounds: S1 normal heart sound present and S2 normal heart sound present Skin General skin exam: no rashes or lesions noted and ecchymosis Neuro General: patient oriented x3 and no focal motor deficits Extrem General: Yes no clubbing, cyanosis or edema Psych Appearance: grossly normal Office Procedures Cardiac Device Check Cardiac Device Check Details: [facility] biventricular ICD in place. LV pacing thresholds are elevated but unchanged. Adequate safety margin was present. Biventricular pacing greater than 99% of time. No atrial fibrillation noted. Atrial and RV pacing thresholds are adequate. Atrial ventricular sensing is adequate. Pacing and shock lead impedance is stable. Battery life is at about 2 years [id number] Cardiac Device Check, multi lead implantable defibrillator Procedure code (CPT) selection complete EKG Details: EKG shows AV dual paced rhythm [id number], Complete Assessment & Plan Assessment & Plan (1) Heart failure with reduced ejection fraction: Code(s): I50.20 - Unspecified systolic (congestive) heart failure Plan: Heart failure with reduced ejection fraction secondary to severe nonischemic cardiomyopathy. Clinically euvolemic and well compensated. Continue current regimen with metoprolol and low-dose lisinopril therapy. Currently not on any diuretic regimen. Continue avoid the same. Heart failure syndrome has improved with improved biventricular pacing on amiodarone therapy after suppression of her frequent PVCs. Continue amiodarone therapy. Annual check for amiodarone toxicity. (2) Biventricular ICD (implantable cardioverter-defibrillator) in place: Code(s): Z95.810 - Presence of automatic (implantable) cardiac defibrillator Plan: Biventricular ICD in place, working well with good biventricular pacing since initiation of amiodarone therapy. LV pacing thresholds are significantly elevated and may limit battery life. Will continue to monitor remotely as well as in the office in 6 months. (3) Paroxysmal atrial fibrillation: Code(s): I48.0 - Paroxysmal atrial fibrillation Plan: Paroxysmal atrial fibrillation which has remained suppressed and has done well with rhythm control approach. Currently on amiodarone therapy for PVCs although this is up in with management of atrial fibrillation. Continue full oral anticoagulation with Eliquis. Follow up in the clinic in 6 months time, sooner p.r.n.. Thank you for allowing me to partake in her care Coding Level of Care Code Est Pt Level 4 (41882) Diagnoses Heart failure with reduced ejection fraction I50.20 Biventricular ICD (implantable cardioverter-defibrillator) in place Z95.810 Paroxysmal atrial fibrillation I48.0 CPT Codes Cardiac Device Check - Cardiac Device 6: 33089-[id number] Cardiac Device Check, multi lead implantable defibrillator ([id number]) EKG - CPT: 04877-[id number], Complete ([id number])
[2023-08-01 13:03] VITALS: BP 144/86; PULSE 60
== END 2023-08-01 13:42 | disposition home or self-care (01) ==
PROVIDERS: PCP Family Medicine; Visit Provider Internal Medicine Cardiovascular Disease
DX: I50.20 Unspecified systolic (congestive) heart failure (principal); Z95.810 Presence of automatic (implantable) cardiac defibrillator; I48.0 Paroxysmal atrial fibrillation
CPT/HCPCS: 93010; 93284; 99214

== ENCOUNTER → 2023-08-01 12:55 | Outpatient (BNVA) | payer MEDICARE, OTHER, SELFPAY | PROVIDERS: PCP Family Medicine; Visit Provider Internal Medicine Cardiovascular Disease | DX: I48.0 Paroxysmal atrial fibrillation (principal); I11.0 Hypertensive heart disease with heart failure; I50.20 Unspecified systolic (congestive) heart failure; Z45.02 Encounter for adjustment and management of automatic implantable cardiac defibrillator | CPT/HCPCS: 93005; 99212 ==

== ENCOUNTER 2023-08-09 11:09 | Outpatient (REF) | payer MEDICARE, SELFPAY | END 2023-08-09 11:10 | disposition home or self-care (01) | LOC: HO.MMNH1L 11:09 | PROVIDERS: Visit Provider Family Medicine | DX: Z13.89 Encounter for screening for other disorder (principal) ==

== ENCOUNTER → 2023-08-18 23:59 | Outpatient (BNV) | payer MEDICARE, OTHER, SELFPAY ==
--- NOTE | 2023-08-22 14:26 | A.OFFVIS_ITS ---
Intake Intake Visit Reasons: Remote ICD Check- 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 Mother No problems noted. Social History Household Members: None Household Members Other:: currently at [facility] Housing: House Housing Other:: rehab Are you a primary healthcare network pricing consultant to a significant other at home: No Do you presently have visiting nurse or other home services: No Unable to assess alcohol history related to: Unknown Alcohol intake: never Comment: has sitter Patient Tobacco Use Status: Never used Tobacco Second Hand Smoke Exposure: No Advance Directives Date on File: 10/19/21 service: No Current occupational status: retired Current occupation: right handed Office Procedures Cardiac Device Check Cardiac Device Check Details: Remote ICD report generated 08/18/2023. ICD function is adequate. Bi V pacing greater than 99% of the time [id number] Cardiac Interrogation, implant defibrillator w/interim Procedure code (CPT) selection complete Assessment & Plan Assessment & Plan (1) Biventricular ICD (implantable cardioverter-defibrillator) in place: Code(s): Z95.810 - Presence of automatic (implantable) cardiac defibrillator Plan: See above Coding Level of Care Code Procedure Only Diagnoses Biventricular ICD (implantable cardioverter-defibrillator) in place Z95.810 CPT Codes Cardiac Device Check - Cardiac Device 13: 67487-Eripue Cardiac Interrogation, implant defibrillator w/interim ([id number])
== END ==
PROVIDERS: PCP Family Medicine; Visit Provider Internal Medicine Cardiovascular Disease
DX: I48.0 Paroxysmal atrial fibrillation (principal); Z95.810 Presence of automatic (implantable) cardiac defibrillator
CPT/HCPCS: 93295

== ENCOUNTER → 2023-08-19 23:59 | Outpatient (BNV) | payer MEDICARE, OTHER, SELFPAY ==
--- NOTE | 2023-08-22 11:32 | MHC.OFFVIS ---
Intake Intake Visit Reasons: Remote HF Monitoring- 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 Mother No problems noted. Social History Household Members: None Household Members Other:: currently at [facility] Housing: House Housing Other:: rehab Are you a primary healthcare liaison to a significant other at home: No Do you presently have visiting nurse or other home services: No Unable to assess alcohol history related to: Unknown Alcohol intake: never Comment: has sitter Patient Tobacco Use Status: Never used Tobacco Second Hand Smoke Exposure: No Advance Directives Date on File: 10/19/21 service: No Current occupational status: retired Current occupation: right handed Office Procedures Cardiac Device Check Cardiac Device Check Details: Remote heart failure report generated 08/19/2023. Heart failure parameters are stable [id number] Cardiac Device Interrogation, cardio physiologic monitor Procedure code (CPT) selection complete Assessment & Plan Assessment & Plan (1) Biventricular ICD (implantable cardioverter-defibrillator) in place: Code(s): Z95.810 - Presence of automatic (implantable) cardiac defibrillator Plan: See above Coding Level of Care Code Procedure Only Diagnoses Biventricular ICD (implantable cardioverter-defibrillator) in place Z95.810 CPT Codes Cardiac Device Check - Cardiac Device 15: 51151-[id number] Cardiac Device Interrogation, cardio physiologic monitor ([id number])
== END ==
PROVIDERS: PCP Family Medicine; Visit Provider Internal Medicine Cardiovascular Disease
DX: I50.22 Chronic systolic (congestive) heart failure (principal); Z95.810 Presence of automatic (implantable) cardiac defibrillator
CPT/HCPCS: 93297

== ENCOUNTER 2023-08-23 18:28 | Outpatient (REF) | payer MEDICARE, SELFPAY ==
[2023-08-23 18:44] LABS: Appearance Urine Clear; Color Urine Yellow; Glucose Urine UA Negative (Negative); Leukocyte Esterase Urine Trace (Negative); Nitrite Urine Negative (Negative); UMIC TRIGGER UA YES; Urine Blood Negative (Negative); Urine Ketones Negative (Negative); Urine Protein 30 (1+) mg/dL (Neg-Trace)
[2023-08-23 19:18] LABS: Bacteria Urine None Seen (None Seen); Calcium Oxalate Crystals Urine Present; Hyaline Casts Urine 0-2 /LPF (0-2); RBC Urine 0-2 /HPF (0-2); WBC Urine 0-5 /HPF (0-5)
== END 2023-08-23 18:29 | disposition home or self-care (01) ==
LOC: HO.MMNH3L 18:28
PROVIDERS: Visit Provider Family Medicine
DX: N39.0 Urinary tract infection, site not specified (principal)
CPT/HCPCS: 81001; 87086

== ENCOUNTER 2023-09-13 06:20 | Outpatient (REF) | payer MEDICARE, SELFPAY ==
[2023-09-13 06:13] LABS: MANUAL DIFF FLAG NO
[2023-09-13 06:36] LABS: Basophils Percent Auto 0.6 % (0-2); Eosinophils Absolute Auto 0.2 X10*3/uL (0.0-0.4); Eosinophils Percent Auto 3.1 % (0-4); Hematocrit 33.1 % (37.0-47.0); Hemoglobin 10.9 g/dl (12.0-16.0); Imm Gran Abs Auto 0.01 X10*3/uL (0.00-0.03); Imm Gran Pct Auto 0.2 % (0.0-0.4); Lymphocytes Absolute Auto 2.1 X10*3/uL (1.2-4.9); Lymphocytes Percent Auto 41.3 % (20-40); Mean Corpuscular HGB Conc 32.9 g/dl (31.0-35.0); Mean Corpuscular Volume 97.1 fL (80.0-98.0); Mean Platelet Volume 10.8 fL (9.4-12.3); Monocytes Absolute Auto 0.5 X10*3/uL (0.1-1.2); Monocytes Percent Auto 9.3 % (2-11); Neutrophils Absolute Auto 2.4 x10*3/uL (2.0-8.3); Neutrophils Percent Auto 45.5 % (45-73); Platelet Count 118 X10*3/uL (160-400); Red Blood Count 3.41 X10*6/uL (4.20-5.50); White Blood Count 5.2 X10*3/uL (4.8-10.8)
[2023-09-13 07:08] LABS: Anion Gap 9 (12-20); Blood Urea Nitrogen 15 mg/dL (9-16); Calcium 8.7 mg/dL (8.4-10.2); Carbon Dioxide 29 mmol/L (22-29); Chloride 108 mmol/L (96-108); Estimated Glomerular Filt Rate 40; Glucose Random 90 mg/dL (60-115); Potassium 3.9 mmol/L (3.3-5.1); Sodium 142 mmol/L (135-145)
== END 2023-09-13 06:21 | disposition home or self-care (01) ==
LOC: HO.MMNH3L 06:20
PROVIDERS: Visit Provider Family Medicine
DX: I48.0 Paroxysmal atrial fibrillation (principal); I10 Essential (primary) hypertension
CPT/HCPCS: 36415; 80048; 85025

== ENCOUNTER → 2023-10-10 23:59 | Outpatient (BNV) | payer MEDICARE, SELFPAY ==
--- NOTE | 2023-10-11 12:48 | A.OFFVIS_ITS ---
Intake Intake Visit Reasons: Remote HF Monitoring- 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 Mother No problems noted. Social History Household Members: None Household Members Other:: currently at [facility] Re[facility] Housing: House Housing Other:: rehab Are you a primary professional healthcare representative to a significant other at home: No Do you presently have visiting nurse or other home services: No Unable to assess alcohol history related to: Unknown Alcohol intake: never Comment: has sitter Patient Tobacco Use Status: Never used Tobacco Second Hand Smoke Exposure: No Advance Directives Date on File: 10/19/21 service: No Current occupational status: retired Current occupation: right handed Office Procedures Cardiac Device Check Cardiac Device Check Details: Remote heart failure report generated 10/10/2023. Heart failure parameters are stable [id number] Cardiac Device Interrogation, cardio physiologic monitor Procedure code (CPT) selection complete Assessment & Plan Assessment & Plan (1) Biventricular ICD (implantable cardioverter-defibrillator) in place: Code(s): Z95.810 - Presence of automatic (implantable) cardiac defibrillator Plan: See above Coding Level of Care Code Procedure Only Diagnoses Biventricular ICD (implantable cardioverter-defibrillator) in place Z95.810 CPT Codes Cardiac Device Check - Cardiac Device 15: 31106-Qzlyaq Cardiac Device Int errogation, cardio physiologic monitor ([id number])
== END ==
PROVIDERS: PCP Family Medicine; Visit Provider Internal Medicine Cardiovascular Disease
DX: I50.22 Chronic systolic (congestive) heart failure (principal); Z95.810 Presence of automatic (implantable) cardiac defibrillator
CPT/HCPCS: 93297

== ENCOUNTER 2023-10-17 06:34 | Outpatient (REF) | payer MEDICARE, SELFPAY ==
[2023-10-17 06:07] LABS: MANUAL DIFF FLAG NO
[2023-10-17 06:42] LABS: Basophils Absolute Auto 0.1 X10*3/uL (0.0-0.2); Basophils Percent Auto 0.9 % (0-2); Eosinophils Absolute Auto 0.2 X10*3/uL (0.0-0.4); Eosinophils Percent Auto 3.1 % (0-4); Hematocrit 36.5 % (37.0-47.0); Hemoglobin 11.9 g/dl (12.0-16.0); Imm Gran Abs Auto 0.02 X10*3/uL (0.00-0.03); Imm Gran Pct Auto 0.4 % (0.0-0.4); Lymphocytes Absolute Auto 2.3 X10*3/uL (1.2-4.9); Lymphocytes Percent Auto 41.7 % (20-40); Mean Corpuscular HGB Conc 32.6 g/dl (31.0-35.0); Mean Corpuscular Hemoglobin 31.6 pg (27.0-33.0); Mean Corpuscular Volume 96.8 fL (80.0-98.0); Mean Platelet Volume 10.5 fL (9.4-12.3); Monocytes Absolute Auto 0.5 X10*3/uL (0.1-1.2); Monocytes Percent Auto 8.2 % (2-11); Neutrophils Absolute Auto 2.5 x10*3/uL (2.0-8.3); Neutrophils Percent Auto 45.7 % (45-73); Platelet Count 141 X10*3/uL (160-400); Red Blood Count 3.77 X10*6/uL (4.20-5.50); Red Cell Distribution Width 15.4 % (11.0-16.0); White Blood Count 5.5 X10*3/uL (4.8-10.8)
[2023-10-17 06:52] LABS: Anion Gap 15 (12-20); Blood Urea Nitrogen 13 mg/dL (9-16); Carbon Dioxide 23 mmol/L (22-29); Chloride 109 mmol/L (96-108); Estimated Glomerular Filt Rate 37; Glucose Random 94 mg/dL (60-115); Potassium 3.4 mmol/L (3.3-5.1); Sodium 144 mmol/L (135-145)
== END 2023-10-17 06:35 | disposition home or self-care (01) ==
LOC: HO.MMNH3L 06:34
PROVIDERS: Visit Provider Family Medicine
DX: I48.0 Paroxysmal atrial fibrillation (principal); I10 Essential (primary) hypertension
CPT/HCPCS: 36415; 80048; 85025

== ENCOUNTER 2023-11-14 06:20 | Outpatient (REF) | payer MEDICARE, SELFPAY ==
[2023-11-14 05:54] LABS: MANUAL DIFF FLAG NO
[2023-11-14 06:08] LABS: Basophils Percent Auto 0.8 % (0-2); Eosinophils Absolute Auto 0.1 X10*3/uL (0.0-0.4); Eosinophils Percent Auto 2.9 % (0-4); Hematocrit 33.6 % (37.0-47.0); Hemoglobin 10.9 g/dl (12.0-16.0); Imm Gran Abs Auto 0.03 X10*3/uL (0.00-0.03); Imm Gran Pct Auto 0.6 % (0.0-0.4); Lymphocytes Absolute Auto 2.2 X10*3/uL (1.2-4.9); Lymphocytes Percent Auto 45.5 % (20-40); Mean Corpuscular HGB Conc 32.4 g/dl (31.0-35.0); Mean Corpuscular Hemoglobin 31.5 pg (27.0-33.0); Mean Corpuscular Volume 97.1 fL (80.0-98.0); Mean Platelet Volume 10.1 fL (9.4-12.3); Monocytes Absolute Auto 0.5 X10*3/uL (0.1-1.2); Monocytes Percent Auto 9.9 % (2-11); Neutrophils Percent Auto 40.3 % (45-73); Platelet Count 108 X10*3/uL (160-400); Red Blood Count 3.46 X10*6/uL (4.20-5.50); Red Cell Distribution Width 14.7 % (11.0-16.0); White Blood Count 4.9 X10*3/uL (4.8-10.8)
[2023-11-14 06:18] LABS: Anion Gap 11 (12-20); Blood Urea Nitrogen 18 mg/dL (9-16); Calcium 8.8 mg/dL (8.4-10.2); Carbon Dioxide 25 mmol/L (22-29); Chloride 110 mmol/L (96-108); Estimated Glomerular Filt Rate 40; Glucose Random 93 mg/dL (60-115); Potassium 3.6 mmol/L (3.3-5.1); Sodium 142 mmol/L (135-145)
== END 2023-11-14 06:21 | disposition home or self-care (01) ==
LOC: HO.MMNH3L 06:20
PROVIDERS: Visit Provider Family Medicine
DX: I48.0 Paroxysmal atrial fibrillation (principal); I10 Essential (primary) hypertension
CPT/HCPCS: 36415; 80048; 85025

== ENCOUNTER → 2023-11-14 23:59 | Outpatient (BNV) | payer MEDICARE, OTHER, SELFPAY ==
--- NOTE | 2023-11-15 16:32 | MHC.OFFVIS ---
Intake Intake Visit Reasons: Remote HF Monitoring- 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 Mother No problems noted. Social History Household Members: None Household Members Other:: currently at [facility] Housing: House Housing Other:: rehab Are you a primary urgent care nurse practitioner to a significant other at home: No Do you presently have visiting nurse or other home services: No Unable to assess alcohol history related to: Unknown Alcohol intake: never Comment: has sitter Patient Tobacco Use Status: Never used Tobacco Second Hand Smoke Exposure: No Advance Directives Date on File: 10/19/21 service: No Current occupational status: retired Current occupation: right handed Office Procedures Cardiac Device Check Cardiac Device Check Details: Remote heart failure report generated 11/14/2023. Heart failure parameters are stable [id number] Cardiac Device Interrogation, cardio physiologic monitor Procedure code (CPT) selection complete Assessment & Plan Assessment & Plan (1) Biventricular ICD (implantable cardioverter-defibrillator) in place: Code(s): Z95.810 - Presence of automatic (implantable) cardiac defibrillator Plan: See above Coding Level of Care Code Procedure Only Diagnoses Biventricular ICD (implantable cardioverter-defibrillator) in place Z95.810 CPT Codes Cardiac Device Check - Cardiac Device 15: 59975-Qvoqkl Cardiac Device Interrogation, cardio physiologic monitor ([id number])
== END ==
PROVIDERS: PCP Family Medicine; Visit Provider Internal Medicine Cardiovascular Disease
DX: I50.22 Chronic systolic (congestive) heart failure (principal); Z95.810 Presence of automatic (implantable) cardiac defibrillator
CPT/HCPCS: 93297

== ENCOUNTER → 2023-11-17 23:59 | Outpatient (BNV) | payer MEDICARE, OTHER, SELFPAY ==
--- NOTE | 2023-11-21 15:53 | A.OFFVIS_ITS ---
Intake Intake Visit Reasons: Remote ICD Check- 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 Mother No problems noted. Social History Household Members: None Household Members Other:: currently at [facility] Housing: House Housing Other:: rehab Are you a primary child care lead teacher to a significant other at home: No Do you presently have visiting nurse or other home services: No Unable to assess alcohol history related to: Unknown Alcohol intake: never Comment: has sitter Patient Tobacco Use Status: Never used Tobacco Second Hand Smoke Exposure: No Advance Directives Date on File: 10/19/21 service: No Current occupational status: retired Current occupation: right handed Office Procedures Cardiac Device Check Cardiac Device Check Details: Remote ICD report generated 11/17/2023. ICD function is adequate. Biventricular pacing 99% of the time [id number] Cardiac Interrogation, implant defibrillator w/interim Procedure code (CPT) selection complete Assessment & Plan Assessment & Plan (1) Biventricular ICD (implantable cardioverter-defibrillator) in place: Code(s): Z95.810 - Presence of automatic (implantable) cardiac defibrillator Plan: See above Coding Level of Care Code Procedure Only Diagnoses Biventricular ICD (implantable cardioverter-defibrillator) in place Z95.810 CPT Codes Cardiac Device Check - Cardiac Device 13: 66869-Pufccx Cardiac Interrogation, implant defibrillator w/interim ([id number])
== END ==
PROVIDERS: PCP Family Medicine; Visit Provider Internal Medicine Cardiovascular Disease
DX: I48.20 Chronic atrial fibrillation, unspecified (principal); Z95.810 Presence of automatic (implantable) cardiac defibrillator
CPT/HCPCS: 93295

== ENCOUNTER 2023-12-12 06:50 | Outpatient (REF) | payer MEDICARE, SELFPAY ==
[2023-12-12 05:57] LABS: MANUAL DIFF FLAG NO
[2023-12-12 06:19] LABS: Basophils Percent Auto 0.7 % (0-2); Eosinophils Absolute Auto 0.1 X10*3/uL (0.0-0.4); Eosinophils Percent Auto 2.4 % (0-4); Hematocrit 34.3 % (37.0-47.0); Hemoglobin 11.2 g/dl (12.0-16.0); Imm Gran Abs Auto 0.02 X10*3/uL (0.00-0.03); Imm Gran Pct Auto 0.3 % (0.0-0.4); Lymphocytes Absolute Auto 2.1 X10*3/uL (1.2-4.9); Lymphocytes Percent Auto 36.3 % (20-40); Mean Corpuscular HGB Conc 32.7 g/dl (31.0-35.0); Mean Corpuscular Hemoglobin 31.6 pg (27.0-33.0); Mean Corpuscular Volume 96.9 fL (80.0-98.0); Mean Platelet Volume 10.5 fL (9.4-12.3); Monocytes Absolute Auto 0.5 X10*3/uL (0.1-1.2); Monocytes Percent Auto 8.9 % (2-11); Neutrophils Absolute Auto 2.9 x10*3/uL (2.0-8.3); Neutrophils Percent Auto 51.4 % (45-73); Platelet Count 126 X10*3/uL (160-400); Red Blood Count 3.54 X10*6/uL (4.20-5.50); Red Cell Distribution Width 14.3 % (11.0-16.0); White Blood Count 5.7 X10*3/uL (4.8-10.8)
[2023-12-12 06:37] LABS: Anion Gap 9 (12-20); Blood Urea Nitrogen 13 mg/dL (9-16); Calcium 8.4 mg/dL (8.4-10.2); Carbon Dioxide 27 mmol/L (22-29); Chloride 109 mmol/L (96-108); Estimated Glomerular Filt Rate 44; Glucose Random 109 mg/dL (60-115); Potassium 3.4 mmol/L (3.3-5.1); Sodium 142 mmol/L (135-145)
== END 2023-12-12 06:51 | disposition home or self-care (01) ==
LOC: HO.MMNH3L 06:50
PROVIDERS: Visit Provider Family Medicine
DX: I48.0 Paroxysmal atrial fibrillation (principal); I10 Essential (primary) hypertension
CPT/HCPCS: 36415; 80048; 85025

== ENCOUNTER → 2023-12-16 23:59 | Outpatient (BNV) | payer MEDICARE, OTHER, SELFPAY ==
--- NOTE | 2023-12-19 16:08 | MHC.OFFVIS ---
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 Mother No problems noted. Social History Household Members: None Household Members Other:: currently at [facility] Housing: House Housing Other:: rehab Are you a primary customer care manager to a significant other at home: No Do you presently have visiting nurse or other home services: No Unable to assess alcohol history related to: Unknown Alcohol intake: never Comment: has sitter Patient Tobacco Use Status: Never used Tobacco Second Hand Smoke Exposure: No Advance Directives Date on File: 10/19/21 service: No Current occupational status: retired Current occupation: right handed Office Procedures Cardiac Device Check Cardiac Device Check Details: Remote heart failure report generated 12/16/2023. Heart failure parameters are stable [id number] Cardiac Device Interrogation, cardio physiologic monitor Procedure code (CPT) selection complete Assessment & Plan Assessment & Plan (1) Biventricular ICD (implantable cardioverter-defibrillator) in place: Code(s): Z95.810 - Presence of automatic (implantable) cardiac defibrillator Plan: See above Coding Level of Care Code Procedure Only Diagnoses Biventricular ICD (implantable cardioverter-defibrillator) in place Z95.810 CPT Codes Cardiac Device Check - Cardiac Device 15: 63174-Gmuhde Cardiac Device Interrogation, cardio physiologic monitor ([id number])
== END ==
PROVIDERS: PCP Family Medicine; Visit Provider Internal Medicine Cardiovascular Disease
DX: Z45.02 Encounter for adjustment and management of automatic implantable cardiac defibrillator (principal)
CPT/HCPCS: 93297

== ENCOUNTER 2023-12-18 17:31 | Outpatient (REF) | payer MEDICARE, SELFPAY ==
[2023-12-18 17:43] LABS: Appearance Urine Turbid; Color Urine Dark Yellow; Glucose Urine UA Negative (Negative); Leukocyte Esterase Urine Large (3+) (Negative); Nitrite Urine Negative (Negative); UMIC TRIGGER UA YES; Urine Blood Moderate (2+) (Negative); Urine Ketones Negative (Negative); Urine Protein 100 (2+) mg/dL (Neg-Trace)
[2023-12-18 18:01] LABS: Bacteria Urine 4+ (None Seen); Calcium Oxalate Crystals Urine Present; Hyaline Casts Urine 0-2 /LPF (0-2); WBC Urine >50 /HPF (0-5)
== END 2023-12-18 17:32 | disposition home or self-care (01) ==
LOC: HO.MMNH3L 17:31
PROVIDERS: Visit Provider Family Medicine
DX: F41.9 Anxiety disorder, unspecified (principal); R82.90 Unspecified abnormal findings in urine
CPT/HCPCS: 81001; 87086; 87088; 87186

== ENCOUNTER 2023-12-28 06:06 | Outpatient (REF) | payer MEDICARE, SELFPAY ==
[2023-12-28 06:12] LABS: MANUAL DIFF FLAG NO
[2023-12-28 07:16] LABS: Basophils Percent Auto 0.7 % (0-2); Eosinophils Absolute Auto 0.2 X10*3/uL (0.0-0.4); Eosinophils Percent Auto 3.2 % (0-4); Hematocrit 34.4 % (37.0-47.0); Hemoglobin 11.4 g/dl (12.0-16.0); Imm Gran Abs Auto 0.01 X10*3/uL (0.00-0.03); Imm Gran Pct Auto 0.2 % (0.0-0.4); Lymphocytes Absolute Auto 2.2 X10*3/uL (1.2-4.9); Lymphocytes Percent Auto 39.4 % (20-40); Mean Corpuscular HGB Conc 33.1 g/dl (31.0-35.0); Mean Corpuscular Hemoglobin 31.6 pg (27.0-33.0); Mean Corpuscular Volume 95.3 fL (80.0-98.0); Mean Platelet Volume 10.4 fL (9.4-12.3); Monocytes Absolute Auto 0.5 X10*3/uL (0.1-1.2); Monocytes Percent Auto 8.2 % (2-11); Neutrophils Absolute Auto 2.7 x10*3/uL (2.0-8.3); Neutrophils Percent Auto 48.3 % (45-73); Platelet Count 137 X10*3/uL (160-400); Red Blood Count 3.61 X10*6/uL (4.20-5.50); Red Cell Distribution Width 14.7 % (11.0-16.0); White Blood Count 5.6 X10*3/uL (4.8-10.8)
[2023-12-28 07:28] LABS: Anion Gap 10 (12-20); Blood Urea Nitrogen 12 mg/dL (9-16); Calcium 8.7 mg/dL (8.4-10.2); Carbon Dioxide 27 mmol/L (22-29); Chloride 107 mmol/L (96-108); Estimated Glomerular Filt Rate 40; Glucose Random 114 mg/dL (60-115); Iron 54 mcg/dL (30-160); Percent Iron Saturation 29 % (15-50); Potassium 3.4 mmol/L (3.3-5.1); Sodium 141 mmol/L (135-145); Total Iron Binding Capacity 189 mcg/dL (228-428); Unsaturated Iron Binding 135 ug/dL
[2023-12-28 07:45] LABS: Ferritin 112 ng/mL (10-250); T4 Thyroxine 8.6 ug/dL (4.5-12.0); Thyroid Stimulating Hormone 3.65 uIU/mL (0.32-4.0); Vitamin D 25-OH Total 27.2 ng/mL (>30)
[2023-12-28 07:51] LABS: Vitamin B12 331 pg/mL (200-900)
[2023-12-29 08:02] LABS: Triiodothyronine T3 Free 1.9 pg/mL (2.3-4.2)
[2023-12-29 19:49] LABS: Transferrin 163 mg/dL (188-341)
== END 2023-12-28 06:07 | disposition home or self-care (01) ==
LOC: HO.MMNH3L 06:06
PROVIDERS: Visit Provider Family Medicine
DX: F32.9 Major depressive disorder, single episode, unspecified (principal); E03.9 Hypothyroidism, unspecified; I50.40 Unspecified combined systolic (congestive) and diastolic (congestive) heart failure
CPT/HCPCS: 36415; 80048; 82306; 82607; 82728; 83540; 84436; 84443; 84466; 84481; 85025

== ENCOUNTER 2023-12-30 18:02 | Outpatient (REF) | payer MEDICARE, SELFPAY ==
[2023-12-30 18:29] LABS: Appearance Urine Cloudy; Glucose Urine UA Negative (Negative); Leukocyte Esterase Urine Small (1+) (Negative); Nitrite Urine Negative (Negative); PH 5.5 (5.0-9.0); Specific Gravity - Urine 1.025 (1.005-1.025); UMIC TRIGGER UACC YES; Urine Blood Negative (Negative); Urine Ketones Negative (Negative); Urine Protein 30 (1+) mg/dL (Neg-Trace)
[2023-12-30 18:31] LABS: Color Urine Yellow
[2023-12-30 18:43] LABS: Bacteria Urine None Seen (None Seen); Calcium Oxalate Crystals Urine Present; Hyaline Casts Urine 0-2 /LPF (0-2); RBC Urine 0-2 /HPF (0-2); UACC Culture Trigger YES; WBC Urine 0-5 /HPF (0-5)
== END 2023-12-30 18:03 | disposition home or self-care (01) ==
LOC: HO.MMNH3L 18:02
PROVIDERS: Visit Provider Family Medicine
DX: N39.0 Urinary tract infection, site not specified (principal)
CPT/HCPCS: 81001; 87086

== ENCOUNTER 2024-01-03 05:45 | Outpatient (REF) | payer MEDICARE, SELFPAY ==
[2024-01-03 05:47] LABS: MANUAL DIFF FLAG NO
[2024-01-03 06:32] LABS: Basophils Percent Auto 0.2 % (0-2); Eosinophils Absolute Auto 0.1 X10*3/uL (0.0-0.4); Eosinophils Percent Auto 1.5 % (0-4); Hematocrit 32.6 % (37.0-47.0); Imm Gran Abs Auto 0.02 X10*3/uL (0.00-0.03); Imm Gran Pct Auto 0.4 % (0.0-0.4); Lymphocytes Absolute Auto 2.3 X10*3/uL (1.2-4.9); Lymphocytes Percent Auto 43.5 % (20-40); Mean Corpuscular HGB Conc 33.7 g/dl (31.0-35.0); Mean Corpuscular Hemoglobin 32.3 pg (27.0-33.0); Mean Corpuscular Volume 95.6 fL (80.0-98.0); Mean Platelet Volume 10.3 fL (9.4-12.3); Monocytes Absolute Auto 0.5 X10*3/uL (0.1-1.2); Monocytes Percent Auto 9.1 % (2-11); Neutrophils Absolute Auto 2.4 x10*3/uL (2.0-8.3); Neutrophils Percent Auto 45.3 % (45-73); Red Blood Count 3.41 X10*6/uL (4.20-5.50); Red Cell Distribution Width 14.6 % (11.0-16.0); White Blood Count 5.3 X10*3/uL (4.8-10.8)
[2024-01-03 06:35] LABS: Platelet Count 99 X10*3/uL (160-400)
[2024-01-03 06:42] LABS: Alanine Aminotransferase 66 U/L (0-31); Albumin Level 2.5 g/dL (3.5-5.0); Alkaline Phosphatase 229 U/L (39-117); Anion Gap 10 (12-20); Aspartate Amino Transferase 117 U/L (5-31); Bilirubin Total 0.3 mg/dL (0.0-1.0); Blood Urea Nitrogen 12 mg/dL (9-16); Calcium 8.2 mg/dL (8.4-10.2); Carbon Dioxide 24 mmol/L (22-29); Chloride 111 mmol/L (96-108); Estimated Glomerular Filt Rate 50; Glucose Random 89 mg/dL (60-115); Sodium 142 mmol/L (135-145); Total Protein 7.1 g/dL (6.5-8.0)
== END 2024-01-03 05:46 | disposition home or self-care (01) ==
LOC: HO.MMNH3L 05:45
PROVIDERS: Visit Provider Family Medicine
DX: I10 Essential (primary) hypertension (principal)
CPT/HCPCS: 36415; 80053; 85025

== ENCOUNTER 2024-01-16 06:31 | Outpatient (REF) | payer MEDICARE, SELFPAY ==
[2024-01-16 06:15] LABS: MANUAL DIFF FLAG NO
[2024-01-16 07:17] LABS: Basophils Absolute Auto 0.1 X10*3/uL (0.0-0.2); Basophils Percent Auto 0.8 % (0-2); Eosinophils Absolute Auto 0.1 X10*3/uL (0.0-0.4); Eosinophils Percent Auto 1.8 % (0-4); Hematocrit 34.2 % (37.0-47.0); Hemoglobin 11.3 g/dl (12.0-16.0); Imm Gran Abs Auto 0.01 X10*3/uL (0.00-0.03); Imm Gran Pct Auto 0.2 % (0.0-0.4); Lymphocytes Absolute Auto 1.9 X10*3/uL (1.2-4.9); Lymphocytes Percent Auto 31.2 % (20-40); Mean Corpuscular Hemoglobin 31.8 pg (27.0-33.0); Mean Corpuscular Volume 96.3 fL (80.0-98.0); Mean Platelet Volume 10.9 fL (9.4-12.3); Monocytes Absolute Auto 0.6 X10*3/uL (0.1-1.2); Monocytes Percent Auto 9.4 % (2-11); Neutrophils Absolute Auto 3.5 x10*3/uL (2.0-8.3); Neutrophils Percent Auto 56.6 % (45-73); Platelet Count 124 X10*3/uL (160-400); Red Blood Count 3.55 X10*6/uL (4.20-5.50); Red Cell Distribution Width 15.1 % (11.0-16.0); White Blood Count 6.2 X10*3/uL (4.8-10.8)
[2024-01-16 07:35] LABS: Anion Gap 12 (12-20); Blood Urea Nitrogen 13 mg/dL (9-16); Calcium 8.6 mg/dL (8.4-10.2); Carbon Dioxide 25 mmol/L (22-29); Chloride 110 mmol/L (96-108); Estimated Glomerular Filt Rate 55; Glucose Random 107 mg/dL (60-115); Potassium 3.5 mmol/L (3.3-5.1); Sodium 143 mmol/L (135-145)
== END 2024-01-16 06:32 | disposition home or self-care (01) ==
LOC: HO.MMNH3L 06:31
PROVIDERS: Visit Provider Family Medicine
DX: I48.0 Paroxysmal atrial fibrillation (principal); I10 Essential (primary) hypertension
CPT/HCPCS: 36415; 80048; 85025

== ENCOUNTER 2024-01-31 12:54 | Outpatient (AMB) | payer MEDICARE, SELFPAY ==
[2024-01-31 13:24] VITALS: BP 118/74; PULSE 61
--- NOTE | 2024-01-31 13:24 | A.OFFVIS_ITS ---
Vital Signs 01/31/24 13:24 Height 5 ft BMI Reason not done Patient refused/unable BP 118/74 Blood Pressure Location Lt brachial Position Sitting Pulse 61 Intake Visit Reasons: 6 mth f/up Intake Note: 6 month follow-up with ekg and [facility] check feeling good Projection Camera Operator Required: No Hospice Massage Therapist: Hospice Massage Therapist Present Accompanied by: Son Allergies No Known Allergies [No Known Allergies*] Allergy (Verified 05/17/23 10:33) Medication List - Last Reconciled 01/31/24 by Nitish Frias MD acetaminophen (Tylenol) 650 mg PO Q6H PRN amiodarone 200 mg PO DAILY amoxicillin 2,000 mg (4 x 500 mg) PO ONCE 1 day apixaban (Eliquis) 2.5 mg PO BID bisacodyl 10 mg WI DAILY PRN cholecalciferol (vitamin D3) 25 mcg PO DAILY docusate sodium 100 mg PO DAILY levothyroxine 75 mcg PO DAILY lisinopril 5 mg PO DAILY lorazepam 0.5 mg PO BID PRN melatonin 3 mg PO BEDTIME PRN metoprolol tartrate 25 mg PO BID mirtazapine 7.5 mg PO BEDTIME paroxetine HCl 20 mg PO DAILY sennosides (senna) 8.6 mg PO BEDTIME HPI Comments Details: Nina comes for follow-up. She is at a nursing home facility. Very limited functional capacity with dependent leg position. She has been dealing with leg ulcer in her left leg for many months now. As per the son it improved but then again started worsening. Thinks that there is circulation issue, not sure if there is been arterial insufficiency. She is done well with no hospitalization with heart failure syndrome. She recently had a viral infection as per the son and that cause her to have a long recovery process. LFTs were elevated. No repeat LFTs have been done. She is on amiodarone therapy. Heart failure syndrome has been stable. She has not had any worsening heart failure syndrome. No lightheadedness, syncope. 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 Mother No problems noted. Social History Household Members: None Household Members Other:: currently at [facility] Housing: House Housing Other:: rehab Are you a primary hospice spiritual care coordinator to a significant other at home: No Do you presently have visiting nurse or other home services: No Unable to assess alcohol history related to: Unknown Alcohol intake: never Comment: has sitter Patient Tobacco Use Status: Never used Tobacco Second Hand Smoke Exposure: No Advance Directives Date on File: 10/19/21 service: No Current occupational status: retired Current occupation: right handed Review of Systems Const Denies chills, Denies fatigue, Denies fever(s), Denies frequent falls, Denies weakness, Denies weight gain and Denies weight loss ENT Denies dizziness Card Denies chest pain, Denies leg edema, Denies lightheadedness, Denies palpitations, Denies dyspnea, Denies dyspnea on exertion, Denies orthopnea and Denies other (loss of consciousness) Resp Denies cough, Denies dyspnea and Denies dyspnea on exertion GI Denies hematochezia and Denies change in stool character Musc Denies abnormal gait, Denies muscle weakness, Denies numbness, Denies radiating pain into limb and Denies tingling Neuro Denies abnormal gait, Denies dizziness, Denies frequent falls, Denies numbness, Denies tingling and Denies weakness Endo Denies fatigue and Denies palpitations Physical Exam Vital Signs: Last Vital Signs Pulse 61 01/31/24 13:24 BP 118/74 01/31/24 13:24 Const General: cooperative, comfortable, alert, awake and well groomed Nutritional Appearance: underweight and other (Frail elderly woman) Orientation/consciousness: patient oriented x3 Limitations: wheelchair Neck Neck: Yes trachea midline, Yes supple and Yes no JVD Resp Effort & Inspection: normal respiratory effort Auscultation: clear to auscultation bilaterally Cardio Jugular venous distension: no JVD Rate: regular rate Rhythm: abnormal rhythm with ectopic beats Heart sounds: S1 normal heart sound present and S2 normal heart sound present Skin General skin exam: no rashes or lesions noted and ecchymosis Neuro General: patient oriented x3 and no focal motor deficits Extrem General: Yes other (Lower extremity are in compression wraps) Psych Appearance: grossly normal Office Procedures Cardiac Device Check Cardiac Device Check Details: Biventricular [facility] ICD in place. Programmed in DDDR at 60 beats per minute. Atrial pacing 86% of time ventricular pacing almost 100% time. No atrial fibrillation significant other ventricular arrhythmias noted. Atrial and RV pacing thresholds excellent with good safety margin. LV pacing thresholds ar e significantly elevated. Atrial and ventricular sensing was adequate. Pacing and shock lead impedance is stable. Battery life is at 1 and half years [id number] Cardiac Device Check, multi lead implantable defibrillator Procedure code (CPT) selection complete EKG Details: EKG shows atrially sensed ventricularly paced rhythm 42207-[id number], Complete Assessment & Plan Assessment & Plan (1) Chronic systolic CHF (congestive heart failure): Code(s): I50.22 - Chronic systolic (congestive) heart failure Category: Medical Plan: Prior history of severe cardiomyopathy chronic heart failure with reduced ejection fraction. Clinically euvolemic and well compensated with no recurrent hospitalization related to heart failure. She has currently not on any diuretic regimen. Her leg edema appears to be dependent leg edema other than heart failure. Clinically otherwise she has no signs of central venous congestion. Continue lisinopril therapy. She is done very well with Bi V pacing, although she has advancing age and increasing frailty. Will need to consider future options for her depending on her clinical course especially overall physical status. Signs and symptoms of heart failure were discussed. Continue compression venous stockings for leg edema. (2) Paroxysmal atrial fibrillation: Code(s): I48.0 - Paroxysmal atrial fibrillation Category: Medical Plan: Paroxysmal atrial fibrillation, suppressed on amiodarone therapy. She is done better with amiodarone therapy with much improvement in her Bi V pacing. Continue the same although recent LFT increase was concerning. Advise follow-up liver panel as this could be related to recent viral syndrome. Discussed with the son. Also repeat chest x-ray. Continue Eliquis 2.5 mg b.i.d. quarterly renal function test should be pursued. (3) Biventricular ICD (implantable cardioverter-defibrillator) in place: Code(s): Z95.810 - Presence of automatic (implantable) cardiac defibrillator Category: Medical Plan: [facility] biventricular ICD in place, working adequately. LV pacing thresholds are significantly elevated. Well enough he was left to battery life. Beyond that will need to discuss how her overall clinical status is prior to replacing pulse generator and/or upgrading her LV lead, not sure if she will tolerate that procedure. Will follow up in the clinic in 6 months time, sooner p.r.n.. Thank you for allowing me to partake in her care Coding Level of Care Code Est Pt Level 4 (64101) Diagnoses Chronic systolic CHF (congestive heart failure) I50.22 Paroxysmal atrial fibrillation I48.0 Biventricular ICD (implantable cardioverter-defibrillator) in place Z95.810 CPT Codes Cardiac Device Check - Cardiac Device 6: 96693-QY Cardiac Device Check, multi lead implantable defibrillator ([id number]) EKG - CPT: 34874-Uwlfltevwzcixscmx, Complete ([id number])
== END 2024-01-31 15:28 | disposition home or self-care (01) ==
PROVIDERS: PCP Family Medicine; Visit Provider Internal Medicine Cardiovascular Disease
DX: I50.22 Chronic systolic (congestive) heart failure (principal); I48.0 Paroxysmal atrial fibrillation; Z95.810 Presence of automatic (implantable) cardiac defibrillator
CPT/HCPCS: 93010; 93284; 99214

== ENCOUNTER → 2024-01-31 12:54 | Outpatient (BNVA) | payer MEDICARE, OTHER, SELFPAY | PROVIDERS: PCP Family Medicine; Visit Provider Internal Medicine Cardiovascular Disease | DX: Z45.02 Encounter for adjustment and management of automatic implantable cardiac defibrillator (principal); I50.22 Chronic systolic (congestive) heart failure; I48.0 Paroxysmal atrial fibrillation | CPT/HCPCS: 93005; 99212 ==

== ENCOUNTER 2024-02-02 05:44 | Outpatient (REF) | payer MEDICARE, SELFPAY ==
[2024-02-02 06:46] LABS: Alanine Aminotransferase 39 U/L (0-31); Albumin Level 2.6 g/dL (3.5-5.0); Alkaline Phosphatase 241 U/L (39-117); Aspartate Amino Transferase 69 U/L (5-31); Bilirubin Direct 0.3 mg/dL (0.0-0.5); Bilirubin Total 0.7 mg/dL (0.0-1.0)
== END 2024-02-02 05:45 | disposition home or self-care (01) ==
LOC: HO.MMNH3L 05:44
PROVIDERS: Visit Provider Family Medicine
DX: I50.40 Unspecified combined systolic (congestive) and diastolic (congestive) heart failure (principal); I48.0 Paroxysmal atrial fibrillation
CPT/HCPCS: 36415; 80076

== ENCOUNTER 2024-02-13 06:01 | Outpatient (REF) | payer MEDICARE, SELFPAY ==
[2024-02-13 05:49] LABS: MANUAL DIFF FLAG NO
[2024-02-13 07:03] LABS: Basophils Absolute Auto 0.1 X10*3/uL (0.0-0.2); Basophils Percent Auto 0.8 % (0-2); Eosinophils Absolute Auto 0.1 X10*3/uL (0.0-0.4); Eosinophils Percent Auto 1.8 % (0-4); Hematocrit 33.2 % (37.0-47.0); Hemoglobin 11.1 g/dl (12.0-16.0); Imm Gran Abs Auto 0.02 X10*3/uL (0.00-0.03); Imm Gran Pct Auto 0.3 % (0.0-0.4); Lymphocytes Percent Auto 27.6 % (20-40); Mean Corpuscular HGB Conc 33.4 g/dl (31.0-35.0); Mean Corpuscular Hemoglobin 32.3 pg (27.0-33.0); Mean Corpuscular Volume 96.5 fL (80.0-98.0); Mean Platelet Volume 10.8 fL (9.4-12.3); Monocytes Absolute Auto 0.7 X10*3/uL (0.1-1.2); Monocytes Percent Auto 9.6 % (2-11); Neutrophils Absolute Auto 4.4 x10*3/uL (2.0-8.3); Neutrophils Percent Auto 59.9 % (45-73); Platelet Count 142 X10*3/uL (160-400); Red Blood Count 3.44 X10*6/uL (4.20-5.50); Red Cell Distribution Width 16.2 % (11.0-16.0); White Blood Count 7.3 X10*3/uL (4.8-10.8)
[2024-02-13 07:04] LABS: Anion Gap 12 (12-20); Blood Urea Nitrogen 18 mg/dL (9-16); Calcium 8.6 mg/dL (8.4-10.2); Carbon Dioxide 23 mmol/L (22-29); Chloride 110 mmol/L (96-108); Estimated Glomerular Filt Rate 42; Glucose Random 129 mg/dL (60-115); Potassium 3.4 mmol/L (3.3-5.1); Sodium 142 mmol/L (135-145)
== END 2024-02-13 06:02 | disposition home or self-care (01) ==
LOC: HO.MMNH3L 06:01
PROVIDERS: Visit Provider Family Medicine
DX: I48.0 Paroxysmal atrial fibrillation (principal); I10 Essential (primary) hypertension
CPT/HCPCS: 36415; 80048; 85025

== ENCOUNTER 2024-03-12 07:02 | Outpatient (REF) | payer MEDICARE, SELFPAY ==
[2024-03-12 06:16] LABS: MANUAL DIFF FLAG NO
[2024-03-12 07:09] LABS: Basophils Absolute Auto 0.1 X10*3/uL (0.0-0.2); Basophils Percent Auto 0.8 % (0-2); Eosinophils Absolute Auto 0.2 X10*3/uL (0.0-0.4); Eosinophils Percent Auto 2.5 % (0-4); Hematocrit 36.5 % (37.0-47.0); Imm Gran Abs Auto 0.02 X10*3/uL (0.00-0.03); Imm Gran Pct Auto 0.3 % (0.0-0.4); Lymphocytes Absolute Auto 2.7 X10*3/uL (1.2-4.9); Lymphocytes Percent Auto 36.5 % (20-40); Mean Corpuscular HGB Conc 32.9 g/dl (31.0-35.0); Mean Corpuscular Hemoglobin 32.6 pg (27.0-33.0); Mean Corpuscular Volume 99.2 fL (80.0-98.0); Mean Platelet Volume 10.6 fL (9.4-12.3); Monocytes Absolute Auto 0.6 X10*3/uL (0.1-1.2); Monocytes Percent Auto 8.5 % (2-11); Neutrophils Absolute Auto 3.7 x10*3/uL (2.0-8.3); Neutrophils Percent Auto 51.4 % (45-73); Platelet Count 147 X10*3/uL (160-400); Red Blood Count 3.68 X10*6/uL (4.20-5.50); Red Cell Distribution Width 16.2 % (11.0-16.0); White Blood Count 7.3 X10*3/uL (4.8-10.8)
[2024-03-12 07:48] LABS: Anion Gap 14 (12-20); Blood Urea Nitrogen 14 mg/dL (9-16); Calcium 9.2 mg/dL (8.4-10.2); Carbon Dioxide 22 mmol/L (22-29); Chloride 111 mmol/L (96-108); Estimated Glomerular Filt Rate 50; Glucose Random 105 mg/dL (60-115); Potassium 3.5 mmol/L (3.3-5.1); Sodium 143 mmol/L (135-145)
== END 2024-03-12 07:03 | disposition home or self-care (01) ==
LOC: HO.MMNH3L 07:02
PROVIDERS: Visit Provider Family Medicine
DX: I48.0 Paroxysmal atrial fibrillation (principal); I10 Essential (primary) hypertension
CPT/HCPCS: 36415; 80048; 85025

== ENCOUNTER → 2024-03-19 23:59 | Outpatient (BNV) | payer OTHER, MEDICARE, SELFPAY ==
--- NOTE | 2024-03-30 15:23 | A.OFFVIS_ITS ---
Intake Visit Reasons: Remote ICD Check- 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 Mother No problems noted. Social History Household Members: None Household Members Other:: currently at [facility] Housing: House Housing Other:: rehab Are you a primary career services coordinator to a significant other at home: No Do you presently have visiting nurse or other home services: No Unable to assess alcohol history related to: Unknown Alcohol intake: never Comment: has sitter Patient Tobacco Use Status: Never used Tobacco Second Hand Smoke Exposure: No Advance Directives Date on File: 10/19/21 service: No Current occupational status: retired Current occupation: right handed Office Procedures Cardiac Device Check Cardiac Device Check Details: Remote ICD report generated 03/19/2024. ICD function is adequate. Bi V pacing 100% of the time 72081-Lpniae Cardiac Interrogation, implant defibrillator w/interim Procedure code (CPT) selection complete Assessment & Plan Assessment & Plan (1) Biventricular ICD (implantable cardioverter-defibrillator) in place: Code(s): Z95.810 - Presence of automatic (implantable) cardiac defibrillator Category: Medical Plan: See above Coding Level of Care Code Procedure Only Diagnoses Biventricular ICD (implantable cardioverter-defibrillator) in place Z95.810 CPT Codes Cardiac Device Check - Cardiac Device 13: 50262-Oduakb Cardiac Interrogation, implant defibrillator w/interim ([id number])
== END ==
PROVIDERS: PCP Family Medicine; Visit Provider Internal Medicine Cardiovascular Disease
DX: Z45.02 Encounter for adjustment and management of automatic implantable cardiac defibrillator (principal)
CPT/HCPCS: 93295

== ENCOUNTER 2024-04-16 06:20 | Outpatient (REF) | payer MEDICARE, SELFPAY ==
[2024-04-16 06:00] LABS: MANUAL DIFF FLAG NO
[2024-04-16 06:52] LABS: Anion Gap 10 (12-20); Blood Urea Nitrogen 15 mg/dL (9-16); Calcium 8.5 mg/dL (8.4-10.2); Carbon Dioxide 25 mmol/L (22-29); Chloride 110 mmol/L (96-108); Estimated Glomerular Filt Rate 51; Glucose Random 118 mg/dL (60-115); Potassium 3.2 mmol/L (3.3-5.1); Sodium 142 mmol/L (135-145)
[2024-04-16 07:01] LABS: Basophils Absolute Auto 0.1 X10*3/uL (0.0-0.2); Basophils Percent Auto 0.8 % (0-2); Eosinophils Absolute Auto 0.1 X10*3/uL (0.0-0.4); Eosinophils Percent Auto 1.7 % (0-4); Hematocrit 32.8 % (37.0-47.0); Hemoglobin 10.9 g/dl (12.0-16.0); Imm Gran Abs Auto 0.02 X10*3/uL (0.00-0.03); Imm Gran Pct Auto 0.3 % (0.0-0.4); Lymphocytes Absolute Auto 2.1 X10*3/uL (1.2-4.9); Lymphocytes Percent Auto 34.2 % (20-40); Mean Corpuscular HGB Conc 33.2 g/dl (31.0-35.0); Mean Corpuscular Hemoglobin 32.9 pg (27.0-33.0); Mean Corpuscular Volume 99.1 fL (80.0-98.0); Mean Platelet Volume 11.3 fL (9.4-12.3); Monocytes Absolute Auto 0.6 X10*3/uL (0.1-1.2); Monocytes Percent Auto 9.8 % (2-11); Neutrophils Absolute Auto 3.2 x10*3/uL (2.0-8.3); Neutrophils Percent Auto 53.2 % (45-73); Platelet Count 128 X10*3/uL (160-400); Red Blood Count 3.31 X10*6/uL (4.20-5.50); Red Cell Distribution Width 15.3 % (11.0-16.0)
== END 2024-04-16 06:21 | disposition home or self-care (01) ==
LOC: HO.MMNH3L 06:20
PROVIDERS: Visit Provider Family Medicine
DX: I48.0 Paroxysmal atrial fibrillation (principal); I10 Essential (primary) hypertension
CPT/HCPCS: 36415; 80048; 85025

== ENCOUNTER 2024-05-01 11:18 | Outpatient (REF) | payer MEDICARE, SELFPAY ==
[2024-05-01 11:27] LABS: MANUAL DIFF FLAG NO
[2024-05-01 11:34] LABS: Basophils Percent Auto 0.8 % (0-2); Eosinophils Absolute Auto 0.1 X10*3/uL (0.0-0.4); Eosinophils Percent Auto 2.1 % (0-4); Hematocrit 31.2 % (37.0-47.0); Hemoglobin 10.1 g/dl (12.0-16.0); Imm Gran Abs Auto 0.01 X10*3/uL (0.00-0.03); Imm Gran Pct Auto 0.2 % (0.0-0.4); Lymphocytes Absolute Auto 1.8 X10*3/uL (1.2-4.9); Lymphocytes Percent Auto 33.3 % (20-40); Mean Corpuscular HGB Conc 32.4 g/dl (31.0-35.0); Mean Corpuscular Hemoglobin 32.5 pg (27.0-33.0); Mean Corpuscular Volume 100.3 fL (80.0-98.0); Mean Platelet Volume 10.3 fL (9.4-12.3); Monocytes Absolute Auto 0.5 X10*3/uL (0.1-1.2); Neutrophils Absolute Auto 2.9 x10*3/uL (2.0-8.3); Neutrophils Percent Auto 54.6 % (45-73); Platelet Count 133 X10*3/uL (160-400); Red Blood Count 3.11 X10*6/uL (4.20-5.50); Red Cell Distribution Width 15.6 % (11.0-16.0); White Blood Count 5.3 X10*3/uL (4.8-10.8)
[2024-05-01 11:54] LABS: Anion Gap 10 (12-20); Blood Urea Nitrogen 17 mg/dL (9-16); Carbon Dioxide 28 mmol/L (22-29); Chloride 111 mmol/L (96-108); Estimated Glomerular Filt Rate 45; Glucose Random 138 mg/dL (60-115); Iron 69 mcg/dL (30-160); Percent Iron Saturation 38 % (15-50); Potassium 3.6 mmol/L (3.3-5.1); Sodium 145 mmol/L (135-145); Total Iron Binding Capacity 183 mcg/dL (228-428); Unsaturated Iron Binding 114 ug/dL
[2024-05-01 12:08] LABS: Ferritin 107 ng/mL (10-250); Thyroid Stimulating Hormone 5.36 uIU/mL (0.32-4.0); Vitamin D 25-OH Total 28.8 ng/mL (>30)
[2024-05-01 12:22] LABS: Folate 8.8 ng/mL (> or = 4.0); Vitamin B12 400 pg/mL (200-900)
== END 2024-05-01 11:19 | disposition home or self-care (01) ==
LOC: HO.MMNH3L 11:18
PROVIDERS: Visit Provider Hospitalist
DX: Z13.89 Encounter for screening for other disorder (principal)
CPT/HCPCS: 36415; 80048; 82306; 82607; 82728; 82746; 83540; 84443; 85025

== ENCOUNTER 2024-05-01 11:19 | Outpatient (REF) | payer MEDICARE, SELFPAY ==
[2024-05-01 11:31] LABS: Appearance Urine Cloudy; Color Urine Yellow; Glucose Urine UA Negative (Negative); Leukocyte Esterase Urine Trace (Negative); Nitrite Urine Negative (Negative); Specific Gravity - Urine 1.025 (1.005-1.025); UMIC TRIGGER UA YES; Urine Blood Moderate (2+) (Negative); Urine Ketones Negative (Negative); Urine Protein 30 (1+) mg/dL (Neg-Trace)
[2024-05-01 11:44] LABS: Bacteria Urine 4+ (None Seen); Calcium Oxalate Crystals Urine Present; Hyaline Casts Urine 0-2 /LPF (0-2); WBC Urine 0-5 /HPF (0-5)
== END 2024-05-01 11:20 | disposition home or self-care (01) ==
LOC: HO.MMNH3L 11:19
PROVIDERS: Visit Provider Hospitalist
DX: F41.9 Anxiety disorder, unspecified (principal); I50.9 Heart failure, unspecified; R82.90 Unspecified abnormal findings in urine
CPT/HCPCS: 36415; 80048; 81001; 82306; 82607; 82728; 82746; 83540; 84443; 85025; 87086; 87088; 87186

== ENCOUNTER 2024-05-15 06:42 | Outpatient (REF) | payer MEDICARE, SELFPAY ==
[2024-05-15 05:53] LABS: MANUAL DIFF FLAG NO
[2024-05-15 06:29] LABS: Basophils Absolute Auto 0.1 X10*3/uL (0.0-0.2); Basophils Percent Auto 0.9 % (0-2); Eosinophils Absolute Auto 0.1 X10*3/uL (0.0-0.4); Eosinophils Percent Auto 2.4 % (0-4); Hematocrit 29.3 % (37.0-47.0); Hemoglobin 9.5 g/dl (12.0-16.0); Imm Gran Abs Auto 0.01 X10*3/uL (0.00-0.03); Imm Gran Pct Auto 0.2 % (0.0-0.4); Lymphocytes Percent Auto 36.6 % (20-40); Mean Corpuscular HGB Conc 32.4 g/dl (31.0-35.0); Mean Corpuscular Hemoglobin 32.9 pg (27.0-33.0); Mean Corpuscular Volume 101.4 fL (80.0-98.0); Monocytes Absolute Auto 0.6 X10*3/uL (0.1-1.2); Monocytes Percent Auto 10.1 % (2-11); Neutrophils Absolute Auto 2.7 x10*3/uL (2.0-8.3); Neutrophils Percent Auto 49.8 % (45-73); Platelet Count 127 X10*3/uL (160-400); Red Blood Count 2.89 X10*6/uL (4.20-5.50); Red Cell Distribution Width 15.1 % (11.0-16.0); White Blood Count 5.4 X10*3/uL (4.8-10.8)
[2024-05-15 06:56] LABS: Anion Gap 11 (12-20); Blood Urea Nitrogen 16 mg/dL (9-16); Calcium 8.6 mg/dL (8.4-10.2); Carbon Dioxide 25 mmol/L (22-29); Chloride 109 mmol/L (96-108); Estimated Glomerular Filt Rate 52; Glucose Random 93 mg/dL (60-115); Potassium 3.9 mmol/L (3.3-5.1); Sodium 141 mmol/L (135-145)
== END 2024-05-15 06:43 | disposition home or self-care (01) ==
LOC: HO.MMNH3L 06:42
PROVIDERS: Visit Provider Hospitalist
DX: I48.0 Paroxysmal atrial fibrillation (principal); I10 Essential (primary) hypertension
CPT/HCPCS: 36415; 80048; 85025

== ENCOUNTER 2024-05-28 06:18 | Outpatient (REF) | payer MEDICARE, SELFPAY ==
[2024-05-28 06:21] LABS: MANUAL DIFF FLAG NO
[2024-05-28 07:04] LABS: Basophils Percent Auto 0.6 % (0-2); Eosinophils Absolute Auto 0.2 X10*3/uL (0.0-0.4); Eosinophils Percent Auto 2.7 % (0-4); Hematocrit 30.1 % (37.0-47.0); Imm Gran Abs Auto 0.02 X10*3/uL (0.00-0.03); Imm Gran Pct Auto 0.3 % (0.0-0.4); Lymphocytes Absolute Auto 2.5 X10*3/uL (1.2-4.9); Lymphocytes Percent Auto 39.6 % (20-40); Mean Corpuscular HGB Conc 33.2 g/dl (31.0-35.0); Mean Corpuscular Hemoglobin 33.6 pg (27.0-33.0); Mean Platelet Volume 10.7 fL (9.4-12.3); Monocytes Absolute Auto 0.6 X10*3/uL (0.1-1.2); Neutrophils Percent Auto 46.8 % (45-73); Platelet Count 140 X10*3/uL (160-400); Red Blood Count 2.98 X10*6/uL (4.20-5.50); Red Cell Distribution Width 15.2 % (11.0-16.0); White Blood Count 6.3 X10*3/uL (4.8-10.8)
[2024-05-28 07:31] LABS: Anion Gap 9 (12-20); Blood Urea Nitrogen 15 mg/dL (9-16); Calcium 9.1 mg/dL (8.4-10.2); Carbon Dioxide 27 mmol/L (22-29); Chloride 110 mmol/L (96-108); Estimated Glomerular Filt Rate 38; Glucose Random 98 mg/dL (60-115); Potassium 3.8 mmol/L (3.3-5.1); Sodium 142 mmol/L (135-145)
== END 2024-05-28 06:19 | disposition home or self-care (01) ==
LOC: HO.MMNH3L 06:18
PROVIDERS: Visit Provider Family Medicine
DX: N39.0 Urinary tract infection, site not specified (principal)
CPT/HCPCS: 36415; 80048; 85025

== ENCOUNTER 2024-05-29 13:41 | Outpatient (REF) | payer MEDICARE, SELFPAY ==
[2024-05-29 14:42] LABS: Appearance Urine Cloudy; Color Urine Dark Yellow; Glucose Urine UA Negative (Negative); Leukocyte Esterase Urine Moderate (2+) (Negative); Nitrite Urine Negative (Negative); PH 5.5 (5.0-9.0); Specific Gravity - Urine 1.025 (1.005-1.025); UMIC TRIGGER UA YES; Urine Blood Negative (Negative); Urine Ketones Negative (Negative); Urine Protein 30 (1+) mg/dL (Neg-Trace)
[2024-05-29 14:55] LABS: Bacteria Urine 4+ (None Seen); Calcium Oxalate Crystals Urine Present; Hyaline Casts Urine 0-2 /LPF (0-2); RBC Urine 0-2 /HPF (0-2); Squamous Epithelial Cell Urine 0-2 /HPF (0-2)
== END 2024-05-29 13:42 | disposition home or self-care (01) ==
LOC: HO.MMNH3L 13:41
PROVIDERS: Visit Provider Family Medicine
DX: F41.9 Anxiety disorder, unspecified (principal); I50.9 Heart failure, unspecified; M81.0 Age-related osteoporosis without current pathological fracture; R82.90 Unspecified abnormal findings in urine
CPT/HCPCS: 81001; 81003; 87086; 87088; 87186

== ENCOUNTER 2024-06-18 06:36 | Outpatient (REF) | payer MEDICARE, SELFPAY ==
[2024-06-18 06:14] LABS: MANUAL DIFF FLAG NO
[2024-06-18 07:11] LABS: Basophils Absolute Auto 0.1 X10*3/uL (0.0-0.2); Basophils Percent Auto 0.7 % (0-2); Eosinophils Absolute Auto 0.2 X10*3/uL (0.0-0.4); Eosinophils Percent Auto 2.1 % (0-4); Hematocrit 31.4 % (37.0-47.0); Hemoglobin 10.1 g/dl (12.0-16.0); Imm Gran Abs Auto 0.02 X10*3/uL (0.00-0.03); Imm Gran Pct Auto 0.3 % (0.0-0.4); Lymphocytes Absolute Auto 2.1 X10*3/uL (1.2-4.9); Lymphocytes Percent Auto 28.8 % (20-40); Mean Corpuscular HGB Conc 32.2 g/dl (31.0-35.0); Mean Corpuscular Hemoglobin 32.5 pg (27.0-33.0); Mean Platelet Volume 10.8 fL (9.4-12.3); Monocytes Absolute Auto 0.7 X10*3/uL (0.1-1.2); Monocytes Percent Auto 9.7 % (2-11); Neutrophils Absolute Auto 4.2 x10*3/uL (2.0-8.3); Neutrophils Percent Auto 58.4 % (45-73); Platelet Count 132 X10*3/uL (160-400); Red Blood Count 3.11 X10*6/uL (4.20-5.50); Red Cell Distribution Width 16.3 % (11.0-16.0); White Blood Count 7.2 X10*3/uL (4.8-10.8)
[2024-06-18 07:15] LABS: Anion Gap 9 (12-20); Blood Urea Nitrogen 17 mg/dL (9-16); Calcium 8.5 mg/dL (8.4-10.2); Carbon Dioxide 23 mmol/L (22-29); Chloride 116 mmol/L (96-108); Estimated Glomerular Filt Rate 45; Glucose Random 106 mg/dL (60-115); Potassium 3.9 mmol/L (3.3-5.1); Sodium 144 mmol/L (135-145)
== END 2024-06-18 06:37 | disposition home or self-care (01) ==
LOC: HO.MMNH3L 06:36
PROVIDERS: Visit Provider Family Medicine
DX: I48.0 Paroxysmal atrial fibrillation (principal); I10 Essential (primary) hypertension
CPT/HCPCS: 36415; 80048; 85025

== ENCOUNTER → 2024-06-18 23:59 | Outpatient (BNV) | payer MEDICARE, SELFPAY ==
--- NOTE | 2024-06-19 12:38 | MHC.OFFVIS ---
Intake Visit Reasons: Remote ICD Check- 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 Mother No problems noted. 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 ICD function is adequate. Biventricular pacing almost 100% of the time [id number] Cardiac Interrogation, implant defibrillator w/interim Procedure code (CPT) selection complete Assessment & Plan Assessment & Plan (1) Biventricular ICD (implantable cardioverter-defibrillator) in place: Code(s): Z95.810 - Presence of automatic (implantable) cardiac defibrillator Category: Medical Plan: See above Coding Level of Care Code Procedure Only Diagnoses Biventricular ICD (implantable cardioverter-defibrillator) in place Z95.810 CPT Codes Cardiac Device Check - Cardiac Device 13: [id number] Cardiac Interrogation, implant defibrillator w/interim ([id number])
== END ==
PROVIDERS: PCP Family Medicine; Visit Provider Internal Medicine Cardiovascular Disease
DX: Z45.02 Encounter for adjustment and management of automatic implantable cardiac defibrillator (principal)
CPT/HCPCS: 93295

== ENCOUNTER 2024-06-27 11:33 | Outpatient (REF) | payer MEDICARE, SELFPAY ==
[2024-06-27 11:38] LABS: MANUAL DIFF FLAG NO
[2024-06-27 11:52] LABS: Basophils Absolute Auto 0.1 X10*3/uL (0.0-0.2); Basophils Percent Auto 0.7 % (0-2); Eosinophils Absolute Auto 0.1 X10*3/uL (0.0-0.4); Eosinophils Percent Auto 1.3 % (0-4); Hematocrit 29.2 % (37.0-47.0); Hemoglobin 9.3 g/dl (12.0-16.0); Imm Gran Abs Auto 0.03 X10*3/uL (0.00-0.03); Imm Gran Pct Auto 0.4 % (0.0-0.4); Lymphocytes Absolute Auto 1.8 X10*3/uL (1.2-4.9); Lymphocytes Percent Auto 23.8 % (20-40); Mean Corpuscular HGB Conc 31.8 g/dl (31.0-35.0); Mean Corpuscular Hemoglobin 32.6 pg (27.0-33.0); Mean Corpuscular Volume 102.5 fL (80.0-98.0); Mean Platelet Volume 10.7 fL (9.4-12.3); Monocytes Absolute Auto 0.6 X10*3/uL (0.1-1.2); Monocytes Percent Auto 8.5 % (2-11); Neutrophils Absolute Auto 4.9 x10*3/uL (2.0-8.3); Neutrophils Percent Auto 65.3 % (45-73); Platelet Count 163 X10*3/uL (160-400); Red Blood Count 2.85 X10*6/uL (4.20-5.50); White Blood Count 7.5 X10*3/uL (4.8-10.8)
[2024-06-27 12:13] LABS: Anion Gap 14 (12-20); Blood Urea Nitrogen 18 mg/dL (9-16); Calcium 8.7 mg/dL (8.4-10.2); Carbon Dioxide 22 mmol/L (22-29); Chloride 112 mmol/L (96-108); Estimated Glomerular Filt Rate 35; Glucose Random 179 mg/dL (60-115); Iron 75 mcg/dL (30-160); Percent Iron Saturation 41 % (15-50); Potassium 3.8 mmol/L (3.3-5.1); Sodium 144 mmol/L (135-145); Total Iron Binding Capacity 185 mcg/dL (228-428); Unsaturated Iron Binding 110 ug/dL
[2024-06-27 12:14] LABS: Appearance Urine Clear; Color Urine Dark Yellow; Glucose Urine UA Negative (Negative); Leukocyte Esterase Urine Negative (Negative); Nitrite Urine Negative (Negative); PH 6.5 (5.0-9.0); Specific Gravity - Urine 1.025 (1.005-1.025); UMIC TRIGGER UA YES; Urine Blood Negative (Negative); Urine Ketones Trace mg/dL (Negative); Urine Protein 30 (1+) mg/dL (Neg-Trace)
[2024-06-27 12:15] LABS: Ammonia 110 umol/L (13-55)
[2024-06-27 12:30] LABS: Bacteria Urine None Seen (None Seen); Hyaline Casts Urine 0-2 /LPF (0-2); RBC Urine 0-2 /HPF (0-2); Squamous Epithelial Cell Urine 0-2 /HPF (0-2); WBC Urine 0-5 /HPF (0-5)
[2024-06-27 12:30] LABS: Ferritin 92 ng/mL (10-250); Free T4 (Free Thyroxine) 1.15 ng/dL (0.71-1.85); Thyroid Stimulating Hormone 7.05 uIU/mL (0.32-4.0); Vitamin D 25-OH Total 26.1 ng/mL (>30)
[2024-06-27 12:36] LABS: Vitamin B12 440 pg/mL (200-900)
[2024-06-28 13:00] LABS: Alanine Aminotransferase 36 U/L (0-31); Albumin Level 2.5 g/dL (3.5-5.0); Alkaline Phosphatase 272 U/L (39-117); Aspartate Amino Transferase 82 U/L (5-31); Bilirubin Direct 0.4 mg/dL (0.0-0.5); Bilirubin Total 0.8 mg/dL (0.0-1.0); Total Protein 7.7 g/dL (6.5-8.0)
[2024-06-28 17:44] LABS: Triiodothyronine T3 Free 1.4 pg/mL (2.3-4.2)
== END 2024-06-27 11:34 | disposition home or self-care (01) ==
LOC: HO.MMNH3L 11:33
PROVIDERS: Visit Provider Hospitalist
DX: F32.9 Major depressive disorder, single episode, unspecified (principal); F41.9 Anxiety disorder, unspecified; E78.5 Hyperlipidemia, unspecified; R82.90 Unspecified abnormal findings in urine
CPT/HCPCS: 36415; 80048; 80076; 81001; 82140; 82306; 82607; 82728; 83540; 84439; 84443; 84481; 85025; 87086

== ENCOUNTER 2024-06-29 05:36 | Outpatient (REF) | payer MEDICARE, SELFPAY ==
[2024-06-29 06:06] LABS: Ammonia 69 umol/L (13-55)
== END 2024-06-29 05:37 | disposition home or self-care (01) ==
LOC: HO.MMNH3L 05:36
PROVIDERS: Visit Provider Hospitalist
DX: E72.20 Disorder of urea cycle metabolism, unspecified (principal)
CPT/HCPCS: 36415; 82140

== ENCOUNTER 2024-07-02 06:02 | Outpatient (REF) | payer MEDICARE, SELFPAY ==
[2024-07-02 06:20] LABS: Ammonia 49 umol/L (13-55)
== END 2024-07-02 06:03 | disposition home or self-care (01) ==
LOC: HO.MMNH3L 06:02
PROVIDERS: Visit Provider Family Medicine
DX: E72.20 Disorder of urea cycle metabolism, unspecified (principal)
CPT/HCPCS: 36415; 82140

== ENCOUNTER 2024-07-16 06:16 | Outpatient (REF) | payer MEDICARE, SELFPAY ==
[2024-07-16 06:02] LABS: MANUAL DIFF FLAG NO
[2024-07-16 07:06] LABS: Basophils Absolute Auto 0.1 X10*3/uL (0.0-0.2); Basophils Percent Auto 0.9 % (0-2); Eosinophils Absolute Auto 0.2 X10*3/uL (0.0-0.4); Eosinophils Percent Auto 2.5 % (0-4); Hematocrit 28.7 % (37.0-47.0); Hemoglobin 9.3 g/dl (12.0-16.0); Imm Gran Abs Auto 0.02 X10*3/uL (0.00-0.03); Imm Gran Pct Auto 0.3 % (0.0-0.4); Lymphocytes Absolute Auto 2.5 X10*3/uL (1.2-4.9); Lymphocytes Percent Auto 36.4 % (20-40); Mean Corpuscular HGB Conc 32.4 g/dl (31.0-35.0); Mean Corpuscular Hemoglobin 32.3 pg (27.0-33.0); Mean Corpuscular Volume 99.7 fL (80.0-98.0); Mean Platelet Volume 10.7 fL (9.4-12.3); Monocytes Absolute Auto 0.6 X10*3/uL (0.1-1.2); Monocytes Percent Auto 9.1 % (2-11); Neutrophils Absolute Auto 3.5 x10*3/uL (2.0-8.3); Neutrophils Percent Auto 50.8 % (45-73); Platelet Count 139 X10*3/uL (160-400); Red Blood Count 2.88 X10*6/uL (4.20-5.50); Red Cell Distribution Width 16.2 % (11.0-16.0); White Blood Count 6.9 X10*3/uL (4.8-10.8)
[2024-07-16 08:16] LABS: Anion Gap 10 (12-20); Blood Urea Nitrogen 23 mg/dL (9-16); Calcium 8.6 mg/dL (8.4-10.2); Carbon Dioxide 24 mmol/L (22-29); Chloride 113 mmol/L (96-108); Estimated Glomerular Filt Rate 31; Glucose Random 75 mg/dL (60-115); Potassium 4.2 mmol/L (3.3-5.1); Sodium 143 mmol/L (135-145)
== END 2024-07-16 06:17 | disposition home or self-care (01) ==
LOC: HO.MMNH3L 06:16
PROVIDERS: Visit Provider Family Medicine
DX: I48.0 Paroxysmal atrial fibrillation (principal); I10 Essential (primary) hypertension
CPT/HCPCS: 36415; 80048; 85025